=== PATIENT | male | born 1960 | race Hispanic/Latino ===

== ENCOUNTER 2020-07-28 17:00 | Emergency (ER) | payer MEDICARE, SELFPAY ==
[2020-07-28 17:09] VITALS: BP 168/80; PULSE 113; RESP 16; TEMP 38.7; O2SAT 99
--- NOTE | 2020-07-28 17:23 | ED.GENADULT ---
HPI - General Adult General Chief complaint: Ear Stated complaint: ear pain Time Seen by Provider: 07/28/20 17:23 Source: patient and RN notes reviewed Mode of arrival: ambulatory Limitations: no limitations History of Present Illness HPI narrative: 59-year-old male presents with complaints of bilateral otalgia for the past 4 days. Dwight says he was outside playing over the weekend and air went into his ears and pain has increased over the pass 24 hours. Naproxen at 11 am this morning with little to no relief. Denies any drainage. Denies trouble hearing. Denies URI symptoms, No high fevers or chills. Denies injury to the ear. Denies nausea, vomiting, tinnitus, and dizziness. No facial swelling. No neck swelling. The patient reports he have not been diagnosed with COVID-19. The patient reports he is not waiting for the results of a COVID-19 lab test. The patient reports he do not have weakness or fatigue. The patient reports he do not have a new or worsening cough or shortness of breath. Denies chest pain. The patient reports he do not have any rhinorrhea, congestion, loss of taste, sore throat, and diarrhea. Tolerating po intake well. Denies recent traveling. Denies concerns for COVID-19 or exposures been home with limited outdoor exposure except for essential household needs and return home. At this time, patient is not suspected of having COVID-19. Some parts of this dictation were generated by voice recognition software and may contain typographical and/or grammatical inaccuracies. Related Data Home Medications Medication Instructions Recorded Confirmed lisinopril 10 mg PO DAILY 07/28/20 07/28/20 metformin 500 mg PO BID 07/28/20 07/28/20 omeprazole 20 mg PO DAILY 07/28/20 07/28/20 pravastatin 20 mg PO DAILY 07/28/20 07/28/20 Allergies Allergy/AdvReac Type Severity Reaction Status Date / Time No Known Allergies Allergy Unknown Verified 07/28/20 17:18 Review of Systems Review of Systems: Narrative: CONSTITUTIONAL: Denies fever, chills, sweats. EYES: Denies visual changes, redness, discharge. ENT: Denies rhinorrhea, congestion, sore throat. Complains of bilateral otalgia. CARDIOVASCULAR: Denies chest pain, palpitations, edema. RESPIRATORY: Denies dyspnea, wheezing, cough. GASTROINTESTINAL: Denies abdominal pain, nausea, vomiting, diarrhea. SKIN: Denies rash or itching. MUSCULOSKELETAL: Denies acute back pain, joint pain, or myalgia. NEUROLOGIC: Denies numbness or focal weakness. PSYCHIATRIC: Denies anxiety or depression. All systems reviewed & are unremarkable except as noted in HPI and below. [facility] Past Medical History Medical History (Updated 07/29/20 @ 00:00 by Sydnee Dajessica) Diabetes High cholesterol Hypertension Surgical History Surgical History (Updated 07/28/20 @ 17:38 by ADAM Lazaro) History of cholecystectomy History of intestinal surgery Large intestinal Family History Family History (Updated 07/28/20 @ 17:39 by ADAM Lazaro) Father , Related to cardiovascular accident Cerebrovascular accident Mother Cancer Social History Social History (Updated 07/28/20 @ 17:40 by ADAM Lazaro) Smoking status: Never smoker Tobacco type: cigarettes Second hand tobacco smoke exposure: No Alcohol intake: never Substance use: never Living arrangements: with family Occupation/Education: other Additional occupation/education comments: Disable Gender identity (if verbalized by the patient): Male Sexual Orientation (if Verbalized by the Patient): Straight or Heterosexual Comments At time of signature, agree with nurse past medical, surgical, social, and family history. There is no relevant family history pertinent to the presenting complaint. Exam Narrative: Exam Narrative: GENERAL: This is a well-nourished, well-developed patient, in no apparent distress. Talks in full sentences ans ambulates
== END 2020-07-28 18:21 | disposition home or self-care (01) ==
PROVIDERS: Emergency Provider Nurse Practitioner Family
DX: K02.9 Dental caries, unspecified (principal); K04.7 Periapical abscess without sinus; E11.9 Type 2 diabetes mellitus without complications; E78.00 Pure hypercholesterolemia, unspecified; I10 Essential (primary) hypertension
CPT/HCPCS: 99213; G0463

== ENCOUNTER 2020-08-01 16:06 | Inpatient (IN) | payer MEDICARE, SELFPAY ==
--- NOTE | ~2020-08-01 | XR_ITS ---
EXAMINATION: XR chest 1V portable DATE: 08/05/2020 13:09 INDICATION: Pneumonia. Increasing oxygen requirements. TECHNIQUE: A single frontal view of the chest was obtained. COMPARISON: Chest 2 views 08/01/2020, CT abdomen and pelvis 01/20/17 FINDINGS: There are mild airspace opacities in right lower lung zone and left midlung zone No pleural effusion or pneumothorax. The heart size is normal. Surgical clips in the right upper quadrant are l ikely from cholecystectomy. IMPRESSION: 1. Mild airspace opacities in right lower lung zone and left midlung zone with improvement on the lef t, consistent with atelectasis versus pneumonia. Reviewed, dictated and finalized at location A. IMPRESSION: 1. Mild airspace opacities in right lower lung zone and left midlung zone with improvement on the left, consistent with atelectasis versus pneumonia.
--- NOTE | ~2020-08-01 | XR_ITS ---
EXAMINATION: XR chest 1V portable DATE: 08/08/2020 08:49 INDICATION: COVID-19 pneumonia. TECHNIQUE: A single frontal view of the chest was obtained. COMPARISON: Chest single view 08/05/2020 FINDINGS: There are patchy airspace opacities in all lung zones bilaterally with a peripheral predomi nance, left worse than right. No pleural effusion or pneumothorax. The heart size is normal. Surgical clips in the right upper quadrant are likely from cholecystectomy. IMPRESSION: 1. Worsened diffuse lung disease, consistent with pneumonia. Reviewed, dictated and finalized at location A.
--- NOTE | ~2020-08-01 | XR_ITS ---
EXAMINATION: XR chest 1V portable INDICATION: COVID pneumonia TECHNIQUE: Portable AP chest at 0626 hours COMPARISON: 08/08/2020 FINDINGS: Diffuse patchy airspace opacities persist without significant change. There is no pleural e ffusion or pneumothorax. The cardiomediastinal silhouette is normal. Surgical clips in the right uppe r quadrant are likely from prior cholecystectomy. IMPRESSION: 1. Diffuse lung disease, consistent with pneumonia and/or pulmonary edema and/or acute respiratory di stress syndrome (ARDS). Reviewed, dictated and finalized at location A. LE ENGINEER IMPRESSION: 1. Diffuse lung disease, consistent with pneumonia and/or pulmonary edema and/o r acute respiratory distress syndrome (ARDS).
--- NOTE | ~2020-08-01 | XR_ITS ---
EXAMINATION: XR chest 2V EXAM DATE: 08/01/2020 17:21 INDICATION: Fever, tooth infection. Shortness of breath. TECHNIQUE: Frontal and lateral projections of the chest obtained and reviewed. There is no prior elizabeth dy for comparison. FINDINGS: Some patchy left perihilar and right infrahilar airspace disease which could be atelectasi s, pneumonia, or possibly acute lung injury from SARS-CoV-2. The cardiomediastinal silhouette is prominent but magnified on this AP technique. There is no pneumot horax suspected. There are no pleural effusions. There are cholecystectomy clips. There are mild bony degenerative changes. IMPRESSION: 1. Patchy bilateral airspace disease could be atelectasis and/or infection. Reviewed, dictated and finalized at location A.
[2020-08-01 16:32] VITALS: BP 124/74; PULSE 129; RESP 30; TEMP 39.6; O2SAT 93
--- NOTE | 2020-08-01 16:51 | ED.FEVER ---
HPI - Fever General Chief Complaint: Fever Stated Complaint: FEVER ON ABX FOR TOOTH INFECTION Time Seen by Provider: 08/01/20 16:30 Source: patient Mode of arrival: ambulatory Limitations: no limitations History of Present Illness MD elicited complaint: fever and malaise Exacerbating factors: nothing Relieving factors: nothing Associated symptoms: cough and shortness of breath Related Data Home Medications Medication Instructions Recorded Confirmed lisinopril 10 mg PO DAILY 07/28/20 07/28/20 metformin 500 mg PO BID 07/28/20 07/28/20 omeprazole 20 mg PO DAILY 07/28/20 07/28/20 pravastatin 20 mg PO DAILY 07/28/20 07/28/20 Allergies Allergy/AdvReac Type Severity Reaction Status Date / Time No Known Allergies Allergy Unknown Verified 08/01/20 16:40 Review of Systems Review of Systems: All systems reviewed & are unremarkable except as noted in HPI and below Constitutional: Constitutional: Denies body ache(s), Denies excessive sweating, Denies fatigue, Denies headache(s), Denies lethargy, Denies malaise, Denies weakness and Denies weight loss Eyes: Eyes: Denies blurry vision, Denies change in vision and Denies loss of vision ENT: Denies dizziness, Denies ear discharge, Denies headache(s), Denies lip swelling, Denies epistaxis, Denies nasal congestion, Denies neck pain, Denies throat swelling and Denies tongue swelling Cardiovascular: Cardiovascular: Denies chest pain, Denies chest pain at rest, Denies chest pain with activity, Denies diaphoresis, Denies rapid heart rate, Denies edema, Denies irregular heart rhythm, Denies lightheadedness, Denies palpitations and Denies dyspnea on exertion Respiratory: Respiratory: Denies hemoptysis Gastrointestinal: Gastrointestinal: Denies abdominal pain, Denies melena, Denies hematochezia, Denies diarrhea, Denies nausea, Denies vomiting and Denies hematemesis Musculoskeletal: Musculoskeletal: Denies abnormal gait, Denies deformity, Denies joint swelling, Denies limited range of motion, Denies neck pain and Denies numbness Neurologic: Denies Abnormal speech present, Denies abnormal gait, Denies confusion, Denies dizziness, Denies headache(s), Denies focal weakness, Denies loss of vision, Denies numbness, Denies Other visual disturbances, Denies Sensory deficit (Neuro) and Denies weakness Psychiatric: Psychiatric: Denies confusion, Denies depression, Denies auditory hallucinations, Denies homicidal ideation and Denies suicidal ideation Endocrine: Endocrine: Denies cold intolerance, Denies excessive sweating, Denies fatigue, Denies heat intolerance and Denies palpitations Hematologic/Lymphatic: Hematologic/Lymphatic: Denies easy bleeding and Denies easy bruising Allergic/Immunologic: Allergic/Immunologic: Denies lip swelling, Denies throat swelling and Denies tongue swelling PMFSH Past Medical History Medical History (Updated 08/01/20 @ 18:01 by Tirso Cleaning MD) Diabetes High cholesterol Hypertension Surgical History Surgical History (Updated 07/28/20 @ 17:38 by ADAM Lazaro) History of cholecystectomy History of intestinal surgery Large intestinal Family History Family History (Updated 07/28/20 @ 17:39 by ADAM Lazaro) Father , Related to cardiovascular accident Cerebrovascular accident Mother Cancer Social History Social History (Updated 07/28/20 @ 17:40 by ADAM Lazaro) Smoking status: Never smoker Tobacco type: cigarettes Second hand tobacco smoke exposure: No Alcohol intake: never Substance use: never Additional occupation/education comments: Disable Gender identity (if verbalized by the patient): Male Exam Const: General: cooperative, healthy appearing, comfortable, no acute distress, well developed, alert and awake; No confusion Orientation/consciousness: oriented to person, oriented to place, oriented to time, patient oriented x3 and No confusion Limitations: no limitati
[2020-08-01 17:10] LABS: Basophils Percent Auto 0.1 % (0.2-1.2); Hematocrit 38.7 % (42.0-52.0); Hemoglobin 13.2 g/dL (14.0-18.0); Immature Granulocyte Absolute 0.04 K/mm3 (0.00-0.031); Immature Granulocyte Percent A 0.6 % (0-0.5); Lymphocytes Absolute Auto 0.67 K/mm3 (0.9-3.2); Lymphocytes Percent Auto 9.2 % (18.3-44.2); Mean Corpuscular HGB Conc 34.1 g/dl (32-36); Mean Corpuscular Hemoglobin 28.9 pg (26-34); Mean Corpuscular Volume 84.7 fl (80-100); Mean Platelet Volume 10.4 fl (7.4-10.4); Monocytes Absolute Auto 0.4 K/mm3 (0.1-0.6); Monocytes Percent Auto 5.1 % (2.6-8.5); Neutrophils Absolute Auto 6.2 K/mm3 (1.3-6.7); Platelet Count Result 275 k/mm3 (150-375); Red Blood Count 4.57 M/mm3 (4.6-6.20); Red Cell Distribution Width 12.9 % (11.5-14.5); White Blood Count 7.3 K/mm3 (4.5-10.0)
[2020-08-01 17:19] LABS: Prothrombin Time 12.9 Seconds (11.1-14.7)
[2020-08-01 17:20] LABS: Partial Thromboplastin Time 35.4 SECONDS (22.3-36.8)
[2020-08-01 17:22] LABS: Lactic Acid Reflex 2.6 mmol/L (0.7-2.1)
[2020-08-01 17:26] LABS: Alanine Aminotransferase 75 U/L (4-50); Albumin Level 3.6 g/dL (3.5-5.1); Alkaline Phosphatase 57 U/L (38-126); Anion Gap 12 mmol/L (8-16); Aspartate Amino Transferase 80 U/L (17-59); Bilirubin,Total 0.7 mg/dL (0.2-1.3); Blood Urea Nitrogen 10 mg/dL (9-20); Calcium 8.3 mg/dL (8.4-10.2); Carbon Dioxide 24 mmol/L (22-30); Chloride 94 mmol/L (98-107); Estimated CRCL calculation 88 ml/min; Estimated Glomerular Filt Rate > 60; Glucose 226 mg/dL (75-110); Potassium 4.1 mmol/L (3.4-5.0); Sodium 130 mmol/L (137-145)
[2020-08-01] MEDS: SODIUM CHLORIDE 0.9% IV 2,300 ML/1,000 ML BAG 999 ML IV CONT ×3 (17:30→22:37)
[2020-08-01 17:37] LABS: CRP 15.1 mg/dL (<1.0)
[2020-08-01 18:49] VITALS: PULSE 103; RESP 34; O2SAT 100
--- NOTE | 2020-08-01 19:09 | PC.NURSE ---
Called to give report on pt. Was told by Bettina that she doesnt know who is getting this pt and she will have someone call me back.
[2020-08-01 19:20] LABS: Add Urine Microscopic? YES; Appearance Urine Clear (Clear); Bacteria Urine Trace /hpf; Bilirubin Urine Negative (Negative); Blood Urine Negative (Negative); Color Urine Straw (Yellow); Glucose Urine UA 3+ mg/dL (Negative); Ketones Urine Negative (Negative); Leukocyte Esterase Ur Negative LEU/UL (Negative); Nitrate Urine Negative (Negative); Protein Urine Negative (Negative); RBC Urine 0-2 /hpf (0-2); Specific Grav Ur 1.005 (1.001-1.035); Urobilinogen Urine Negative mg/dL (<2.0); WBC Urine 0-3 /hpf
[2020-08-01 19:30] VITALS: BP 128/65; PULSE 101; RESP 18; TEMP 37.3; O2SAT 95
[2020-08-01 19:38] VITALS: PULSE 101; RESP 24; TEMP 36.9; O2SAT 96
[2020-08-01 19:39] VITALS: BP 148/91; PULSE 102; RESP 24; TEMP 36.9; O2SAT 95
[2020-08-01 20:08] LABS: Reflex Lactic Acid Yes or No Add Lactic
[2020-08-01 20:43] LABS: Lactic Acid 1.2 mmol/L (0.7-2.1)
--- NOTE | 2020-08-01 21:08 | PC.NURSE ---
This patient, Dwight Kincaid, was admitted to [facility] Surg Room 329-01. Patient/family oriented to hospital policies and general routines including ID bracelet, bed and alarms, visiting hours, pain management, procedures, bathroom and other care routines, personal items, smoking policy, room service/diet, and visiting hours. Information on how to activate the Rapid Response Team has been discussed. Patient/Family are encouraged to report perceived risks to care and to ask questions if they do not understand what they are told or what they should do.
[2020-08-01 22:53] VITALS: BMI 27.1
[2020-08-02] VITALS (13 sets, daily range): BP systolic 108–151; BP diastolic 65–85; PULSE 88–109; RESP 16–20; TEMP 36.3–38.8; O2SAT 91–95
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
[2020-08-02] MEDS: PANTOPRAZOLE 40 MG TABLET PO (08:00)
[2020-08-02] MEDS: DEXAMETHASONE SOD PHOS INJ 4 MG/ML VIAL 6 MG IV PUSH (08:00)
[2020-08-02] MEDS: lisinopriL 10 MG TABLET PO (08:00)
[2020-08-02] MEDS: ENOXAPARIN 40 MG/0.4 ML SYRINGE SUB-Q (08:00)
[2020-08-02 08:58] LABS: Basophils Percent Auto 0.2 % (0.2-1.2); Hematocrit 43.2 % (42.0-52.0); Hemoglobin 13.6 g/dL (14.0-18.0); Immature Granulocyte Absolute 0.06 K/mm3 (0.00-0.031); Immature Granulocyte Percent A 0.7 % (0-0.5); Lymphocytes Absolute Auto 1.73 K/mm3 (0.9-3.2); Lymphocytes Percent Auto 20.1 % (18.3-44.2); Mean Corpuscular HGB Conc 31.5 g/dl (32-36); Mean Corpuscular Hemoglobin 28.6 pg (26-34); Mean Corpuscular Volume 90.8 fl (80-100); Monocytes Absolute Auto 0.3 K/mm3 (0.1-0.6); Monocytes Percent Auto 3.9 % (2.6-8.5); Neutrophils Absolute Auto 6.5 K/mm3 (1.3-6.7); Neutrophils Percent Auto 75.1 % (45.5-73.1); Platelet Count Result 253 k/mm3 (150-375); Red Blood Count 4.76 M/mm3 (4.6-6.20); Red Cell Distribution Width 13.2 % (11.5-14.5); White Blood Count 8.6 K/mm3 (4.5-10.0)
[2020-08-02 09:11] LABS: Alanine Aminotransferase 71 U/L (4-50); Albumin Level 3.7 g/dL (3.5-5.1); Alkaline Phosphatase 57 U/L (38-126); Anion Gap 11 mmol/L (8-16); Aspartate Amino Transferase 65 U/L (17-59); Bilirubin,Total 0.8 mg/dL (0.2-1.3); Blood Urea Nitrogen 8 mg/dL (9-20); Calcium 8.2 mg/dL (8.4-10.2); Carbon Dioxide 22 mmol/L (22-30); Chloride 104 mmol/L (98-107); Estimated CRCL calculation 102 ml/min; Estimated Glomerular Filt Rate > 60; Glucose 142 mg/dL (75-110); Sodium 137 mmol/L (137-145)
[2020-08-02 09:13] LABS: Glucose Point of Care 133 (65-105)
[2020-08-02 09:31] LABS: Magnesium 2.2 mg/dL (1.6-2.3)
[2020-08-02 12:51] LABS: Glucose Point of Care 202 (65-105)
[2020-08-02] MEDS: INSULIN ASPART (*BKC) 100 UNITS/ML SUB-Q ×2 (12:55→18:00)
[2020-08-02 13:34] LABS: SARS-CoV-2 RNA PCR Positive
--- NOTE | 2020-08-02 13:57 | PM.IMPN ---
Progress Note: A&P Assessment and Plan (1) Pneumonia due to COVID-19 virus: Code(s): U07.1 - COVID-19; J12.89 - Other viral pneumonia Status: Acute Assessment and Plan: The patient presented to the emergency with fever for 5 days and was found to be hypoxic and requiring 2 liters per nasal cannula. CXR demonstrated patchy bilateral airspace disease. COVID-19 testing was performed and positive. Continue isolation precations. Continue IV dexamethasone (day 1 - initiated 08/02). Plan to begin remdesivir (day 1 - initiated 08/02). Continue supportive care with albuterol per MDI, incentive spirometer, guaifenesin, analgesics and antipyretics as needed. Continue supplemental oxygen as needed to achieve a pulse oxygen saturation of 90%. Wean as tolerated. Continue to trend acute phase reactants. (2) Hypertension: Code(s): I10 - Essential (primary) hypertension Status: Chronic Assessment and Plan: Blood pressures are reasonably controlled. He had a few isolated elevated readings. Most recent BP is 131/75. Continue lisinopril. Continue to monitor. (3) Diabetes: Code(s): E11.9 - Type 2 diabetes mellitus without complications Status: Chronic Assessment and Plan: Blood sugars are reasonably controlled. Most recent was 202, mildly above target. Check hemoglobin A1c. Continue ACHS glucose monitoring, sliding scale insulin, and hypoglycemia protocol. Continue to monitor. (4) Tooth abscess: Code(s): K04.7 - Periapical abscess without sinus Status: Acute Assessment and Plan: COVID-19 testing is positive so IV antibiotics that were initiated to treat suspected CAP will be discontinued. Plan to resume penicillin V. This was initiated 07/28. (5) Hyperlipidemia: Code(s): E78.5 - Hyperlipidemia, unspecified Status: Acute Assessment and Plan: LFTs are very mildly elevated, likely due to COVID-19. Will hold pravastatin for now given LFT elevation. Subjective Date/time seen: 08/02/20 13:57 Mr. Kincaid is a 59 y.o. male with PMH significant for hypertension T2DM, GERD, and HLD who is seen in follow-up for COVID-19 pneumonia. He reports he feels a little better today. He reports mild dyspnea. He notes infrequent cough productive of yellow sputum. He still has his sense of taste and smell. His appetite is decent. He reports chills/subjective fever overnight. He has had fever up to 101.6F today. He denies chest pain and pleuritic pain. He denies palpitations. He is not having any diarrhea or constipation. He denies headache, dizziness, and lightheadedness. Review of Systems Review of Systems: All systems reviewed & are unremarkable except as noted in HPI and below Exam Narrative: Exam Narrative: General: Very pleasant, well-developed and well-nourished 59 y.o. male sitting at the bedside eating lunch in no acute distress. Head: Normocephalic and atraumatic. Sclerae anicteric. EOMI. Oral mucosa moist. Neck: Supple. Cardiac: Regular rate and rhythm. S1 and S2 normal. Lungs: On 2 liters per nasal cannula with oxygen saturation of 91%. No increased work of breathing. He is speaking in full sentences without distress. Lungs with rales at the bases, worse on the right. Abdomen: Bowel sounds are normoactive. Abdomen is soft, non-distended, and non-tender. Extremities: No lower extremity edema or calf tenderness. DP and PT 2+. Neurological: Alert. No focal neurological deficits noted to casual conversation. Speech is clear. Skin:Warm and dry. Psychiatric: Judgment and insight intact. Pleasant mood and appropriate affect. Objective Data Vital Signs Vital Signs: Vital Signs - 24 hr 08/01/20 16:32 08/01/20 18:49 08/01/20 19:30 Temperature 103.2 F H 99.1 F Pulse Rate 129 H 103 H 101 H Respiratory Rate 30 H 34 H 18 Blood Pressure 124/74 128/65 Pulse Oximetry 93 100 95 08/01/20 19:38 08/01/20 19:39 08/02/20 00:00 Temperature 98.
[2020-08-02] MEDS: REMDESIVIR 200 MG/NS 250 ML 200 MG/250 ML BAG 250 MG IVPB (17:05)
[2020-08-02] MEDS: PENICILLIN V POTASSIUM 250 MG TABLET 500 MG PO ×2 (18:06→23:19)
--- NOTE | 2020-08-02 18:11 | PC.NURSE ---
Addendum entered by Ingrid Negrete RN 08/02/20 18:40: PT HAD CALLED AND SPOKE WITH FAMILY ABOUT HIM BEING + for covid Original Note: 1810 JOSHUA Singh SPOKE TO PT IN [place] AND TALKED ABOUT COVID RN ALSO ANEWERED QUESTION ABOUT COVID AND PT'S BLOOD SUGAR RAISING.
[2020-08-02 19:09] LABS: Glucose Point of Care 223 (65-105)
[2020-08-02] MEDS: ACETAMINOPHEN 325 MG TABLET 650 MG PO (20:52)
[2020-08-02] MEDS: guaiFENesin 12 HR 600 MG TABCR 1200 MG PO (21:00)
[2020-08-02 21:15] LABS: Glucose Point of Care 261 (65-105)
--- NOTE | 2020-08-02 22:59 | PC.NURSE ---
Nurse Priscila Booker assumed care of patient at 1900 on 08/02/2020. All charting from [id number] on 08/02/2020 was mistakenly charted under a different user, Ingrid Negrete. This charting was meant to be under user, Priscila Booker.
[2020-08-03] VITALS (10 sets, daily range): BP systolic 121–145; BP diastolic 67–89; PULSE 77–96; RESP 14–24; TEMP 36.6–36.9; O2SAT 83–96
[2020-08-03] MEDS: PENICILLIN V POTASSIUM 250 MG TABLET 500 MG PO ×4 (06:06→23:54)
[2020-08-03 06:23] LABS: Basophils Percent Auto 0.1 % (0.2-1.2); Hematocrit 36.2 % (42.0-52.0); Hemoglobin 12.1 g/dL (14.0-18.0); Immature Granulocyte Absolute 0.07 K/mm3 (0.00-0.031); Immature Granulocyte Percent A 0.8 % (0-0.5); Lymphocytes Absolute Auto 0.97 K/mm3 (0.9-3.2); Lymphocytes Percent Auto 11.4 % (18.3-44.2); Mean Corpuscular HGB Conc 33.4 g/dl (32-36); Mean Corpuscular Hemoglobin 28.7 pg (26-34); Mean Corpuscular Volume 85.8 fl (80-100); Mean Platelet Volume 9.9 fl (7.4-10.4); Monocytes Absolute Auto 0.4 K/mm3 (0.1-0.6); Monocytes Percent Auto 4.8 % (2.6-8.5); Neutrophils Absolute Auto 7.1 K/mm3 (1.3-6.7); Neutrophils Percent Auto 82.9 % (45.5-73.1); Platelet Count Result 295 k/mm3 (150-375); Red Blood Count 4.22 M/mm3 (4.6-6.20); Red Cell Distribution Width 13.2 % (11.5-14.5); White Blood Count 8.5 K/mm3 (4.5-10.0)
[2020-08-03 06:52] LABS: Hemoglobin A1C 6.9 % (<5.7)
[2020-08-03 07:14] LABS: Alanine Aminotransferase 58 U/L (4-50); Albumin Level 3.2 g/dL (3.5-5.1); Alkaline Phosphatase 49 U/L (38-126); Anion Gap 8 mmol/L (8-16); Aspartate Amino Transferase 53 U/L (17-59); Bilirubin,Total 0.6 mg/dL (0.2-1.3); Blood Urea Nitrogen 10 mg/dL (9-20); CRP 21.4 mg/dL (<1.0); Calcium 8.3 mg/dL (8.4-10.2); Carbon Dioxide 25 mmol/L (22-30); Chloride 102 mmol/L (98-107); Estimated CRCL calculation 88 ml/min; Estimated Glomerular Filt Rate > 60; Glucose 170 mg/dL (75-110); Lactate Dehydrogenase 1298 U/L (313-618); Magnesium 2.3 mg/dL (1.6-2.3); Potassium 3.8 mmol/L (3.4-5.0); Sodium 135 mmol/L (137-145)
[2020-08-03] MEDS: ENOXAPARIN 40 MG/0.4 ML SYRINGE SUB-Q ×2 (07:51→20:16)
[2020-08-03] MEDS: DEXAMETHASONE SOD PHOS INJ 4 MG/ML VIAL 6 MG IV PUSH (07:51)
[2020-08-03] MEDS: lisinopriL 10 MG TABLET PO (07:53)
[2020-08-03] MEDS: PANTOPRAZOLE 40 MG TABLET PO (07:53)
[2020-08-03] MEDS: guaiFENesin 12 HR 600 MG TABCR 1200 MG PO ×2 (07:55→20:16)
[2020-08-03] MEDS: INSULIN ASPART (*BKC) 100 UNITS/ML SUB-Q ×2 (12:42→17:25)
--- NOTE | 2020-08-03 14:05 | PM.IMPN ---
Progress Note: A&P Assessment and Plan (1) Pneumonia due to COVID-19 virus: Code(s): U07.1 - COVID-19; J12.89 - Other viral pneumonia Status: Acute Assessment and Plan: The patient presented to the emergency with fever for 5 days and was found to be hypoxic, requiring 2 liters per nasal cannula initially. CXR demonstrated patchy bilateral airspace disease. COVID-19 testing was performed and positive. Continue isolation precautions. Continue IV dexamethasone (day 2 - initiated 08/02). Continue remdesivir (day 2 - initiated 08/02). Continue supportive care with albuterol per MDI, incentive spirometer, guaifenesin, analgesics and antipyretics as needed. Continue supplemental oxygen as needed to achieve a pulse oxygen saturation of 90%. Wean as tolerated. Continue to trend acute phase reactants. Oxygen requirements have increased to 6 liters per nasal cannula. Plan to place on continuous pulse oximetry for closer monitoring. He is comfortable and in no acute respiratory distress. Acute phase reactants are elevated - CRP 21.4, LDH 1298, ferritin 417. Will continue to trend. (2) Acute respiratory failure with hypoxia: Code(s): J96.01 - Acute respiratory failure with hypoxia Status: Acute Assessment and Plan: Secondary to COVID-19 pneumonia. Plan above. Continue supplemental oxygen as needed to maintain SpO2 >90%. Wean as tolerated. (3) Hypertension: Code(s): I10 - Essential (primary) hypertension Status: Chronic Assessment and Plan: Blood pressures are reasonably controlled. Most recent BP is 121/67. Continue lisinopril. Continue to monitor. (4) Diabetes: Code(s): E11.9 - Type 2 diabetes mellitus without complications Status: Chronic Assessment and Plan: Blood sugars are above target, likely due to steroid use. Hemoglobin A1c was 6.9%. Add 10 units lantus qHS for better glycemic control. Continue ACHS glucose monitoring, sliding scale insulin, and hypoglycemia protocol. Continue to monitor. (5) Tooth abscess: Code(s): K04.7 - Periapical abscess without sinus Status: Acute Assessment and Plan: COVID-19 testing is positive so IV antibiotics that were initiated to treat suspected CAP will be discontinued. Plan to resume penicillin V. This was initiated 07/28. (6) Hyperlipidemia: Code(s): E78.5 - Hyperlipidemia, unspecified Status: Acute Assessment and Plan: LFTs have improved today and AST is only mildly elevated at 58. Resume pravastatin. Subjective Date/time seen: 08/03/20 14:05 Mr. Kincaid is a 59 y.o. male with PMH significant for hypertension T2DM, GERD, and HLD who is seen in follow-up for COVID-19 pneumonia. He reported that he noticed increasing shortness of breath and called the nurse. Oxygen saturation was 83% and oxygen was increased to 6 liters. He reports continued cough productive of yellow sputum. He is clearing more phlegm today. He is not having any chest pain. He had a regular bowel movement today. He is tolerating his diet without nausea or vomiting. He denies subjective fever and chills. He denies calf pain and leg swelling. He denies dizziness, lightheadedness, and headaches. Review of Systems Review of Systems: All systems reviewed & are unremarkable except as noted in HPI and below Exam Narrative: Exam Narrative: General: Pleasant, well-developed and well-nourished 59 y.o. male sitting at the side of the bed in preparation to eat lunch. He is seen with help from interpretation services on the iPad and his is on face time during the call. All questions are answered. Head: Normocephalic and atraumatic. Sclerae anicteric. EOMI. Oral mucosa moist. Neck: Supple. Cardiac: Regular rate and rhythm. S1 and S2 normal. Lungs: Tolerating 6 liters per nasal cannula with oxygen saturation of 97% and no increased work of breathing. He is speaking in full sentences without distress. [place]
[2020-08-03] MEDS: PRAVASTATIN SODIUM 20 MG TABLET PO (14:41)
[2020-08-03 14:47] LABS: Glucose Point of Care 284 (65-105)
[2020-08-03] MEDS: REMDESIVIR 100 MG/NS 250 ML 100 MG/250 ML BAG 250 MG IVPB (15:35)
[2020-08-03 17:36] LABS: Glucose Point of Care 264 (65-105)
[2020-08-03] MEDS: INSULIN GLARGINE (*BKC) 100 UNITS/ML 10 UNITS SUB-Q (20:15)
[2020-08-03 20:25] LABS: Glucose Point of Care 281 (65-105)
[2020-08-04] VITALS: BP 150/80; PULSE 82; RESP 20; TEMP 36.4; O2SAT 92
[2020-08-04 04:00] VITALS: BP 137/65; PULSE 69; RESP 20; TEMP 36.4; O2SAT 95
[2020-08-04] MEDS: PENICILLIN V POTASSIUM 250 MG TABLET 500 MG PO ×3 (05:54→17:42)
[2020-08-04 06:16] LABS: Basophils Percent Auto 0.1 % (0.2-1.2); Hematocrit 36.2 % (42.0-52.0); Hemoglobin 12.1 g/dL (14.0-18.0); Immature Granulocyte Absolute 0.09 K/mm3 (0.00-0.031); Immature Granulocyte Percent A 0.9 % (0-0.5); Lymphocytes Absolute Auto 1.26 K/mm3 (0.9-3.2); Lymphocytes Percent Auto 12.4 % (18.3-44.2); Mean Corpuscular HGB Conc 33.4 g/dl (32-36); Mean Corpuscular Hemoglobin 28.5 pg (26-34); Mean Corpuscular Volume 85.4 fl (80-100); Mean Platelet Volume 9.9 fl (7.4-10.4); Monocytes Absolute Auto 0.7 K/mm3 (0.1-0.6); Monocytes Percent Auto 6.9 % (2.6-8.5); Neutrophils Absolute Auto 8.1 K/mm3 (1.3-6.7); Neutrophils Percent Auto 79.7 % (45.5-73.1); Platelet Count Result 357 k/mm3 (150-375); Red Blood Count 4.24 M/mm3 (4.6-6.20); Red Cell Distribution Width 13.3 % (11.5-14.5); White Blood Count 10.2 K/mm3 (4.5-10.0)
[2020-08-04 06:34] LABS: Alanine Aminotransferase 50 U/L (4-50); Albumin Level 3.1 g/dL (3.5-5.1); Alkaline Phosphatase 47 U/L (38-126); Anion Gap 7 mmol/L (8-16); Aspartate Amino Transferase 41 U/L (17-59); Bilirubin,Total 0.5 mg/dL (0.2-1.3); Blood Urea Nitrogen 13 mg/dL (9-20); CRP 7.2 mg/dL (<1.0); Calcium 8.2 mg/dL (8.4-10.2); Carbon Dioxide 28 mmol/L (22-30); Chloride 101 mmol/L (98-107); Creatine Kinase 155 U/L (55-170); Estimated CRCL calculation 88 ml/min; Estimated Glomerular Filt Rate > 60; Glucose 186 mg/dL (75-110); Lactate Dehydrogenase 1284 U/L (313-618); Magnesium 2.3 mg/dL (1.6-2.3); Potassium 3.9 mmol/L (3.4-5.0); Sodium 136 mmol/L (137-145)
[2020-08-04] MEDS: DEXAMETHASONE SOD PHOS INJ 4 MG/ML VIAL 6 MG IV PUSH (07:49)
[2020-08-04] MEDS: ENOXAPARIN 40 MG/0.4 ML SYRINGE SUB-Q ×2 (07:50→20:04)
[2020-08-04] MEDS: guaiFENesin 12 HR 600 MG TABCR 1200 MG PO ×2 (07:50→20:05)
[2020-08-04] MEDS: PANTOPRAZOLE 40 MG TABLET PO (07:51)
[2020-08-04] MEDS: PRAVASTATIN SODIUM 20 MG TABLET PO (07:51)
[2020-08-04] MEDS: lisinopriL 10 MG TABLET PO (07:51)
[2020-08-04 08:00] VITALS: BP 142/88; PULSE 69; PULSE 81; RESP 20; TEMP 36.4; O2SAT 95
[2020-08-04 12:00] VITALS: BP 120/62; PULSE 77; RESP 22; TEMP 36.4; O2SAT 95; O2SAT 96
[2020-08-04] MEDS: INSULIN ASPART (*BKC) 100 UNITS/ML SUB-Q ×2 (12:25→17:41)
[2020-08-04 12:29] LABS: Glucose Point of Care 270 (65-105)
--- NOTE | 2020-08-04 15:57 | PM.IMPN ---
Progress Note: A&P Assessment and Plan (1) Pneumonia due to COVID-19 virus: Code(s): U07.1 - COVID-19; J12.89 - Other viral pneumonia Status: Acute Assessment and Plan: The patient presented to the emergency with fever for 5 days and was found to be hypoxic, requiring 2 liters per nasal cannula initially. CXR demonstrated patchy bilateral airspace disease. COVID-19 testing was performed and positive. Continue isolation precautions. Continue IV dexamethasone (day 3 - initiated 08/02). Continue remdesivir (day 3 - initiated 08/02). Continue supportive care with albuterol per MDI, incentive spirometer, guaifenesin, analgesics and antipyretics as needed. Continue supplemental oxygen as needed to achieve a pulse oxygen saturation of 90%. Wean as tolerated. Continue to trend acute phase reactants. Oxygen requirements have increased to 8 liters per nasal cannula. He is tolerating this with oxygen saturation in the low 90s. Continue continuous pulse oximetry for closer monitoring. CRP and LDH have improved. Ferritin is mildly elevated. Continue to trend. (2) Acute respiratory failure with hypoxia: Code(s): J96.01 - Acute respiratory failure with hypoxia Status: Acute Assessment and Plan: Secondary to COVID-19 pneumonia. Plan above. Continue supplemental oxygen as needed to maintain SpO2 >90%. Wean as tolerated. (3) Hypertension: Code(s): I10 - Essential (primary) hypertension Status: Chronic Assessment and Plan: Blood pressures are reasonably controlled. Most recent BP is 120/62. Continue lisinopril. Continue to monitor. (4) Diabetes: Code(s): E11.9 - Type 2 diabetes mellitus without complications Status: Chronic Assessment and Plan: Blood sugars are above target, likely due to steroid use. Hemoglobin A1c was 6.9%. 10 units of lantus qHS was added 08/03 for better glycemic control. Blood sugars are still elevated, will increase to 15 units. Continue ACHS glucose monitoring, sliding scale insulin, and hypoglycemia protocol. Continue to monitor. (5) Tooth abscess: Code(s): K04.7 - Periapical abscess without sinus Status: Acute Assessment and Plan: COVID-19 testing is positive so IV antibiotics that were initiated to treat suspected CAP were discontinued. Penicillin V was resumed. This was initiated 07/28. (6) Hyperlipidemia: Code(s): E78.5 - Hyperlipidemia, unspecified Status: Acute Assessment and Plan: LFTs have normalized. Continue pravastatin. Additional Plan Check orthostatic blood pressure due to weakness with standing. Monitor oxygen saturations closely with activity on continuous pulse ox monitoring to ensure he is not desaturating. Subjective Date/time seen: 08/04/20 15:57 Mr. Kincaid is a 59 y.o. male with PMH significant for hypertension T2DM, GERD, and HLD who is seen in follow-up for COVID-19 pneumonia. He is seen with park interpreter services on the iPad and he was also able to call his on speaker phone so that she could ask additional questions. He reports that he felt short of breath earlier today and has intermittent dyspnea with exertion. He is still coughing and cough is productive of thick yellow sputum. He denies chest pain and palpitations. His appetite is good and he is eating the majority of his meals without any nausea or vomiting. He had a regular bowel movement today and he notes that he is urinating without any issues. He slept fine overnight. He has no other complaints. His prompted the patient to ask about dizziness although when I speak with the patient, he describes what sounds more like generalized weakness as opposed to dizziness. He does not feel like the room is spinning or he is spinning. He reports symptoms with standing up but describes feeling generally weak. He denies associated hearing change, vision change, paresthesias, and headache. He denies any gait disturban
[2020-08-04 16:00] VITALS: BP 128/87; PULSE 75; PULSE 77; RESP 20; RESP 22; TEMP 36.6; O2SAT 94; O2SAT 96
[2020-08-04] MEDS: REMDESIVIR 100 MG/NS 250 ML 100 MG/250 ML BAG 250 MG IVPB (17:18)
[2020-08-04 18:06] LABS: Glucose Point of Care 229 (65-105)
--- NOTE | 2020-08-04 19:33 | PC.NURSE ---
[facility] PT FOR DIZZINESS. CHECKED PUPILS EQUAL AND REACIVE TO LIGHT. PT STATES THAT HE ISN'T DIZZINES THAT HE TOLD HIS HE WAS WEAK AND SHE CALLED FLASH AMEZQUITA AND STATED THAT HER WAS DIZZY. PT FOLLOWED FINER WITH EYES BOTH MOVED IN DIRECTION OF FINGER. PT IN NO APPARENT DISTRESS.
[2020-08-04 20:00] VITALS: BP 133/73; PULSE 74; RESP 22; TEMP 36.7; O2SAT 93
[2020-08-04] MEDS: INSULIN GLARGINE (*BKC) 100 UNITS/ML 15 UNITS SUB-Q (20:05)
[2020-08-04 21:32] LABS: Glucose Point of Care 250 (65-105)
[2020-08-05] VITALS (10 sets, daily range): BP systolic 115–139; BP diastolic 56–81; PULSE 64–89; RESP 16–22; TEMP 36.4–36.8; O2SAT 91–100
[2020-08-05] MEDS: PENICILLIN V POTASSIUM 250 MG TABLET 500 MG PO ×5 (00:06→23:16)
[2020-08-05 06:37] LABS: Basophils Absolute Auto 0.1 K/mm3 (0.0-0.1); Basophils Percent Auto 0.4 % (0.2-1.2); Eosinophils Percent Auto 0.1 % (0-4.4); Hematocrit 37.6 % (42.0-52.0); Hemoglobin 12.6 g/dL (14.0-18.0); Immature Granulocyte Absolute 0.27 K/mm3 (0.00-0.031); Immature Granulocyte Percent A 1.9 % (0-0.5); Lymphocytes Absolute Auto 2.02 K/mm3 (0.9-3.2); Lymphocytes Percent Auto 14.5 % (18.3-44.2); Mean Corpuscular HGB Conc 33.5 g/dl (32-36); Mean Corpuscular Hemoglobin 28.3 pg (26-34); Mean Corpuscular Volume 84.3 fl (80-100); Mean Platelet Volume 9.9 fl (7.4-10.4); Monocytes Absolute Auto 0.9 K/mm3 (0.1-0.6); Monocytes Percent Auto 6.7 % (2.6-8.5); Neutrophils Absolute Auto 10.6 K/mm3 (1.3-6.7); Neutrophils Percent Auto 76.4 % (45.5-73.1); Platelet Count Result 483 k/mm3 (150-375); Red Blood Count 4.46 M/mm3 (4.6-6.20); Red Cell Distribution Width 13.2 % (11.5-14.5); White Blood Count 13.9 K/mm3 (4.5-10.0)
[2020-08-05 06:58] LABS: Alanine Aminotransferase 73 U/L (4-50); Albumin Level 3.3 g/dL (3.5-5.1); Alkaline Phosphatase 53 U/L (38-126); Anion Gap 6 mmol/L (8-16); Aspartate Amino Transferase 75 U/L (17-59); Bilirubin,Total 0.6 mg/dL (0.2-1.3); Blood Urea Nitrogen 14 mg/dL (9-20); CRP 3.5 mg/dL (<1.0); Calcium 8.4 mg/dL (8.4-10.2); Carbon Dioxide 29 mmol/L (22-30); Chloride 101 mmol/L (98-107); Creatine Kinase 78 U/L (55-170); Estimated CRCL calculation 88 ml/min; Estimated Glomerular Filt Rate > 60; Glucose 161 mg/dL (75-110); Lactate Dehydrogenase 1332 U/L (313-618); Potassium 3.9 mmol/L (3.4-5.0); Sodium 136 mmol/L (137-145)
[2020-08-05] MEDS: DEXAMETHASONE SOD PHOS INJ 4 MG/ML VIAL 6 MG IV PUSH (08:23)
[2020-08-05] MEDS: PRAVASTATIN SODIUM 20 MG TABLET PO (08:23)
[2020-08-05] MEDS: PANTOPRAZOLE 40 MG TABLET PO (08:24)
[2020-08-05] MEDS: ENOXAPARIN 40 MG/0.4 ML SYRINGE SUB-Q ×2 (08:24→20:59)
[2020-08-05] MEDS: lisinopriL 10 MG TABLET PO (08:24)
[2020-08-05] MEDS: guaiFENesin 12 HR 600 MG TABCR 1200 MG PO ×2 (08:24→20:59)
[2020-08-05] MEDS: INSULIN ASPART (*BKC) 100 UNITS/ML SUB-Q ×2 (12:37→17:30)
--- NOTE | 2020-08-05 13:15 | PM.IMPN ---
Progress Note: A&P Assessment and Plan (1) Pneumonia due to COVID-19 virus: Code(s): U07.1 - COVID-19; J12.89 - Other viral pneumonia Status: Acute Assessment and Plan: patient presented to the emergency with fever for 5 days and was found to be hypoxic, requiring 2 liters per nasal cannula initially. CXR demonstrated patchy bilateral airspace disease. COVID-19 testing was performed and positive. Continue isolation precautions. Continue IV dexamethasone (day 4 - initiated 08/02). Continue remdesivir (day 4 - initiated 08/02). Continue supportive care with albuterol per MDI, incentive spirometer, guaifenesin, analgesics and antipyretics as needed. Continue supplemental oxygen as needed to achieve a pulse oxygen saturation of 90%. Wean O2 as tolerated. Ordered CXR for today. Continue continuous pulse oximetry for closer monitoring. CRP and LDH have improved. Ferritin is mildly elevated. Today's CXR showed: Mild airspace opacities in right lower lung zone and left midlung zone with improvement on the left, consistent with atelectasis versus pneumonia. Check orthostatic blood pressure , ordered PT/OT. Monitor oxygen saturations closely with activity on continuous pulse ox monitoring to ensure he is not desaturating. (2) Acute respiratory failure with hypoxia: Code(s): J96.01 - Acute respiratory failure with hypoxia Status: Acute Assessment and Plan: Secondary to COVID-19 pneumonia. Follow Plan above. Continue supplemental oxygen as needed to maintain SpO2 >90%. Wean as tolerated. (3) Hypertension: Code(s): I10 - Essential (primary) hypertension Status: Chronic Assessment and Plan: Blood pressures are reasonably controlled. Most recent BP is 139/80 Continue lisinopril. Continue to court recording monitor. (4) Diabetes: Code(s): E11.9 - Type 2 diabetes mellitus without complications Status: Chronic Assessment and Plan: Blood sugars are above target,due to steroid use. Hemoglobin A1c was 6.9%. 15 units of lantus qHS was added 08/04 for better glycemic control. Blood sugars have been 100-200 for the last 48 hours now. Continue ACHS glucose monitoring, sliding scale insulin, and hypoglycemia protocol. Continue to monitor. (5) Tooth abscess: Code(s): K04.7 - Periapical abscess without sinus Status: Acute Assessment and Plan: COVID-19 testing is positive so IV antibiotics that were initiated to treat suspected CAP were discontinued. Penicillin V was resumed. This was initiated 07/28. (6) Hyperlipidemia: Code(s): E78.5 - Hyperlipidemia, unspecified Status: Acute Assessment and Plan: LFTs have normalized. Continue pravastatin. Subjective Date/time seen: 08/05/20 13:15 Patient stated that he was feeling better today than yesterday. He stated that he had not been out of bed. I have placed orders and encouraged him to get out of bed for all meals. Discussed with nursing staff as well. Encouraged the patient to use his incentive spirometer often, hourly. He showed me that he had been getting 1 L volumes with his incentive spirometer. He denies any chest pain or chest pressure. Today's CXR showed improvement on the left side when compared to the x-ray done 4 days ago. BUT He remains on 6 L of oxygen at this time. He denies having to use oxygen at home prior to this admission. He does admit to a persistent productive cough today, although he did not cough during my exam or discussion with him. Review of Systems Review of Systems: All systems reviewed & are unremarkable except as noted in HPI and below Constitutional: Constitutional: Reports as per HPI and Reports no additional constitutional complaints Eyes: Eyes: Reports as per HPI and Reports no additional eye complaints ENT: Reports system reviewed and no additional complaints, except as documented and Reports Normal hearing present Cardiovascul
[2020-08-05] MEDS: REMDESIVIR 100 MG/NS 250 ML 100 MG/250 ML BAG IVPB (17:23)
[2020-08-05 17:31] LABS: Glucose Point of Care 255 (65-105)
[2020-08-05 17:31] LABS: Glucose Point of Care 151 (65-105)
[2020-08-05 18:44] LABS: Glucose Point of Care 283 (65-105)
[2020-08-05] MEDS: INSULIN GLARGINE (*BKC) 100 UNITS/ML 15 UNITS SUB-Q (21:00)
[2020-08-05 21:07] LABS: Glucose Point of Care 226 (65-105)
[2020-08-06] VITALS (9 sets, daily range): BP systolic 116–140; BP diastolic 58–84; PULSE 75–94; RESP 18–22; TEMP 36.5–37.1; O2SAT 90–100
[2020-08-06] MEDS: PENICILLIN V POTASSIUM 250 MG TABLET 500 MG PO ×4 (05:59→23:03)
[2020-08-06 06:37] LABS: Alanine Aminotransferase 106 U/L (4-50)
[2020-08-06] MEDS: ENOXAPARIN 40 MG/0.4 ML SYRINGE SUB-Q ×2 (08:25→20:27)
[2020-08-06] MEDS: DEXAMETHASONE SOD PHOS INJ 4 MG/ML VIAL 6 MG IV PUSH (08:25)
[2020-08-06] MEDS: PANTOPRAZOLE 40 MG TABLET PO (08:25)
[2020-08-06] MEDS: PRAVASTATIN SODIUM 20 MG TABLET PO (08:25)
[2020-08-06] MEDS: guaiFENesin 12 HR 600 MG TABCR 1200 MG PO ×2 (08:25→20:28)
[2020-08-06] MEDS: lisinopriL 10 MG TABLET PO (08:26)
[2020-08-06 09:02] LABS: Estimated CRCL calculation 88 ml/min; Estimated Glomerular Filt Rate > 60
--- NOTE | 2020-08-06 10:12 | WPDCDIQUERY2 ---
CDI Query Clarification Request Patient was admitted from the ED with a diagnosis of community acquired pneumonia and sepsis. Subsequently, viral pneumonia due to COVID was confirmed. No further mention of Sepsis outside the ED record. VS on admission 103.2 - 129 - 30 - 124/74 - 93% on 2L O2. WBC 7.3 Lactic Acid 2.6, repeat 1.2 Please clarify if patient had Sepsis on admission, or if sepsis has been ruled out if known. <Jo Ann Schwarz, CEMENT FINISHER HELPER - Last Filed: 08/06/20 10:19>
[2020-08-06 10:40] LABS: Hematocrit 37.5 % (42.0-52.0); Hemoglobin 12.4 g/dL (14.0-18.0); Mean Corpuscular HGB Conc 33.1 g/dl (32-36); Mean Corpuscular Hemoglobin 28.6 pg (26-34); Mean Corpuscular Volume 86.4 fl (80-100); Mean Platelet Volume 10.4 fl (7.4-10.4); Platelet Count Result 497 k/mm3 (150-375); Red Blood Count 4.34 M/mm3 (4.6-6.20); Red Cell Distribution Width 13.2 % (11.5-14.5); White Blood Count 12.1 K/mm3 (4.5-10.0)
[2020-08-06 10:48] LABS: Alanine Aminotransferase 112 U/L (4-50); Albumin Level 3.1 g/dL (3.5-5.1); Alkaline Phosphatase 51 U/L (38-126); Anion Gap 4 mmol/L (8-16); Aspartate Amino Transferase 70 U/L (17-59); Bilirubin,Total 0.6 mg/dL (0.2-1.3); Blood Urea Nitrogen 13 mg/dL (9-20); Calcium 8.2 mg/dL (8.4-10.2); Carbon Dioxide 30 mmol/L (22-30); Chloride 100 mmol/L (98-107); Estimated CRCL calculation 88 ml/min; Estimated Glomerular Filt Rate > 60; Glucose 155 mg/dL (75-110); Potassium 3.9 mmol/L (3.4-5.0); Sodium 134 mmol/L (137-145)
[2020-08-06 10:53] LABS: CRP 3.9 mg/dL (<1.0)
[2020-08-06 11:16] LABS: Glucose Point of Care 134 (65-105)
[2020-08-06 11:43] LABS: NT Pro B Type Natriuretic Pept 114 PG/ML (5-100)
--- NOTE | 2020-08-06 11:45 | PM.IMPN ---
Progress Note: A&P Assessment and Plan (1) Pneumonia due to COVID-19 virus: Code(s): U07.1 - COVID-19; J12.89 - Other viral pneumonia Status: Acute Assessment and Plan: COVID-19 testing was performed and positive. Continue isolation precautions. Continue IV dexamethasone (day 5 - initiated 08/02). Continue Remdesivir (day 5 - initiated 08/02). Continue supportive care with albuterol per MDI, incentive spirometer, guaifenesin, analgesics and antipyretics as needed. Continue supplemental oxygen as needed to achieve a pulse oxygen saturation of 90%. Wean O2 as tolerated. Continue continuous pulse oximetry for closer monitoring. CRP and LDH have improved. Ferritin is inconsistent (417, 510, 369) 08/05 CXR showed: Mild airspace opacities in right lower lung zone and left midlung zone with improvement on the left, consistent with atelectasis versus pneumonia. orthostatic blood pressures stable Monitor oxygen saturations closely with activity on continuous pulse ox monitoring to ensure he is not desaturating. (2) Acute respiratory failure with hypoxia: Code(s): J96.01 - Acute respiratory failure with hypoxia Status: Acute Assessment and Plan: Secondary to COVID-19 pneumonia. Follow Plan above. Continue supplemental oxygen as needed to maintain SpO2 >90%. Wean as tolerated. (3) Hypertension: Code(s): I10 - Essential (primary) hypertension Status: Chronic Assessment and Plan: Blood pressures are reasonably controlled. Most recent BP is 116/58 Continue lisinopril. Continue school lunch monitor. (4) Diabetes: Code(s): E11.9 - Type 2 diabetes mellitus without complications Status: Chronic Assessment and Plan: Blood sugars are above target, due to steroid use, but improving Hemoglobin A1c was 6.9%. 15 units of lantus qHS was added 08/04 for better glycemic control. Blood sugars have been 100-200 for the last 48 hours now. Continue ACHS glucose monitoring, sliding scale insulin, and hypoglycemia protocol. Continue to monitor. (5) Tooth abscess: Code(s): K04.7 - Periapical abscess without sinus Status: Acute Assessment and Plan: COVID-19 testing is positive so IV antibiotics that were initiated to treat suspected CAP were discontinued. Penicillin V was resumed. This was initiated 07/28. (6) Hyperlipidemia: Code(s): E78.5 - Hyperlipidemia, unspecified Status: Acute Assessment and Plan: LFTs have normalized. Continue pravastatin. Subjective Date/time seen: 08/06/20 11:45 Patient was admitted from the ED with a diagnosis of community acquired pneumonia and sepsis. COVID viral pneumonia was confirmed and his elevated lactic acid resolved. His sepsis appeared to resolve quickly with the ED interventions. For the last 2 days, no fever noted, BP stable, his heart rate has been regular with auscultation, rate of 60 to 80s, denies chest pain or pressure, does get SOB with activity especially prolonged activity. He reports feeling weak. Ordered PT/OT. Had patient return demonstrate to me how he uses his incentive spirometer, he achieved slightly greater than 1 L volume on his incentive spirometer today 4-5 x without dyspnea. His oxygen requirement wavers from 5 L High flow NC when sleeping up to 7 L with activity. His WBC is slowly rising, this may be steroid induced, 7.3 up to 13.9. CXR yesterday showed improvement. Continue the schedule Mucinex, changed the albuterol inhaler from p.r.n. to scheduled dosing. May need to increase albuterol dose tomorrow. Review of Systems Review of Systems: All systems reviewed & are unremarkable except as noted in HPI and below Constitutional: Constitutional: Reports as per HPI and Reports no additional constitutional complaints Eyes: Eyes: Reports as per HPI and Reports no additional eye complaints ENT: Reports system reviewed and no additional complaints, except as documen
[2020-08-06 12:48] LABS: Glucose Point of Care 253 (65-105)
[2020-08-06] MEDS: INSULIN ASPART (*BKC) 100 UNITS/ML SUB-Q ×2 (12:53→17:20)
[2020-08-06] MEDS: ALBUTEROL SULFATE (*SP) AEROSOL 1 PUFF 2 PUFF INHALATION (16:00)
[2020-08-06 17:18] LABS: Glucose Point of Care 231 (65-105)
[2020-08-06] MEDS: REMDESIVIR 100 MG/NS 250 ML 100 MG/250 ML BAG 250 MG IVPB (17:19)
[2020-08-06 17:25] LABS: Legionella pneumophila Ag Ur Not Detected (Not Detected)
[2020-08-06] MEDS: INSULIN GLARGINE (*BKC) 100 UNITS/ML 15 UNITS SUB-Q (20:27)
[2020-08-06 21:53] LABS: Pneumococcal Antigen Urine Not Detected (Not Detected)
[2020-08-07] VITALS (14 sets, daily range): BP systolic 108–123; BP diastolic 59–76; PULSE 80–96; RESP 18–24; TEMP 36.6–36.8; O2SAT 86–99
[2020-08-07 00:05] LABS: Glucose Point of Care 237 (65-105)
[2020-08-07] MEDS: PENICILLIN V POTASSIUM 250 MG TABLET 500 MG PO ×4 (06:03→23:59)
--- NOTE | 2020-08-07 06:28 | PCRCNOTE ---
Window of time for administration has passed. See next scheduled administration.
[2020-08-07 08:51] LABS: Glucose Point of Care 130 (65-105)
[2020-08-07] MEDS: ALBUTEROL SULFATE (*SP) AEROSOL 1 PUFF 2 PUFF INHALATION ×4 (08:51→20:28)
[2020-08-07] MEDS: guaiFENesin 12 HR 600 MG TABCR 1200 MG PO ×2 (09:45→20:40)
[2020-08-07] MEDS: lisinopriL 10 MG TABLET PO (09:46)
[2020-08-07] MEDS: PANTOPRAZOLE 40 MG TABLET PO (09:46)
[2020-08-07] MEDS: PRAVASTATIN SODIUM 20 MG TABLET PO (09:46)
[2020-08-07] MEDS: ENOXAPARIN 40 MG/0.4 ML SYRINGE SUB-Q ×2 (09:47→20:40)
[2020-08-07] MEDS: DEXAMETHASONE SOD PHOS INJ 4 MG/ML VIAL 6 MG IV PUSH (09:47)
[2020-08-07] MEDS: INSULIN ASPART (*BKC) 100 UNITS/ML SUB-Q ×2 (12:23→17:59)
--- NOTE | 2020-08-07 14:22 | PCNWS ---
Weekly nutritional screen. Patient is tolerating current diet with adequate intake. No weight loss reported. No nutritional needs at this time.
[2020-08-07 16:39] LABS: Glucose Point of Care 251 (65-105)
--- NOTE | 2020-08-07 18:41 | PM.IMPN ---
Progress Note: A&P Assessment and Plan (1) Pneumonia due to COVID-19 virus: Code(s): U07.1 - COVID-19; J12.89 - Other viral pneumonia Status: Acute Assessment and Plan: COVID-19 testing was performed and positive. Continue isolation precautions. Continue IV dexamethasone (day 6 - initiated 08/02). Continue Remdesivir (day 6 - initiated 08/02). Continue supportive care with albuterol per MDI, incentive spirometer, guaifenesin, analgesics and antipyretics as needed. Continue supplemental oxygen as needed to achieve a pulse oxygen saturation of 90%. Wean O2 as tolerated. Continue continuous pulse oximetry for closer monitoring. CRP and LDH have improved. Ferritin is inconsistent (417, 510, 369) 08/05 CXR showed: Mild airspace opacities in right lower lung zone and left midlung zone with improvement on the left, consistent with atelectasis versus pneumonia. orthostatic blood pressures stable Monitor oxygen saturations closely with activity on continuous pulse ox monitoring to ensure he is not desaturating. Considering a CT scan due to persistent high O2 requirements. Ordered ECHO. Continue the scheduled Albuterol that started yesterday, started Spiriva. Ordered ocean nasal spray due to NC and complaints of dried nose. Patient stating that he coughed up thick yellow sputum - ordered stat Sputurm Culuture to be collected. Continue his mucinex. Patient's PenVK completes tomorrow - he was taking that due to an infected and broken off tooth. (2) Acute respiratory failure with hypoxia: Code(s): J96.01 - Acute respiratory failure with hypoxia Status: Acute Assessment and Plan: Secondary to COVID-19 pneumonia. Follow Plan above. Continue supplemental oxygen as needed to maintain SpO2 >90%. Wean as tolerated. stable orthostatic BPs and HRs will need much PT/OT therapy. Ordered PT/OT. Considering pulmonary chest physiotherapy. Will check a D-dimer. (3) Hypertension: Code(s): I10 - Essential (primary) hypertension Status: Chronic Assessment and Plan: Blood pressures are reasonably controlled. Most recent BP is 116/58 Continue lisinopril. Continue property assessment monitor. (4) Diabetes: Code(s): E11.9 - Type 2 diabetes mellitus without complications Status: Chronic Assessment and Plan: Blood sugars are above target, due to steroid use, but improving Hemoglobin A1c was 6.9%. 15 units of lantus qHS was added 08/04 for better glycemic control. Blood sugars have been 100-200 for the last 48 hours now. Continue ACHS glucose monitoring, sliding scale insulin, and hypoglycemia protocol. Continue to monitor. (5) Tooth abscess: Code(s): K04.7 - Periapical abscess without sinus Status: Acute Assessment and Plan: COVID-19 testing is positive so IV antibiotics that were initiated to treat suspected CAP were discontinued. Penicillin V was resumed. This was initiated 07/28. (6) Hyperlipidemia: Code(s): E78.5 - Hyperlipidemia, unspecified Status: Acute Assessment and Plan: LFTs have normalized. Continue pravastatin. Subjective Date/time seen: 08/07/20 18:41 Dwight states that he is feeling better and better, despite the fact that he desats during any prolonged activity, such as wiping his butt with toileting, pushing a bowel movement out, or walking across his entire hospital room. He states that he was winded doing some of these activities prior to COVID. He will need much PT/OT therapy. Ordered PT/OT. Considering pulmonary chest physiotherapy. Will check a D-dimer. Considering a CT scan due to persistent high O2 requirements. Ordered ECHO. Continue the scheduled Albuterol that started yesterday, started Spiriva. Ordered ocean nasal spray due to NC and complaints of dried nose. Patient stating that he coughed up thick yellow sputum - ordered stat Sputurm Culuture to be collected. Continue his mucinex. Patient's PenVK complete
[2020-08-07 18:48] LABS: Glucose Point of Care 292 (65-105)
[2020-08-07] MEDS: SALINE 0.65% NAS SOLN 44 ML BTL 1 SPRAY NASAL (20:40)
[2020-08-07] MEDS: INSULIN GLARGINE (*BKC) 100 UNITS/ML 15 UNITS SUB-Q (20:46)
[2020-08-07 23:53] LABS: Glucose Point of Care 255 (65-105)
[2020-08-08] VITALS (11 sets, daily range): BP systolic 119–145; BP diastolic 61–84; PULSE 81–108; RESP 18–20; TEMP 36.5–36.8; O2SAT 91–100
--- NOTE | 2020-08-08 | ECHO_ITS ---
Patient Info Name: Dwight Kincaid Age: 59 years : 1960 Gender: Male Ht: 66 in Wt: 168 lbs BSA: 1.90 m2 HR: 90 bpm BP: 137 / 76 mmHg Heart Rhythm: Sinus Rhythm Technical Quality: Good Exam Date: 08/08/2020 11:19 AM Exam Location: [facility] Patient Status: Inpatient Admit Date: 08/01/2020 Staff Ordering Physician: Milka Nunez NP Stenotype Operator: Sunday Muñoz RDCS Attending Provider: Milka Nunez NP Referring Physician: Enrique CAGE; Exam Type: CA echo doppler color flow Study Info Indications J96.01 - Acute respiratory failure with hypoxia Complete two-dimensional, color flow and Doppler transthoracic echocardiogram is performed. Strain analysis performed. History/Risk Factors Covid+; ARF w/ hypoxia, DM, HTN. Summary 1. Complete two-dimensional, color flow and Doppler transthoracic echocardiogram is performed. 2. Left ventricular chamber dimension is normal. 3. Left ventricular systolic function is normal, estimated at 60-65%. 4. There is mildly increased left ventricular wall thickness. 5. The left ventricular diastolic function is grade I diastolic dysfunction. 6. E/e' 11 is mildly elevated. 7. Global longitudinal strain is slightly abnormal at -16.9%. 8. Right ventricular systolic function is mildly reduced based on TAPSE 1.6 cm. 9. Left atrial chamber dimension is mildly enlarged. 10. No pulmonary hypertension, estimated pulmonary arterial systolic pressure is 36 mmHg. Left Ventricle E/e' 11 is mildly elevated. Global longitudinal strain is slightly abnormal at -16.9%. Left ventricular chamber dimension is normal. Left ventricular systolic function is normal, estimated at 60-65%. There is mildly increased left ventricular wall thickness. The left ventricular diastolic function is grade I diastolic dysfunction. Right Ventricle Right ventricular systolic function is mildly reduced based on TAPSE 1.6 cm. Right ventricular chamber dimension is not well visualized. Left Atria Left atrial chamber dimension is mildly enlarged. Right Atria Right atrial chamber dimension is normal. Aortic Valve The aortic valve is trileaflet. There is no aortic valve stenosis. There is no aortic valve regurgitation. Pulmonic Valve There is no pulmonic regurgitation. Mitral Valve There is no mitral valve stenosis. There is no mitral valve regurgitation. Tricuspid Valve There is no tricuspid valve regurgitation. No pulmonary hypertension, estimated pulmonary arterial systolic pressure is 36 mmHg. Pericardium/Pleural There is no pericardial effusion. Inferior Vena Cava Normal inferior vena cava with >50% collapse upon inspiration consistent with normal right atrial pressure, 5 mmHg. Aorta The aortic root size at the sinus of Valsalva is normal. Left Ventricular Outflow Tract Name Value Normal LVOT 2D LVOT Diameter 2.2 cm LVOT Doppler LVOT Peak Gradient 3 mmHg LVOT Mean Gradient 2 mmHg LVOT VTI 15 cm LVOT VTI/AV VTI Ratio 0.7
[2020-08-08] MEDS: PENICILLIN V POTASSIUM 250 MG TABLET 500 MG PO ×3 (06:01→17:26)
[2020-08-08 06:02] LABS: Basophils Absolute Auto 0.1 K/mm3 (0.0-0.1); Basophils Percent Auto 0.6 % (0.2-1.2); Eosinophils Absolute Auto 0.1 K/mm3 (0-0.3); Eosinophils Percent Auto 1.3 % (0-4.4); Hematocrit 37.9 % (42.0-52.0); Hemoglobin 12.4 g/dL (14.0-18.0); Immature Granulocyte Percent A 9.7 % (0-0.5); Lymphocytes Absolute Auto 1.28 K/mm3 (0.9-3.2); Lymphocytes Percent Auto 13.8 % (18.3-44.2); Mean Corpuscular HGB Conc 32.7 g/dl (32-36); Mean Corpuscular Hemoglobin 28.1 pg (26-34); Mean Corpuscular Volume 85.9 fl (80-100); Mean Platelet Volume 9.8 fl (7.4-10.4); Monocytes Absolute Auto 0.6 K/mm3 (0.1-0.6); Monocytes Percent Auto 6.9 % (2.6-8.5); Neutrophils Absolute Auto 6.3 K/mm3 (1.3-6.7); Neutrophils Percent Auto 67.7 % (45.5-73.1); Platelet Count Result 443 k/mm3 (150-375); Red Blood Count 4.41 M/mm3 (4.6-6.20); Red Cell Distribution Width 13.2 % (11.5-14.5); White Blood Count 9.3 K/mm3 (4.5-10.0)
[2020-08-08 06:09] LABS: D Dimer 0.58 ug/mL (<0.48)
[2020-08-08 06:35] LABS: CRP 12.2 mg/dL (<1.0)
--- NOTE | 2020-08-08 07:52 | PM.IMPN ---
Progress Note: A&P Assessment and Plan (1) Pneumonia due to COVID-19 virus: Code(s): U07.1 - COVID-19; J12.89 - Other viral pneumonia Status: Acute Assessment and Plan: COVID-19 testing was performed and positive. Continue isolation precautions. Continue IV dexamethasone (day 7 - initiated 08/02). Remdesivir - Completed 5 days from August 02 to August 06 Continue supportive care with albuterol per MDI, incentive spirometer, guaifenesin, analgesics and antipyretics as needed. Continue supplemental oxygen as needed to achieve a pulse oxygen saturation of 89-90%. Wean O2 as tolerated. continuous pulse oximetry for closer monitoring. CRP and LDH have improved. Ferritin is inconsistent (417, 510, 369) ordered serial chest x-rays to be completed every 3 days for monitoring orthostatic blood pressures stable Monitor oxygen saturations closely with activity on continuous pulse ox monitoring to ensure he is not desaturating. Considering a CT scan due to persistent high O2 requirements. Ordered ECHO. Continue the scheduled Albuterol and Spiriva. Ordered ocean nasal spray due to NC and complaints of dried nose. urine and Sputurm Culuture pending (2) Acute respiratory failure with hypoxia: Code(s): J96.01 - Acute respiratory failure with hypoxia Status: Acute Assessment and Plan: Secondary to COVID-19 pneumonia. Follow Plan above. Continue supplemental oxygen as needed to maintain SpO2 >90%. Wean as tolerated. stable orthostatic BPs and HRs will need much PT/OT therapy. Ordered PT/OT. Considering pulmonary chest physiotherapy. Will check a D-dimer. (3) Hypertension: Code(s): I10 - Essential (primary) hypertension Status: Chronic Assessment and Plan: Blood pressures are reasonably controlled. Most recent BP is 116/58 Continue lisinopril. Continue reflow operator. (4) Diabetes: Code(s): E11.9 - Type 2 diabetes mellitus without complications Status: Chronic Assessment and Plan: Blood sugars are above target, due to steroid use, but improving Hemoglobin A1c was 6.9%. 15 units of lantus qHS was added 08/04 for better glycemic control. Blood sugars have been 100-200 for the last 48 hours now. Continue ACHS glucose monitoring, sliding scale insulin, and hypoglycemia protocol. Continue to monitor. (5) Tooth abscess: Code(s): K04.7 - Periapical abscess without sinus Status: Acute Assessment and Plan: COVID-19 testing is positive so IV antibiotics that were initiated to treat suspected CAP were discontinued. Penicillin V was resumed. This was initiated 07/28. Patient's ten-day course of PenVK completed now, he started this antibiotic outpatient after going to an urgent care facility for his toothache. he was taking that due to an infected and broken off tooth. (6) Hyperlipidemia: Code(s): E78.5 - Hyperlipidemia, unspecified Status: Acute Assessment and Plan: LFTs have normalized. Continue pravastatin. Subjective Date/time seen: 08/08/20 07:52 Patient is down to 6 L of oxygen at this time with SpO2 greater than 92%. He is not tachypneic. He was able to provide a sputum sample, so the sputum culture is pending. I have also ordered a urine culture. D-dimer was only mildly elevated at 0.58 with normal less than 0.48. Patient continues to deny any back pain or chest pain while at rest or with deep breathing. He has a low probability for PE and this time. He has been on Lovenox 40 b.i.d. as DVT prophylaxis and he has been ambulating around his room daily. Echo is pending. Considering a CTA if chest x-rays show concerns. I have ordered serial chest x-rays every 3 days for consistent monitoring. He has completed his IV Remdesvimir for 5 days from 08/02 to 08/06. His dexamethasone steroids will continue for a full 10 day course. Review of Systems Review of Systems: All systems reviewed
[2020-08-08] MEDS: ALBUTEROL SULFATE (*SP) AEROSOL 1 PUFF 2 PUFF INHALATION ×4 (08:17→20:40)
[2020-08-08] MEDS: ENOXAPARIN 40 MG/0.4 ML SYRINGE SUB-Q ×2 (09:47→21:57)
[2020-08-08] MEDS: DEXAMETHASONE SOD PHOS INJ 4 MG/ML VIAL 6 MG IV PUSH (09:48)
[2020-08-08] MEDS: guaiFENesin 12 HR 600 MG TABCR 1200 MG PO ×2 (09:48→21:57)
[2020-08-08] MEDS: PRAVASTATIN SODIUM 20 MG TABLET PO (09:48)
[2020-08-08] MEDS: PANTOPRAZOLE 40 MG TABLET PO (09:48)
[2020-08-08] MEDS: lisinopriL 10 MG TABLET PO (09:49)
--- NOTE | 2020-08-08 09:49 | PCPTNOTE ---
Attempted PT eval. Pt refused, states he's walking indep in room. Spoke w/ Tori Nunez MANAGER ASSEMBLY and she agreed w/ [facility] PT.
[2020-08-08] MEDS: INSULIN ASPART (*BKC) 100 UNITS/ML SUB-Q ×2 (13:13→17:32)
[2020-08-08 13:23] LABS: Glucose Point of Care 248 (65-105)
[2020-08-08 18:41] LABS: Glucose Point of Care 288 (65-105)
[2020-08-08] MEDS: INSULIN GLARGINE (*BKC) 100 UNITS/ML 15 UNITS SUB-Q (21:57)
[2020-08-08 22:20] LABS: Glucose Point of Care 266 (65-105)
[2020-08-09] VITALS (12 sets, daily range): BP systolic 107–122; BP diastolic 55–66; PULSE 75–83; RESP 14–18; TEMP 36.4–36.7; O2SAT 93–100
[2020-08-09 00:20] LABS: Glucose Point of Care 144 (65-105)
[2020-08-09] MEDS: ALBUTEROL SULFATE (*SP) AEROSOL 1 PUFF 2 PUFF INHALATION ×4 (08:48→20:19)
[2020-08-09] MEDS: PRAVASTATIN SODIUM 20 MG TABLET PO (09:16)
[2020-08-09] MEDS: PANTOPRAZOLE 40 MG TABLET PO (09:16)
[2020-08-09] MEDS: guaiFENesin 12 HR 600 MG TABCR 1200 MG PO ×2 (09:16→22:35)
[2020-08-09] MEDS: DEXAMETHASONE SOD PHOS INJ 4 MG/ML VIAL 6 MG IV PUSH (09:16)
[2020-08-09] MEDS: lisinopriL 10 MG TABLET PO (09:16)
[2020-08-09] MEDS: ENOXAPARIN 40 MG/0.4 ML SYRINGE SUB-Q ×2 (09:17→22:35)
[2020-08-09 09:48] LABS: Glucose Point of Care 146 (65-105)
--- NOTE | 2020-08-09 10:15 | PM.IMPN ---
Progress Note: A&P Assessment and Plan (1) Pneumonia due to COVID-19 virus: Code(s): U07.1 - COVID-19; J12.89 - Other viral pneumonia Status: Acute Assessment and Plan: Continue IV dexamethasone (day 8 - initiated 08/02). Remdesivir - Completed 5 days from August 02 to August 06 Wean O2 as tolerated (down from 6L 08/08 to 5L 08/09) F/u inflammatory markers (2) Acute respiratory failure with hypoxia: Code(s): J96.01 - Acute respiratory failure with hypoxia Status: Acute Assessment and Plan: Secondary to COVID-19 pneumonia Wean oxygen as tolerated (3) Hypertension: Qualifiers: Hypertension type: unspecified Qualified Code(s): I10 - Essential (primary) hypertension Code(s): I10 - Essential (primary) hypertension Status: Chronic Assessment and Plan: Continue lisinopril (4) Diabetes: Qualifiers: Diabetes mellitus type: type 2 Diabetes mellitus jail insulin 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 Blood sugar control adequate Continue ACHS glucose monitoring, sliding scale insulin, and hypoglycemia protocol. (5) Tooth abscess: Code(s): K04.7 - Periapical abscess without sinus Status: Acute Assessment and Plan: Penicillin V was resumed 07/28 and completed 10 day course Dental f/u as outpatient Subjective Date/time seen: 08/09/20 10:15 Interval history: 08/09: Cough still productive of small amounts of yellow sputum. No fever or chills. Tired. Good appetite. Taste and smell intact. No n/v, diarrhea. Denied pain. Review of Systems Review of Systems: All systems reviewed & are unremarkable except as noted in HPI and below Exam Narrative: Exam Narrative: HEENT: PERRL, sclerae nonicteric, pharyngeal mucosa pink and intact NECK: No JVD, adenopathy, or thyromegaly CHEST: Clear to auscultation. Normal effort. HEART: NL S1/S2, regular, no murmur ABDOMEN: BS+, soft, nontender, no mass, no bruits EXTREMITIES: No cyanosis, edema, or clubbing NEUROLOGIC: CN intact and symmetric to inspection. MUSCULOSKELETAL: Tone and strength symmetric. PSYCH: Alert. Oriented to person, place, and time. Objective Data Vital Signs Vital Signs: Vital Signs - 24 hr 08/08/20 13:00 08/08/20 17:00 08/08/20 20:00 Temperature 97.9 F 97.8 F 98.0 F Pulse Rate 108 H 96 81 Respiratory Rate 20 20 20 Blood Pressure 119/61 129/69 127/63 Pulse Oximetry 93 98 99 08/08/20 20:40 08/08/20 21:00 08/09/20 00:00 Temperature 97.7 F Pulse Rate 78 Respiratory Rate 18 Blood Pressure 122/57 L Pulse Oximetry 93 99 99 08/09/20 01:29 08/09/20 04:00 08/09/20 06:47 Temperature 97.7 F Pulse Rate 75 Respiratory Rate 18 Blood Pressure 112/56 L Pulse Oximetry 99 98 100 08/09/20 08:00 08/09/20 08:49 Temperature 97.7 F Pulse Rate 75 Respiratory Rate 14 Blood Pressure 111/59 L Pulse Oximetry 98 93 Intake/Output Intake/Output: Intake & Output 08/06/20 08/07/20 08/08/20 08/09/20 23:59 23:59 23:59 23:59 Intake Total 2900 2240 2340 550 Output Total 1725 540 685 0674 Balance 1175 1840 1440 -1500 Meds/Results Medications: Active Medications Generic Name Dose Route Start Last Admin Trade Name Freq PRN Reason Stop Dose Admin Acetaminophen 650 mg 08/02/20 14:22 08/02/20 20:52 Acetaminophen 325 Mg Tablet PO 650 mg Q4H PRN Administration Mild Pain (1-3) or Fever Albuterol 2 puff 08/06/20 16:00 08/09/20 08:48 Albuterol Sulfate (*Sp) Aerosol 1 Puff INHALATION 2 puff QIDRT MANNY Administration Dexamethasone Sodium Phosphate 6 mg
[2020-08-09] MEDS: INSULIN ASPART (*BKC) 100 UNITS/ML SUB-Q ×2 (12:13→17:36)
[2020-08-09 12:50] LABS: Glucose Point of Care 300 (65-105)
[2020-08-09 18:11] LABS: Glucose Point of Care 245 (65-105)
[2020-08-09] MEDS: INSULIN GLARGINE (*BKC) 100 UNITS/ML 15 UNITS SUB-Q (22:35)
[2020-08-09 22:44] LABS: Glucose Point of Care 217 (65-105)
[2020-08-10] VITALS (10 sets, daily range): BP systolic 110–140; BP diastolic 59–86; PULSE 71–85; RESP 16–18; TEMP 36.4–36.8; O2SAT 90–100
--- NOTE | 2020-08-10 01:49 | PC.NURSE ---
Daylight Savings Time For Daylight Savings Time Ending in the Fall - Clocks are moved back. For Daylight Savings Time Beginning in the Spring - Clocks are moved ahead. For [facility], the time of change occurs at 0200 hrs. Time is taken from the fountain server. This entry on the patient's chart recognizes the change in time reflected during documentation. Example: 2 entries for vital signs may be charted for 0200 hrs.
[2020-08-10 06:29] LABS: Hematocrit 39.1 % (42.0-52.0); Hemoglobin 12.7 g/dL (14.0-18.0); Mean Corpuscular HGB Conc 32.5 g/dl (32-36); Mean Corpuscular Volume 86.3 fl (80-100); Mean Platelet Volume 10.4 fl (7.4-10.4); Platelet Count Result 365 k/mm3 (150-375); Red Blood Count 4.53 M/mm3 (4.6-6.20); Red Cell Distribution Width 13.2 % (11.5-14.5)
[2020-08-10 06:40] LABS: D Dimer 0.63 ug/mL (<0.48)
[2020-08-10 06:45] LABS: Alanine Aminotransferase 62 U/L (4-50); Albumin Level 3.2 g/dL (3.5-5.1); Alkaline Phosphatase 47 U/L (38-126); Anion Gap 4 mmol/L (8-16); Aspartate Amino Transferase 33 U/L (17-59); Bilirubin,Total 0.5 mg/dL (0.2-1.3); Blood Urea Nitrogen 18 mg/dL (9-20); CRP 2.9 mg/dL (<1.0); Calcium 8.7 mg/dL (8.4-10.2); Carbon Dioxide 31 mmol/L (22-30); Chloride 101 mmol/L (98-107); Estimated CRCL calculation 102 ml/min; Estimated Glomerular Filt Rate > 60; Glucose 121 mg/dL (75-110); Lactate Dehydrogenase 843 U/L (313-618); Potassium 4.4 mmol/L (3.4-5.0); Sodium 136 mmol/L (137-145)
[2020-08-10 08:45] LABS: Glucose Point of Care 135 (65-105)
[2020-08-10] MEDS: ENOXAPARIN 40 MG/0.4 ML SYRINGE SUB-Q ×2 (08:57→21:47)
[2020-08-10] MEDS: DEXAMETHASONE SOD PHOS INJ 4 MG/ML VIAL 6 MG IV PUSH (08:57)
[2020-08-10] MEDS: guaiFENesin 12 HR 600 MG TABCR 1200 MG PO ×2 (08:57→21:47)
[2020-08-10] MEDS: PRAVASTATIN SODIUM 20 MG TABLET PO (08:57)
[2020-08-10] MEDS: PANTOPRAZOLE 40 MG TABLET PO (08:57)
[2020-08-10] MEDS: lisinopriL 10 MG TABLET PO (08:57)
[2020-08-10] MEDS: ALBUTEROL SULFATE (*SP) AEROSOL 1 PUFF 2 PUFF INHALATION ×3 (09:35→20:47)
--- NOTE | 2020-08-10 12:21 | P.PNIM_ITS ---
Progress Note: A&P Assessment and Plan (1) Pneumonia due to COVID-19 virus: Code(s): U07.1 - COVID-19; J12.89 - Other viral pneumonia Status: Acute Assessment and Plan: * Continue IV dexamethasone (day 8 - initiated 08/02). * Remdesivir - Completed 5 days from August 02 to August 06 * Wean O2 as tolerated (down to 2 L from 6L 08/08 to 5L 08/09) * F/u inflammatory markers - all improving. * echo without concern * Ordered home O2 study for tomorrow morning (2) Acute respiratory failure with hypoxia: Code(s): J96.01 - Acute respiratory failure with hypoxia Status: Acute Assessment and Plan: * Secondary to COVID-19 pneumonia * Wean oxygen as tolerated, now down to 2 L O2 * D-dimer elevated mildly but stable (no significant s/s of DVT) * on Lovenox SQ BID prophylactically * patient asymptomatic and only improving at this time. (3) Hypertension: Qualifiers: Hypertension type: unspecified Qualified Code(s): I10 - Essential (primary) hypertension Code(s): I10 - Essential (primary) hypertension Status: Chronic Assessment and Plan: * Continue lisinopril * BPs stable 113/59- 140/72 (4) Diabetes: Qualifiers: Diabetes mellitus complication status: without complication Diabetes mellitus longterm insulin use: unspecified longterm insulin use status Diabetes mellitus type: type 2 Qualified Code(s): E11.9 - Type 2 diabetes mellitus without complications Code(s): E11.9 - Type 2 diabetes mellitus without complications Status: Chronic Assessment and Plan: * 15 units of lantus qHS was added 08/04 for better glycemic control. * Blood sugar control adequate * Continue [facility] glucose monitoring, sliding scale insulin, and hypoglycemia protocol. * glucose levels typically <200 (last was 155, 121) * diabetic diet (5) Tooth abscess: Code(s): K04.7 - Periapical abscess without sinus Status: Acute Assessment and Plan: * Penicillin V was resumed 07/28 and completed 10 day course * Dental f/u as outpatient * pain to right sided tooth abscess has now resolved. * patient understands need for dental F/U after discharge * WBC normal and no fevers, no localized check/jaw swelling. * patient eating 100% meals without complaint Subjective Date/time seen: 08/10/20 12:21 Dwight seems to be doing better and better with his COVID + viral pneumonia recovery. He is ambulating more more without difficulty. He has been weaned from 8 L when I saw him on Tuesday down to 2 L today. He is able to complete ADLs (toilet and complete angela care) without desaturations. Ordered a home O2 study for tomorrow morning. PT and OT have already been ordered. His white count today is 9.0 his ferritin levels have improved /decreased from 417 down to 149; as his LDH levels have also from 1332 to 843. LFTs have recovered from receiving the antiviral med, continuing his inhalers. His D-dimer level is stable at 0.58 and 0.63. His echo did not show any right sided heart failure or any elevated pulmonary HTN. He denied chest pain or pressure or dyspnea on exam today. Review of Systems Review of Systems: All systems reviewed & are unremarkable except as noted in HPI and below Constitutional: Constitutional: Reports as per HPI, Reports no additional constitutional complaints, Denies body ache(s), Denies excessive sweating, Denies fatigue, Denies headache(s), Denies lethargy, Denies malaise, Denies weakness and Denies weight loss Eyes: Eyes: Reports as per HPI, Reports no a
--- NOTE | 2020-08-10 12:21 | PM.IMPN ---
Progress Note: A&P Assessment and Plan (1) Pneumonia due to COVID-19 virus: Code(s): U07.1 - COVID-19; J12.89 - Other viral pneumonia Status: Acute Assessment and Plan: Continue IV dexamethasone (day 8 - initiated 08/02). Remdesivir - Completed 5 days from August 02 to August 06 Wean O2 as tolerated (down to 2 L from 6L 08/08 to 5L 08/09) F/u inflammatory markers - all improving. echo without concern Ordered home O2 study for tomorrow morning (2) Acute respiratory failure with hypoxia: Code(s): J96.01 - Acute respiratory failure with hypoxia Status: Acute Assessment and Plan: Secondary to COVID-19 pneumonia Wean oxygen as tolerated, now down to 2 L O2 D-dimer elevated mildly but stable (no significant s/s of DVT) on Lovenox SQ BID prophylactically patient asymptomatic and only improving at this time. 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 Blood sugar control adequate Continue ACHS glucose monitoring, sliding scale insulin, and hypoglycemia protocol. glucose levels typically <200 (last was 155, 121) diabetic diet (5) Tooth abscess: Code(s): K04.7 - Periapical abscess without sinus Status: Acute Assessment and Plan: Penicillin V was resumed 07/28 and completed 10 day course Dental f/u as outpatient pain to right sided tooth abscess has now resolved. patient understands need for dental F/U after discharge WBC normal and no fevers, no localized check/jaw swelling. patient eating 100% meals without complaint Subjective Date/time seen: 08/10/20 12:21 Dwight seems to be doing better and better with his COVID + viral pneumonia recovery. He is ambulating more more without difficulty. He has been weaned from 8 L when I saw him on Tuesday down to 2 L today. He is able to complete ADLs (toilet and complete angela care) without desaturations. Ordered a home O2 study for tomorrow morning. PT and OT have already been ordered. His white count today is 9.0 his ferritin levels have improved /decreased from 417 down to 149; as his LDH levels have also from 1332 to 843. LFTs have recovered from receiving the antiviral med, continuing his inhalers. His D-dimer level is stable at 0.58 and 0.63. His echo did not show any right sided heart failure or any elevated pulmonary HTN. He denied chest pain or pressure or dyspnea on exam today. Review of Systems Review of Systems: All systems reviewed & are unremarkable except as noted in HPI and below Constitutional: Constitutional: Reports as per HPI, Reports no additional constitutional complaints, Denies body ache(s), Denies excessive sweating, Denies fatigue, Denies headache(s), Denies lethargy, Denies malaise, Denies weakness and Denies weight loss Eyes: Eyes: Reports as per HPI, Reports no additional eye complaints, Denies blurry vision, Denies change in vision and Denies loss of vision ENT: Reports system reviewed and no additional complaints, except as documented, Reports Normal hearing present, Denies dizziness, Denies ear discharge, Denies headache(s), Denies lip swelling, Denies epistaxis, Denies nasal congestion, Denies neck pain, Denies throat swelling and Denies tongue swell
[2020-08-10] MEDS: INSULIN ASPART (*BKC) 100 UNITS/ML SUB-Q ×2 (12:23→17:36)
[2020-08-10 15:03] LABS: Glucose Point of Care 235 (65-105)
[2020-08-10 17:43] LABS: Glucose Point of Care 220 (65-105)
[2020-08-10] MEDS: INSULIN GLARGINE (*BKC) 100 UNITS/ML 15 UNITS SUB-Q (21:48)
[2020-08-10 22:02] LABS: Glucose Point of Care 208 (65-105)
[2020-08-11] VITALS (11 sets, daily range): BP systolic 107–112; BP diastolic 59–70; PULSE 79–107; RESP 16–20; TEMP 36.4–36.8; O2SAT 86–95
[2020-08-11] MEDS: ALBUTEROL SULFATE (*SP) AEROSOL 1 PUFF 2 PUFF INHALATION ×4 (08:34→21:30)
[2020-08-11 09:05] LABS: Glucose Point of Care 117 (65-105)
[2020-08-11] MEDS: PANTOPRAZOLE 40 MG TABLET PO (09:21)
[2020-08-11] MEDS: PRAVASTATIN SODIUM 20 MG TABLET PO (09:21)
[2020-08-11] MEDS: guaiFENesin 12 HR 600 MG TABCR 1200 MG PO ×2 (09:21→22:01)
[2020-08-11] MEDS: ENOXAPARIN 40 MG/0.4 ML SYRINGE SUB-Q ×2 (09:21→22:01)
[2020-08-11] MEDS: DEXAMETHASONE SOD PHOS INJ 4 MG/ML VIAL 6 MG IV PUSH (09:21)
[2020-08-11] MEDS: lisinopriL 10 MG TABLET PO (09:21)
--- NOTE | 2020-08-11 11:52 | HOMEO2EVAL ---
Home Oxygen Evaluation RC: Home Oxygen (O2) Evaluation Start: 08/11/20 07:00 Freq: DAILY Status: Active Protocol: RPE Activity Type Activity Date Activity User E-Sign Co-Sign Detail Recorded Client Recorded Date Recorded By Document 08/11/20 11:20 [email or web address] [email or web address] 08/11/20 11:52 DJO Document 08/11/20 11:25 [email or web address] [email or web address] 08/11/20 11:52 DJO Document 08/11/20 11:30 [email or web address] [email or web address] 08/11/20 11:52 DJO Document 08/11/20 11:35 [email or web address] [email or web address] 08/11/20 11:52 DJO Document 08/11/20 11:50 [email or web address] [email or web address] 08/11/20 11:52 DJO 08/11/20 08/11/20 08/11/20 11:20 11:25 11:30 Home O2 Evaluation Test Phase Resting Exercise Exercise Oxygen Delivery Room Air Room Air Nasal Cannula Oxygen Flow Rate (L/min) 1 Pulse Oximetry (90-100 %) 91 86 L 87 L Pulse Rate (60-100 beats/min) 85 99 104 H Treatment Charges O2 Evaluation 08/11/20 08/11/20 11:35 11:50 Home O2 Evaluation Test Phase Exercise Resting Oxygen Delivery Nasal Cannula Room Air Oxygen Flow Rate (L/min) 2 Pulse Oximetry (90-100 %) 90 91 Pulse Rate (60-100 beats/min) 107 H 106 H Treatment Charges
[2020-08-11 12:50] LABS: Glucose Point of Care 240 (65-105)
[2020-08-11] MEDS: INSULIN ASPART (*BKC) 100 UNITS/ML SUB-Q (12:57)
--- NOTE | 2020-08-11 13:01 | PM.IMPN ---
Progress Note: A&P Assessment and Plan (1) Pneumonia due to COVID-19 virus: Code(s): U07.1 - COVID-19; J12.89 - Other viral pneumonia Status: Acute Assessment and Plan: Continue IV dexamethasone (day 9 - initiated 08/02). Remdesivir - Completed 5 days from August 02 to August 06 Wean O2 as tolerated (down to 0-2 L from 6L 08/08 to 5L 08/09) F/u inflammatory markers - all improving, some now WNL, further discussed above. Echo without concern no chest pain, no dypsnea, no SOB, no wheezing, no bronchospasms or coughing Ordered home O2 study eval and set up Ordered 2 view chest xray Consulted Manager Risk Management due to need for either Home PT/OT and/or Rehab at [facility]. (2) Acute respiratory failure with hypoxia: Code(s): J96.01 - Acute respiratory failure with hypoxia Status: Acute Assessment and Plan: Improved. Resolved at this time. Secondary to COVID-19 pneumonia Wean oxygen as tolerated, now down to 0-2 L O2 D-dimer elevated mildly but stable (no significant s/s of DVT) no strain shown on Echo, no pain or swelling or redness to any extremity on Lovenox SQ BID prophylactically patient asymptomatic and only improving at this time. (3) Hypertension: Qualifiers: Hypertension type: unspecified Qualified Code(s): I10 - Essential (primary) hypertension Code(s): I10 - Essential (primary) hypertension Status: Chronic Assessment and Plan: Chronic. Stable. Medically treated. 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 Medically treated. 15 units of lantus qHS was added 08/04 for better glycemic control due to Dexamethasone dosing Blood sugar control near adequate Continue ACHS glucose monitoring, sliding scale insulin, and hypoglycemia protocol. glucose levels typically <250 (last levels were 208, 117, 240) very dependent on diet and steroid dosing, otherwise controlled diabetic diet (5) Tooth abscess: Code(s): K04.7 - Periapical abscess without sinus Status: Resolved Assessment and Plan: Acutely resolved. Need Dental F/U care BEAN after discharge. Penicillin V was resumed 07/28 and completed 10 day course Dental f/u as outpatient pain to right sided tooth abscess has now resolved. patient understands need for dental F/U after discharge WBC normal and no fevers, no localized check/jaw swelling. patient eating 100% meals without complaint Subjective Date/time seen: 08/11/20 13:01 Dwight is in good spirits today. He is excited about the possiblity of going home today or tomorrow. He continues to improve with his COVID + viral pneumonia recovery. He is ambulating more often and on less supplemental O2. He is off oxygen while at rest. He is now completing ADLs (toilet and complete angela care) without desaturations. Will complete and order a home O2 evaluation study and set up today. PT and OT are in process. Checking labs every 48 hours. His white count was 9.0 and Plts 365 yesterday, his ferritin levels normalized yesterday at 149 on Aug.10. and LDH levels remain elevated but improved from 1332 to 843. LFTs have recovered from receiving antiviral med. Will continue his inhalers. His D-dimer level is stable at 0.58 and 0.63. His echo did not show any right sided heart failure or any elevated pulmonary HTN. He denied chest pain or pressure or dyspnea, nor any N/V/D on exam today. He informed me that his family members at home that have remained COVID negative. I informed Dwight that he could yet infect his family memebers at home and would need
--- NOTE | 2020-08-11 15:07 | PCRCNOTE ---
HOME O2 EVAL COMPLETE, PT REQUIRES 2 LITERS WITH ACTIVITY. SET UP O2 WITH [facility] MED[facility] PHONE NUMBER [phone]. TANK DELIVERED TO OUTSIDE OF PT'S ROOM. RN NOTIFIED.
[2020-08-11 17:55] LABS: Glucose Point of Care 194 (65-105)
[2020-08-11] MEDS: INSULIN GLARGINE (*BKC) 100 UNITS/ML 15 UNITS SUB-Q (22:01)
[2020-08-11 22:05] LABS: Glucose Point of Care 262 (65-105)
[2020-08-12] VITALS: BP 119/66; PULSE 81; RESP 20; TEMP 36.4; O2SAT 93
[2020-08-12 05:00] VITALS: BP 111/65; PULSE 80; RESP 20; TEMP 36.4; O2SAT 91
[2020-08-12 08:00] VITALS: BP 130/82; PULSE 98; RESP 18; TEMP 36.6; O2SAT 91
[2020-08-12 08:23] VITALS: O2SAT 90
[2020-08-12] MEDS: ALBUTEROL SULFATE (*SP) AEROSOL 1 PUFF 2 PUFF INHALATION ×3 (08:23→15:48)
[2020-08-12] MEDS: ENOXAPARIN 40 MG/0.4 ML SYRINGE SUB-Q (10:02)
[2020-08-12] MEDS: guaiFENesin 12 HR 600 MG TABCR 1200 MG PO (10:03)
[2020-08-12] MEDS: PANTOPRAZOLE 40 MG TABLET PO (10:03)
[2020-08-12] MEDS: PRAVASTATIN SODIUM 20 MG TABLET PO (10:03)
[2020-08-12] MEDS: lisinopriL 10 MG TABLET PO (10:03)
[2020-08-12 10:40] LABS: Glucose Point of Care 109 (65-105)
[2020-08-12 12:00] VITALS: BP 107/68; PULSE 94; RESP 18; TEMP 36.4; O2SAT 91
[2020-08-12 12:04] LABS: Glucose Point of Care 187 (65-105)
--- NOTE | 2020-08-12 13:20 | PM.DS ---
DS: Admitting Diagnosis Admitting Diagnosis Admitting Diagnosis: Pneumonia DS: Discharge Diagnosis Discharge Diagnosis (1) Pneumonia due to COVID-19 virus: Code(s): U07.1 - COVID-19; J12.89 - Other viral pneumonia Status: Acute Assessment and Plan: Discharge Summary (Date of service 08/12/20): Mr. Kincaid is a 59 y.o. male with PMH significant for diabetes, hyperlipidemia, and GERD who presented to the patient presented to the emergency with fever for 5 days and was found to be hypoxic, requiring 2 liters per nasal cannula initially. CXR demonstrated patchy bilateral airspace disease. He was treated with empiric IV antibiotics and dexamethasone initially and admitted under isolation and tested for COVID-19. COVID-19 testing was positive. Remdesivir initiated 08/02 and he received 5 days of therapy. He was also treated with 10 days of dexamethasone. Oxygen requirements increased to 9 liters per nasal cannula 08/07 and he was able to start weaning 08/08. Supportive care with albuterol per MDI, incentive spirometer, guaifenesin, analgesics and antipyretics were continued needed. He improved significantly and was eventually weaned to room air on 08/10/ Home oxygen evaluation was performed and he qualified for 1 liter with activity only. He felt much better. He had no difficulty breathing or chest pain. I discussed the importance of staying isolated for a total of 20 days since symptoms first started, fever free for 24 hours, and improvement in respiratory symptoms. He verbalized understanding. He was advised to follow-up with his dentist for his tooth abscess. He did complete 10 days of penicillin V. He requested to go home. He was discharged in hemodynamically stable condition on the afternoon of 08/12/20. (2) Sepsis: Qualifiers: Sepsis acute organ dysfunction status: without acute organ dysfunction Sepsis type: sepsis due to unspecified organism Qualified Code(s): A41.9 - Sepsis, unspecified organism Code(s): A41.9 - Sepsis, unspecified organism Status: Acute Assessment and Plan: SIRS criteria were met on admission with tachycardia, tachypnea, and fever. The suspected source of infection was COVID-19 pneumonia. Blood cultures were obtained and final cultures demonstrated no growth. Lactic acid was elevated initially at 2.6 and normalized to 1.2. He was treated for COVID as above and improved. He remained hemodynamically stable. (3) Acute respiratory failure with hypoxia: Code(s): J96.01 - Acute respiratory failure with hypoxia Status: Acute Assessment and Plan: Secondary to COVID-19 pneumonia. He required up to 9 liters per nasal cannula but was eventually weaned to room air at rest. He did qualify for 1 liter per nasal cannula with activity on home oxygen evaluation. His dyspnea improved significantly with treatment of COVID-19 pneumonia. (4) Hypertension: Qualifiers: Hypertension type: unspecified Qualified Code(s): I10 - Essential (primary) hypertension Code(s): I10 - Essential (primary) hypertension Status: Chronic Assessment and Plan: Blood pressures were reasonably controlled. Linsinopril was continued. (5) Diabetes: Qualifiers: Diabetes mellitus complication status: without complication Diabetes mellitus half-way insulin use: unspecified half-way insulin use status Diabetes mellitus type: type 2 Qualified Code(s): E11.9 - Type 2 diabetes mellitus without complications Code(s): E11.9 - Type 2 diabetes mellitus without complications Status: Chronic Assessment and Plan: Hemoglobin A1c was 6.9%. Blood sugars were elevated above target. This was likely secondary to dexamethasone. Lantus was added while inpatient for better glycemic control. Sliding scale insulin, hypoglycemia protocol, and [facility] glucose monitoring were continued. He was discharge on his prior to admission metformin and advised to
== END 2020-08-12 16:30 | disposition home or self-care (01) | DRG 871 ==
LOC: ANHED 18:07 → ANH3MEDSUR 08-02 01:30
PROVIDERS: Internal Medicine; Nurse Practitioner; Admitting Provider Family Medicine; Emergency Provider Emergency Medicine; PCP Family Medicine; Visit Provider Physician Assistant
DX: A41.89 Other specified sepsis (principal); U07.1 COVID-19; J12.89 Other viral pneumonia; J96.01 Acute respiratory failure with hypoxia; B37.89 Other sites of candidiasis; K04.7 Periapical abscess without sinus; I10 Essential (primary) hypertension; E11.9 Type 2 diabetes mellitus without complications; E78.5 Hyperlipidemia, unspecified; K21.9 Gastro-esophageal reflux disease without esophagitis; Z90.49 Acquired absence of other specified parts of digestive tract
CPT/HCPCS: 36415; 71045; 71046; 80053; 81001; 82550; 82565; 82728; 83036; 83605; 83615; 83735; 83880; 84460; 85025; 85027; 85380; 85610; 85730; 86140; 87040; 87070; 87086; 87088; 87205; 87449; 87635; 87899; 93306; 94618; 94640; 96365; 96367; 97165; 99285; A9270; C9803; J0131; J0456; J0696; J1100; J1650; J1815; J7030; U0003

== ENCOUNTER 2020-08-17 18:49 | Inpatient (IN) | payer MEDICARE, SELFPAY ==
[2020-08-17] VITALS (10 sets, daily range): BP systolic 104–132; BP diastolic 64–78; PULSE 104–128; RESP 18–38; TEMP 37.1; O2SAT 88–99
--- NOTE | ~2020-08-17 | XR_ITS ---
EXAMINATION: XR abdomen NG/feed tube insert DATE: 08/19/2020 10:26 INDICATION: Nasogastric tube placement. TECHNIQUE: A semiupright view of the abdomen was obtained. COMPARISON: CT abdomen and pelvis 01/20/17 FINDINGS: The lower abdomen is excluded. There are no dilated loops of bowel. The nasogastric tube ti p is in the stomach. Surgical clips in the right upper quadrant are likely from cholecystectomy. IMPRESSION: 1. Nasogastric tube tip in the stomach. Reviewed, dictated and finalized at location B. MERCHANT
--- NOTE | ~2020-08-17 | XR_ITS ---
EXAMINATION: XR chest 1V portable EXAM DATE: 08/31/2020 06:27 INDICATION: Acute respiratory failure, COVID-19 pneumonia. TECHNIQUE: Portable AP frontal chest x-ray was obtained. Comparison is made to prior examination from 08/30, 08/29/2020. FINDINGS: Endotracheal tube tip is 2.5 centimeters above the sudhakar (ideal range is between 2 to 5 cm ). There is a left-sided PICC line with tip projecting over the cavoatrial junction. Feeding tube in position. There is moderate to severe amount of acute ill-defined airspace disease, infection and/or edema. Th ere are no sizable pleural effusions. There is no pneumothorax suspected. Cardiomediastinal silho uette is normal. The bones and soft tissues are unremarkable. There is no significant interval change compared to prior exam. IMPRESSION: 1. Line(s) and tube(s) in position. 2. Stable airspace disease and other findings as above. Reviewed, dictated and finalized at location A. H TRAIN INSPECTOR
--- NOTE | ~2020-08-17 | XR_ITS ---
EXAMINATION: XR chest 1V portable EXAM DATE: 08/21/2020 06:05 INDICATION: Respiratory failure. COVID Pneumonia. TECHNIQUE: Portable AP frontal chest x-ray was obtained. Comparison is made to prior examination from 08/20, 08/19. FINDINGS: Endotracheal tube tip is 2 centimeters above the sudhakar (ideal range is between 2 to 5 cm). Feeding tube is in position. Diffuse extensive bilateral acute airspace disease consistent with acute infectious process. There is no pneumothorax suspected. There are no pleural effusions. Cardiomediastinal silhouette is normal. T here are cholecystectomy clips. There are mild bony degenerative changes. There is no significant interval change. IMPRESSION: 1. Tubes in position. 2. Persistent extensive bilateral acute airspace disease. Clinical correlation. RONMENTAL MAINTENANCE WORKER Reviewed, dictated and finalized at location A.
--- NOTE | ~2020-08-17 | XR_ITS ---
EXAMINATION: XR chest 1V portable INDICATION: Respiratory failure TECHNIQUE: Portable AP chest at 0730 hours COMPARISON: 08/22/2020 FINDINGS: The endotracheal tube ends 2.2 cm above the sudhakar. A nasogastric tube is in the stomach. T he lung volumes are low. Diffuse bilateral interstitial and airspace opacities persist with slight wo rsening in the lung bases. There is no pleural effusion or pneumothorax. The cardiomediastinal silhou ette is stable. IMPRESSION: 1. Diffuse lung disease with slight interval worsening, consistent with pneumonia and/or pulmonary ed myah and/or acute respiratory distress syndrome (ARDS). Reviewed, dictated and finalized at location A. CREAM VAN VENDOR IMPRESSION: 1. Diffuse lung disease with slight interval worsening, consistent with pneumon ia and/or pulmonary edema and/or acute respiratory distress syndrome (ARDS).
--- NOTE | ~2020-08-17 | XR_ITS ---
EXAMINATION: XR chest 1V portable EXAM DATE: 08/20/2020 06:24 INDICATION: intubation . Respiratory failure. COVID Pneumonia. TECHNIQUE: Portable AP frontal chest x-ray was obtained. Comparison is made to prior examination from 08/19/2020. FINDINGS: Endotracheal tube tip is 2 centimeters above the sudhakar (ideal range is between 2 to 5 cm). Feeding tube is in position. Diffuse extensive bilateral acute airspace disease consistent with ARDS, COVID-19. There is no pneumo thorax suspected. There are no pleural effusions. Cardiomediastinal silhouette is normal. There are c holecystectomy clips. There are mild bony degenerative changes. There is no significant interval change. IMPRESSION: 1. Tubes in position. 2. Persistent extensive bilateral acute airspace disease. Clinical correlation. Reviewed, dictated and finalized at location A. L SERVICE SUPERVISOR
--- NOTE | ~2020-08-17 | XR_ITS ---
XR chest 1V portable DATE: 09/06/2020 06:20 INDICATION: Respiratory distress. Intubation. TECHNIQUE: Portable AP chest on 08/29/2020 at 0548 hours COMPARISON: Portable AP chest on 09/05/2020 at 1629 hours FINDINGS: ET tube tip 3 cm above sudhakar. NG tube in body of stomach. Left upper stomach the catheter tip overlies right atrium. There are severe patchy consolidating infiltrates throughout both lungs, increased in severity since 09/05/2020. No pleural effusion or pneumothorax is evident. Status post cholecystectomy IMPRESSION: Severe patchy consolidating infiltrates throughout both lungs, increased since 09/05/2020 Reviewed, dictated and finalized at location A. DRIVER IMPRESSION: Severe patchy consolidating infiltrates throughout both lungs, incr eased since 09/05/2020
--- NOTE | ~2020-08-17 | XR_ITS ---
EXAMINATION: XR chest 1V portable DATE: 09/05/2020 16:31 INDICATION: Pneumothorax. TECHNIQUE: A single frontal view of the chest was obtained. COMPARISON: Chest single view at 5:16 AM FINDINGS: The lung volumes are small. There are airspace and interstitial opacities throughout the brandee ngs bilaterally. No pleural effusion or pneumothorax. The heart size is normal. The nasogastric tube tip is in the stomach. The endotracheal tube tip is 1.9 cm above the sudhakar. A left upper extremity p eripherally inserted central venous catheter (PICC) is seen with tip at the superior cavoatrial junct ion. Surgical clips in the right upper quadrant are likely from cholecystectomy. IMPRESSION: 1. No pneumothorax. 2. Stable diffuse lung disease, consistent with pneumonia versus acute respiratory distress syndrome (ARDS). Reviewed, dictated and finalized at location A. CIATE CURATOR IMPRESSION: 1. No pneumothorax. 2. Stable diffuse lung disease, consistent with pneumonia versus acute respirat ory distress syndrome (ARDS).
--- NOTE | ~2020-08-17 | XR_ITS ---
XR chest 1V portable 09/01/2020 06:14 Indication: Acute respiratory failure. Covid Pneumonia. Procedure: AP portable chest Comparison: Comparison to multiple prior studies sequentially, with oldest reviewed study dated 08/10. Findings: Endotracheal tube tip 2.2 cm above the sudhakar. Diffuse bilateral airspace disease unchanged . No significant pleural effusion. No pneumothorax. NG tube in the stomach. There are cholecystectomy clips. Impression: 1: Stable diffuse bilateral airspace disease, consistent with pneumonia. Edema less favored. Reviewed, dictated and finalized at location A. SE PANCAKE ROLLER Impression: 1: Stable diffuse bilateral airspace disease, consistent with pneumonia. Edema less favored.
--- NOTE | ~2020-08-17 | XR_ITS ---
EXAMINATION: XR chest 1V portable EXAM DATE: 08/19/2020 06:13 INDICATION: CHF. Pneumonia. TECHNIQUE: Portable AP frontal chest x-ray was obtained. Comparison is made to prior examination from 08/11/2020. FINDINGS: Diffuse extensive bilateral acute airspace disease consistent with ARDS, COVID-19. Difficul t to appreciate any significant interval change. There is no pneumothorax suspected. There are no ple ural effusions. Cardiomediastinal silhouette is normal. There are cholecystectomy clips. There are mi ld bony degenerative changes. IMPRESSION: Persistent extensive bilateral acute airspace disease. Clinical correlation. Reviewed, dictated and finalized at location A. DRIVER IMPRESSION: Persistent extensive bilateral acute airspace disease. Clinical co rrelation.
--- NOTE | ~2020-08-17 | XR_ITS ---
EXAMINATION: XR chest 1V portable DATE: 08/26/2020 05:36 INDICATION: COVID-19 pneumonia. Respiratory failure. TECHNIQUE: A single frontal view of the chest was obtained. COMPARISON: Chest single view 08/25/2020 FINDINGS: There are airspace opacities involving all lung zones bilaterally. No pleural effusion or p neumothorax. The heart size is normal. The endotracheal tube tip is 2.9 cm above the sudhakar. The naso gastric tube tip is in the stomach. A left upper extremity peripherally inserted central venous hunter ter (PICC) is seen with tip in the right atrium. Surgical clips in the right upper quadrant are likel y from cholecystectomy. IMPRESSION: 1. Stable diffuse lung disease, consistent with pneumonia versus acute respiratory distress syndrome (ARDS). Reviewed, dictated and finalized at location A. TY CORONER IMPRESSION: 1. Stable diffuse lung disease, consistent with pneumonia versus acute respirat ory distress syndrome (ARDS).
--- NOTE | ~2020-08-17 | XR_ITS ---
EXAMINATION: XR chest ET placement EXAM DATE: 08/22/2020 00:37 INDICATION: intubation Respiratory failure. COVID Pneumonia. TECHNIQUE: Portable AP frontal chest x-ray was obtained. Comparison is made to prior examination from yesterday. FINDINGS: Endotracheal tube tip is 2 centimeters above the sudhakar (ideal range is between 2 to 5 cm). Feeding tube is in position. Diffuse extensive bilateral acute airspace disease consistent with acute infectious process. There is no pneumothorax suspected. There are no pleural effusions. Cardiomediastinal silhouette is normal. T here are cholecystectomy clips. There are mild bony degenerative changes. There is no significant interval change. IMPRESSION: 1. Tubes in position. 2. Persistent extensive bilateral acute airspace disease. Clinical correlation. Reviewed, dictated and finalized at location A. TRONIC WARFARE OFFICER
--- NOTE | ~2020-08-17 | XR_ITS ---
EXAMINATION: XR chest 1V portable DATE: 08/25/2020 21:40 INDICATION: Decreased right breath sounds. TECHNIQUE: Portable AP view of the chest was obtained. COMPARISON: Chest radiograph dated 08/25/2020 FINDINGS: Endotracheal tube tip 2.7 cm above the sudhakar. Nasogastric tube tip in proximal side port in the body of the stomach. Left upper extremity peripherally inserted central venous catheter (PICC) tip at th e superior cavoatrial junction. Previously decreased lung volumes have increased now near normal. There is improved aeration at the l eft lung base. Persistent bilateral patchy airspace opacities throughout both lungs consistent with p neumonia. The cardiomediastinal silhouette is normal. Cholecystectomy clips in the right upper quadra nt. IMPRESSION: 1. Persistent diffuse bilateral lung disease consistent with pneumonia. 2. Increased lung volume with improved aeration at the left lung base. Reviewed, dictated and finalized at [facility]. BODY ESTIMATOR
--- NOTE | ~2020-08-17 | XR_ITS ---
EXAMINATION: XR abdomen NG/feed tube insert DATE: 08/25/2020 12:11 INDICATION: Orogastric tube placement. TECHNIQUE: A semiupright view of the abdomen was obtained. COMPARISON: Abdomen single view 08/19/2020 FINDINGS: The lower abdomen is excluded. There are no dilated loops of bowel. The nasogastric tube ti p is in the stomach. The nasogastric tube tip is beyond the inferior margin of the radiograph, but at least to the stomach. IMPRESSION: 1. Nasogastric tube tip in the stomach. Reviewed, dictated and finalized at location A. WAREHOUSE DEVELOPER
--- NOTE | ~2020-08-17 | XR_ITS ---
EXAMINATION: XR chest ET placement EXAM DATE: 08/30/2020 00:43 INDICATION: ETT replaced-covid. Respiratory failure TECHNIQUE: Portable AP frontal chest x-ray was obtained. Comparison is made to prior examination from 08/29/2020. FINDINGS: Endotracheal tube tip is 2.5 centimeters above the sudhakar (ideal range is between 2 to 5 cm ). There is a left-sided PICC line with tip projecting over the cavoatrial junction. Feeding tube in position. There is moderate to severe amount of acute ill-defined airspace disease, infection and/or edema. Th ere are no sizable pleural effusions. There is no pneumothorax suspected. Cardiomediastinal silho uette is normal. The bones and soft tissues are unremarkable. There is no significant interval change compared to prior exam. IMPRESSION: 1. Line(s) and tube(s) in position. 2. Stable airspace disease and other findings as above. Reviewed, dictated and finalized at location A. ER OPERATOR
--- NOTE | ~2020-08-17 | XR_ITS ---
EXAMINATION: XR chest 1V portable DATE: 08/29/2020 06:13 INDICATION: COVID-19 pneumonia. Respiratory failure. TECHNIQUE: A single frontal view of the chest was obtained. COMPARISON: Chest single view 08/28/2020 FINDINGS: There are airspace opacities in all lung zones bilaterally with sparing of the lung apices. No pleural effusion or pneumothorax. The heart size is normal. The endotracheal tube tip is 2.2 cm a girma the sudhakar. The nasogastric tube tip is in the stomach. A left upper extremity peripherally inse rted central venous catheter (PICC) is seen with tip at superior cavoatrial junction. Surgical clips in the right upper quadrant are likely from cholecystectomy. IMPRESSION: 1. Stable diffuse lung disease, consistent with pneumonia versus acute respiratory distress syndrome (ARDS). Reviewed, dictated and finalized at location A. OTELEGRAPHIST IMPRESSION: 1. Stable diffuse lung disease, consistent with pneumonia versus acute respirat ory distress syndrome (ARDS).
--- NOTE | ~2020-08-17 | XR_ITS ---
EXAMINATION: XR chest 1V portable DATE: 08/25/2020 05:38 INDICATION: Respiratory failure. COVID-19 pneumonia. TECHNIQUE: A single frontal view of the chest was obtained. COMPARISON: Chest single view 08/24/2020, chest CT 08/17/2020 FINDINGS: The lung volumes are small. There are patchy airspace and interstitial opacities involving all lung zones bilaterally. No pleural effusion or pneumothorax. The heart size is normal. The endotr acheal tube tip is 1.8 cm above the sudhakar. The nasogastric tube tip is in the stomach. Surgical clip s in the right upper quadrant are likely from cholecystectomy. IMPRESSION: 1. Diffuse lung disease with slight improvement on the left, consistent with pneumonia versus acute r espiratory distress syndrome (ARDS). Reviewed, dictated and finalized at location A. ORGAN MECHANIC APPRENTICE IMPRESSION: 1. Diffuse lung disease with slight improvement on the left, consistent with pn eumonia versus acute respiratory distress syndrome (ARDS).
--- NOTE | ~2020-08-17 | XR_ITS ---
EXAMINATION: XR chest ET placement DATE: 08/19/2020 10:26 INDICATION: Endotracheal tube placement TECHNIQUE: frontal view of the chest was obtained. COMPARISON: Chest radiograph dated 08/19/2020 FINDINGS: Endotracheal tube tip 1.9 cm above the sudhakar. Is a gastric tube with tip in proximal side port in th e body of the stomach. No significant interval change in bilateral patchy airspace opacities. No pleural effusion or pneumot horax. The cardiomediastinal silhouette is normal. Cholecystectomy clips in the right upper quadrant. IMPRESSION: 1. Endotracheal and nasogastric tubes in expected position. 2. Persistent bilateral lung disease consistent with multifocal pneumonia and/or ARDS. Reviewed, dictated and finalized at location A. PRINT CUTTER IMPRESSION: 1. Endotracheal and nasogastric tubes in expected position. 2. Persistent bilateral lung disease consistent with multifocal pneumonia and/o r ARDS.
--- NOTE | ~2020-08-17 | XR_ITS ---
EXAMINATION: XR chest 1V portable INDICATION: Respiratory failure TECHNIQUE: Portable AP chest at 0515 hours COMPARISON: 08/23/2020 FINDINGS: The endotracheal tube ends 2.1 cm above the sudhakar. The nasogastric tube is in the stomach. There are diffuse opacities throughout all lung zones without significant change. No pleural effusio n or pneumothorax is identified. The cardiomediastinal silhouette is stable. Surgical clips in the ri t upper quadrant are likely from prior cholecystectomy. IMPRESSION: 1. Stable diffuse lung disease, consistent with pneumonia and/or pulmonary edema and/or acute respira tory distress syndrome (ARDS). Reviewed, dictated and finalized at location A. FRAMING MANAGER IMPRESSION: 1. Stable diffuse lung disease, consistent with pneumonia and/or pulmonary thiago a and/or acute respiratory distress syndrome (ARDS).
--- NOTE | ~2020-08-17 | XR_ITS ---
EXAMINATION: XR chest 1V portable DATE: 08/28/2020 06:07 INDICATION: Respiratory failure. COVID-19 pneumonia. TECHNIQUE: A single frontal view of the chest was obtained. COMPARISON: Chest single view 08/27/2020 FINDINGS: There are patchy airspace opacities involving all lung zones with relative sparing of the l gloria apices. No pleural effusion or pneumothorax. The heart size is normal. The endotracheal tube tip is 2.0 cm above the sudhakar. The nasogastric tube tip is in the stomach. A left upper extremity periph erally inserted central venous catheter (PICC) is seen with tip at the superior cavoatrial junction. Surgical clips in the right upper quadrant are likely from cholecystectomy. IMPRESSION: 1. Diffuse lung disease, likely stable given the differences in technique, consistent with pneumonia versus acute respiratory distress syndrome (ARDS). Reviewed, dictated and finalized at location A. BER IMPRESSION: 1. Diffuse lung disease, likely stable given the differences in technique, cons istent with pneumonia versus acute respiratory distress syndrome (ARDS).
--- NOTE | ~2020-08-17 | XR_ITS ---
EXAMINATION: XR chest 1V portable DATE: 08/27/2020 06:09 INDICATION: Respiratory failure. COVID-19 pneumonia. TECHNIQUE: A single frontal view of the chest was obtained. COMPARISON: Chest single view 08/26/2020 FINDINGS: There are airspace opacities involving all lung zones bilaterally with sparing of the lung apices. No pleural effusion or pneumothorax. The heart size is normal. The endotracheal tube tip is 1 .8 cm above the sudhakar. The nasogastric tube tip is in the stomach. A left upper extremity peripheral ly inserted central venous catheter (PICC) is seen with tip at the superior cavoatrial junction. IMPRESSION: 1. Stable diffuse lung disease, consistent with pneumonia versus acute respiratory distress syndrome (ARDS). Reviewed, dictated and finalized at location A. E PRESS OPERATOR IMPRESSION: 1. Stable diffuse lung disease, consistent with pneumonia versus acute respirat ory distress syndrome (ARDS).
--- NOTE | ~2020-08-17 | XR_ITS ---
XR chest 1V portable 09/02/2020 06:03 Indication: Covid19 pneumonia Procedure: AP portable chest Comparison: Comparison to multiple prior studies sequentially, with oldest reviewed study dated 08/11. Findings: Endotracheal tube tip 2 cm above the sudhakar. NG tube in the stomach. Persistent diffuse princess ateral airspace disease without significant change allowing for technique. No significant pleural eff usion or pneumothorax. PICC line tip in the SVC. Impression: 1: Stable diffuse bilateral airspace disease, consistent with pneumonia. Reviewed, dictated and finalized at location A. WRAPPER OPERATOR Impression: 1: Stable diffuse bilateral airspace disease, consistent with pneumonia.
--- NOTE | ~2020-08-17 | CT_ITS ---
EXAMINATION: CTA chest PE protocol DATE: 08/17/2020 20:24 INDICATION: COVID 19, worsening respiratory status TECHNIQUE: Computed tomography angiography (CTA) of the chest was performed with 100 mL Omnipaque-350 intravenous contrast timed to evaluate the pulmonary arteries. Coronal maximum intensity projection 3D-reconstructions were created by the technologist. The dose-length product (DLP) was 537.29 mGy-cm. Automated exposure control and iterative reconstruction technique were employed. COMPARISON: None. FINDINGS: The pulmonary arteries are well-opacified. No pulmonary embolism is identified. Evaluation of pulmonary arteries in the lower lobe is limited by respiratory motion. There are diffuse groundgla ss and airspace opacities with a mid and lower lung zone predominance. No pleural effusion or pneumot horax is identified. There is mediastinal and bilateral hilar lymphadenopathy. The heart size is norm al. There is mild thoracic spondylosis. The gallbladder is surgically absent. IMPRESSION: 1. Diffuse groundglass and airspace opacities with a mid and lower lung zone predominance, consistent with COVID 19 pneumonia. 2. No pulmonary embolism identified, sensitivity limited by respiratory motion artifact. Reviewed, dictated and finalized at location A. REGROOVING MACHINE OPERATOR IMPRESSION: 1. Diffuse groundglass and airspace opacities with a mid and lower lung zone pr edominance, consistent with COVID 19 pneumonia. 2. No pulmonary embolism identified, sensitivity limited by respiratory motion artifact.
--- NOTE | ~2020-08-17 | XR_ITS ---
EXAMINATION: XR chest ET placement EXAM DATE: 08/25/2020 12:11 INDICATION: After intubation to confirm ET placement. TECHNIQUE: Portable AP frontal chest x-ray was obtained. Comparison is made to prior examination from earlier same date. FINDINGS: Endotracheal tube tip is 2 centimeters above the sudhakar (ideal range is between 2 to 5 cm). Feeding tube is in position. There is extensive bilateral acute airspace disease unchanged. No pneumothorax. There are no sizable pleural effusions. Cardiomediastinal silhouette is normal. There are mild bony degenerative rfost es. There are cholecystectomy clips. There is no significant interval change compared to prior exam. IMPRESSION: 1. Line(s) and tube(s) in position. 2. Stable diffuse acute airspace disease. Reviewed, dictated and finalized at location A. RVISOR SEWING DEPARTMENT
--- NOTE | ~2020-08-17 | XR_ITS ---
XR chest 1V portable DATE: 09/04/2020 06:49 INDICATION: Acute respiratory failure. Covid 19 pneumonia. TECHNIQUE: Portable AP chest on 09/04/2020 at 0557 hours COMPARISON: 09/03/2020 portable AP chest at 0527 hours FINDINGS: ET tube 2.0 cm above sudhakar. NG tube in gastric fundus. Left upper extremity PIC catheter tip overlying superior vena cava. No evidence of pneumothorax. There are increased severe bilateral pulmonary infiltrates, particularly prominent central and basila r consolidation in both lungs. Surgical clips, right upper quadrant, consistent with cholecystectomy. IMPRESSION: Severe bilateral consolidating infiltrates, increased in severity since 09/03/2020 Reviewed, dictated and finalized at location A. CLEANER PRESSER IMPRESSION: Severe bilateral consolidating infiltrates, increased in severity s jaswinder 09/03/2020
--- NOTE | ~2020-08-17 | XR_ITS ---
XR chest 1V portable 09/03/2020 06:05 Indication: Acute respiratory failure. Covid Pneumonia. Procedure: AP portable chest Comparison: Comparison to multiple prior studies sequentially, with oldest reviewed study dated 08/11. Findings: Endotracheal tube tip 2.4 cm above the sudhakar. NG tube in the stomach. Stents of bilateral airspace consolidation, consistent with pneumonia. PICC line tip near the cavoatrial junction. No pne umothorax. Impression: 1: Stable diffuse bilateral airspace consolidation, consistent with pneumonia. Reviewed, dictated and finalized at location A. L ANIMAL CARETAKER Impression: 1: Stable diffuse bilateral airspace consolidation, consistent with pneumonia.
--- NOTE | ~2020-08-17 | XR_ITS ---
XR chest 1V portable DATE: 09/05/2020 05:48 INDICATION: Respiratory failure TECHNIQUE: Portable AP chest on 09/05/2020 at 0518 hours COMPARISON: 09/04/2020 portable AP chest at 0557 hours FINDINGS: ET tube tip 2.7 cm above sudhakar in satisfactory position. NG tube in gastric fundus. Left upper extremity PIC catheter tip overlies the caudal aspect of the superior vena cava near the s uperior cavoatrial junction. There are severe bilateral patchy infiltrates throughout both lung santiago. These are mildly improved on the right since 09/04/2020. IMPRESSION: Extensive diffuse bilateral pulmonary infiltrates, mildly improved on the right since Reviewed, dictated and finalized at location A. DENT HANDLER IMPRESSION: Extensive diffuse bilateral pulmonary infiltrates, mildly improved on the right since 09/04/2020
--- NOTE | 2020-08-17 18:59 | ECG_ITS ---
Measurements Intervals [place] Rate: 116 P: 5 ND: 126 QRS: 76 QRSD: 90 T: -8 QT: 315 QTc: 439 Interpretive Statements SINUS TACHYCARDIA BORDERLINE R WAVE PROGRESSION, ANTERIOR LEADS BORDERLINE ST-T WAVE ABNORMALITY- INFERIOR LEADS BORDERLINE ECG Electronically Signed On 08-18-2020 8:40:18 CARE SUPPORT REPRESENTATIVE by Marcellus Brandt D.O.
--- NOTE | 2020-08-17 19:02 | ED.SOB ---
HPI - SOB/Dyspnea General Chief Complaint: Shortness of Breath/Dyspnea Stated Complaint: sob Time Seen by Provider: 08/17/20 19:02 Source: patient and family Mode of arrival: ambulatory Limitations: no limitations History of Present Illness HPI Narrative: Patient is a 59 y.o. male with PMH significant for diabetes, hyperlipidemia, and GERD, recent Covid diagnosis 15 days ago, discharged from this facility on August 12, who presents for worsening fever, shortness of breath. Patient states over the past 48 hours, he has had increasing dry cough and shortness of breath. He has noticed that he is breathing quite fast. He is denying any chest pain. He reports that he has had intermittent fevers, he did take Tylenol this evening. Patient denies any chest pain, nausea, vomiting. No rash or leg swelling. Patient had been discharged home on 1 L nasal cannula to use with activity, had increased this to 3 L nasal cannula, but when his shortness of breath did not improve his prompted him to come to the ER. Related Data Home Medications Medication Instructions Recorded Confirmed lisinopril 10 mg PO DAILY 07/28/20 08/01/20 metformin 500 mg PO BID 07/28/20 08/01/20 omeprazole 20 mg PO DAILY 07/28/20 08/01/20 pravastatin 20 mg PO DAILY 07/28/20 08/01/20 Allergies Allergy/AdvReac Type Severity Reaction Status Date / Time No Known Allergies Allergy Unknown Verified 08/17/20 19:21 Review of Systems Review of Systems: Narrative: CONSTITUTIONAL: Reports fever and chills EYES: Denies visual changes, redness, or discharge. ENT: Denies rhinorrhea, congestion, sore throat, or otalgia. CARDIOVASCULAR: Denies chest pain, palpitations, or edema. RESPIRATORY: Reports dry cough and shortness of breath GASTROINTESTINAL: Denies abdominal pain, nausea, vomiting, or diarrhea. GENITOURINARY: Denies dysuria or hematuria. SKIN: Denies rash or itching. MUSCULOSKELETAL: Denies back pain, reports mild arthralgias and joint pain NEUROLOGIC: Denies headache, numbness, or weakness. 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 He is no longer works. He is and tells me that he has had 7 children. He is on disability. He denies any marijuana or illicit drugs. He denies any alcohol. His is a durable power regulatory attorney for healthcare. The patient is a full code. Smoking status: Never smoker Tobacco type: cigarettes Second hand tobacco smoke exposure: No Alcohol intake: never Substance use: never Additional occupation/education comments: Disable Gender identity (if verbalized by the patient): Male Spiritual care concerns: No Exam Narrative: Exam Narrative: GENERAL: Awake, alert HEAD: Normocephalic, atraumatic. EYES: PERRLA and EOMI. ENT: Nares clear, no rhinorrhea or epistaxis. Mucous membranes moist. NECK: Supple. CHEST: Patient has respiratory distress, increased work of breathing, at times respiratory rate is in the 40s, hypoxia on 4 L nasal cannula, use of abdominal accessory muscles to breathe, no wheezing HEART: Tachycardic rate, sinus rhythm ABDOMEN:Non distended, non tender EXTREMITIES: Normal range
[2020-08-17 19:23] LABS: Alveolar/Arterial O2 Gradient 187.1 mmHg; Base Excess ABG -2.8 mEq/l (+/-2.0); Carboxyhemoglobin 1.5 % THb (0-2.0); Fractional Inspired Oxygen 40 %; HCO3 ABG 19.4 mEq/l (22.0-26.0); Methemoglobin ABG 0.3 %THb (0-1.5); Oxygen Content ABG 17.8 %vol (16.0-22.0); Oxygen Saturation ABG 94.6 % (95.0-100.0); Oxyhemoglobin 91.9 % THb (90.0-100.0); PCO2 ABG 27.4 mmHg (35.0-45.0); PO2 ABG 66.6 mmHg (80.0-100.0); PO2 FiO2 Ratio Arterial Blood 1.66 %; Reduced Hemoglobin 6.3 %THb (0-5.0); Total Hemoglobin 13.8 g/dL (12.0-18.0); pH ABG 7.468 (7.350-7.450)
[2020-08-17 19:24] LABS: Device NASAL CANNULA; Modified Allen's Test Pass; Site Drawn LEFT RADIAL
[2020-08-17 19:43] LABS: Basophils Absolute Auto 0.1 K/mm3 (0.0-0.1); Basophils Percent Auto 0.3 % (0.2-1.2); Eosinophils Absolute Auto 0.1 K/mm3 (0-0.3); Eosinophils Percent Auto 0.4 % (0-4.4); Hematocrit 39.4 % (42.0-52.0); Hemoglobin 13.2 g/dL (14.0-18.0); Immature Granulocyte Absolute 0.29 K/mm3 (0.00-0.031); Immature Granulocyte Percent A 1.4 % (0-0.5); Lymphocytes Absolute Auto 2.34 K/mm3 (0.9-3.2); Lymphocytes Percent Auto 11.5 % (18.3-44.2); Mean Corpuscular HGB Conc 33.5 g/dl (32-36); Mean Corpuscular Hemoglobin 28.8 pg (26-34); Mean Corpuscular Volume 85.8 fl (80-100); Mean Platelet Volume 10.4 fl (7.4-10.4); Monocytes Percent Auto 9.7 % (2.6-8.5); Neutrophils Absolute Auto 15.6 K/mm3 (1.3-6.7); Neutrophils Percent Auto 76.7 % (45.5-73.1); Platelet Count Result 415 k/mm3 (150-375); Red Blood Count 4.59 M/mm3 (4.6-6.20); Red Cell Distribution Width 13.6 % (11.5-14.5); White Blood Count 20.3 K/mm3 (4.5-10.0)
[2020-08-17 19:53] LABS: Anion Gap 11 mmol/L (8-16); Blood Urea Nitrogen 14 mg/dL (9-20); Calcium 8.3 mg/dL (8.4-10.2); Carbon Dioxide 22 mmol/L (22-30); Chloride 96 mmol/L (98-107); Estimated CRCL calculation 70 ml/min; Estimated Glomerular Filt Rate > 60; Glucose 164 mg/dL (75-110); Potassium 4.3 mmol/L (3.4-5.0); Sodium 129 mmol/L (137-145)
[2020-08-17 19:54] LABS: Lactic Acid Reflex 1.7 mmol/L (0.7-2.1)
[2020-08-17 19:55] LABS: Lactate Dehydrogenase 1142 U/L (313-618)
[2020-08-17 20:02] LABS: NT Pro B Type Natriuretic Pept 178 PG/ML (5-100)
[2020-08-17 20:08] LABS: Troponin I < 0.012 ng/mL (0.000-0.034)
[2020-08-17] MEDS: SODIUM CHLORIDE 0.9% IV 500 ML 999 ML IV CONT ×2 (20:13→22:18)
[2020-08-17 20:28] LABS: Partial Thromboplastin Time 40.2 SECONDS (22.3-36.8)
[2020-08-17 20:30] LABS: D Dimer 2.35 ug/mL (<0.48)
[2020-08-17 20:46] LABS: INR 1.1; Prothrombin Time 14.6 Seconds (11.1-14.7)
--- NOTE | 2020-08-17 21:11 | PM.IMHP ---
H&P: HPI History of Present Illness Date/Time: 08/17/20 21:11 Chief complaint: Acute hypoxic respiratory failure, Covid 19 Narrative: This is a pleasant 59-year-old diabetic male with known past medical history of hyperlipidemia, GERD, and COVID 19 diagnosed approximately 18 days ago and just discharged from our hospitalist service on August 12 after he was treated with empiric IV antibiotics, dexamethasone, and Remdesivir for biggs virus. the patient at 1 point during his last hospitalization was up to 9 L of oxygen via nasal cannula but eventually was weaned down to room air. Tonight he returned to the hospital with complaint of worsening shortness of breath over the past 2 days. He describes having significant exertional shortness of breath, ongoing dry hacking cough, and increased generalized weakness. Associated symptoms include intermittent fevers and body aches. the patient had been discharged home on 1 L of oxygen via nasal cannula and today he had to increase his oxygen to 3 L due to increased shortness of breath. His urged him to come to the hospital tonight. Tonight in the emergency room the patient was found to be hypoxic and requiring 6 L of high-flow oxygen therapy to maintain his oxygen saturations. In the emergency room tonight the patient has been treated with IV antibiotics, dexamethasone and bronchodilators. he denies any chest pain, wheezing, abdominal pain, nausea, vomiting, diarrhea, rectal bleeding, or lower extremity swelling. CTA Chest was obtained in the ER and was negative for acute pulmonary embolism. He tells me that he is feeling much better now on the supplemental oxygen. 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 He is no longer works. He is and tells me that he has had 7 children. He is on disability. He denies any marijuana or illicit drugs. He denies any alcohol. His is a durable power insurance attorney for healthcare. The patient is a full code. Smoking status: Never smoker Tobacco type: cigarettes Second hand tobacco smoke exposure: No Alcohol intake: never Substance use: never Additional occupation/education comments: Disable Gender identity (if verbalized by the patient): Male Spiritual care concerns: No Meds Home Medications and Allergies Home Medications Medication Instructions Recorded Confirmed Type lisinopril 10 mg PO DAILY 07/28/20 08/17/20 History metformin 500 mg PO BID 07/28/20 08/17/20 History omeprazole 20 mg PO DAILY 07/28/20 08/17/20 History pravastatin 20 mg PO DAILY 07/28/20 08/17/20 History albuterol sulfate [Proventil HFA] 2 puff INHALATION Q4-6H PRN 14 08/12/20 08/17/20 Rx Days #6.7 g guaifenesin [Mucus Relief ER] 600 mg PO Q12HR PRN 7 Days #14 08/12/20 08/17/20 Rx tablet Allergies Allergy/AdvReac Type Severity Reaction Status Date / Time No Known Allergies Allergy Unknown Verified 08/17/20 19:21 Vital Signs Vital Signs - 24 hr 08/17/20 18:51 08/17/20 18:59 08/17/20 19:20 T
--- NOTE | 2020-08-17 23:23 | PC.NURSE ---
This patient, Dwight Kincaid, was admitted to IMU Room 209-01. Patient/family oriented to hospital policies and general routines including ID bracelet, bed and alarms, visiting hours, pain management, procedures, bathroom and other care routines, personal items, smoking policy, room service/diet, and visiting hours. Information on how to activate the Rapid Response Team has been discussed. Patient/Family are encouraged to report perceived risks to care and to ask questions if they do not understand what they are told or what they should do.
[2020-08-18] VITALS (20 sets, daily range): BP systolic 110–141; BP diastolic 75–92; PULSE 71–120; RESP 16–26; TEMP 35.8–37.3; O2SAT 86–97
--- NOTE | 2020-08-18 05:26 | PCRCNOTE ---
Window of time for administration has passed. See next scheduled administration.
[2020-08-18 05:58] LABS: Basophils Percent Auto 0.1 % (0.2-1.2); Hematocrit 38.4 % (42.0-52.0); Hemoglobin 12.7 g/dL (14.0-18.0); Immature Granulocyte Absolute 0.14 K/mm3 (0.00-0.031); Lymphocytes Absolute Auto 0.84 K/mm3 (0.9-3.2); Mean Corpuscular HGB Conc 33.1 g/dl (32-36); Mean Corpuscular Hemoglobin 27.7 pg (26-34); Mean Corpuscular Volume 83.8 fl (80-100); Mean Platelet Volume 10.4 fl (7.4-10.4); Monocytes Absolute Auto 0.8 K/mm3 (0.1-0.6); Monocytes Percent Auto 5.5 % (2.6-8.5); Neutrophils Absolute Auto 12.3 K/mm3 (1.3-6.7); Neutrophils Percent Auto 87.4 % (45.5-73.1); Platelet Count Result 362 k/mm3 (150-375); Red Blood Count 4.58 M/mm3 (4.6-6.20); Red Cell Distribution Width 13.5 % (11.5-14.5); White Blood Count 14.1 K/mm3 (4.5-10.0)
[2020-08-18 06:57] LABS: Anion Gap 6 mmol/L (8-16); Blood Urea Nitrogen 10 mg/dL (9-20); Calcium 8.6 mg/dL (8.4-10.2); Carbon Dioxide 26 mmol/L (22-30); Chloride 102 mmol/L (98-107); Estimated CRCL calculation 88 ml/min; Estimated Glomerular Filt Rate > 60; Glucose 214 mg/dL (75-110); Magnesium 2.1 mg/dL (1.6-2.3); Potassium 4.4 mmol/L (3.4-5.0); Sodium 134 mmol/L (137-145)
[2020-08-18] MEDS: LEVALBUTEROL HFA (*SP) 15 GM INHALER 2 PUFF INHALATION ×3 (09:00→20:12)
[2020-08-18 10:01] LABS: Glucose Point of Care 168 (65-105)
--- NOTE | 2020-08-18 10:19 | PM.IMPN ---
Progress Note: A&P Assessment and Plan (1) Acute respiratory failure with hypoxia: Code(s): J96.01 - Acute respiratory failure with hypoxia Status: Acute Assessment and Plan: Continue supplemental oxygen. Continuous pulse oximetry. Continue treatment for COVID pneumonia. He had a recent echo that showed normal EF and no major valvulopathies, grade 1 diastolic dysfunction for intasnce heart failure seems less likely as a cause of his respiratory failure. (2) Pneumonia due to COVID-19 virus: Code(s): U07.1 - COVID-19; J12.89 - Other viral pneumonia Status: Acute Assessment and Plan: Discharged on 08/12 after completing treatment with remdesivir, dexamethasone, he was on room air at the time of discharge. Continue droplet isolation. Continue IV antibiotics, dexamethasone, and bronchodilators. Oxygen supplementation. Check sputum cultures. We will have ID to see him to assess if there is really need for additional antibiotics. There is no good evidence in favor of use of convalescent plasma but we will see what ID advises. (3) Sepsis: Code(s): A41.9 - Sepsis, unspecified organism Status: Acute Assessment and Plan: w/ tachycardia, tachypnea, and leukocytosis. Continue IV antibiotics. Source of sepsis is clearly pulmonary. Blood and sputum cultures. Bp is stable now, no shock. (4) Diabetes: Qualifiers: Diabetes mellitus type: type 2 Diabetes mellitus halfway insulin use: unspecified rn long term care insulin 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 (5) Hypertension: Qualifiers: Hypertension type: unspecified Qualified Code(s): I10 - Essential (primary) hypertension Code(s): I10 - Essential (primary) hypertension Status: Chronic Assessment and Plan: Hold lisinopril for now since the Bp is borderline low.. (6) Hyperlipidemia: Qualifiers: Hyperlipidemia type: unspecified Qualified Code(s): E78.5 - Hyperlipidemia, unspecified Code(s): E78.5 - Hyperlipidemia, unspecified Status: Chronic Assessment and Plan: Continue pravastatin. (7) GERD (gastroesophageal reflux disease): Code(s): K21.9 - Gastro-esophageal reflux disease without esophagitis Status: Chronic Assessment and Plan: Continue PPI therapy. Additional Plan Given the high d dimer above 2 and COVID infection we will start him on high intensity DVT ppx, 40 mg BID. Subjective Date/time seen: He feels more comfortable, now on 10 L of oxygen not in respiratory distress. He states he has been coughing up phlegm without blood. 08/18/20 10:19 Review of Systems Review of Systems: All systems reviewed & are unremarkable except as noted in HPI and below Exam Const: General: cooperative, alert, awake and ill appearing acutely Nutritional Appearance: well nourished Orientation/consciousness: patient oriented x3 HENMT: Head: normal to inspection Eyes: Pupils: Equal, round and reactive pupils present Neck: Neck: supple and no JVD Resp: Effort & Inspection: normal respiratory effort Auscultation: rales bilateral and diminished lung sounds Cardio: Rate: regular rate Rhythm: regular rhythm Heart sounds: no murmurs GI: Inspection: normal to inspection Auscultation: normal bowel sounds Skin: General skin exam: normal color and no rashes or lesions noted Neuro: General: patient oriented x3 Speech: normal speech Motor exam (neuro): 5/5 motor strength present throughout Sensory Exam: normal sensation Extrem: General: normal to inspection and no edema Psych: Mental Status: mental status grossly normal Affec
[2020-08-18] MEDS: DEXAMETHASONE SOD PHOS INJ 4 MG/ML VIAL 6 MG IV PUSH (10:42)
[2020-08-18] MEDS: ENOXAPARIN 40 MG/0.4 ML SYRINGE SUB-Q ×2 (12:27→20:16)
[2020-08-18] MEDS: INSULIN ASPART (*BKC) 100 UNITS/ML SUB-Q ×2 (12:27→17:32)
[2020-08-18 12:44] LABS: Glucose Point of Care 307 (65-105)
--- NOTE | 2020-08-18 13:25 | WPDINFPN2 ---
Progress Note: A&P Assessment and Plan (1) Pneumonia due to COVID-19 virus: Code(s): U07.1 - COVID-19; J12.89 - Other viral pneumonia Status: Acute Assessment and Plan: CoVid 19 viral pneumonia. REC I discussed with patient that there are no clinical trials showing benefit to another course of steroids, but he may improve nonetheless. 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 No plasma. No antibacterials. Call if further Qs Subjective Date/time seen: 08/18/20 13:25 Objective Data Vital Signs Vital Signs: Vital Signs - 24 hr 08/17/20 18:51 08/17/20 18:59 08/17/20 19:20 Temperature 37.1 C Pulse Rate 128 H 128 H 123 H Respiratory Rate 22 H Blood Pressure 121/72 Pulse Oximetry 88 L 92 08/17/20 19:47 08/17/20 20:45 08/17/20 20:50 Temperature Pulse Rate 117 H 112 H 112 H Respiratory Rate 30 H 38 H 29 H Blood Pressure 132/78 121/65 108/64 Pulse Oximetry 94 99 98 08/17/20 21:29 08/17/20 21:51 08/17/20 22:31 Temperature Pulse Rate 122 H 110 H 104 H Respiratory Rate 32 H 18 29 H Blood Pressure 104/65 120/73 118/75 Pulse Oximetry 97 98 98 08/17/20 23:34 08/18/20 00:00 08/18/20 02:00 Temperature Pulse Rate 100 99 Respiratory Rate 24 H Blood Pressure 110/75 Pulse Oximetry 90 97 08/18/20 03:50 08/18/20 03:56 08/18/20 04:00 Temperature 36.9 C Pulse Rate 110 H 115 H Respiratory Rate 24 H Blood Pressure 137/75 Pulse Oximetry 89 L 94 86 L 08/18/20 06:00 08/18/20 08:00 08/18/20 08:59 Temperature 35.8 C L Pulse Rate 117 H 113 H 71 Respiratory Rate 16 Blood Pressure 132/87 Pulse Oximetry 93 95 08/18/20 09:16 08/18/20 10:00 08/18/20 12:00 Temperature 36.2 C L Pulse Rate 114 H 106 H Respiratory Rate 16 Blood Pressure 141/88 H Pulse Oximetry 91 93 Intake/Output Intake/Output: Intake & Output 08/15/20 08/16/20 08/17/20 08/18/20 23:59 23:59 23:59 23:59 Intake Total 1550 1490 Output Total 850 Balance 1550 640 Meds/Results Medications: Active Medications Generic Name Dose Route Start Last Admin Trade Name Freq PRN Reason Stop Dose Admin Acetaminophen 650 mg 08/17/20 21:32 Acetaminophen 325 Mg Tablet PO Q4H PRN Mild Pain (1-3) or Fever Dexamethasone Sodium Phosphate 6 mg 08/18/20 09:00 08/18/20 10:42 Dexamethasone Sod Phos Inj 4 Mg/Ml Vial IV PUSH 08/27/20 09:01 6 mg DAILY MANNY Administration Dextrose 12.5 gm 08/17/20 21:32 Dextrose 50% 25 Gm/50 Ml Syringe IV PUSH PRN PRN Hypoglycemia Protocol Enoxaparin Sodium 40 mg 08/18/20 11:00 08/18/20 12:27 Enoxaparin 40 Mg/0.4 Ml Syringe SUB-Q 40 mg Q12HR MANNY Administration Glucagon 1 mg 08/17/20 21:32 Glucagon For Inj 1 Mg Vial IM PRN PRN Hypoglycemia Protocol Glucose 15 gm 08/17/20 21:32 Glucose Oral Gel 15 Gm Of Glucse In 37.5 Gm Tube PO PRN PRN Hypoglycemia Protocol Guaifenesin 600 mg 08/18/20 10:02 Guaifenesin 12 Hr 600 Mg Tabcr PO Q12HR PRN congestion Guaifenesin/Dextromethorphan 10 ml 08/17/20 21:32 Guaifenesin/Dextromethorphan 10 Ml Udc PO Q4H PRN Cough Dextrose 1,000 mls @ 100 mls/hr 08/17/20 21:32 Dextrose 5% 1,000 Ml IVPB PRN PRN Hypoglycemia Protocol Azithromycin 500 mg in 250 mls @ 250 mls/hr 08/18/20 22:00 Zithromax IVPB Q24H MANNY Ceftriaxone Sodium/Dextrose 1 gm in 50 mls @ 100 mls/hr 08/18/20 21:00 Rocephin 1 Gm/D5w 50 Ml IVPB Q24H MANNY Vancomycin HCl 1,250 mg in 250 mls @ 200 mls/hr 08/18/20 10:00 08/18/20 12:27 Vancomycin 1,250 Mg/D5w 250 Ml IVPB Infused Q12H MANNY Infusion Insulin Aspart 3 - 6 units 08/18/20 08:00 08/18/20 12:27 Insulin Aspart (*Bkc) 100 Units/Ml SUB-Q 5 units TIDWM MANNY Administration Protocol Levalbuterol HCl 2 puff 08/18/20 02:00 08/18/20 09:00 Levalbuterol Hfa (*Sp) 15 Gm Inhaler INHALATION
--- NOTE | 2020-08-18 13:37 | P.CDI_ITS ---
CDI Query Clarification Request -Pt had a Covid 19 positive swab on 08/01. -Pt was discharged on 08/12 after completing dexamethasone and Remdesivir has been documented. Please clarify for coding purposes if the current Covid 19 Pneumonia is: * An acute manifestation/ current active infection * Or a sequelae or residual effect from prior Covid infection * Unable to determine <Cheryl Steele RN - Last Filed: 08/18/20 13:42> Provider Comments Possible active infection. <Khanh Soares MD - Last Filed: 08/18/20 14:23>
[2020-08-18 18:24] LABS: Glucose Point of Care 245 (65-105)
[2020-08-18] MEDS: ACETAMINOPHEN 325 MG TABLET 650 MG PO (20:15)
[2020-08-18 20:39] LABS: SARS-CoV-2 RNA PCR Positive
[2020-08-19] VITALS (30 sets, daily range): BP systolic 84–167; BP diastolic 65–116; PULSE 83–169; RESP 20–57; TEMP 36.2–37.2; O2SAT 91–100; BMI 25.0
[2020-08-19] MEDS: LEVALBUTEROL HFA (*SP) 15 GM INHALER 2 PUFF INHALATION ×3 (01:57→08:25)
[2020-08-19 05:11] LABS: Basophils Percent Auto 0.1 % (0.2-1.2); Eosinophils Percent Auto 0.1 % (0-4.4); Hematocrit 35.2 % (42.0-52.0); Hemoglobin 11.7 g/dL (14.0-18.0); Immature Granulocyte Percent A 1.6 % (0-0.5); Lymphocytes Percent Auto 9.9 % (18.3-44.2); Mean Corpuscular HGB Conc 33.2 g/dl (32-36); Mean Corpuscular Hemoglobin 28.4 pg (26-34); Mean Corpuscular Volume 85.4 fl (80-100); Mean Platelet Volume 10.2 fl (7.4-10.4); Monocytes Absolute Auto 1.4 K/mm3 (0.1-0.6); Monocytes Percent Auto 7.5 % (2.6-8.5); Neutrophils Absolute Auto 15.5 K/mm3 (1.3-6.7); Neutrophils Percent Auto 80.8 % (45.5-73.1); Platelet Count Result 347 k/mm3 (150-375); Red Blood Count 4.12 M/mm3 (4.6-6.20); Red Cell Distribution Width 13.7 % (11.5-14.5); White Blood Count 19.2 K/mm3 (4.5-10.0)
[2020-08-19 05:34] LABS: Alanine Aminotransferase 92 U/L (4-50); Albumin Level 3.2 g/dL (3.5-5.1); Alkaline Phosphatase 114 U/L (38-126); Anion Gap 5 mmol/L (8-16); Aspartate Amino Transferase 51 U/L (17-59); Bilirubin,Total 0.7 mg/dL (0.2-1.3); Blood Urea Nitrogen 13 mg/dL (9-20); Calcium 8.6 mg/dL (8.4-10.2); Carbon Dioxide 30 mmol/L (22-30); Chloride 99 mmol/L (98-107); Estimated CRCL calculation 78 ml/min; Estimated Glomerular Filt Rate > 60; Glucose 170 mg/dL (75-110); Potassium 4.3 mmol/L (3.4-5.0); Sodium 134 mmol/L (137-145)
--- NOTE | 2020-08-19 06:14 | CONS_ITS ---
DATE OF CONSULTATION: 08/18/2020 REASON FOR CONSULTATION: Coronavirus virus pneumonia. HISTORY OF PRESENT ILLNESS: A 59-year-old male, who was admitted on July 28 with dyspnea. Several days after admission, he had a nasal swab on August 01, which was positive for PCR. He was given 5 days of remdesivir and 10 days of dexamethasone improved to the point of needing 1 L of oxygen p.r.n. He was discharged 5 days before the present admission. At home, he had dyspnea with exertion and he applied 1 L of oxygen at that time, but largely did not need it. However, on the day of readmission, he had increasing shortness of breath despite use of oxygen present to the hospital and was admitted. He has been given dexamethasone, vancomycin, azithromycin, and ceftriaxone. He does not work outside the home. He has had no fever or rigors. He has had sweats at times, but has never had documented fever. His sweats appear to be temporarily associated with his dyspnea. No chest pain, nausea, vomiting, diarrhea, or skin rash. He has been fatigued. No myalgias. He has not required any operative intervention. He is on no antibacterials at the time of discharge, but did receive amoxicillin while here due to his suspected dental abscess. ALLERGIES: NONE KNOWN. HABITS: No tobacco or alcohol, illicit drug. PRESENT MEDICATIONS: As above. No other immunosuppressants. PAST MEDICAL HISTORY: A workplace head injury and disabled. Previous cholecystectomy, hypertension, hyperlipidemia, diabetes. FAMILY HISTORY: Stroke, cancer. SOCIAL HISTORY: He is . No one at bedside currently. Seven children. Lives locally. REVIEW OF SYSTEMS: 14-point review otherwise negative. PHYSICAL EXAMINATION: GENERAL: This is a middle-aged male, who appears actual age. No acute distress. VITAL SIGNS: Afebrile consistently, 141/88, 106, 16, 93% on 10 L. SKIN: No rashes, warm and dry. NODES: No cervical adenopathy. EENT: Pupils equal, round, and reactive to light. Conjunctivae are normal. No icterus. Oropharynx, oral mucosa normal. Teeth in good repair. NECK: No masses, thyromegaly, stridor. LUNGS: Clear to auscultation and percussion. Good air entry. CARDIAC: Tachycardic regular. Normal S1, S2. No murmur, or gallop. Pulses 2+. ABDOMEN: Nontender, soft. No organomegaly. No masses. Normal bowel sounds. EXTREMITIES: No clubbing, cyanosis, or edema. No venous varicosities. NEUROLOGIC: Awake, alert, oriented, and appropriate. LABORATORY DATA: Repeat coronavirus assay is pending from August 02. Legionella and pneumococcal urine antigens both nonreactive, it has also been repeated. White blood cell count 20.3 on readmission, 14.1 today, was 9.1 two days before the prior discharge. Hemoglobin stable 12.7, platelets 362, minimal abnormalities in his differential. Prothrombin time normal. Blood gas 7.47, 27, 67. AA gradient of 187 and saturation 95% that is on 5 L. He has mild hyponatremia, which is recovering. Accu-Cheks variable 109 up to 307. LDH 1142, ferritin 170. RADIOLOGY: I personally reviewed his chest x-ray from 08/11, showed diffuse ground-glass opacities more marked lower to mid lung field. I also reviewed the radiologist's reading. I also reviewed his CT of the chest. ASSESSMENT: 1. Worsening hypoxemia due to coronavirus viral pneumonia. Bacterial superinfection is unlikely. Pulmonary embolism not demonstrated by his CT nor is it suspected clinically. I think his sweats are due to sympathetic stimulation from his hypoxemia, and not due to fever. Exam and radiographic investigation does not suggest consolidation, pleural effusions or mediastinal disease. 2. Prior head injury with disability. 3. Diabetes mellitus under questionable control.
[2020-08-19] MEDS: LORazepam INJ (*CRX) 2 MG/ML VIAL (06:22)
--- NOTE | 2020-08-19 06:34 | ECG_ITS ---
Measurements Intervals [place] Rate: 124 P: 7 ID: [id number] QRS: -30 QRSD: 93 T: -14 QT: 304 QTc: 438 Interpretive Statements SINUS TACHYCARDIA RSR' IN V1 OR V2, CONSIDER RIGHT VENTRICULAR HYPERTROPHY OR RIGHT VCD POOR R WAVE PROGRESSION, ANTERIOR LEADS BORDERLINE ST-T WAVE ABNORMALITY- INFERIOR LEADS BASELINE ARTIFACT- I, II, AVR, AVF, V1, V4 ABNORMAL ECG Electronically Signed On 08-19-2020 12:22:54 SHEET CATCHER by Marcellus Brandt D.O.
--- NOTE | 2020-08-19 07:23 | PM.IMPN ---
Subjective Date/time seen: 08/19/20 07:23 Objective Data Vital Signs Vital Signs: Vital Signs - 24 hr 08/18/20 08:00 08/18/20 08:59 08/18/20 09:16 Temperature 35.8 C L Pulse Rate 113 H 71 Respiratory Rate 16 Blood Pressure 132/87 Pulse Oximetry 93 95 91 08/18/20 10:00 08/18/20 12:00 08/18/20 14:00 Temperature 36.2 C L Pulse Rate 114 H 106 H 114 H Respiratory Rate 16 Blood Pressure 141/88 H Pulse Oximetry 93 08/18/20 15:08 08/18/20 15:15 08/18/20 16:00 Temperature 36.3 C L Pulse Rate 114 H Respiratory Rate 16 Blood Pressure 139/92 H Pulse Oximetry 97 94 93 08/18/20 18:00 08/18/20 20:00 08/18/20 20:12 Temperature 37.3 C Pulse Rate 115 H 114 H 120 H Respiratory Rate 26 H Blood Pressure 134/78 Pulse Oximetry 89 L 92 08/18/20 20:15 08/18/20 22:00 08/19/20 00:00 Temperature 37.3 C 36.8 C Pulse Rate 79 102 H Respiratory Rate 22 H Blood Pressure 133/81 Pulse Oximetry 94 08/19/20 02:00 08/19/20 02:03 08/19/20 04:00 Temperature 37.2 C Pulse Rate 94 104 H 100 Respiratory Rate 20 22 H Blood Pressure 126/82 Pulse Oximetry 93 08/19/20 05:50 08/19/20 06:05 08/19/20 06:21 Temperature Pulse Rate 128 H 135 H 128 H Respiratory Rate 47 H Blood Pressure Pulse Oximetry 92 92 Intake/Output Intake/Output: Intake & Output 08/16/20 08/17/20 08/18/20 08/19/20 23:59 23:59 23:59 23:59 Intake Total 1550 2990 200 Output Total 1850 800 Balance 1550 1140 -600 Meds/Results Medications: Active Medications Generic Name Dose Route Start Last Admin Trade Name Freq PRN Reason Stop Dose Admin Acetaminophen 650 mg 08/17/20 21:32 08/18/20 20:15 Acetaminophen 325 Mg Tablet PO 650 mg Q4H PRN Administration Mild Pain (1-3) or Fever Dexamethasone Sodium Phosphate 6 mg 08/18/20 09:00 08/18/20 10:42 Dexamethasone Sod Phos Inj 4 Mg/Ml Vial IV PUSH 08/27/20 09:01 6 mg DAILY MANNY Administration Dextrose 12.5 gm 08/17/20 21:32 Dextrose 50% 25 Gm/50 Ml Syringe IV PUSH PRN PRN Hypoglycemia Protocol Enoxaparin Sodium 40 mg 08/18/20 11:00 08/18/20 20:16 Enoxaparin 40 Mg/0.4 Ml Syringe SUB-Q 40 mg Q12HR MANNY Administration Glucagon 1 mg 08/17/20 21:32 Glucagon For Inj 1 Mg Vial IM PRN PRN Hypoglycemia Protocol Glucose 15 gm 08/17/20 21:32 Glucose Oral Gel 15 Gm Of Glucse In 37.5 Gm Tube PO PRN PRN Hypoglycemia Protocol Guaifenesin 600 mg 08/18/20 10:02 Guaifenesin 12 Hr 600 Mg Tabcr PO Q12HR PRN congestion Guaifenesin/Dextromethorphan 10 ml 08/17/20 21:32 Guaifenesin/Dextromethorphan 10 Ml Udc PO Q4H PRN Cough Dextrose 1,000 mls @ 100 mls/hr 08/17/20 21:32 Dextrose 5% 1,000 Ml IVPB PRN PRN Hypoglycemia Protocol Insulin Aspart 3 - 6 units 08/18/20 08:00 08/18/20 17:32 Insulin Aspart (*Bkc) 100 Units/Ml SUB-Q 3 units TIDWM MANNY Administration Protocol Levalbuterol HCl 2 puff 08/18/20 02:00 08/19/20 01:57 Levalbuterol Hfa (*Sp) 15 Gm Inhaler INHALATION 2 puff Q6HRT MANNY Administration Levalbuterol HCl 2 puff 08/17/20 21:31 08/19/20 05:50 Levalbuterol Hfa (*Sp) 15 Gm Inhaler INHALATION 2 puff Q4H PRN Administration Shortness Of Breath Pantoprazole Sodium 40 mg 08/19/20 09:00 Pantoprazole 40 Mg Tablet PO QAM MANNY Pravastatin Sodium 20 mg 08/19/20 09:00 Pravastatin Sodium 20 Mg Tablet PO DAILY [facility] Radiology Results: ITS Impressions Chest CTA 08/17/20 20:27 IMPRESSION: 1. Diffuse groundglass and airspace opacities with a mid and lower lung zone predominance, consistent with COVID 19 pneumonia. 2. No pulmonary embolism identified, sensitivity limited by respiratory motion artifact. Chest X-Ray 08/19/20 06:49 IMPRESSION: Persistent extensive bilateral acute airspace disease. Clinical correlation. Labs Labs: L
--- NOTE | 2020-08-19 08:08 | PC.NURSE ---
Pt son's Israel updated on change in condition and patient being moved to ICU 3
--- NOTE | 2020-08-19 08:20 | PC.NURSE ---
This patient, Dwight Kincaid, was transferred to [ ICU-3] on 08/19/20 at 0839. Personal belongings sent with patient. Report given to [ YENNI Tim]. Appropriate documentation sent with patient.
--- NOTE | 2020-08-19 08:52 | PC.NURSE ---
0820 Transferred to ICU 3.
[2020-08-19] MEDS: ENOXAPARIN 40 MG/0.4 ML SYRINGE SUB-Q (10:08)
[2020-08-19] MEDS: DEXAMETHASONE SOD PHOS INJ 4 MG/ML VIAL 6 MG IV PUSH (10:08)
[2020-08-19 10:34] LABS: Glucose Point of Care 173 (65-105)
[2020-08-19] MEDS: FENTANYL 2,500MCG/NS250ML(*CRX 2,500 MCG/250 ML BAG IV CONT (11:02)
[2020-08-19 11:26] LABS: Alveolar/Arterial O2 Gradient 608.9 mmHg; Fractional Inspired Oxygen 100 %; HCO3 ABG 23.3 mEq/l (22.0-26.0); Methemoglobin ABG 0.6 %THb (0-1.5); Oxygen Content ABG 18.1 %vol (16.0-22.0); Oxygen Saturation ABG 95.1 % (95.0-100.0); Oxyhemoglobin 93.1 % THb (90.0-100.0); PCO2 ABG 33.7 mmHg (35.0-45.0); PO2 ABG 70.4 mmHg (80.0-100.0); Reduced Hemoglobin 6.3 %THb (0-5.0); Total Hemoglobin 13.8 g/dL (12.0-18.0); pH ABG 7.457 (7.350-7.450)
[2020-08-19 11:27] LABS: Device VENTILATOR; Modified Allen's Test Pass; Site Drawn LEFT RADIAL
[2020-08-19 11:28] LABS: Arterial Blood Gas PEEP 5 cmH2O; Arterial Blood Gas Vent Mode PRESSURE CONTROL; Arterial Blood Gas Ventilator rate 26 /MIN; Peak Inspiratory Pressure 40 cmH2O
--- NOTE | 2020-08-19 12:04 | WPDCNINT ---
Assessment and Plan Assessment and plan (1) Acute respiratory failure with hypoxia: Code(s): J96.01 - Acute respiratory failure with hypoxia Status: Acute Assessment and Plan: patient with acute hypoxic respiratory failure likely related to COVID-19 pneumonia - chest x-ray shows Persistent bilateral lung disease consistent with multifocal pneumonia and/or ARDS. ETT and OG tube in expected position - patient was admitted to the hospital from 08/01/2020 to 08/12/2020 for COVID-19 pneumonia, patient was on the medical floor and was discharged home on 1 L nasal cannula at rest and 3 L nasal cannula with activity. Patient had completed a course of Remdesivir, dexamethasone. - ID following the patient - restarted on dexamethasone for 10 days - no studies have shown any benefit repeating Remdesivir or convalescent plasma - no antibiotics at this time - continue airborne, droplet, contact isolation precaution - will monitor inflammatory markers (2) Pneumonia due to COVID-19 virus: Code(s): U07.1 - COVID-19; J12.89 - Other viral pneumonia Status: Acute Assessment and Plan: as above (3) Sepsis: Qualifiers: Sepsis acute organ dysfunction status: without acute organ dysfunction Sepsis type: sepsis due to unspecified organism Qualified Code(s): A41.9 - Sepsis, unspecified organism Code(s): A41.9 - Sepsis, unspecified organism Status: Acute Assessment and Plan: patient with tachypnea, fevers, tachycardia, likely related to respiratory distress and COVID-19 pneumonia - continue to monitor - hemoglobin A1c was 6.9 on 08/03/2020 (4) Diabetes: Qualifiers: Diabetes mellitus type: type 2 Diabetes mellitus [facility] insulin use: unspecified 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 helper insulin 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 Diabetes mellitus complication status: without complication Qualified Code(s): E11.9 - Type 2 diabetes mellitus without complications Code(s): E11.9 - Type 2 diabetes mellitus without complications Status: Chronic Assessment and Plan: continue sliding scale insulin and Accu-Cheks (5) Hypertension: Qualifiers: Hypertension type: unspecified Qualified Code(s): I10 - Essential (primary) hypertension Code(s): I10 - Essential (primary) hypertension Status: Chronic Assessment and Plan: will hold all antihypertensives S patient intubated, sedated with adequate blood pressure (6) DVT prophylaxis: Code(s): Z29.9 - Encounter for prophylactic measures, unspecified Status: Acute Assessment and Plan: stress ulcer prophylaxis: Lovenox 40 mg subcu q.12 hours stress ulcer prophylaxis: Protonix 40 mg IV q.day Additional Plan discussed with Georgette and son Israel, made them with patient's condition and plan of care, they did consent to intubation. I answered all questions. They requested he be a full code code status: Full code critical care time spent: 53 minutes Due to a high probability of clinically significant, life threatening deterioration, the patient required my highest level of preparedness to intervene emergently and I personally spent this critical care time directly and personally managing the patient. This critical care time included obtaining a history; examining the patient; pulse oximetry; ordering and review of studies; arranging urgent treatment with development of a management plan; evaluation of patient's response to treatment; frequent reassessment; and discussions with other providers. It was exclusive of separately billable procedures and treating other patients and teaching time. Please see Assessment and Plan section and the rest of the note for further information on patient assessment and treatment Waist Cutter Consult Note Consult date: 08/19/20 Time Seen: 08:11 Reason for consult: acute hypoxic respiratory failure, COVID-19 pneumonia HPI: Dwight Kincaid is a 59 year old male with past medical hist
[2020-08-19] MEDS: PRAVASTATIN SODIUM 20 MG TABLET PO (12:19)
[2020-08-19] MEDS: CISATRACURIUM BESYLATE 20 MG/10 ML VIAL 10.6 MG IV PUSH (12:19)
[2020-08-19] MEDS: PANTOPRAZOLE SODIUM IV 40 MG VIAL IV PUSH (12:19)
--- NOTE | 2020-08-19 13:48 | WPDPROCEDUR ---
Procedures Intubation Intubation Date: 08/19/20 A pre-procedural Time-Out was completed immediately before starting the procedure and confirmed: Patient Identification, Site, Procedure, Patient Position and the Availability of Requisite Equipment: Yes Sedative: etomidate Paralytic: rocuronium Laryngoscope: fiber optic video scope Assist device used: fiber optic device ET tube size: 8 Tube secured depth (cm): 24 Tube placement confirmation: visualized tube passing through cords, equal breath sounds bilaterally, no breath sounds over epigastrium and confirmation by capnometry Patient tolerated procedure: well Intubation complications: none Additional comments: After obtaining consent from the and son and explaining the rationale for intubation. it was decided to go ahead and intubate the patient. The patient was lying in the supine position. Preoxygenation via BVM was provided for a minimum of 3 minutes. The patient had continuous cardiac as well as pulse oximetry monitoring during the procedure. Rapid sequence induction was provided by administration of Etomidate and rocuronium. A Glidescope blade 4 was used to directly visualize the vocal cords. A 8 mm endotracheal tube was visualized advancing between the cords to a level of 24 cm at the lip. The stylette was then removed. Tube placement was also noted by fogging in the tube, equal and bilateral breath sounds, no sounds over the epigastrium, and end-tidal colorimetric monitoring. The cuff was then inflated with 10 ml of air and the tube secured using a commercially available device. A good pulse oximetry wave form was seen on the monitor throughout the procedure. The patient was then connected to the ventilator on PCV mode ; rate of 26; FiO2 of 100%; and PEEP of 5. A portable chest x-ray has been ordered for placement. Continued sedation will be provided by Fentanyl and Versed continuous infusion titrated to a RASS of -2. The patient tolerated the procedure well.
--- NOTE | 2020-08-19 14:49 | PCDIET ---
ICU Rounding Note: Pt current nutrition is diabetic Nutrition recommendation: Due to mechanical ventilation, recommend NPO with addition of enteral nutrition Additional Notes: Recommend initiation of enteral nutrition of Vital 1.2 with a goal of 60ml/hr to provide 1584 kcals, 99g protein and 1103ml of free water. Recommend starting at 10ml/hr, advancing 10ml q 4 hrs to goal as tolerated. Following daily in ICU rounds. Assessing/reassessing q T/F
[2020-08-19] MEDS: INSULIN ASPART (*BKC) 100 UNITS/ML SUB-Q ×2 (16:18→18:52)
[2020-08-19 17:10] LABS: Glucose Point of Care 298 (65-105)
[2020-08-19 19:08] LABS: Glucose Point of Care 268 (65-105)
[2020-08-20] VITALS (54 sets, daily range): BP systolic 84–124; BP diastolic 56–80; PULSE 65–140; RESP 22–274; TEMP 35.4–36.9; O2SAT 96–100
[2020-08-20] MEDS: LEVALBUTEROL HFA (*SP) 15 GM INHALER 2 PUFF INHALATION ×4 (00:54→03:00)
[2020-08-20] MEDS: ENOXAPARIN 40 MG/0.4 ML SYRINGE SUB-Q ×3 (01:01→20:53)
[2020-08-20] MEDS: FENTANYL 2,500MCG/NS250ML(*CRX 2,500 MCG/250 ML BAG 15 MCG IV CONT (02:50)
[2020-08-20 04:32] LABS: Basophils Percent Auto 0.1 % (0.2-1.2); Eosinophils Absolute Auto 0.1 K/mm3 (0-0.3); Eosinophils Percent Auto 0.5 % (0-4.4); Hematocrit 29.2 % (42.0-52.0); Hemoglobin 9.6 g/dL (14.0-18.0); Immature Granulocyte Absolute 0.22 K/mm3 (0.00-0.031); Immature Granulocyte Percent A 1.5 % (0-0.5); Lymphocytes Absolute Auto 1.44 K/mm3 (0.9-3.2); Lymphocytes Percent Auto 10.1 % (18.3-44.2); Mean Corpuscular HGB Conc 32.9 g/dl (32-36); Mean Corpuscular Hemoglobin 28.4 pg (26-34); Mean Corpuscular Volume 86.4 fl (80-100); Mean Platelet Volume 10.4 fl (7.4-10.4); Monocytes Absolute Auto 1.1 K/mm3 (0.1-0.6); Monocytes Percent Auto 7.8 % (2.6-8.5); Neutrophils Absolute Auto 11.4 K/mm3 (1.3-6.7); Platelet Count Result 259 k/mm3 (150-375); Red Blood Count 3.38 M/mm3 (4.6-6.20); White Blood Count 14.3 K/mm3 (4.5-10.0)
[2020-08-20 04:46] LABS: D Dimer 1.99 ug/mL (<0.48); Potassium 3.9 mmol/L (3.4-5.0)
[2020-08-20 05:15] LABS: Alanine Aminotransferase 151 U/L (4-50); Albumin Level 2.7 g/dL (3.5-5.1); Alkaline Phosphatase 129 U/L (38-126); Anion Gap 7 mmol/L (8-16); Aspartate Amino Transferase 51 U/L (17-59); Bilirubin,Total 0.8 mg/dL (0.2-1.3); Blood Urea Nitrogen 15 mg/dL (9-20); Calcium 7.7 mg/dL (8.4-10.2); Carbon Dioxide 26 mmol/L (22-30); Chloride 86 mmol/L (98-107); Estimated CRCL calculation 102 ml/min; Estimated Glomerular Filt Rate > 60; Glucose 557 mg/dL (75-110); Phosphorus 3.5 mg/dL (2.5-4.5); Sodium 119 mmol/L (137-145)
[2020-08-20 05:46] LABS: Alveolar/Arterial O2 Gradient 466.8 mmHg; Base Excess ABG 2.1 mEq/l (+/-2.0); Carboxyhemoglobin 0.2 % THb (0-2.0); Fractional Inspired Oxygen 90 %; HCO3 ABG 24.8 mEq/l (22.0-26.0); Methemoglobin ABG 0.3 %THb (0-1.5); Oxygen Content ABG 16.4 %vol (16.0-22.0); Oxyhemoglobin 97.8 % THb (90.0-100.0); PCO2 ABG 32.4 mmHg (35.0-45.0); PO2 ABG 141.7 mmHg (80.0-100.0); PO2 FiO2 Ratio Arterial Blood 1.57 %; Reduced Hemoglobin 1.7 %THb (0-5.0); Total Hemoglobin 11.7 g/dL (12.0-18.0); pH ABG 7.502 (7.350-7.450)
[2020-08-20 05:47] LABS: Arterial Blood Gas PEEP 5 cmH2O; Arterial Blood Gas Vent Mode PRESSURE CONTROL; Arterial Blood Gas Ventilator rate 26 /MIN; Device VENTILATOR; Modified Allen's Test Pass; Peak Inspiratory Pressure 40 cmH2O; Site Drawn RIGHT RADIAL
[2020-08-20 07:45] LABS: Pneumococcal Antigen Urine Not Detected (Not Detected)
[2020-08-20] MEDS: PANTOPRAZOLE SODIUM IV 40 MG VIAL IV PUSH (08:19)
[2020-08-20] MEDS: PRAVASTATIN SODIUM 20 MG TABLET PO (08:20)
[2020-08-20] MEDS: DEXAMETHASONE SOD PHOS INJ 4 MG/ML VIAL 6 MG IV PUSH (08:20)
[2020-08-20 08:33] LABS: Alanine Aminotransferase 146 U/L (4-50); Albumin Level 2.8 g/dL (3.5-5.1); Alkaline Phosphatase 129 U/L (38-126); Anion Gap 6 mmol/L (8-16); Aspartate Amino Transferase 46 U/L (17-59); Bilirubin,Total 0.8 mg/dL (0.2-1.3); Blood Urea Nitrogen 16 mg/dL (9-20); Calcium 8.3 mg/dL (8.4-10.2); Carbon Dioxide 30 mmol/L (22-30); Chloride 93 mmol/L (98-107); Estimated CRCL calculation 78 ml/min; Estimated Glomerular Filt Rate > 60; Glucose 302 mg/dL (75-110); Sodium 129 mmol/L (137-145)
[2020-08-20 08:58] LABS: Glucose Point of Care 198 (65-105)
[2020-08-20] MEDS: INSULIN ASPART (*BKC) 100 UNITS/ML SUB-Q ×3 (11:20→23:28)
--- NOTE | 2020-08-20 11:24 | PCFNICU ---
ICU Rounding Note: Pt current nutrition is NPO. Nutrition recommendation: Tube feedings of Vital AF 1.2 Last recorded weight is 70.4kg. Bowel Motility:No BM reported at this time. Labs Reviewed: Glu 302,Na 129,Hct 29.2 ,Hgb 9.6 Meds Noted: Fentanyl, Versed. Additional Notes: Patient current with mechanical ventilator. Recommend initiation of enteral nutrition of Vital 1.2 with a goal of 60ml/hr to provide 1584 kcals, 99g protein and 1103ml of free water. Recommend starting at 10ml/hr, advancing 10ml q 4 hrs to goal as tolerated. Following daily in ICU rounds. Assessing/reassessing every Tuesday and Tuesday.
[2020-08-20 11:37] LABS: Glucose Point of Care 223 (65-105)
--- NOTE | 2020-08-20 11:38 | PM.IMPN ---
Progress Note: A&P Assessment and Plan (1) Acute respiratory failure with hypoxia: Code(s): J96.01 - Acute respiratory failure with hypoxia Status: Acute Assessment and Plan: - admitted to ICU, intubated pressure support, peep 5, FiO2 90%, sedated fentanyl and versed, paralyzed nimbex weaning - restarted dexamethasone 08/18 for 10 day course - s/p remdesivir - trending inflammatory markers - Following payroll professional management (2) Pneumonia due to COVID-19 virus: Code(s): U07.1 - COVID-19; J12.89 - Other viral pneumonia Status: Acute Assessment and Plan: see above (3) Sepsis: Code(s): A41.9 - Sepsis, unspecified organism Status: Acute Assessment and Plan: likely secondary to COVID-19 (4) Diabetes: Qualifiers: Diabetes mellitus type: type 2 Diabetes mellitus 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 Hgb A1c 6.9 (5) Hypertension: Qualifiers: Hypertension type: unspecified Qualified Code(s): I10 - Essential (primary) hypertension Code(s): I10 - Essential (primary) hypertension Status: Chronic Assessment and Plan: Monitor blood pressure. (6) Hyperlipidemia: Qualifiers: Hyperlipidemia type: unspecified Qualified Code(s): E78.5 - Hyperlipidemia, unspecified Code(s): E78.5 - Hyperlipidemia, unspecified Status: Chronic Assessment and Plan: held (7) GERD (gastroesophageal reflux disease): Code(s): K21.9 - Gastro-esophageal reflux disease without esophagitis Status: Chronic Assessment and Plan: IV ppi for stress prophylaxis Subjective Date/time seen: 08/20/20 11:38 Patient examined. Following payroll professional management. COVID-19 status post dexamethasone Remdesivir. Intubated 08/19-, sedated fentanyl and versed, paralyzed with Nimbex plan to be weaned today. Patient had completed remdesivir and restarted dexamethasone 08/18-. Review of Systems Review of Systems: ROS unobtainable: Yes unobtainable due to endotracheal tube Exam Narrative: Exam Narrative: - GENERAL: ill appearing male intubated and sedated - HENT: ETT in place - LUNGS: diminished lung sounds - CARDIOVASCULAR: Regular rate and rhythm. No murmur. No JVD. - ABDOMEN: Soft, non-tender and non-distended. No palpable masses. - EXTREMITIES: No edema. Peripheral pulses 2+. Non-tender. - NEUROLOGIC: unable to obtain intubated sedated paralyzed - PSYCHIATRIC: unable to obtain intubated sedated paralyzed Objective Data Vital Signs Vital Signs: Vital Signs - 24 hr 08/19/20 12:00 08/19/20 12:27 08/19/20 14:00 Temperature Pulse Rate 128 H 122 H 114 H Respiratory Rate 35 H 39 H 26 H Blood Pressure 107/84 95/74 L 92/73 L Pulse Oximetry 95 99 08/19/20 14:58 08/19/20 16:00 08/19/20 17:05 Temperature Pulse Rate 110 H 106 H 107 H Respiratory Rate 26 H Blood Pressure 97/67 L Pulse Oximetry 100 99 99 08/19/20 20:00 08/19/20 20:04 08/19/20 22:00 Temperature 36.4 C Pulse Rate 92 92 83 Respiratory Rate 26 H 26 H 26 H Blood Pressure 95/65 L 84/68 L Pulse Oximetry 100 98 08/19/20 23:45 08/20/20 00:00 08/20/20 00:57 Temperature Pulse Rate 98 76 81 Respiratory Rate 26 H 24 H Blood Pressure 90/68 L Pulse Oximetry 98 98 08/20/20 01:09 08/20/20 02:00 08/20/20 02:27 Temperature Pulse Rate 79 98 75 Respiratory Rate 26 H 26 H Blood Pressure 84/66 L 91/64 L Pulse Oximetry 98 97 08/20/20 02:50 08/20/20 03:04 08/20/20 04:00 Temperature 36.2 C L Pulse Rate 74 73 65 Respiratory Rate 26 H 26 H 26 H Blood Pressure 87/66 L 87/68 L Pulse O
--- NOTE | 2020-08-20 12:46 | WPDINTPN ---
Progress Note: A&P Assessment and Plan (1) Acute respiratory failure with hypoxia: Code(s): J96.01 - Acute respiratory failure with hypoxia Status: Acute Assessment and Plan: patient with acute hypoxic respiratory failure likely related to COVID-19 pneumonia - chest x-ray shows Persistent bilateral lung disease consistent with multifocal pneumonia and/or ARDS. ETT and OG tube in expected position - patient was admitted to the hospital from 08/01/2020 to 08/12/2020 for COVID-19 pneumonia, patient was on the medical floor and was discharged home on 1 L nasal cannula at rest and 3 L nasal cannula with activity. Patient had completed a course of Remdesivir, dexamethasone. - ID following the patient - restarted on dexamethasone for 10 days ( initiated on 08/18/2020) - no studies have shown any benefit repeating Remdesivir or convalescent plasma - no antibiotics at this time - continue airborne, droplet, contact isolation precaution - will monitor inflammatory markers - patient was intubated on 08/19/2020 for impending respiratory failure secondary tachypnea and hypoxia - on fentanyl, Versed for sedation RASS of 0 to -2, daily sedation vacation. - Patient on Nimbex, will start weaning today (2) Pneumonia due to COVID-19 virus: Code(s): U07.1 - COVID-19; J12.89 - Other viral pneumonia Status: Acute Assessment and Plan: as above (3) Sepsis: Qualifiers: Sepsis acute organ dysfunction status: without acute organ dysfunction Sepsis type: sepsis due to unspecified organism Qualified Code(s): A41.9 - Sepsis, unspecified organism Code(s): A41.9 - Sepsis, unspecified organism Status: Acute Assessment and Plan: patient with tachypnea, fevers, tachycardia, likely related to respiratory distress and COVID-19 pneumonia - tachycardia has resolved - blood cultures negative x2 from 08/17/2020 (4) Diabetes: Qualifiers: Diabetes mellitus type: type 2 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 nursing home insulin use status Diabetes mellitus complication status: without complication Qualified Code(s): E11.9 - Type 2 diabetes mellitus without complications Code(s): E11.9 - Type 2 diabetes mellitus without complications Status: Chronic Assessment and Plan: continue sliding scale insulin and Accu-Cheks - - hemoglobin A1c was 6.9 on 08/03/2020 (5) Hypertension: Qualifiers: Hypertension type: unspecified Qualified Code(s): I10 - Essential (primary) hypertension Code(s): I10 - Essential (primary) hypertension Status: Chronic Assessment and Plan: will hold all antihypertensives S patient intubated, sedated with adequate blood pressure (6) DVT prophylaxis: Code(s): Z29.9 - Encounter for prophylactic measures, unspecified Status: Acute Assessment and Plan: stress ulcer prophylaxis: Lovenox 40 mg subcu q.12 hours stress ulcer prophylaxis: Protonix 40 mg IV q.day Additional Plan discussed with Georgette and son Israel, made them with patient's condition and plan of care, they did consent to intubation. I answered all questions. They requested he be a full code code status: Full code critical care time spent: 33 minutes Due to a high probability of clinically significant, life threatening deterioration, the patient required my highest level of preparedness to intervene emergently and I personally spent this critical care time directly and personally managing the patient. This critical care time included obtaining a history; examining the patient; pulse oximetry; ordering and review of studies; arranging urgent treatment with development of a management plan; evaluation of patient's response to treatment; frequent reassessment; and discussions with other providers. It was exclusive of separately billable procedures and treating other patients and teaching time. Please see Assessment a
[2020-08-20] MEDS: FENTANYL 2,500MCG/NS250ML(*CRX 2,500 MCG/250 ML BAG 17.5 MCG IV CONT (15:04)
[2020-08-20 15:33] LABS: Legionella pneumophila Ag Ur Not Detected (Not Detected)
[2020-08-20 17:13] LABS: Glucose Point of Care 298 (65-105)
[2020-08-20 23:27] LABS: Glucose Point of Care 242 (65-105)
[2020-08-21] VITALS (49 sets, daily range): BP systolic 96–126; BP diastolic 63–82; PULSE 76–105; RESP 24–25; TEMP 36.5–37.2; O2SAT 93–99
[2020-08-21 04:49] LABS: Alveolar/Arterial O2 Gradient 309.1 mmHg; Base Excess ABG 1.8 mEq/l (+/-2.0); Carboxyhemoglobin 0.3 % THb (0-2.0); Fractional Inspired Oxygen 70 %; HCO3 ABG 26.9 mEq/l (22.0-26.0); Methemoglobin ABG 0.3 %THb (0-1.5); Oxygen Content ABG 15.6 %vol (16.0-22.0); Oxygen Saturation ABG 98.8 % (95.0-100.0); Oxyhemoglobin 97.5 % THb (90.0-100.0); PCO2 ABG 44.7 mmHg (35.0-45.0); PO2 FiO2 Ratio Arterial Blood 2.03 %; Reduced Hemoglobin 1.9 %THb (0-5.0); Total Hemoglobin 11.2 g/dL (12.0-18.0); pH ABG 7.398 (7.350-7.450)
[2020-08-21 04:50] LABS: Device VENTILATOR; Modified Allen's Test Pass; Site Drawn RIGHT RADIAL
[2020-08-21 04:51] LABS: Arterial Blood Gas Vent Mode PRESSURE CONTROL; Arterial Blood Gas Ventilator rate 24 /MIN; Peak Inspiratory Pressure 35 cmH2O
[2020-08-21 04:52] LABS: Arterial Blood Gas PEEP 5 cmH2O
[2020-08-21] MEDS: FENTANYL 2,500MCG/NS250ML(*CRX 2,500 MCG/250 ML BAG 17.5 MCG IV CONT ×2 (05:30→20:13)
[2020-08-21 05:54] LABS: Basophils Percent Auto 0.3 % (0.2-1.2); Eosinophils Absolute Auto 0.1 K/mm3 (0-0.3); Eosinophils Percent Auto 0.8 % (0-4.4); Hematocrit 29.3 % (42.0-52.0); Hemoglobin 9.3 g/dL (14.0-18.0); Immature Granulocyte Absolute 0.18 K/mm3 (0.00-0.031); Immature Granulocyte Percent A 1.6 % (0-0.5); Lymphocytes Absolute Auto 1.24 K/mm3 (0.9-3.2); Mean Corpuscular HGB Conc 31.7 g/dl (32-36); Mean Corpuscular Hemoglobin 28.7 pg (26-34); Mean Corpuscular Volume 90.4 fl (80-100); Mean Platelet Volume 10.7 fl (7.4-10.4); Monocytes Absolute Auto 0.8 K/mm3 (0.1-0.6); Monocytes Percent Auto 7.4 % (2.6-8.5); Neutrophils Absolute Auto 8.9 K/mm3 (1.3-6.7); Neutrophils Percent Auto 78.9 % (45.5-73.1); Platelet Count Result 217 k/mm3 (150-375); Red Blood Count 3.24 M/mm3 (4.6-6.20); Red Cell Distribution Width 13.9 % (11.5-14.5); White Blood Count 11.3 K/mm3 (4.5-10.0)
[2020-08-21 06:03] LABS: Alanine Aminotransferase 117 U/L (4-50); Albumin Level 2.4 g/dL (3.5-5.1); Alkaline Phosphatase 109 U/L (38-126); Anion Gap 3 mmol/L (8-16); Aspartate Amino Transferase 41 U/L (17-59); Bilirubin,Total 0.4 mg/dL (0.2-1.3); Blood Urea Nitrogen 13 mg/dL (9-20); Calcium 7.5 mg/dL (8.4-10.2); Carbon Dioxide 30 mmol/L (22-30); Chloride 87 mmol/L (98-107); Estimated CRCL calculation 102 ml/min; Estimated Glomerular Filt Rate > 60; Glucose 545 mg/dL (75-110); Phosphorus 3.6 mg/dL (2.5-4.5); Potassium 3.7 mmol/L (3.4-5.0); Sodium 120 mmol/L (137-145)
[2020-08-21] MEDS: INSULIN ASPART (*BKC) 100 UNITS/ML SUB-Q (06:44)
[2020-08-21] MEDS: ENOXAPARIN 40 MG/0.4 ML SYRINGE SUB-Q ×2 (08:18→20:15)
[2020-08-21] MEDS: PANTOPRAZOLE SODIUM IV 40 MG VIAL IV PUSH (08:19)
[2020-08-21] MEDS: LEVALBUTEROL HFA (*SP) 15 GM INHALER 2 PUFF INHALATION (08:19)
[2020-08-21] MEDS: DEXAMETHASONE SOD PHOS INJ 4 MG/ML VIAL 6 MG IV PUSH (08:19)
[2020-08-21] MEDS: PRAVASTATIN SODIUM 20 MG TABLET PO (08:19)
[2020-08-21] MEDS: INSULIN DETEMIR 100 UNITS/ML 8 UNITS SUB-Q ×2 (08:34→20:15)
[2020-08-21 09:55] LABS: Add Urine Microscopic? YES; Appearance Urine Clear (Clear); Bilirubin Urine Negative (Negative); Blood Urine Negative (Negative); Color Urine Yellow (Yellow); Glucose Urine UA Negative (Negative); Ketones Urine Negative (Negative); Leukocyte Esterase Ur Negative LEU/UL (Negative); Mucus Urine Rare /lpf; Nitrate Urine Negative (Negative); Protein Urine Negative (Negative); RBC Urine 0-2 /hpf (0-2); Specific Grav Ur 1.011 (1.001-1.035); WBC Urine 0-3 /hpf
--- NOTE | 2020-08-21 11:30 | PCDIET ---
ICU Rounding Note: Pt current nutrition is Vital 1.2 at 10ml/hr Nutrition recommendation: Increase to goal today of 40m/hr, 10ml increase q 4hrs Last recorded weight is 70.9kg, steady Bowel Motility: Reglan starting today as no BM reported Labs Reviewed:PO4 and Potassium normal today. Glucose to 545, Insulin added, CReactive 27, Na 120, Albumin 2.4 Meds Noted:Decadron, Levemir, Nimbex, Reglan, Fentanyl, Versed, Protonix, Novolog Additional Notes: O2 levels better per MD. Still hypothermic on bear hugger. No BM noted but reglan added. Had 80ml residual on 10ml/hr. Goal to decrease nimbex and increase nutrition today. Following daily in ICU rounds. Assessing/reassessing q t/f.
[2020-08-21] MEDS: METOCLOPRAMIDE HCL INJ 10 MG/2 ML VIAL 5 MG IV PUSH ×3 (12:08→23:46)
[2020-08-21 12:23] LABS: Glucose Point of Care 175 (65-105)
--- NOTE | 2020-08-21 12:26 | WPDINTPN ---
Progress Note: A&P Assessment and Plan (1) Acute respiratory failure with hypoxia: Code(s): J96.01 - Acute respiratory failure with hypoxia Status: Acute Assessment and Plan: patient with acute hypoxic respiratory failure likely related to COVID-19 pneumonia - chest x-ray shows Persistent bilateral lung disease consistent with multifocal pneumonia and/or ARDS. ETT and OG tube in expected position - patient was admitted to the hospital from 08/01/2020 to 08/12/2020 for COVID-19 pneumonia, patient was on the medical floor and was discharged home on 1 L nasal cannula at rest and 3 L nasal cannula with activity. Patient had completed a course of Remdesivir, dexamethasone. - ID following the patient - restarted on dexamethasone for 10 days ( initiated on 08/18/2020) - no studies have shown any benefit repeating Remdesivir or convalescent plasma - no antibiotics at this time - continue airborne, droplet, contact isolation precaution - will monitor inflammatory markers - patient was intubated on 08/19/2020 for impending respiratory failure secondary tachypnea and hypoxia - OFF Nimbex this morning 08/21/2020 (2) Pneumonia due to COVID-19 virus: Code(s): U07.1 - COVID-19; J12.89 - Other viral pneumonia Status: Acute Assessment and Plan: as above (3) Sepsis: Qualifiers: Sepsis acute organ dysfunction status: without acute organ dysfunction Sepsis type: sepsis due to unspecified organism Qualified Code(s): A41.9 - Sepsis, unspecified organism Code(s): A41.9 - Sepsis, unspecified organism Status: Acute Assessment and Plan: patient with tachypnea, fevers, tachycardia, likely related to respiratory distress and COVID-19 pneumonia - tachycardia has resolved - blood cultures negative x2 from 08/17/2020 - patient hypothermic, will obtain blood cultures, urine cultures and sputum culture - hold of antibiotics since white count has been trending down well (4) Diabetes: Qualifiers: Diabetes mellitus type: type 2 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 Will add Levemir for better sugar control (5) Hypertension: Qualifiers: Hypertension type: unspecified Qualified Code(s): I10 - Essential (primary) hypertension Code(s): I10 - Essential (primary) hypertension Status: Chronic Assessment and Plan: will hold all antihypertensives S patient intubated, sedated with adequate blood pressure (6) DVT prophylaxis: Code(s): Z29.9 - Encounter for prophylactic measures, unspecified Status: Acute Assessment and Plan: stress ulcer prophylaxis: Lovenox 40 mg subcu q.12 hours stress ulcer prophylaxis: Protonix 40 mg IV q.day Additional Plan discussed with Georgette and son Israel, made them with patient's condition and plan of care. I answered all questions. code status: Full code critical care time spent: 33 minutes Due to a high probability of clinically significant, life threatening deterioration, the patient required my highest level of preparedness to intervene emergently and I personally spent this critical care time directly and personally managing the patient. This critical care time included obtaining a history; examining the patient; pulse oximetry; ordering and review of studies; arranging urgent treatment with development of a management plan; evaluation of patient's response to treatment; frequent reassessment; and discussions with other providers. It was exclusive of separately
[2020-08-21 12:34] LABS: Glucose Point of Care 205 (65-105)
--- NOTE | 2020-08-21 15:35 | PM.IMPN ---
Progress Note: A&P Assessment and Plan (1) Acute respiratory failure with hypoxia: Code(s): J96.01 - Acute respiratory failure with hypoxia Status: Acute Assessment and Plan: - admitted to ICU, intubated pressure support, peep 5, FiO2 90%, sedated fentanyl and versed, paralyzed nimbex weaning - restarted dexamethasone 08/18 for 10 day course - s/p remdesivir - trending inflammatory markers - Following inspector fuel hose management (2) Pneumonia due to COVID-19 virus: Code(s): U07.1 - COVID-19; J12.89 - Other viral pneumonia Status: Acute Assessment and Plan: see above (3) Sepsis: Qualifiers: Acute respiratory failure type: with hypoxia Sepsis acute organ dysfunction status: with acute organ dysfunction Sepsis type: sepsis due to unspecified organism Severe sepsis acute organ dysfunction type: acute respiratory failure Severe sepsis shock status: without septic shock Qualified Code(s): A41.9 - Sepsis, unspecified organism; R65.20 - Severe sepsis without septic shock; J96.01 - Acute respiratory failure with hypoxia Code(s): A41.9 - Sepsis, unspecified organism Status: Acute Assessment and Plan: likely secondary to COVID-19 (4) Diabetes: Qualifiers: Diabetes mellitus complication status: without complication 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 Hgb A1c 6.9 (5) Hypertension: Qualifiers: Hypertension type: unspecified Qualified Code(s): I10 - Essential (primary) hypertension Code(s): I10 - Essential (primary) hypertension Status: Chronic Assessment and Plan: Monitor blood pressure. (6) Hyperlipidemia: Qualifiers: Hyperlipidemia type: unspecified Qualified Code(s): E78.5 - Hyperlipidemia, unspecified Code(s): E78.5 - Hyperlipidemia, unspecified Status: Chronic Assessment and Plan: held (7) GERD (gastroesophageal reflux disease): Qualifiers: Esophagitis presence: without esophagitis Qualified Code(s): K21.9 - Gastro-esophageal reflux disease without esophagitis Code(s): K21.9 - Gastro-esophageal reflux disease without esophagitis Status: Chronic Assessment and Plan: IV ppi for stress prophylaxis Additional Plan # COVID-19 pneumonia - diagnosed 08/01 covid 19 (treated 08/01-08/12) status post remdesivir and dexamethasone - dexamethasone restarted 08/18 for 10 day course - MDI: levalbuterol q6hr alex and q4hr prn - Lovenox 40 mg b.i.d. COVID-19 - Tylenol for fever - intubated 08/19- for respiratory failure, pressure support inspiratory pressure 35, rate 26, FiO2 70%, peep 5 - sedated: Fentanyl and versed - weaned off nimbex on 08/21 - checking inflammatory markers q48hr - Reglan started 5 mg q.6 # sepsis, hypothermia - may be secondary to COVID-19, however we are getting pancultures: urine culture, sputum culture, blood culture - have not started antibiotics - temp 36.6C with jose imaner, Tlow was 35.4C # type 2 diabetes - held home metformin - A1c 6.9 - elevated blood sugars from steroids - sliding scale novolog, levemir 8 units added #hyponatremia with hyperglycemia -Na corrected for glucose is 127 # other chronic condition - hyperlipidemia: Home pravastatin - GERD: Home Prilosec, giving Protonix - hypertension: Held lisinopril Diet: Tube feeds started DVT prophylaxis: Lovenox 40 b.i.d. GI prophylaxis: protonix IV Code status: Full code Disposition: ICU Subjective Date/time seen: 08/21/20 15:35 Patient examined. intubated, sedated with Jose Hugger for hypothermia temp was 35.4C, unable to wean off nimbex drip. di
[2020-08-21 17:25] LABS: Glucose Point of Care 196 (65-105)
[2020-08-21 20:34] LABS: Glucose Point of Care 219 (65-105)
[2020-08-21] MEDS: LORazepam INJ (*CRX) 2 MG/ML VIAL IV PUSH (23:46)
[2020-08-22] VITALS (27 sets, daily range): BP systolic 97–144; BP diastolic 66–84; PULSE 68–121; RESP 18–30; TEMP 36.4–37.2; O2SAT 90–100
[2020-08-22 00:53] LABS: Glucose Point of Care 180 (65-105)
[2020-08-22 03:35] LABS: Alveolar/Arterial O2 Gradient 232.8 mmHg; Base Excess ABG 5.2 mEq/l (+/-2.0); Carboxyhemoglobin 0.3 % THb (0-2.0); Fractional Inspired Oxygen 50 %; HCO3 ABG 29.9 mEq/l (22.0-26.0); Methemoglobin ABG 0.2 %THb (0-1.5); Oxygen Content ABG 14.8 %vol (16.0-22.0); Oxygen Saturation ABG 95.2 % (95.0-100.0); Oxyhemoglobin 93.6 % THb (90.0-100.0); PCO2 ABG 44.9 mmHg (35.0-45.0); PO2 ABG 73.2 mmHg (80.0-100.0); PO2 FiO2 Ratio Arterial Blood 1.46 %; Reduced Hemoglobin 5.9 %THb (0-5.0); Total Hemoglobin 11.2 g/dL (12.0-18.0); pH ABG 7.442 (7.350-7.450)
[2020-08-22 03:36] LABS: Arterial Blood Gas PEEP 8 cmH2O; Arterial Blood Gas Vent Mode PRESSURE CONTROL; Arterial Blood Gas Ventilator rate 24 /MIN; Device VENTILATOR; Modified Allen's Test Unable to perform; Peak Inspiratory Pressure 35 cmH2O; Site Drawn LEFT RADIAL
[2020-08-22] MEDS: METOCLOPRAMIDE HCL INJ 10 MG/2 ML VIAL 5 MG IV PUSH ×3 (06:10→20:26)
[2020-08-22 06:29] LABS: Glucose Point of Care 145 (65-105)
[2020-08-22 06:38] LABS: Basophils Percent Auto 0.2 % (0.2-1.2); Eosinophils Absolute Auto 0.1 K/mm3 (0-0.3); Eosinophils Percent Auto 1.2 % (0-4.4); Hematocrit 31.9 % (42.0-52.0); Hemoglobin 10.3 g/dL (14.0-18.0); Immature Granulocyte Absolute 0.22 K/mm3 (0.00-0.031); Lymphocytes Absolute Auto 1.74 K/mm3 (0.9-3.2); Lymphocytes Percent Auto 15.7 % (18.3-44.2); Mean Corpuscular HGB Conc 32.3 g/dl (32-36); Mean Corpuscular Hemoglobin 28.8 pg (26-34); Mean Corpuscular Volume 89.1 fl (80-100); Mean Platelet Volume 10.7 fl (7.4-10.4); Monocytes Absolute Auto 0.7 K/mm3 (0.1-0.6); Monocytes Percent Auto 6.6 % (2.6-8.5); Neutrophils Absolute Auto 8.2 K/mm3 (1.3-6.7); Neutrophils Percent Auto 74.3 % (45.5-73.1); Platelet Count Result 243 k/mm3 (150-375); Red Blood Count 3.58 M/mm3 (4.6-6.20); Red Cell Distribution Width 13.9 % (11.5-14.5); White Blood Count 11.1 K/mm3 (4.5-10.0)
[2020-08-22 06:43] LABS: D Dimer 2.05 ug/mL (<0.48)
[2020-08-22 07:05] LABS: Alanine Aminotransferase 148 U/L (4-50); Albumin Level 2.7 g/dL (3.5-5.1); Alkaline Phosphatase 118 U/L (38-126); Anion Gap 3 mmol/L (8-16); Aspartate Amino Transferase 61 U/L (17-59); Bilirubin,Total 0.4 mg/dL (0.2-1.3); Blood Urea Nitrogen 20 mg/dL (9-20); CRP 8.4 mg/dL (<1.0); Calcium 8.1 mg/dL (8.4-10.2); Carbon Dioxide 34 mmol/L (22-30); Chloride 98 mmol/L (98-107); Estimated CRCL calculation 88 ml/min; Estimated Glomerular Filt Rate > 60; Glucose 153 mg/dL (75-110); Lactate Dehydrogenase 704 U/L (313-618); Magnesium 2.1 mg/dL (1.6-2.3); Phosphorus 3.5 mg/dL (2.5-4.5); Potassium 4.3 mmol/L (3.4-5.0); Sodium 135 mmol/L (137-145)
[2020-08-22] MEDS: DEXAMETHASONE SOD PHOS INJ 4 MG/ML VIAL 6 MG IV PUSH (08:43)
[2020-08-22] MEDS: ENOXAPARIN 40 MG/0.4 ML SYRINGE SUB-Q ×2 (08:43→20:26)
[2020-08-22] MEDS: PANTOPRAZOLE SODIUM IV 40 MG VIAL IV PUSH (08:44)
[2020-08-22] MEDS: PRAVASTATIN SODIUM 20 MG TABLET PO (08:44)
[2020-08-22] MEDS: FENTANYL 2,500MCG/NS250ML(*CRX 2,500 MCG/250 ML BAG 20 MCG IV CONT ×2 (09:01→20:47)
[2020-08-22] MEDS: INSULIN DETEMIR 100 UNITS/ML 8 UNITS SUB-Q ×2 (09:07→20:48)
--- NOTE | 2020-08-22 11:31 | PCDIET ---
Nutrition Follow-Up Complete: Inadequate oral intake related to inability to consume foods orally at this time as evidence by need for enteral nutrition Total intake will meet estimated nutrition needs Goal: Progressing towards goal. Continue goal. Pt current nutrition is Vital 1.2 at 40ml/hr Nutrition recommendation: Increase to goal today of 60m/hr, 10ml increase q 4hrs Last recorded weight is , 69.2kg down slightly from yesterday at 70.9kg Bowel Motility: No BM, but abdomen soft Labs Reviewed:Hgb 10.3, Hct 31.9, Albumin 2.7, protein 6.0, Na 135, C Reactive Protein 8.4, Glucose 153, AST/ALT 61, 148 Meds Noted:Decadron, Levemir, Reglan, Fentanyl, Versed, Protonix, Levemir, Pravastatin Additional Notes: Pt has been tolerating Vital 1.2 at 40ml/hr with 5 ml residual. Plans to advance to goal of Vital 1.2 at 60ml/hr over 22hrs today to provide 1584 kcals, 99g protein, and 1103 ml of free water. Water flush currently appropriate at 30ml q 4 hrs due to other fluids. No BM, reglan on board and abdomen soft. Phosphorus and potassium normal today, no risk for refeeding noted. Nimbex now off. Following daily in ICU rounds. Assessing/reassessing q t/f.
--- NOTE | 2020-08-22 11:51 | WPDINTPN ---
Progress Note: A&P Assessment and Plan (1) Acute respiratory failure with hypoxia: Code(s): J96.01 - Acute respiratory failure with hypoxia Status: Acute Assessment and Plan: patient with acute hypoxic respiratory failure likely related to COVID-19 pneumonia - chest x-ray shows Persistent bilateral lung disease consistent with multifocal pneumonia and/or ARDS. ETT and OG tube in expected position - patient was admitted to the hospital from 08/01/2020 to 08/12/2020 for COVID-19 pneumonia, patient was on the medical floor and was discharged home on 1 L nasal cannula at rest and 3 L nasal cannula with activity. Patient had completed a course of Remdesivir, dexamethasone. - ID following the patient - restarted on dexamethasone for 10 days ( initiated on 08/18/2020) - no studies have shown any benefit repeating Remdesivir or convalescent plasma - no antibiotics at this time - continue airborne, droplet, contact isolation precaution - will monitor inflammatory markers - patient was intubated on 08/19/2020 for impending respiratory failure secondary tachypnea and hypoxia - OFF Nimbex since 08/21/2020 - x-ray and ABGs reviewed, will wean FiO2 and PEEP as tolerated (2) Pneumonia due to COVID-19 virus: Code(s): U07.1 - COVID-19; J12.89 - Other viral pneumonia Status: Acute Assessment and Plan: as above (3) Sepsis: Qualifiers: Sepsis acute organ dysfunction status: without acute organ dysfunction Sepsis type: sepsis due to unspecified organism Qualified Code(s): A41.9 - Sepsis, unspecified organism Code(s): A41.9 - Sepsis, unspecified organism Status: Acute Assessment and Plan: patient with tachypnea, fevers, tachycardia, likely related to respiratory distress and COVID-19 pneumonia - tachycardia has resolved - blood cultures negative x2 from 08/17/2020 - patient was hypothermic, 08/21 blood cultures negative x2, 08/22 sputum cultures pending - hold of antibiotics for now (4) Diabetes: Qualifiers: Diabetes mellitus type: type 2 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 - continue Levemirl (5) Hypertension: Qualifiers: Hypertension type: unspecified Qualified Code(s): I10 - Essential (primary) hypertension Code(s): I10 - Essential (primary) hypertension Status: Chronic Assessment and Plan: will hold all antihypertensives S patient intubated, sedated with adequate blood pressure (6) DVT prophylaxis: Code(s): Z29.9 - Encounter for prophylactic measures, unspecified Status: Acute Assessment and Plan: stress ulcer prophylaxis: Lovenox 40 mg subcu q.12 hours stress ulcer prophylaxis: Protonix 40 mg IV q.day Additional Plan discussed with Georgette and son Israel, made them with patient's condition and plan of care. I answered all questions. code status: Full code critical care time spent: 34 minutes Due to a high probability of clinically significant, life threatening deterioration, the patient required my highest level of preparedness to intervene emergently and I personally spent this critical care time directly and personally managing the patient. This critical care time included obtaining a history; examining the patient; pulse oximetry; ordering and review of studies; arranging urgent treatment with development of a management plan; evaluation of patient's response to treatment; frequent reassessment; and discussions with other providers. It was exclusive of
[2020-08-22 12:17] LABS: Glucose Point of Care 216 (65-105)
[2020-08-22] MEDS: INSULIN ASPART (*BKC) 100 UNITS/ML SUB-Q ×2 (12:26→18:15)
[2020-08-22 17:04] LABS: Alveolar/Arterial O2 Gradient 106.1 mmHg; Base Excess ABG 3.7 mEq/l (+/-2.0); Carboxyhemoglobin 0.3 % THb (0-2.0); Fractional Inspired Oxygen 36 %; HCO3 ABG 28.2 mEq/l (22.0-26.0); Methemoglobin ABG 0.2 %THb (0-1.5); Modified Allen's Test Pass; Oxygen Content ABG 16.3 %vol (16.0-22.0); Oxygen Saturation ABG 97.8 % (95.0-100.0); Oxyhemoglobin 96.6 % THb (90.0-100.0); PCO2 ABG 42.4 mmHg (35.0-45.0); PO2 ABG 101.4 mmHg (80.0-100.0); PO2 FiO2 Ratio Arterial Blood 2.82 %; Reduced Hemoglobin 2.9 %THb (0-5.0); Site Drawn LEFT RADIAL; Total Hemoglobin 11.9 g/dL (12.0-18.0); pH ABG 7.441 (7.350-7.450)
[2020-08-22 17:05] LABS: Arterial Blood Gas Ventilator rate 24 /MIN; Device VENTILATOR
[2020-08-22 17:06] LABS: Arterial Blood Gas PEEP 8 cmH2O; Arterial Blood Gas Vent Mode PRESSURE CONTROL; Peak Inspiratory Pressure 35 cmH2O
[2020-08-22 18:11] LABS: Glucose Point of Care 222 (65-105)
--- NOTE | 2020-08-22 18:11 | PM.IMPN ---
Progress Note: A&P Assessment and Plan (1) Acute respiratory failure with hypoxia: Code(s): J96.01 - Acute respiratory failure with hypoxia Status: Acute Assessment and Plan: - admitted to ICU, intubated pressure support, peep 5, FiO2 90%, sedated fentanyl and versed, paralyzed nimbex weaning - restarted dexamethasone 08/18 for 10 day course - s/p remdesivir - trending inflammatory markers - Following inspector of dredging management (2) Pneumonia due to COVID-19 virus: Code(s): U07.1 - COVID-19; J12.89 - Other viral pneumonia Status: Acute Assessment and Plan: see above (3) Sepsis: Qualifiers: Sepsis type: sepsis due to unspecified organism Sepsis acute organ dysfunction status: with acute organ dysfunction Severe sepsis acute organ dysfunction type: acute respiratory failure Acute respiratory failure type: with hypoxia Severe sepsis shock status: without septic shock Qualified Code(s): A41.9 - Sepsis, unspecified organism; R65.20 - Severe sepsis without septic shock; J96.01 - Acute respiratory failure with hypoxia Code(s): A41.9 - Sepsis, unspecified organism Status: Acute Assessment and Plan: likely secondary to COVID-19 (4) Diabetes: Qualifiers: Diabetes mellitus type: type 2 Diabetes mellitus fdc insulin use: unspecified fdc insulin 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 Hgb A1c 6.9 (5) Hypertension: Qualifiers: Hypertension type: unspecified Qualified Code(s): I10 - Essential (primary) hypertension Code(s): I10 - Essential (primary) hypertension Status: Chronic Assessment and Plan: Monitor blood pressure. (6) Hyperlipidemia: Qualifiers: Hyperlipidemia type: unspecified Qualified Code(s): E78.5 - Hyperlipidemia, unspecified Code(s): E78.5 - Hyperlipidemia, unspecified Status: Chronic Assessment and Plan: held (7) GERD (gastroesophageal reflux disease): Qualifiers: Esophagitis presence: without esophagitis Qualified Code(s): K21.9 - Gastro-esophageal reflux disease without esophagitis Code(s): K21.9 - Gastro-esophageal reflux disease without esophagitis Status: Chronic Assessment and Plan: IV ppi for stress prophylaxis Additional Plan # COVID-19 pneumonia - diagnosed 08/01 covid 19 (treated 08/01-08/12) status post remdesivir and dexamethasone - dexamethasone restarted 08/18 for 10 day course - MDI: levalbuterol q6hr alex and q4hr prn - Lovenox 40 mg b.i.d. COVID-19 - Tylenol for fever - intubated 08/19- for respiratory failure, pressure support inspiratory pressure 35, rate 26, FiO2 50%, peep 5 - sedated: Fentanyl and versed - weaned off nimbex on 08/21 - checking inflammatory markers q48hr - Reglan started 5 mg q.6 # sepsis, hypothermia - may be secondary to COVID-19, however we are getting pancultures: urine culture, sputum culture, blood culture, all negative so far - have not started antibiotics - Off Su Fabioer has temperature has normalized # type 2 diabetes - held home metformin - A1c 6.9 - elevated blood sugars from steroids - sliding scale novolog, levemir 8u BID #hyponatremia with hyperglycemia - resolving # other chronic condition - hyperlipidemia: Home pravastatin - GERD: Home Prilosec, giving Protonix - hypertension: Held lisinopril Diet: Tube feeds DVT prophylaxis: Lovenox 40 b.i.d. GI prophylaxis: protonix IV Code status: Full code Disposition: ICU Subjective Date/time seen: 08/22/20 18:11 patient examined bedside. He has been weaned off the Nimbex drip. Berry cultures are all negative. His body temperature is improved
[2020-08-22 20:41] LABS: Glucose Point of Care 209 (65-105)
[2020-08-22] MEDS: PROPOFOL IV EMULSION 100 ML 2.08 MG IV CONT (21:45)
[2020-08-23] VITALS (38 sets, daily range): BP systolic 87–153; BP diastolic 69–83; PULSE 68–125; RESP 24–32; TEMP 36.4–37.1; O2SAT 91–99
[2020-08-23] MEDS: INSULIN ASPART (*BKC) 100 UNITS/ML SUB-Q ×2 (00:27→17:56)
[2020-08-23] MEDS: METOCLOPRAMIDE HCL INJ 10 MG/2 ML VIAL 5 MG IV PUSH ×4 (00:35→17:57)
[2020-08-23 00:48] LABS: Glucose Point of Care 216 (65-105)
[2020-08-23 06:36] LABS: Hematocrit 32.9 % (42.0-52.0); Hemoglobin 10.7 g/dL (14.0-18.0); Mean Corpuscular HGB Conc 32.5 g/dl (32-36); Mean Corpuscular Hemoglobin 28.3 pg (26-34); Mean Platelet Volume 10.5 fl (7.4-10.4); Platelet Count Result 292 k/mm3 (150-375); Red Blood Count 3.78 M/mm3 (4.6-6.20); Red Cell Distribution Width 13.8 % (11.5-14.5); White Blood Count 10.3 K/mm3 (4.5-10.0)
[2020-08-23 06:50] LABS: Magnesium 2.2 mg/dL (1.6-2.3); Phosphorus 3.3 mg/dL (2.5-4.5)
[2020-08-23 07:03] LABS: Alveolar/Arterial O2 Gradient 163.5 mmHg; Base Excess ABG 4.9 mEq/l (+/-2.0); Carboxyhemoglobin 0.3 % THb (0-2.0); Fractional Inspired Oxygen 45 %; HCO3 ABG 29.7 mEq/l (22.0-26.0); Methemoglobin ABG 0.2 %THb (0-1.5); Oxygen Content ABG 16.5 %vol (16.0-22.0); Oxyhemoglobin 96.8 % THb (90.0-100.0); PCO2 ABG 44.5 mmHg (35.0-45.0); PO2 ABG 106.7 mmHg (80.0-100.0); PO2 FiO2 Ratio Arterial Blood 2.37 %; Reduced Hemoglobin 2.7 %THb (0-5.0); pH ABG 7.442 (7.350-7.450)
[2020-08-23 07:05] LABS: Device VENTILATOR; Modified Allen's Test Pass; Site Drawn LEFT RADIAL
[2020-08-23 07:06] LABS: Arterial Blood Gas PEEP 8 cmH2O; Arterial Blood Gas Vent Mode PRESSURE CONTROL; Arterial Blood Gas Ventilator rate 24 /MIN
[2020-08-23 07:08] LABS: Peak Inspiratory Pressure 35 cmH2O
[2020-08-23 07:57] LABS: Glucose Point of Care 163 (65-105)
[2020-08-23 08:19] LABS: Anion Gap 4 mmol/L (8-16); Blood Urea Nitrogen 20 mg/dL (9-20); Calcium 8.1 mg/dL (8.4-10.2); Carbon Dioxide 30 mmol/L (22-30); Chloride 98 mmol/L (98-107); Estimated CRCL calculation 120 ml/min; Estimated Glomerular Filt Rate > 60; Glucose 162 mg/dL (75-110); Potassium 3.9 mmol/L (3.4-5.0); Sodium 132 mmol/L (137-145)
[2020-08-23] MEDS: INSULIN DETEMIR 100 UNITS/ML 8 UNITS SUB-Q ×2 (08:44→22:00)
[2020-08-23] MEDS: ENOXAPARIN 40 MG/0.4 ML SYRINGE SUB-Q ×2 (08:46→20:22)
[2020-08-23] MEDS: PANTOPRAZOLE SODIUM IV 40 MG VIAL IV PUSH (08:46)
[2020-08-23] MEDS: DEXAMETHASONE SOD PHOS INJ 4 MG/ML VIAL 6 MG IV PUSH (08:46)
[2020-08-23] MEDS: PRAVASTATIN SODIUM 20 MG TABLET PO (08:46)
[2020-08-23] MEDS: FENTANYL 2,500MCG/NS250ML(*CRX 2,500 MCG/250 ML BAG 20 MCG IV CONT ×2 (09:10→22:05)
--- NOTE | 2020-08-23 11:21 | WPDINTPN ---
Progress Note: A&P Assessment and Plan (1) Acute respiratory failure with hypoxia: Code(s): J96.01 - Acute respiratory failure with hypoxia Status: Acute Assessment and Plan: patient with acute hypoxic respiratory failure likely related to COVID-19 pneumonia - chest x-ray shows Persistent bilateral lung disease consistent with multifocal pneumonia and/or ARDS. ETT and OG tube in expected position. Today x-ray showed some worsening of the bilateral airspace disease. - patient was admitted to the hospital from 08/01/2020 to 08/12/2020 for COVID-19 pneumonia, patient was on the medical floor and was discharged home on 1 L nasal cannula at rest and 3 L nasal cannula with activity. Patient had completed a course of Remdesivir and dexamethasone. - ID following the patient - restarted on dexamethasone for 10 days ( initiated on 08/18/2020) - no studies have shown any benefit repeating Remdesivir or convalescent plasma - His blood pressure is borderline low. He is having secretions from ET tube. Chest x-ray with worsening of the bilateral airspace disease. I will start empiric antibiotics to cover for secondary bacterial infection. Will check procalcitonin level. Send sputum and blood culture. Follow cultures. Deescalate antibiotics if workup does not show any evidence of bacterial infection. - continue airborne, droplet, contact isolation precaution - will monitor inflammatory markers - patient was intubated on 08/19/2020 for impending respiratory failure secondary tachypnea and hypoxia - OFF Nimbex since 08/21/2020 - x-ray and ABGs reviewed, will wean FiO2 and PEEP as tolerated CT of the chest on was negative for PE. It did show bilateral airspace disease. (2) Pneumonia due to COVID-19 virus: Code(s): U07.1 - COVID-19; J12.89 - Other viral pneumonia Status: Acute Assessment and Plan: as above (3) Sepsis: Qualifiers: Sepsis acute organ dysfunction status: without acute organ dysfunction Sepsis type: sepsis due to unspecified organism Qualified Code(s): A41.9 - Sepsis, unspecified organism Code(s): A41.9 - Sepsis, unspecified organism Status: Acute Assessment and Plan: patient with tachypnea, fevers, tachycardia, likely related to respiratory distress and COVID-19 pneumonia - tachycardia has resolved - blood cultures negative x2 from 08/17/2020 - patient was hypothermic, 08/21 blood cultures negative x2, 08/22 sputum cultures pending - Will start antibiotics with cefepime and vancomycin empirically for probable bacterial secondary infection. Check procalcitonin level. send and follow sputum and blood culture. 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 - continue Levemir (5) Hypertension: Qualifiers: Hypertension type: unspecified Qualified Code(s): I10 - Essential (primary) hypertension Code(s): I10 - Essential (primary) hypertension Status: Chronic Assessment and Plan: will hold his lisinopril while patient is intubated and sedated with adequate blood pressure (6) DVT prophylaxis: Code(s): Z29.9 - Encounter for prophylactic measures, unspecified Status: Acute Assessment and Plan: Stress ulcer prophylaxis: Lovenox 40 mg subcu q.12 hours Stress ulcer prophylaxis: Protonix 40 mg IV q.day Additional Plan DVT prophylaxis subcu Lovenox GI prophylaxis with IV pantoprazole code status: F
[2020-08-23 11:56] LABS: Glucose Point of Care 196 (65-105)
--- NOTE | 2020-08-23 15:05 | PM.IMPN ---
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 (2) Pneumonia due to COVID-19 virus: Code(s): U07.1 - COVID-19; J12.89 - Other viral pneumonia Status: Acute Assessment and Plan: see above (3) Sepsis: Qualifiers: Acute respiratory failure type: with hypoxia Sepsis acute organ dysfunction status: with acute organ dysfunction Sepsis type: sepsis due to unspecified organism Severe sepsis acute organ dysfunction type: acute respiratory failure Severe sepsis shock status: without septic shock Qualified Code(s): A41.9 - Sepsis, unspecified organism; R65.20 - Severe sepsis without septic shock; J96.01 - Acute respiratory failure with hypoxia Code(s): A41.9 - Sepsis, unspecified organism Status: Acute Assessment and Plan: likely secondary to COVID-19 (4) Diabetes: Qualifiers: Diabetes mellitus complication status: without complication 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 Hgb A1c 6.9 (5) Hypertension: Qualifiers: Hypertension type: unspecified Qualified Code(s): I10 - Essential (primary) hypertension Code(s): I10 - Essential (primary) hypertension Status: Chronic Assessment and Plan: Monitor blood pressure. (6) Hyperlipidemia: Qualifiers: Hyperlipidemia type: unspecified Qualified Code(s): E78.5 - Hyperlipidemia, unspecified Code(s): E78.5 - Hyperlipidemia, unspecified Status: Chronic Assessment and Plan: held (7) GERD (gastroesophageal reflux disease): Qualifiers: Esophagitis presence: without esophagitis Qualified Code(s): K21.9 - Gastro-esophageal reflux disease without esophagitis Code(s): K21.9 - Gastro-esophageal reflux disease without esophagitis Status: Chronic Assessment and Plan: IV ppi for stress prophylaxis Additional Plan # COVID-19 pneumonia - diagnosed 08/01 covid 19 (treated 08/01-08/12) status post remdesivir and dexamethasone - dexamethasone restarted 08/18 for 10 day course - MDI: levalbuterol q6hr alex and q4hr prn - Lovenox 40 mg b.i.d. COVID-19 - Tylenol for fever - intubated 08/19- for respiratory failure, pressure support inspiratory pressure 35, rate 26, FiO2 45%, peep 8 - sedated: Fentanyl and versed - weaned off nimbex on 08/21 - checking inflammatory markers q48hr - Reglan started 5 mg q.6 # sepsis, hypothermia - may be secondary to COVID-19, however we are getting pancultures: urine culture, sputum culture, blood culture, all negative so far - Patient started on vanc, cefepime - repeat blood cultures 08/23/2020 # type 2 diabetes - held home metformin - A1c 6.9 - elevated blood sugars from steroids - sliding scale novolog, levemir 8u BID #hyponatremia with hyperglycemia - resolving # other chronic condition - hyperlipidemia: Home pravastatin - GERD: Home Prilosec, giving Protonix - hypertension: Held lisinopril Diet: Tube feeds DVT prophylaxis: Lovenox 40 b.i.d. GI prophylaxis: protonix IV Code status: Full code Disposition: ICU Subjective Date/time seen: 08/23/20 15:05 Patient examined. Patient is stable on the vent. Temperature stable. Patient started on Vancomycin and cefepime 2 g Q 8 and repeat blood c
[2020-08-23] MEDS: PROPOFOL IV EMULSION 100 ML 2.08 MG IV CONT (16:14)
[2020-08-23 17:45] LABS: Glucose Point of Care 265 (65-105)
--- NOTE | 2020-08-23 18:12 | PC.NURSE ---
Attempted to return call to [phone]. Went straight to voicemail. No voicemail left d/t generic message of please leave message for [phone].
[2020-08-23 20:37] LABS: Glucose Point of Care 222 (65-105)
[2020-08-24] VITALS (53 sets, daily range): BP systolic 92–145; BP diastolic 66–82; PULSE 70–135; RESP 24–50; TEMP 36.6–37.2; O2SAT 85–100
[2020-08-24] MEDS: METOCLOPRAMIDE HCL INJ 10 MG/2 ML VIAL 5 MG IV PUSH ×5 (01:11→23:51)
[2020-08-24 01:33] LABS: Glucose Point of Care 178 (65-105)
[2020-08-24] MEDS: PROPOFOL IV EMULSION 100 ML 10.38 MG IV CONT (03:18)
[2020-08-24 05:10] LABS: Base Excess ABG 3.7 mEq/l (+/-2.0); Carboxyhemoglobin 0.3 % THb (0-2.0); Fractional Inspired Oxygen 40 %; HCO3 ABG 28.7 mEq/l (22.0-26.0); Methemoglobin ABG 0.2 %THb (0-1.5); Oxygen Content ABG 15.7 %vol (16.0-22.0); Oxygen Saturation ABG 96.7 % (95.0-100.0); Oxyhemoglobin 95.6 % THb (90.0-100.0); PCO2 ABG 45.3 mmHg (35.0-45.0); PO2 ABG 87.1 mmHg (80.0-100.0); PO2 FiO2 Ratio Arterial Blood 2.18 %; Reduced Hemoglobin 3.9 %THb (0-5.0); Total Hemoglobin 11.6 g/dL (12.0-18.0)
[2020-08-24 05:11] LABS: Arterial Blood Gas Vent Mode PRESSURE CONTROL; Arterial Blood Gas Ventilator rate 24 /MIN; Device VENTILATOR; Modified Allen's Test Pass; Peak Inspiratory Pressure 35 cmH2O; Site Drawn RIGHT RADIAL
[2020-08-24 05:12] LABS: Arterial Blood Gas PEEP 8 cmH2O
[2020-08-24] MEDS: INSULIN ASPART (*BKC) 100 UNITS/ML SUB-Q ×3 (06:10→17:49)
[2020-08-24 06:21] LABS: Glucose Point of Care 203 (65-105)
[2020-08-24 06:48] LABS: Hematocrit 32.5 % (42.0-52.0); Hemoglobin 10.3 g/dL (14.0-18.0); Mean Corpuscular HGB Conc 31.7 g/dl (32-36); Mean Corpuscular Hemoglobin 28.4 pg (26-34); Mean Corpuscular Volume 89.5 fl (80-100); Mean Platelet Volume 10.4 fl (7.4-10.4); Platelet Count Result 248 k/mm3 (150-375); Red Blood Count 3.63 M/mm3 (4.6-6.20); Red Cell Distribution Width 13.7 % (11.5-14.5); White Blood Count 10.3 K/mm3 (4.5-10.0)
[2020-08-24 07:00] LABS: D Dimer 1.76 ug/mL (<0.48)
[2020-08-24 07:03] LABS: Anion Gap 2 mmol/L (8-16); Blood Urea Nitrogen 15 mg/dL (9-20); CRP 6.3 mg/dL (<1.0); Calcium 7.6 mg/dL (8.4-10.2); Carbon Dioxide 33 mmol/L (22-30); Chloride 97 mmol/L (98-107); Estimated CRCL calculation 102 ml/min; Estimated Glomerular Filt Rate > 60; Glucose 207 mg/dL (75-110); Lactate Dehydrogenase 711 U/L (313-618); Phosphorus 2.6 mg/dL (2.5-4.5); Potassium 3.7 mmol/L (3.4-5.0); Sodium 132 mmol/L (137-145)
[2020-08-24] MEDS: INSULIN DETEMIR 100 UNITS/ML 8 UNITS SUB-Q ×2 (09:21→19:48)
[2020-08-24] MEDS: DEXAMETHASONE SOD PHOS INJ 4 MG/ML VIAL 6 MG IV PUSH (09:22)
[2020-08-24] MEDS: ENOXAPARIN 40 MG/0.4 ML SYRINGE SUB-Q ×2 (09:22→19:48)
[2020-08-24] MEDS: PRAVASTATIN SODIUM 20 MG TABLET PO (09:23)
[2020-08-24] MEDS: PANTOPRAZOLE SODIUM IV 40 MG VIAL IV PUSH (09:23)
[2020-08-24] MEDS: FENTANYL 2,500MCG/NS250ML(*CRX 2,500 MCG/250 ML BAG 20 MCG IV CONT ×2 (10:40→22:28)
[2020-08-24] MEDS: PROPOFOL IV EMULSION 100 ML 8.3 MG IV CONT (10:45)
--- NOTE | 2020-08-24 11:41 | P.PNINT_ITS ---
Progress Note: A&P Assessment and Plan (1) Acute respiratory failure with hypoxia: Code(s): J96.01 - Acute respiratory failure with hypoxia Status: Acute Assessment and Plan: * tested positive 08/01 * admitted to ICU, intubated on 08/19/2020 fio2 40 peep 8 sedated fentanyl, propofol and versed, paralyzed nimbe discontinued 08/21/2020 * restarted dexamethasone 08/18 for 10 day course * s/p remdesivir * cxr today Stable diffuse lung disease, consistent with pneumonia and/or pulmonary edema and/or acute respiratory distress syndrome (ARDS). * trending inflammatory markers (2) Pneumonia due to COVID-19 virus: Code(s): U07.1 - COVID-19; J12.89 - Other viral pneumonia Status: Acute Assessment and Plan: see above (3) Sepsis: Qualifiers: Sepsis type: sepsis due to unspecified organism Sepsis acute organ dysfunction status: with acute organ dysfunction Severe sepsis acute organ dysfunction type: acute respiratory failure Acute respiratory failure type: with hypoxia Severe sepsis shock status: without septic shock Qualified Code(s): A41.9 - Sepsis, unspecified organism; R65.20 - Severe sepsis without septic shock; J96.01 - Acute respiratory failure with hypoxia Code(s): A41.9 - Sepsis, unspecified organism Status: Acute Assessment and Plan: * as evidence by tachyypnea, febrile and tachycardia secondary to COVID-19, patient remains tachypnea and tachycardia * BC for 08/17 no growth, repeat BC pending from 08/23/2020 * Sputum with a growth of yeast 08/22/2020 * cont vanco d2, cefeprime d2, (4) Diabetes: Qualifiers: Diabetes mellitus type: type 2 Diabetes mellitus fci insulin use: unspecified 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 * Patients bs today 178 and 203, contniue detemir 8 unit Q12 hr and moderate sliding scale. will possible have to change sliding scale to high. (5) Hypertension: Qualifiers: Hypertension type: unspecified Qualified Code(s): I10 - Essential (primary) hypertension Code(s): I10 - Essential (primary) hypertension Status: Chronic Assessment and Plan: * Monitor blood pressure 113/67 * continue to hold lisinopril (6) Hyperlipidemia: Qualifiers: Hyperlipidemia type: unspecified Qualified Code(s): E78.5 - Hyperlipidemia, unspecified Code(s): E78.5 - Hyperlipidemia, unspecified Status: Chronic Assessment and Plan: * held (7) GERD (gastroesophageal reflux disease): Qualifiers: Esophagitis presence: without esophagitis Qualified Code(s): K21.9 - Gastro-esophageal reflux disease without esophagitis Code(s): K21.9 - Gastro-esophageal reflux disease without esophagitis Status: Chronic Assessment and Plan: * IV ppi for stress prophylaxis Additional Plan Diet: Tube feeds DVT prophylaxis: Lovenox 40 b.i.d. GI prophylaxis: protonix IV Code status: Full code Disposition: ICU Subjective Date/time seen: 08/24/20 11:41 Patient intubated and sedated thus unable to provide history. Remains on Fentanyl decreased to 200 mcg Versed 12 , Propofol at 20 mcg. Tolerating TF. +BM Interval history: A 59-year-old m
--- NOTE | 2020-08-24 11:41 | WPDINTPN ---
Progress Note: A&P Assessment and Plan (1) Acute respiratory failure with hypoxia: Code(s): J96.01 - Acute respiratory failure with hypoxia Status: Acute Assessment and Plan: tested positive 08/01 admitted to ICU, intubated on 08/19/2020 fio2 40 peep 8 sedated fentanyl, propofol and versed, paralyzed nimbe discontinued 08/21/2020 restarted dexamethasone 08/18 for 10 day course s/p remdesivir cxr today Stable diffuse lung disease, consistent with pneumonia and/or pulmonary edema and/or acute respiratory distress syndrome (ARDS). trending inflammatory markers (2) Pneumonia due to COVID-19 virus: Code(s): U07.1 - COVID-19; J12.89 - Other viral pneumonia Status: Acute Assessment and Plan: see above (3) Sepsis: Qualifiers: Sepsis type: sepsis due to unspecified organism Sepsis acute organ dysfunction status: with acute organ dysfunction Severe sepsis acute organ dysfunction type: acute respiratory failure Acute respiratory failure type: with hypoxia Severe sepsis shock status: without septic shock Qualified Code(s): A41.9 - Sepsis, unspecified organism; R65.20 - Severe sepsis without septic shock; J96.01 - Acute respiratory failure with hypoxia Code(s): A41.9 - Sepsis, unspecified organism Status: Acute Assessment and Plan: as evidence by tachyypnea, febrile and tachycardia secondary to COVID-19, patient remains tachypnea and tachycardia BC for 08/17 no growth, repeat BC pending from 08/23/2020 Sputum with a growth of yeast 08/22/2020 cont vanco d2, cefeprime d2, (4) Diabetes: Qualifiers: Diabetes mellitus type: type 2 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 Patients bs today 178 and 203, contniue detemir 8 unit Q12 hr and moderate sliding scale. will possible have to change sliding scale to high. (5) Hypertension: Qualifiers: Hypertension type: unspecified Qualified Code(s): I10 - Essential (primary) hypertension Code(s): I10 - Essential (primary) hypertension Status: Chronic Assessment and Plan: Monitor blood pressure 113/67 continue to hold lisinopril (6) Hyperlipidemia: Qualifiers: Hyperlipidemia type: unspecified Qualified Code(s): E78.5 - Hyperlipidemia, unspecified Code(s): E78.5 - Hyperlipidemia, unspecified Status: Chronic Assessment and Plan: held (7) GERD (gastroesophageal reflux disease): Qualifiers: Esophagitis presence: without esophagitis Qualified Code(s): K21.9 - Gastro-esophageal reflux disease without esophagitis Code(s): K21.9 - Gastro-esophageal reflux disease without esophagitis Status: Chronic Assessment and Plan: IV ppi for stress prophylaxis Additional Plan Diet: Tube feeds DVT prophylaxis: Lovenox 40 b.i.d. GI prophylaxis: protonix IV Code status: Full code Disposition: ICU Subjective Date/time seen: 08/24/20 11:41 Patient intubated and sedated thus unable to provide history. Remains on Fentanyl decreased to 200 mcg Versed 12 , Propofol at 20 mcg. Tolerating TF. +BM Interval history: A 59-year-old male with past medical history of diabetes mellitus, hypertension and hyperlipidemia who was admitted with acute hypoxic respiratory failure, COVID-19 pneumonia - intubated on 08/19/2020 Review of Systems Review of Systems: All systems reviewed & are unremarkable except as noted in HPI and below ROS unobtainable: Yes unobtainable due to endotracheal tube Exam Narrative: Exam Narrative: - GENERA
[2020-08-24 12:08] LABS: Glucose Point of Care 245 (65-105)
--- NOTE | 2020-08-24 12:30 | PC.NURSE ---
pt fighting and over breathing ventilator. New order to increase Propofol to max dose fo 50mcg/hr, until patient has become sedated, then start to wean off
--- NOTE | 2020-08-24 14:02 | PM.IMPN ---
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 (2) Pneumonia due to COVID-19 virus: Code(s): U07.1 - COVID-19; J12.89 - Other viral pneumonia Status: Acute Assessment and Plan: see above (3) Sepsis: Qualifiers: Sepsis type: sepsis due to unspecified organism Sepsis acute organ dysfunction status: with acute organ dysfunction Severe sepsis acute organ dysfunction type: acute respiratory failure Acute respiratory failure type: with hypoxia Severe sepsis shock status: without septic shock Qualified Code(s): A41.9 - Sepsis, unspecified organism; R65.20 - Severe sepsis without septic shock; J96.01 - Acute respiratory failure with hypoxia Code(s): A41.9 - Sepsis, unspecified organism Status: Acute Assessment and Plan: likely secondary to COVID-19 (4) Diabetes: Qualifiers: Diabetes mellitus type: type 2 Diabetes mellitus [facility] insulin use: unspecified 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 insulin 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 Hgb A1c 6.9 (5) Hypertension: Qualifiers: Hypertension type: unspecified Qualified Code(s): I10 - Essential (primary) hypertension Code(s): I10 - Essential (primary) hypertension Status: Chronic Assessment and Plan: Monitor blood pressure. (6) Hyperlipidemia: Qualifiers: Hyperlipidemia type: unspecified Qualified Code(s): E78.5 - Hyperlipidemia, unspecified Code(s): E78.5 - Hyperlipidemia, unspecified Status: Chronic Assessment and Plan: held (7) GERD (gastroesophageal reflux disease): Qualifiers: Esophagitis presence: without esophagitis Qualified Code(s): K21.9 - Gastro-esophageal reflux disease without esophagitis Code(s): K21.9 - Gastro-esophageal reflux disease without esophagitis Status: Chronic Assessment and Plan: IV ppi for stress prophylaxis Additional Plan # COVID-19 pneumonia - diagnosed 08/01 covid 19 (treated 08/01-08/12) status post remdesivir and dexamethasone - dexamethasone restarted 08/18 for 10 day course - started Xopenex nebs - Lovenox 40 mg b.i.d. COVID-19 - Tylenol for fever - intubated 08/19- for respiratory failure, pressure support inspiratory pressure 35, rate 26, FiO2 45%, peep 8 - sedated: Fentanyl, versed, and propofol - weaned off nimbex on 08/21 - checking inflammatory markers q48hr - Reglan started 5 mg q.6 # sepsis, hypothermia - may be secondary to COVID-19, however we are getting pancultures: urine culture, sputum culture, blood culture, all negative so far - Patient started on vanc, cefepime 08/23- - repeat blood cultures 08/23/2020 # type 2 diabetes - held home metformin - A1c 6.9 - elevated blood sugars from steroids - sliding scale novolog, levemir 8u BID #hyponatremia with hyperglycemia - resolving # other chronic condition - hyperlipidemia: Home pravastatin - GERD: Home Prilosec, giving Protonix - hypertension: Held lisinopril Diet: Tube feeds DVT prophylaxis: Lovenox 40 b.i.d. GI prophylaxis: protonix IV Code status: Full code Disposition: ICU Subjective Date/time seen: 08/24/20 14:02 Patient examined. He is tolerating his tube feeds, last night had episode of increased residuals and was temporarily stopped. Day 2 of vanc and c
[2020-08-24] MEDS: LEVALBUTEROL NEB 1.25 MG/3 ML 0.63 MG INHALATION ×2 (14:21→21:05)
[2020-08-24] MEDS: PROPOFOL IV EMULSION 100 ML 12.46 MG IV CONT (16:39)
[2020-08-24 19:21] LABS: Glucose Point of Care 258 (65-105)
[2020-08-24] MEDS: PROPOFOL IV EMULSION 100 ML 14.53 MG IV CONT (23:59)
[2020-08-25] VITALS (59 sets, daily range): BP systolic 104–156; BP diastolic 61–87; PULSE 78–120; RESP 24–45; TEMP 35.9–37.5; O2SAT 91–99
[2020-08-25 00:50] LABS: Glucose Point of Care 151 (65-105)
[2020-08-25 00:59] LABS: Vancomycin Trough 5.4 ug/mL (10.0-20.0)
[2020-08-25] MEDS: ACETAMINOPHEN ELIXIR 325 MG/10.15 ML UDC 650 MG PO (02:03)
[2020-08-25] MEDS: LEVALBUTEROL NEB 1.25 MG/3 ML 0.63 MG INHALATION ×3 (02:44→14:20)
[2020-08-25 04:00] LABS: Hematocrit 34.9 % (42.0-52.0); Hemoglobin 10.8 g/dL (14.0-18.0); Mean Corpuscular HGB Conc 30.9 g/dl (32-36); Mean Corpuscular Hemoglobin 28.4 pg (26-34); Mean Corpuscular Volume 91.8 fl (80-100); Mean Platelet Volume 10.4 fl (7.4-10.4); Platelet Count Result 277 k/mm3 (150-375); Red Cell Distribution Width 13.9 % (11.5-14.5); White Blood Count 13.6 K/mm3 (4.5-10.0)
[2020-08-25 04:15] LABS: Magnesium 2.1 mg/dL (1.6-2.3); Phosphorus 3.4 mg/dL (2.5-4.5)
[2020-08-25 04:41] LABS: Anion Gap 0 mmol/L (8-16); Blood Urea Nitrogen 17 mg/dL (9-20); Calcium 7.7 mg/dL (8.4-10.2); Carbon Dioxide 39 mmol/L (22-30); Chloride 95 mmol/L (98-107); Estimated CRCL calculation 102 ml/min; Estimated Glomerular Filt Rate > 60; Glucose 195 mg/dL (75-110); Potassium 4.4 mmol/L (3.4-5.0); Sodium 134 mmol/L (137-145)
[2020-08-25] MEDS: PROPOFOL IV EMULSION 100 ML 20.76 MG IV CONT ×5 (05:13→21:47)
[2020-08-25 06:11] LABS: Alveolar/Arterial O2 Gradient 183.2 mmHg; Base Excess ABG 3.5 mEq/l (+/-2.0); Carboxyhemoglobin 0.2 % THb (0-2.0); Fractional Inspired Oxygen 45 %; HCO3 ABG 31.8 mEq/l (22.0-26.0); Methemoglobin ABG 0.4 %THb (0-1.5); Oxygen Content ABG 15.9 %vol (16.0-22.0); Oxygen Saturation ABG 88.4 % (95.0-100.0); Oxyhemoglobin 88.4 % THb (90.0-100.0); PO2 ABG 61.8 mmHg (80.0-100.0); PO2 FiO2 Ratio Arterial Blood 1.37 %; Total Hemoglobin 12.8 g/dL (12.0-18.0); pH ABG 7.296 (7.350-7.450)
[2020-08-25 06:13] LABS: Arterial Blood Gas Ventilator rate 24 /MIN; Device VENTILATOR; Modified Allen's Test Pass; PCO2 ABG 66.7 mmHg (35.0-45.0); Site Drawn RIGHT RADIAL
[2020-08-25 06:14] LABS: Arterial Blood Gas PEEP 8 cmH2O; Arterial Blood Gas Vent Mode PRESSURE CONTROL; Peak Inspiratory Pressure 35 cmH2O
[2020-08-25] MEDS: METOCLOPRAMIDE HCL INJ 10 MG/2 ML VIAL 5 MG IV PUSH ×4 (07:12→23:15)
[2020-08-25] MEDS: INSULIN DETEMIR 100 UNITS/ML 8 UNITS SUB-Q ×2 (08:48→20:36)
[2020-08-25] MEDS: DEXAMETHASONE SOD PHOS INJ 4 MG/ML VIAL 6 MG IV PUSH (08:49)
[2020-08-25] MEDS: ENOXAPARIN 40 MG/0.4 ML SYRINGE SUB-Q ×2 (08:49→20:35)
[2020-08-25] MEDS: PANTOPRAZOLE SODIUM IV 40 MG VIAL IV PUSH (08:49)
[2020-08-25] MEDS: PRAVASTATIN SODIUM 20 MG TABLET PO (08:49)
[2020-08-25] MEDS: FENTANYL 2,500MCG/NS250ML(*CRX 2,500 MCG/250 ML BAG 20 MCG IV CONT ×2 (10:32→23:03)
[2020-08-25] MEDS: INSULIN ASPART (*BKC) 100 UNITS/ML SUB-Q ×3 (12:59→23:16)
--- NOTE | 2020-08-25 13:46 | PCDIET ---
ICU Rounding Note: Tube feedings held overnight for increased residuals. RN restarted tube feedings this morning with decreased residual volumes since. Current rate of Vital 1.2 is 60mL/hr. MD starting Reglan. Last recorded weight is 73.6kg which is increased from last review. Bowel Motility: No documented BM - discussed with MD during rounds. Labs Reviewed: Hgb (10.8), Hct (34.9), Glu (195), Cr (0.6), Na (134) Meds Noted: Xopenex, Reglan, Versed, Cefepime, Decadron, Fentanyl, Novolog, Levemir, Protonix, Vancomycin, Propofol (rate of 20.76mL/hr provides 548kcal per day) Additional Notes: Heels reddened with no open areas documented. No new recommendations at this time. Following daily in ICU rounds. Assessing/reassessing every Tuesday/Tuesday.
--- NOTE | 2020-08-25 13:59 | WPDINTPN ---
Progress Note: A&P Assessment and Plan (1) Acute respiratory failure with hypoxia: Code(s): J96.01 - Acute respiratory failure with hypoxia Status: Acute Assessment and Plan: patient with acute hypoxic respiratory failure likely related to COVID-19 pneumonia - patient was admitted to the hospital from 08/01/2020 to 08/12/2020 for COVID-19 pneumonia, patient was on the medical floor and was discharged home on 1 L nasal cannula at rest and 3 L nasal cannula with activity. Patient had completed a course of Remdesivir and dexamethasone. - ID following the patient - restarted on dexamethasone for 10 days ( initiated on 08/18/2020) - no studies have shown any benefit repeating Remdesivir or convalescent plasma - patient with sepsis, hypotensive with increasing bilateral airspace disease, increasing secretions from ET tube. patient started on vancomycin and cefepime for possible secondary bacterial infection. sputum and blood cultures have been obtained. Will deescalate antibiotics if cultures negative - continue airborne, droplet, contact isolation precaution - will monitor inflammatory markers - patient was intubated on 08/19/2020 for impending respiratory failure secondary tachypnea and hypoxia - 08/25/2020: Patient was dyssynchronous with the ventilator despite being on fentanyl, Versed and propofol infusion, he was breathing 40-50 times a minute. ABG showed respiratory acidosis, have started patient on neuromuscular blockade with Nimbex infusion - continues to be on 45% FiO2 and peep of 8 CT of the chest on was negative for PE. It did show bilateral airspace disease. (2) Pneumonia due to COVID-19 virus: Code(s): U07.1 - COVID-19; J12.89 - Other viral pneumonia Status: Acute Assessment and Plan: as above (3) Sepsis: Qualifiers: Sepsis acute organ dysfunction status: without acute organ dysfunction Sepsis type: sepsis due to unspecified organism Qualified Code(s): A41.9 - Sepsis, unspecified organism Code(s): A41.9 - Sepsis, unspecified organism Status: Acute Assessment and Plan: patient with tachypnea, fevers, tachycardia, likely related to respiratory distress and COVID-19 pneumonia - tachycardia has resolved - blood cultures negative x2 from 08/17/2020 - patient was hypothermic, 08/21 blood cultures negative x2, 08/22 sputum cultures pending - started on cefepime and vancomycin for possible secondary bacterial infection as above. 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 - continue Levemir (5) Hypertension: Qualifiers: Hypertension type: unspecified Qualified Code(s): I10 - Essential (primary) hypertension Code(s): I10 - Essential (primary) hypertension Status: Chronic Assessment and Plan: hold all antihypertensives (6) DVT prophylaxis: Code(s): Z29.9 - Encounter for prophylactic measures, unspecified Status: Acute Assessment and Plan: Stress ulcer prophylaxis: Lovenox 40 mg subcu q.12 hours Stress ulcer prophylaxis: Protonix 40 mg IV q.day (7) Dietary counseling and surveillance: Code(s): Z71.3 - Dietary counseling and surveillance Status: Acute Assessment and Plan: tube feeds were held due to high residuals. Patient already on Reglan, - no bowel movements, will add MiraLax - will restart tube feeds gradually Additional Pl
[2020-08-25] MEDS: LIDOCAINE HCL 1% PF INJ 5 ML VIAL INFILTRATE (14:55)
[2020-08-25] MEDS: polyethylene glycoL 3350 17 GM POWD.PACK PO (15:34)
[2020-08-25 18:21] LABS: Glucose Point of Care 306 (65-105)
[2020-08-25 18:21] LABS: Glucose Point of Care 275 (65-105)
[2020-08-25] MEDS: CENTRAL LINE FLUSH 10 ML IV PUSH (21:48)
[2020-08-25 23:15] LABS: Glucose Point of Care 269 (65-105)
[2020-08-26] VITALS (65 sets, daily range): BP systolic 124–181; BP diastolic 63–82; PULSE 78–115; RESP 24–40; TEMP 35.8–37.2; O2SAT 94–98
[2020-08-26] MEDS: LEVALBUTEROL NEB 1.25 MG/3 ML 0.63 MG INHALATION ×4 (02:21→20:28)
[2020-08-26] MEDS: PROPOFOL IV EMULSION 100 ML 16.61 MG IV CONT ×3 (02:54→13:54)
[2020-08-26 06:10] LABS: Base Excess ABG 9.4 mEq/l (+/-2.0); Fractional Inspired Oxygen 45 %; HCO3 ABG 36.4 mEq/l (22.0-26.0); Oxygen Content ABG 14.6 %vol (16.0-22.0); Oxygen Saturation ABG 96.6 % (95.0-100.0); Oxyhemoglobin 96.5 % THb (90.0-100.0); PO2 ABG 91.6 mmHg (80.0-100.0); PO2 FiO2 Ratio Arterial Blood 2.04 %; Reduced Hemoglobin 3.5 %THb (0-5.0); Total Hemoglobin 10.7 g/dL (12.0-18.0); pH ABG 7.376 (7.350-7.450)
[2020-08-26 06:14] LABS: Device VENTILATOR; Modified Allen's Test Pass; PCO2 ABG 63.5 mmHg (35.0-45.0); Site Drawn RIGHT RADIAL
[2020-08-26 06:15] LABS: Arterial Blood Gas PEEP 8 cmH2O; Arterial Blood Gas Vent Mode CMV; Arterial Blood Gas Ventilator rate 24 /MIN
[2020-08-26 06:16] LABS: Arterial Blood Gas Tidal Volume 450 ml
[2020-08-26 06:24] LABS: Glucose Point of Care 110 (65-105)
[2020-08-26] MEDS: METOCLOPRAMIDE HCL INJ 10 MG/2 ML VIAL 5 MG IV PUSH ×3 (06:50→17:26)
[2020-08-26 07:03] LABS: Hematocrit 29.7 % (42.0-52.0); Hemoglobin 9.3 g/dL (14.0-18.0); Mean Corpuscular HGB Conc 31.3 g/dl (32-36); Mean Corpuscular Hemoglobin 28.4 pg (26-34); Mean Corpuscular Volume 90.8 fl (80-100); Mean Platelet Volume 10.6 fl (7.4-10.4); Platelet Count Result 263 k/mm3 (150-375); Red Blood Count 3.27 M/mm3 (4.6-6.20); Red Cell Distribution Width 13.9 % (11.5-14.5); White Blood Count 9.9 K/mm3 (4.5-10.0)
[2020-08-26] MEDS: CENTRAL LINE FLUSH 10 ML IV PUSH ×3 (07:06→22:52)
[2020-08-26 07:24] LABS: Anion Gap -1.00001 mmol/L (8-16); Blood Urea Nitrogen 11 mg/dL (9-20); Calcium 7.4 mg/dL (8.4-10.2); Carbon Dioxide > 40 mmol/L (22-30); Chloride 91 mmol/L (98-107); Estimated CRCL calculation 120 ml/min; Estimated Glomerular Filt Rate > 60; Glucose 160 mg/dL (75-110); Lactate Dehydrogenase 869 U/L (313-618); Phosphorus 2.7 mg/dL (2.5-4.5); Potassium 3.8 mmol/L (3.4-5.0); Sodium 130 mmol/L (137-145)
[2020-08-26 07:45] LABS: CRP 25.8 mg/dL (<1.0)
[2020-08-26] MEDS: ENOXAPARIN 40 MG/0.4 ML SYRINGE SUB-Q ×2 (08:15→20:50)
[2020-08-26] MEDS: PANTOPRAZOLE SODIUM IV 40 MG VIAL IV PUSH (08:15)
[2020-08-26] MEDS: INSULIN DETEMIR 100 UNITS/ML 8 UNITS SUB-Q ×2 (08:15→20:51)
[2020-08-26] MEDS: PRAVASTATIN SODIUM 20 MG TABLET PO (08:15)
[2020-08-26] MEDS: DEXAMETHASONE SOD PHOS INJ 4 MG/ML VIAL 6 MG IV PUSH (08:15)
[2020-08-26] MEDS: polyethylene glycoL 3350 17 GM POWD.PACK PO (08:16)
--- NOTE | 2020-08-26 11:41 | PCDIET ---
Nutrition Follow-Up Complete: Nutrition Diagnosis: Inadequate oral intake related to inability to consume foods orally at this time as evidence by need for enteral nutrition Nutrition Goal: Total intake will meet estimated nutrition needs Goal in progress. Tube feedings held overnight for 220mL residual. RN restarted Vital 1.2 at 10mL/hr via NG this morning with plan to advance toward goal of 60mL/hr. Discussed during rounds. Will recommend consideration of prokinetic agent if residuals are consistently 250mL or greater. Last recorded weight is 73.9 kg which is stable with last review. Bowel Motility: No documented BM. Miralax started 08/25/20. MD aware. Labs Reviewed: Hgb (9.4), Hct (29.7), Glu (160), Cr (0.5), Na (130), Perla Ca (8.44) Meds Noted: Xopenex, Versed, Protonix, Cefepime, Nimbex, Decadron, Fentanyl, Novolog (not given), Levemir, Vancomycin, Miralax, Pravastatin, Propofol (rate of 16.61mL/hr provides 438kcal over 24 hour period) Additional Notes: No documented skin breakdown. Will continue to monitor with same goal. If Propofol continues at current dose, may need to re-evaluate goal rate over next 24-48 hours. Nutrition Monitoring and Evaluation: Follow up every Tuesday/Tuesday. Follow daily in ICU rounds.
--- NOTE | 2020-08-26 11:55 | WPDINTPN ---
Progress Note: A&P Assessment and Plan (1) Acute respiratory failure with hypoxia: Code(s): J96.01 - Acute respiratory failure with hypoxia Status: Acute Assessment and Plan: patient with acute hypoxic respiratory failure likely related to COVID-19 pneumonia - patient was admitted to the hospital from 08/01/2020 to 08/12/2020 for COVID-19 pneumonia, patient was on the medical floor and was discharged home on 1 L nasal cannula at rest and 3 L nasal cannula with activity. Patient had completed a course of Remdesivir and dexamethasone. - ID following the patient - restarted on dexamethasone for 10 days ( initiated on 08/18/2020) - no studies have shown any benefit repeating Remdesivir or convalescent plasma - patient with sepsis, hypotensive with increasing bilateral airspace disease, increasing secretions from ET tube. patient started on vancomycin and cefepime for possible secondary bacterial infection. sputum and blood cultures have been obtained. Will deescalate antibiotics if cultures negative - continue airborne, droplet, contact isolation precaution - will monitor inflammatory markers - patient was intubated on 08/19/2020 for impending respiratory failure secondary tachypnea and hypoxia - 08/25/2020: Patient was dyssynchronous with the ventilator despite being on fentanyl, Versed and propofol infusion, he was breathing 40-50 times a minute. ABG showed respiratory acidosis, have started patient on neuromuscular blockade with Nimbex infusion . Will have RN slowly wean Nimbex to off - continues to be on 45% FiO2 and peep of 8, will decrease PEEP to 6. CT of the chest on was negative for PE. It did show bilateral airspace disease. (2) Pneumonia due to COVID-19 virus: Code(s): U07.1 - COVID-19; J12.89 - Other viral pneumonia Status: Acute Assessment and Plan: as above (3) Sepsis: Qualifiers: Sepsis acute organ dysfunction status: without acute organ dysfunction Sepsis type: sepsis due to unspecified organism Qualified Code(s): A41.9 - Sepsis, unspecified organism Code(s): A41.9 - Sepsis, unspecified organism Status: Acute Assessment and Plan: patient with tachypnea, fevers, tachycardia, likely related to respiratory distress and COVID-19 pneumonia - tachycardia has resolved - blood cultures negative x2 from 08/17/2020 - patient was hypothermic, 08/21 blood cultures negative x2, 08/22 sputum cultures pending - started on cefepime and vancomycin ( initiated on 08/23) for possible secondary bacterial infection as above. 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 - continue Levemir (5) Hypertension: Qualifiers: Hypertension type: unspecified Qualified Code(s): I10 - Essential (primary) hypertension Code(s): I10 - Essential (primary) hypertension Status: Chronic Assessment and Plan: hold all antihypertensives (6) DVT prophylaxis: Code(s): Z29.9 - Encounter for prophylactic measures, unspecified Status: Acute Assessment and Plan: Stress ulcer prophylaxis: Lovenox 40 mg subcu q.12 hours Stress ulcer prophylaxis: Protonix 40 mg IV q.day (7) Dietary counseling and surveillance: Code(s): Z71.3 - Dietary counseling and surveillance Status: Acute Assessment and Plan: - no bowel movements, continue MiraLax - patient patria
[2020-08-26] MEDS: FENTANYL 2,500MCG/NS250ML(*CRX 2,500 MCG/250 ML BAG 20 MCG IV CONT (12:07)
[2020-08-26] MEDS: INSULIN ASPART (*BKC) 100 UNITS/ML SUB-Q (12:11)
[2020-08-26 13:35] LABS: Glucose Point of Care 210 (65-105)
--- NOTE | 2020-08-26 17:13 | PM.IMPN ---
Progress Note: A&P Assessment and Plan (1) Sepsis: Qualifiers: Sepsis acute organ dysfunction status: without acute organ dysfunction Sepsis type: sepsis due to unspecified organism Qualified Code(s): A41.9 - Sepsis, unspecified organism Code(s): A41.9 - Sepsis, unspecified organism Status: Acute Assessment and Plan: Likely secondary to Covid and superimposed bacterial infection a possibility. Continue broad spectrum antibiotics Daily labs Strict I/O's Daily ABG (2) Pneumonia due to COVID-19 virus: Code(s): U07.1 - COVID-19; J12.89 - Other viral pneumonia Status: Acute Assessment and Plan: Completed course of Remdesivir Continue Dexamethasone. (3) Acute respiratory failure with hypoxia: Code(s): J96.01 - Acute respiratory failure with hypoxia Status: Acute Assessment and Plan: On ventilator support Appreciate int/cc note Vent settings noted (4) Hypertension: Qualifiers: Hypertension type: unspecified Qualified Code(s): I10 - Essential (primary) hypertension Code(s): I10 - Essential (primary) hypertension Status: Chronic Assessment and Plan: Continue to monitor Supportive care On paralytics Subjective Date/time seen: 08/26/20 17:13 Patient on ventilator support. Review of Systems Review of Systems: Narrative: Unable to obtain as patient is on ventilator. Exam Narrative: Exam Narrative: Patient on ventilator support. Const: General: other (Sedated on vent support.) Nutritional Appearance: average body habitus HENMT: Head: normal to inspection and normocephalic Teeth and gingiva: other (ETT in place.) Eyes: Pupils: Equal, round and reactive pupils present Other: Patient under sedation, both eyes are closed. Neck: Neck: no lymphadenopathy and no JVD Resp: Auscultation: diminished lung sounds Cardio: Jugular venous distension: no JVD Rate: tachycardic Peripheral pulses: Peripheral pulses 2+ throughout GI: Inspection: normal to inspection GI Palp: Yes Soft to palpation and Yes No hepatosplenomegaly present Auscultation: normal bowel sounds Skin: General skin exam: normal color Lesions: no lesions Rashes: no rashes Wounds: no wounds Neuro: General: other (Under sedation.) Extrem: General: no pedal edema Objective Data Vital Signs Vital Signs: Vital Signs - 24 hr 08/25/20 17:20 08/25/20 17:34 08/25/20 17:35 Temperature Pulse Rate 82 82 82 Respiratory Rate 24 H 24 H 24 H Blood Pressure 128/78 128/78 Pulse Oximetry 08/25/20 17:36 08/25/20 17:39 08/25/20 17:43 Temperature Pulse Rate 82 82 82 Respiratory Rate 24 H 24 H 24 H Blood Pressure 133/77 Pulse Oximetry 08/25/20 17:44 08/25/20 17:56 08/25/20 18:00 Temperature 96.9 F L Pulse Rate 82 84 84 Respiratory Rate 24 H 24 H 24 H Blood Pressure 142/73 H 124/79 Pulse Oximetry 97 08/25/20 18:19 08/25/20 18:38 08/25/20 18:39 Temperature Pulse Rate 84 81 82 Respiratory Rate 24 H 24 H 24 H Blood Pressure 124/79 134/78 Pulse Oximetry 08/25/20 20:00 08/25/20 21:00 08/25/20 21:13 Temperature 96.6 F L Pulse Rate 79 80 80 Respiratory Rate 24 H 24 H Blood Pressure 122/76 124/76 Pulse Oximetry 99 98 08/25/20 21:17 08/25/20 21:47 08/25/20 22:00 Temperature 96.6 F L Pulse Rate 79 79 78 Respiratory Rate 24 H 24 H 24 H Blood Pressure 130/76 Pulse Oximetry 98 08/25/20 22:06 08/25/20 22:59 08/25/20 23:00 Temperature Pulse Rate 81 84 85 Respiratory Rate 24 H 24 H 24 H Blood Pressure 127/63 Pulse Oximetry 08/25/20 23:03 08/26/20 00:00 08/26/20 01:00 Temperature 97.6 F Pulse Rate 84 86 89 Respiratory Rate 24 H 24 H 24 H Blood Pressure 130/63 128/64 Pulse Oximetry 97 08/26/20 01:40 08/26/20 02:00 08/26/20 02:22 Temperature 98.5 F Pulse Rate 89 89 87 Respiratory Rate 24 H 24 H 24 H Blood Pressure 128/65 126/63 Pulse Oximetry 97 98 08/26/20
[2020-08-26] MEDS: LORazepam INJ (*CRX) 2 MG/ML VIAL IV PUSH (17:25)
[2020-08-26] MEDS: PROPOFOL IV EMULSION 100 ML 20.76 MG IV CONT ×2 (18:21→22:57)
[2020-08-26 18:52] LABS: Glucose Point of Care 181 (65-105)
[2020-08-26 19:15] LABS: Vancomycin Trough 8.4 ug/mL (10.0-20.0)
[2020-08-26 20:35] LABS: Glucose Point of Care 166 (65-105)
[2020-08-27] VITALS (60 sets, daily range): BP systolic 84–120; BP diastolic 63–85; PULSE 7–121; RESP 24–30; TEMP 36.4–38.3; O2SAT 93–99
[2020-08-27 00:16] LABS: Glucose Point of Care 248 (65-105)
[2020-08-27] MEDS: METOCLOPRAMIDE HCL INJ 10 MG/2 ML VIAL 5 MG IV PUSH ×4 (00:17→17:30)
[2020-08-27] MEDS: INSULIN ASPART (*BKC) 100 UNITS/ML SUB-Q ×4 (00:17→17:35)
[2020-08-27] MEDS: FENTANYL 2,500MCG/NS250ML(*CRX 2,500 MCG/250 ML BAG 20 MCG IV CONT ×2 (00:34→13:02)
[2020-08-27 01:35] LABS: Alveolar/Arterial O2 Gradient 102.7 mmHg; Base Excess ABG 9.2 mEq/l (+/-2.0); Carboxyhemoglobin 0.3 % THb (0-2.0); Fractional Inspired Oxygen 45 %; HCO3 ABG 39.8 mEq/l (22.0-26.0); Methemoglobin ABG 0.5 %THb (0-1.5); Oxygen Content ABG 15.3 %vol (16.0-22.0); Oxygen Saturation ABG 96.6 % (95.0-100.0); PO2 ABG 107.2 mmHg (80.0-100.0); PO2 FiO2 Ratio Arterial Blood 2.38 %; Reduced Hemoglobin 3.2 %THb (0-5.0); Total Hemoglobin 11.2 g/dL (12.0-18.0)
[2020-08-27 01:43] LABS: PCO2 ABG 97.5 mmHg (35.0-45.0); pH ABG 7.229 (7.350-7.450)
[2020-08-27 01:44] LABS: Modified Allen's Test Unable to perform; Site Drawn RIGHT RADIAL
[2020-08-27 01:45] LABS: Device VENTILATOR
[2020-08-27 01:46] LABS: Arterial Blood Gas PEEP 6 cmH2O; Arterial Blood Gas Vent Mode PRESSURE CONTROL; Arterial Blood Gas Ventilator rate 24 /MIN; Peak Inspiratory Pressure 40 cmH2O
[2020-08-27] MEDS: LEVALBUTEROL NEB 1.25 MG/3 ML 0.63 MG INHALATION ×4 (02:17→20:40)
[2020-08-27 03:37] LABS: Alveolar/Arterial O2 Gradient 111.2 mmHg; Base Excess ABG 0.7 mEq/l (+/-2.0); Carboxyhemoglobin 0.3 % THb (0-2.0); Fractional Inspired Oxygen 45 %; HCO3 ABG 31.8 mEq/l (22.0-26.0); Methemoglobin ABG 0.5 %THb (0-1.5); Oxygen Saturation ABG 95.6 % (95.0-100.0); Oxyhemoglobin 95.8 % THb (90.0-100.0); PO2 ABG 103.4 mmHg (80.0-100.0); Reduced Hemoglobin 3.4 %THb (0-5.0); Total Hemoglobin 11.8 g/dL (12.0-18.0)
[2020-08-27 03:40] LABS: Device VENTILATOR; Modified Allen's Test Unable to perform; PCO2 ABG 93.4 mmHg (35.0-45.0); Site Drawn RIGHT RADIAL
[2020-08-27 03:41] LABS: Arterial Blood Gas PEEP 5 cmH2O; Arterial Blood Gas Tidal Volume 300 ml; Arterial Blood Gas Vent Mode CMV; Arterial Blood Gas Ventilator rate 30 /MIN
[2020-08-27] MEDS: PROPOFOL IV EMULSION 100 ML 20.76 MG IV CONT ×5 (03:53→20:51)
--- NOTE | 2020-08-27 04:07 | P.PNCROSS_ITS ---
Event Note Event Note Event Note: The patient had been on a trial of pressure support ventilation but then requir ed paralytic with Nimbex. Respiratory therapy tried to switch the patient to on the surgical vent. With tidal volumes of 450 read of 25 and PEEP of 6 the patient was speaking high pressures in the mid 50s. Subsequently respiratory therapy had placed the patient back on pressure support ventilation. Repeat ABG has that time demonstrated worsening pH (7.37 down to 7.2) and pCO2 (63.5 up to 97.5). At the time I change the patient's ventilator settings to tidal volume of 300 with a rate of 30 in CMV. The patient was alarming high pressures with a tidal volume higher than 300 on the surgical vent. The repeat ABG demonstrated worsening pH down to 7.15 with pCO2 that was marginally better at 93.4. At that time I decided to change the patient's ventilator to our ICU ventilator as wanted become available. With the new ventilator the patient was tolerating tidal volumes of 400 with a rate of 30 with peak pressures around 35. (The patient's pressures were climbing into the mid 40s with a tidal volume 450 even with a lower respiratory rate.) Patient's heart rate improved from the mid 110's down to 88 with these ventilator changes. A repeat ABG has been ordered for around 5:00 a.m.. The repeat ABG just returned and now the patient is alkalotic. The patient's PO2 is also dropped to the 50s. With the ventilator changes the patient's blood pressure has also dropped but he is maintaining maps 70 or greater. I have a given orders to decrease the patient's ventilator rate to 24 and increase the patient's FiO2 to 60%. 45 minutes was spent in critical care activities. This case had a high probability of a clinically significant, sudden, or life threatening deterioration of this patient's condition which required my full and direct attention, intervention and personal management.
[2020-08-27 04:22] LABS: Hematocrit 33.8 % (42.0-52.0); Hemoglobin 10.3 g/dL (14.0-18.0); Mean Corpuscular HGB Conc 30.5 g/dl (32-36); Mean Corpuscular Hemoglobin 28.9 pg (26-34); Mean Corpuscular Volume 94.9 fl (80-100); Mean Platelet Volume 10.3 fl (7.4-10.4); Platelet Count Result 392 k/mm3 (150-375); Red Blood Count 3.56 M/mm3 (4.6-6.20); Red Cell Distribution Width 13.6 % (11.5-14.5); White Blood Count 15.3 K/mm3 (4.5-10.0)
[2020-08-27 04:48] LABS: Anion Gap 2.99999 mmol/L (8-16); Blood Urea Nitrogen 14 mg/dL (9-20); Calcium 7.9 mg/dL (8.4-10.2); Carbon Dioxide > 40 mmol/L (22-30); Chloride 88 mmol/L (98-107); Estimated CRCL calculation 102 ml/min; Estimated Glomerular Filt Rate > 60; Glucose 203 mg/dL (75-110); Magnesium 2.3 mg/dL (1.6-2.3); Potassium 4.9 mmol/L (3.4-5.0); Sodium 131 mmol/L (137-145)
[2020-08-27 04:50] LABS: Base Excess ABG 6.6 mEq/l (+/-2.0); Carboxyhemoglobin 0.5 % THb (0-2.0); Fractional Inspired Oxygen 45 %; Methemoglobin ABG 0.1 %THb (0-1.5); Oxygen Content ABG 13.3 %vol (16.0-22.0); Oxygen Saturation ABG 90.8 % (95.0-100.0); Oxyhemoglobin 92.7 % THb (90.0-100.0); PCO2 ABG 38.1 mmHg (35.0-45.0); PO2 ABG 53.5 mmHg (80.0-100.0); PO2 FiO2 Ratio Arterial Blood 1.19 %; Reduced Hemoglobin 6.7 %THb (0-5.0); Total Hemoglobin 10.2 g/dL (12.0-18.0)
[2020-08-27 04:52] LABS: Device VENTILATOR; Site Drawn RIGHT BRACHIAL; pH ABG 7.514 (7.350-7.450)
[2020-08-27 04:53] LABS: Arterial Blood Gas PEEP 5 cmH2O; Arterial Blood Gas Tidal Volume 400 ml; Arterial Blood Gas Vent Mode CMV; Arterial Blood Gas Ventilator rate 30 /MIN
[2020-08-27] MEDS: CENTRAL LINE FLUSH 10 ML IV PUSH ×3 (05:12→22:44)
[2020-08-27] MEDS: INSULIN DETEMIR 100 UNITS/ML 8 UNITS SUB-Q (08:48)
[2020-08-27] MEDS: polyethylene glycoL 3350 17 GM POWD.PACK PO (08:49)
[2020-08-27] MEDS: PRAVASTATIN SODIUM 20 MG TABLET PO (08:49)
[2020-08-27] MEDS: ENOXAPARIN 40 MG/0.4 ML SYRINGE SUB-Q ×2 (08:49→20:53)
[2020-08-27] MEDS: PANTOPRAZOLE SODIUM IV 40 MG VIAL IV PUSH (08:49)
[2020-08-27] MEDS: DEXAMETHASONE SOD PHOS INJ 4 MG/ML VIAL 6 MG IV PUSH (08:49)
[2020-08-27 11:28] LABS: Triglycerides 164 mg/dL (<150)
--- NOTE | 2020-08-27 11:51 | PM.IMPN ---
Progress Note: A&P Assessment and Plan (1) Pneumonia due to COVID-19 virus: Code(s): U07.1 - COVID-19; J12.89 - Other viral pneumonia Status: Acute Assessment and Plan: On Vanc and Cefepime (2) Acute respiratory failure with hypoxia: Code(s): J96.01 - Acute respiratory failure with hypoxia Status: Acute Assessment and Plan: On vent management as per int/cc (3) Sepsis: Qualifiers: Sepsis type: sepsis due to unspecified organism Sepsis acute organ dysfunction status: with acute organ dysfunction Severe sepsis acute organ dysfunction type: acute respiratory failure Acute respiratory failure type: with hypoxia Severe sepsis shock status: without septic shock Qualified Code(s): A41.9 - Sepsis, unspecified organism; R65.20 - Severe sepsis without septic shock; J96.01 - Acute respiratory failure with hypoxia Code(s): A41.9 - Sepsis, unspecified organism Status: Acute Assessment and Plan: Awaiting cx On broad spectrum antibiotics. Subjective Date/time seen: 08/27/20 11:51 On life support. Review of Systems Review of Systems: Narrative: Unable to obtain as patient is on life support. Exam Narrative: Exam Narrative: On vent. Const: General: comfortable and other (Sedated.) Nutritional Appearance: average body habitus HENMT: Head: normocephalic Eyes: General: appearance normal, both eyes and all related structures Pupils: Equal, round and reactive pupils present EOM: EOMs intact bilaterally Neck: Neck: no lymphadenopathy Resp: Auscultation: diminished lung sounds Cardio: Rate: regular rate Rhythm: regular rhythm GI: GI Palp: Yes Soft to palpation and Yes No hepatosplenomegaly present Skin: General skin exam: pallor Lesions: no lesions Rashes: no rashes Neuro: General: other (Under sedation.) Extrem: General: no pedal edema Objective Data Vital Signs Vital Signs: Vital Signs - 24 hr 08/26/20 12:00 08/26/20 12:05 08/26/20 12:07 Temperature 97.9 F Pulse Rate 79 87 87 Respiratory Rate 24 H 24 H 24 H Blood Pressure 153/75 H Pulse Oximetry 96 08/26/20 12:08 08/26/20 12:09 08/26/20 13:15 Temperature Pulse Rate 87 87 94 Respiratory Rate 24 H 24 H 24 H Blood Pressure 153/75 H 147/71 H Pulse Oximetry 08/26/20 13:54 08/26/20 13:55 08/26/20 13:56 Temperature Pulse Rate 93 93 93 Respiratory Rate 24 H 24 H 24 H Blood Pressure 150/74 H Pulse Oximetry 08/26/20 14:00 08/26/20 14:10 08/26/20 14:20 Temperature 98.0 F Pulse Rate 80 83 93 Respiratory Rate 24 H 24 H 24 H Blood Pressure 147/71 H Pulse Oximetry 95 08/26/20 15:40 08/26/20 15:48 08/26/20 16:00 Temperature 98.8 F Pulse Rate 94 93 94 Respiratory Rate 24 H 24 H 24 H Blood Pressure 152/71 H Pulse Oximetry 97 08/26/20 16:52 08/26/20 16:53 08/26/20 17:00 Temperature Pulse Rate 96 96 96 Respiratory Rate 24 H 24 H 24 H Blood Pressure Pulse Oximetry 08/26/20 17:28 08/26/20 17:45 08/26/20 18:21 Temperature Pulse Rate 95 96 97 Respiratory Rate 40 H 40 H Blood Pressure 135/70 Pulse Oximetry 95 08/26/20 18:22 08/26/20 18:23 08/26/20 18:24 Temperature Pulse Rate 97 97 97 Respiratory Rate 40 H 40 H 40 H Blood Pressure 149/78 H Pulse Oximetry 08/26/20 18:27 08/26/20 18:56 08/26/20 20:00 Temperature 99.0 F 97.4 F L Pulse Rate 96 101 H 114 H Respiratory Rate 40 H 40 H 24 H Blood Pressure 149/78 H 147/80 H 181/72 H Pulse Oximetry 97 97 08/26/20 20:15 08/26/20 20:28 08/26/20 20:30 Temperature Pulse Rate 115 H 104 H Respiratory Rate 24 H 24 H Blood Pressure 169/73 H 169/73 H Pulse Oximetry 94 08/26/20 20:39 08/26/20 21:35 08/26/20 22:00 Temperature 96.4 F L Pulse Rate 105 H 109 H 109 H Respiratory Rate 24 H 24 H 24 H Blood Pressure 167/78 H 165/70 H Pulse Oximetry 95 08/26/20 22:57 08/26/20 22:59 08/26/20 23:00 Temperature 97.4 F L Pulse Rate 1
[2020-08-27 13:26] LABS: Procalcitonin 0.13 ng/mL (<0.10)
--- NOTE | 2020-08-27 14:15 | PCDIET ---
ICU Rounding Note: Patient tolerating Vital 1.2 at 10mL/hr. MD ordered increased rate to 20mL/hr with addition of Dulcolax. Last recorded weight is 75.4kg which is increased from last review. +I/O. Bowel Motility: Bowel sounds hypoactive. No documented BM. Reglan and Miralax continued; Dulcolax being added. Labs Reviewed: Hgb (10.3), Hct (33.8), Glu (203), Cr (0.6), Na (131) Meds Noted: Propofol (rate of 20.76mL/hr provides 548kcal per day), Cefepime, Nimbex, Fentanyl, Novolog, Levemir, Xopenex, Reglan, Versed, Protonix, Miralax, Vancomycin Additional Notes: No documented skin breakdown. Following daily in ICU rounds. Assessing/reassessing every Tuesday/Tuesday
--- NOTE | 2020-08-27 14:15 | WPDINTPN ---
Progress Note: A&P Assessment and Plan (1) Acute respiratory failure with hypoxia: Code(s): J96.01 - Acute respiratory failure with hypoxia Status: Acute Assessment and Plan: patient with acute hypoxic respiratory failure likely related to COVID-19 pneumonia - patient was admitted to the hospital from 08/01/2020 to 08/12/2020 for COVID-19 pneumonia, patient was on the medical floor and was discharged home on 1 L nasal cannula at rest and 3 L nasal cannula with activity. Patient had completed a course of Remdesivir and dexamethasone. - ID following the patient - restarted on dexamethasone for 10 days ( initiated on 08/18/2020) - patient was intubated on 08/19/2020 for impending respiratory failure secondary tachypnea and hypoxia - 08/25/2020: Patient was dyssynchronous with the ventilator despite being on fentanyl, Versed and propofol infusion, he was breathing 40-50 times a minute. ABG showed respiratory acidosis, have started patient on neuromuscular blockade with Nimbex infusion . - ABG much improved this morning. respiratory rate decreased to 24. tidal volume is 400. peep 5 CT of the chest on was negative for PE. It did show bilateral airspace disease. - patient with sepsis, hypotensive with increasing bilateral airspace disease, increasing secretions from ET tube. patient started on vancomycin and cefepime for possible secondary bacterial infection. sputum and blood cultures have been obtained. Will discontinue vancomycin as all cultures have been negative. continue cefepime - sputum culture is growing yeast which is likely a colonizer - continue airborne, droplet, contact isolation precaution - will monitor inflammatory markers (2) Pneumonia due to COVID-19 virus: Code(s): U07.1 - COVID-19; J12.89 - Other viral pneumonia Status: Acute Assessment and Plan: as above (3) Sepsis: Qualifiers: Sepsis acute organ dysfunction status: without acute organ dysfunction Sepsis type: sepsis due to unspecified organism Qualified Code(s): A41.9 - Sepsis, unspecified organism Code(s): A41.9 - Sepsis, unspecified organism Status: Acute Assessment and Plan: - blood cultures negative x2 from 08/17/2020 - patient was hypothermic, 08/21 blood cultures negative x2, 08/22 sputum cultures pending patient with sepsis, hypotensive with increasing bilateral airspace disease, increasing secretions from ET tube. patient started on vancomycin and cefepime for possible secondary bacterial infection. sputum and blood cultures have been obtained. Will discontinue vancomycin as all cultures have been negative. 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 - continue Levemir but with increased dose (5) Hypertension: Qualifiers: Hypertension type: unspecified Qualified Code(s): I10 - Essential (primary) hypertension Code(s): I10 - Essential (primary) hypertension Status: Chronic Assessment and Plan: hold all antihypertensives (6) DVT prophylaxis: Code(s): Z29.9 - Encounter for prophylactic measures, unspecified Status: Acute Assessment and Plan: Stress ulcer prophylaxis: Lovenox 40 mg subcu q.12 hours Stress ulcer prophylaxis: Protonix 40 mg IV q.day (7) Dietary counseling and surveillance: Code(s): Z71.3 - Dietary counseling
[2020-08-27 16:19] LABS: Glucose Point of Care 296 (65-105)
[2020-08-27 17:47] LABS: Glucose Point of Care 301 (65-105)
[2020-08-27] MEDS: INSULIN DETEMIR 100 UNITS/ML 12 UNITS SUB-Q (20:53)
[2020-08-28] VITALS (34 sets, daily range): BP systolic 81–111; BP diastolic 56–68; PULSE 59–99; RESP 20–26; TEMP 36.2–38.1; O2SAT 90–96
[2020-08-28 00:25] LABS: Glucose Point of Care 241 (65-105)
[2020-08-28] MEDS: INSULIN ASPART (*BKC) 100 UNITS/ML SUB-Q (00:30)
[2020-08-28] MEDS: METOCLOPRAMIDE HCL INJ 10 MG/2 ML VIAL 5 MG IV PUSH ×3 (00:33→11:59)
[2020-08-28] MEDS: PROPOFOL IV EMULSION 100 ML 20.76 MG IV CONT ×4 (01:25→21:39)
[2020-08-28] MEDS: FENTANYL 2,500MCG/NS250ML(*CRX 2,500 MCG/250 ML BAG 20 MCG IV CONT ×2 (01:41→15:16)
[2020-08-28 01:46] LABS: Glucose Point of Care 230 (65-105)
[2020-08-28] MEDS: LEVALBUTEROL NEB 1.25 MG/3 ML 0.63 MG INHALATION ×5 (01:54→20:24)
[2020-08-28 05:09] LABS: Hematocrit 28.9 % (42.0-52.0); Hemoglobin 9.3 g/dL (14.0-18.0); Mean Corpuscular HGB Conc 32.2 g/dl (32-36); Mean Corpuscular Hemoglobin 28.6 pg (26-34); Mean Corpuscular Volume 88.9 fl (80-100); Mean Platelet Volume 10.1 fl (7.4-10.4); Platelet Count Result 355 k/mm3 (150-375); Red Blood Count 3.25 M/mm3 (4.6-6.20); Red Cell Distribution Width 13.8 % (11.5-14.5); White Blood Count 11.8 K/mm3 (4.5-10.0)
[2020-08-28 05:26] LABS: D Dimer 1.18 ug/mL (<0.48)
[2020-08-28 05:30] LABS: Anion Gap 2 mmol/L (8-16); Blood Urea Nitrogen 14 mg/dL (9-20); CRP 8.3 mg/dL (<1.0); Calcium 7.9 mg/dL (8.4-10.2); Carbon Dioxide 38 mmol/L (22-30); Chloride 96 mmol/L (98-107); Estimated CRCL calculation 102 ml/min; Estimated Glomerular Filt Rate > 60; Glucose 192 mg/dL (75-110); Lactate Dehydrogenase 828 U/L (313-618); Magnesium 2.2 mg/dL (1.6-2.3); Phosphorus 2.1 mg/dL (2.5-4.5); Potassium 3.1 mmol/L (3.4-5.0); Sodium 136 mmol/L (137-145)
[2020-08-28] MEDS: CENTRAL LINE FLUSH 10 ML IV PUSH ×3 (05:44→21:08)
[2020-08-28] MEDS: BISACODYL 10 MG SUPPOSITORY RECTAL (05:45)
[2020-08-28 06:01] LABS: Alveolar/Arterial O2 Gradient 247.1 mmHg; Base Excess ABG 8.8 mEq/l (+/-2.0); Carboxyhemoglobin 0.3 % THb (0-2.0); Fractional Inspired Oxygen 50 %; Oxygen Content ABG 14.3 %vol (16.0-22.0); Oxygen Saturation ABG 95.1 % (95.0-100.0); Oxyhemoglobin 93.6 % THb (90.0-100.0); PCO2 ABG 38.5 mmHg (35.0-45.0); PO2 ABG 66.1 mmHg (80.0-100.0); PO2 FiO2 Ratio Arterial Blood 1.32 %; Reduced Hemoglobin 6.1 %THb (0-5.0); Total Hemoglobin 10.8 g/dL (12.0-18.0)
[2020-08-28 06:03] LABS: Device VENTILATOR; Modified Allen's Test Pass; Site Drawn RIGHT RADIAL; pH ABG 7.537 (7.350-7.450)
[2020-08-28 06:04] LABS: Arterial Blood Gas PEEP 5 cmH2O; Arterial Blood Gas Tidal Volume 400 ml; Arterial Blood Gas Vent Mode CMV; Arterial Blood Gas Ventilator rate 24 /MIN
[2020-08-28] MEDS: POTASSIUM CHLORIDE 20 MEQ PACKET (FOR LIQUID) 40 MEQ FEED TUBE (08:08)
[2020-08-28] MEDS: ENOXAPARIN 40 MG/0.4 ML SYRINGE SUB-Q ×2 (08:08→20:50)
[2020-08-28] MEDS: polyethylene glycoL 3350 17 GM POWD.PACK PO (08:10)
[2020-08-28] MEDS: INSULIN DETEMIR 100 UNITS/ML 12 UNITS SUB-Q ×2 (08:10→20:49)
[2020-08-28] MEDS: PANTOPRAZOLE SODIUM IV 40 MG VIAL IV PUSH (08:11)
[2020-08-28] MEDS: PRAVASTATIN SODIUM 20 MG TABLET PO (08:11)
--- NOTE | 2020-08-28 08:30 | WPDINTPN ---
Progress Note: A&P Assessment and Plan (1) Acute respiratory failure with hypoxia: Code(s): J96.01 - Acute respiratory failure with hypoxia Status: Acute Assessment and Plan: Patient with acute hypoxic respiratory failure due to COVID-19 pneumonia. Patient was admitted to the medical floor 08/01/2020 through 08/12/2020 for COVID-19 pneumonia at which time he was discharged on 1 L nasal cannula at rest and 3 L with activity. He completed a course of Remdesivir in dexamethasone prior to discharge. The patient was readmitted to the hospital 08/17/2020 and placed on airborne, droplet and contact precautions and was intubated on 08/19/2020 due to impending respiratory failure with tachypnea and hypoxia. Patient is being followed by ID. He had a repeat course of dexamethasone for 10 days with today (08/28/2020) being his last dose. 08/25/2020 patient was dysynchronous with ventilator despite being on fentanyl Versed and propofol and was breathing 40-50 times a minute. He had respiratory acidosis with hypercapnia and was placed on Nimbex. On 08/26/2020 patient's ABG had improved significantly was actually demonstrating respiratory alkalosis and is ventilator rate was decreased to 24 today is respiratory alkalosis continues and is ventilator rate has been decreased to 20. His tidal volume remains at 400 and peep of 5. The patient had been started on cefepime and van 08/23/2020 due to increased secretions from his ET tube, hypotension and sepsis. His vancomycin was discontinued when his cultures returned as negative. He has been continued on cefepime. (2) Pneumonia due to COVID-19 virus: Code(s): U07.1 - COVID-19; J12.89 - Other viral pneumonia Status: Acute Assessment and Plan: Patient with acute hypoxic respiratory failure likely related to COVID-19 pneumonia - patient was admitted to the hospital from 08/01/2020 to 08/12/2020 for COVID-19 pneumonia, patient was on the medical floor and was discharged home on 1 L nasal cannula at rest and 3 L nasal cannula with activity. Patient had completed a course of Remdesivir and dexamethasone. - ID following the patient - restarted on dexamethasone for 10 days ( initiated on 08/18/2020) with today being last dose. (3) Hypotension arterial: Qualifiers: Hypotension type: unspecified hypotension type Qualified Code(s): I95.9 - Hypotension, unspecified Code(s): I95.9 - Hypotension, unspecified Status: Acute Assessment and Plan: The patient's blood pressures remain well but for the most part is mean arterial pressures have remained 65 or greater. 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 His Levemir has been increased from 8 units q.12 hours up to 12 units q.12 hours will continue moderate sliding scale insulin with Accu-Cheks q.6 hours and moderate dose sliding scale insulin Patient remains on tube feeds. (5) Hypokalemia: Code(s): E87.6 - Hypokalemia Status: Acute Assessment and Plan: Potassium was 3.1 today. Patient received 40 mEq per G-tube. Daily electrolyte panel. Additional Plan This case had a high probability of a clinically significant, sudden, or life threatening deterioration of this patient's condition which required my full and direct attention, intervention and personal management. Time Spent With Patient Time with patient: 25 - 35 minutes Subjective Date/time seen: 08/28/20 08:30 Patient had an uneventful evening. Patient's fluid bal
[2020-08-28] MEDS: POTASSIUM PHOS,M-BASIC-D-BASIC 20 MMOL in SODIUM CHLORIDE 0.9% IV 250 ML 62.5 MMOL IVPB (08:57)
[2020-08-28 11:47] LABS: Glucose Point of Care 140 (65-105)
--- NOTE | 2020-08-28 11:59 | PCDIET ---
ICU Rounding Note: Patient tolerating Vital 1.2 at 20mL/hr. MD ordered increase to 30mL/hr and change to Glucerna 1.2 for high blood sugars. Last recorded weight is 74.8kg which is slightly decreased from last review. Bowel Motility: No documented BM. Discussed during rounds. Patient on Miralax and Dulcolax. Labs Reviewed: Hgb (9.3), Hct (28.9), Glu (192), Cr (0.6), Na (136), Ca (7.9), PO4 (2.1), TG (164) Meds Noted: Dulcolax, Cefepime, Nimbex, Fentanyl, Protonix, K-Phos, Levemir, Xopenex, Reglan, Versed, Miralax, KCl, Propofol (20.76mL/hr provides 548kcal per 24 hour period) Additional Notes: No documented skin breakdown. Following daily in ICU rounds. Assessing/reassessing every Tuesday/Tuesday.
--- NOTE | 2020-08-28 14:20 | PM.IMPN ---
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 Currenlty on Cefepime Subjective Date/time seen: 08/28/20 14:20 Patient is on ventilator support. Review of Systems Review of Systems: Narrative: Unable to obatin as patient is on ventilator support. Exam Narrative: Exam Narrative: Patient not examined seen thru glass door. Const: General: other (On ventilator support.) Objective Data Vital Signs Vital Signs: Vital Signs - 24 hr 08/27/20 14:42 08/27/20 15:22 08/27/20 15:45 Temperature Pulse Rate 70 70 71 Respiratory Rate 24 H 24 H 24 H Blood Pressure 107/70 Pulse Oximetry 08/27/20 16:00 08/27/20 16:18 08/27/20 16:48 Temperature 98.1 F Pulse Rate 71 71 72 Respiratory Rate 24 H 24 H 24 H Blood Pressure 101/69 101/69 Pulse Oximetry 97 08/27/20 16:52 08/27/20 17:32 08/27/20 17:33 Temperature Pulse Rate 76 73 73 Respiratory Rate 24 H 24 H Blood Pressure 100/67 Pulse Oximetry 93 08/27/20 17:34 08/27/20 17:35 08/27/20 17:50 Temperature Pulse Rate 73 72 74 Respiratory Rate 24 H 24 H 24 H Blood Pressure 100/67 Pulse Oximetry 08/27/20 18:00 08/27/20 20:00 08/27/20 20:20 Temperature 98.5 F 97.6 F Pulse Rate 75 65 68 Respiratory Rate 24 H 24 H 24 H Blood Pressure 94/65 L 103/65 Pulse Oximetry 96 97 08/27/20 20:24 08/27/20 20:40 08/27/20 20:51 Temperature Pulse Rate 68 71 67 Respiratory Rate 24 H 24 H Blood Pressure Pulse Oximetry 93 08/27/20 20:55 08/27/20 22:00 08/27/20 22:48 Temperature 97.5 F L Pulse Rate 66 65 64 Respiratory Rate 24 H 24 H 24 H Blood Pressure 97/63 L 110/67 110/67 Pulse Oximetry 97 08/27/20 23:40 08/28/20 00:00 08/28/20 00:33 Temperature 97.2 F L Pulse Rate 63 63 63 Respiratory Rate 24 H 24 H Blood Pressure 103/65 94/62 L Pulse Oximetry 94 94 08/28/20 01:25 08/28/20 01:37 08/28/20 01:41 Temperature Pulse Rate 62 61 61 Respiratory Rate 24 H 24 H 24 H Blood Pressure Pulse Oximetry 08/28/20 01:54 08/28/20 02:00 08/28/20 04:00 Temperature 97.1 F L Pulse Rate 60 59 L 62 Respiratory Rate 24 H 24 H Blood Pressure 111/68 102/67 Pulse Oximetry 96 96 95 08/28/20 05:29 08/28/20 06:00 08/28/20 08:00 Temperature 97.5 F L Pulse Rate 60 63 66 Respiratory Rate 24 H 24 H Blood Pressure 92/62 L 85/56 L Pulse Oximetry 92 94 94 08/28/20 08:20 08/28/20 08:30 08/28/20 10:00 Temperature Pulse Rate 72 72 78 Respiratory Rate 20 20 20 Blood Pressure 92/63 L Pulse Oximetry 96 94 08/28/20 12:00 08/28/20 14:00 Temperature 98.6 F Pulse Rate 68 82 Respiratory Rate 20 20 Blood Pressure 85/59 L 94/64 L Pulse Oximetry 95 91 Intake/Output Intake/Output: Intake & Output 08/25/20 1
[2020-08-28 18:19] LABS: Glucose Point of Care 144 (65-105)
[2020-08-28] MEDS: ACETAMINOPHEN ELIXIR 325 MG/10.15 ML UDC 650 MG PO (21:38)
[2020-08-28 21:54] LABS: Glucose Point of Care 150 (65-105)
[2020-08-29] VITALS (45 sets, daily range): BP systolic 78–156; BP diastolic 56–84; PULSE 73–115; RESP 20–37; TEMP 37.4–38.7; O2SAT 85–99
[2020-08-29] MEDS: METOCLOPRAMIDE HCL INJ 10 MG/2 ML VIAL 5 MG IV PUSH ×4 (00:04→18:22)
[2020-08-29 00:45] LABS: Glucose Point of Care 138 (65-105)
[2020-08-29] MEDS: NOREPINEPHRINE 8 MG/D5W 250 ML 8 MG/250 ML BAG 7.5 MG IV CONT (01:05)
[2020-08-29] MEDS: PROPOFOL IV EMULSION 100 ML 20.76 MG IV CONT ×5 (01:30→20:19)
[2020-08-29] MEDS: LEVALBUTEROL NEB 1.25 MG/3 ML 0.63 MG INHALATION ×4 (02:00→19:45)
[2020-08-29 05:05] LABS: Base Excess ABG 4.5 mEq/l (+/-2.0); HCO3 ABG 28.5 mEq/l (22.0-26.0); Oxygen Saturation ABG 94.8 % (95.0-100.0); PCO2 ABG 40.1 mmHg (35.0-45.0); PO2 ABG 68.8 mmHg (80.0-100.0); Total Hemoglobin 11.1 g/dL (12.0-18.0); pH ABG 7.469 (7.350-7.450)
[2020-08-29 05:06] LABS: Alveolar/Arterial O2 Gradient 242.6 mmHg; Carboxyhemoglobin 0.3 % THb (0-2.0); Device VENTILATOR; Fractional Inspired Oxygen 50 %; Methemoglobin ABG 0.1 %THb (0-1.5); Modified Allen's Test Unable to perform; Oxygen Content ABG 14.5 %vol (16.0-22.0); Oxyhemoglobin 92.7 % THb (90.0-100.0); PO2 FiO2 Ratio Arterial Blood 1.38 %; Reduced Hemoglobin 6.9 %THb (0-5.0); Site Drawn LEFT RADIAL
[2020-08-29 05:07] LABS: Arterial Blood Gas Ventilator rate 20 /MIN
[2020-08-29 05:08] LABS: Arterial Blood Gas PEEP 5 cmH2O; Arterial Blood Gas Tidal Volume 400 ml; Arterial Blood Gas Vent Mode CMV
[2020-08-29 06:11] LABS: Hematocrit 30.8 % (42.0-52.0); Hemoglobin 9.9 g/dL (14.0-18.0); Mean Corpuscular HGB Conc 32.1 g/dl (32-36); Mean Corpuscular Hemoglobin 28.4 pg (26-34); Mean Corpuscular Volume 88.3 fl (80-100); Mean Platelet Volume 10.1 fl (7.4-10.4); Platelet Count Result 438 k/mm3 (150-375); Red Blood Count 3.49 M/mm3 (4.6-6.20); Red Cell Distribution Width 14.6 % (11.5-14.5); White Blood Count 15.1 K/mm3 (4.5-10.0)
[2020-08-29 06:18] LABS: Magnesium 1.9 mg/dL (1.6-2.3); Phosphorus 4.2 mg/dL (2.5-4.5)
[2020-08-29] MEDS: CENTRAL LINE FLUSH 10 ML IV PUSH ×3 (06:25→21:51)
[2020-08-29] MEDS: FENTANYL 2,500MCG/NS250ML(*CRX 2,500 MCG/250 ML BAG 20 MCG IV CONT ×2 (06:35→18:21)
[2020-08-29 06:39] LABS: Anion Gap 2 mmol/L (8-16); Blood Urea Nitrogen 15 mg/dL (9-20); Calcium 7.8 mg/dL (8.4-10.2); Carbon Dioxide 35 mmol/L (22-30); Chloride 99 mmol/L (98-107); Estimated CRCL calculation 102 ml/min; Estimated Glomerular Filt Rate > 60; Glucose 119 mg/dL (75-110); Potassium 3.6 mmol/L (3.4-5.0); Sodium 136 mmol/L (137-145)
[2020-08-29] MEDS: FUROSEMIDE INJ 40 MG/4 ML VIAL IV PUSH (09:27)
[2020-08-29] MEDS: INSULIN DETEMIR 100 UNITS/ML 12 UNITS SUB-Q ×2 (09:28→21:50)
[2020-08-29] MEDS: PRAVASTATIN SODIUM 20 MG TABLET PO (09:28)
[2020-08-29] MEDS: ENOXAPARIN 40 MG/0.4 ML SYRINGE SUB-Q ×2 (09:28→20:35)
[2020-08-29] MEDS: polyethylene glycoL 3350 17 GM POWD.PACK PO (09:28)
[2020-08-29] MEDS: ACETAMINOPHEN ELIXIR 325 MG/10.15 ML UDC 650 MG PO ×2 (10:08→20:43)
--- NOTE | 2020-08-29 11:15 | WPDINTPN ---
Progress Note: A&P Assessment and Plan (1) Acute respiratory failure with hypoxia: Code(s): J96.01 - Acute respiratory failure with hypoxia Status: Acute Assessment and Plan: Patient with acute hypoxic respiratory failure due to COVID-19 pneumonia. Patient was admitted to the medical floor 08/01/2020 through 08/12/2020 for COVID-19 pneumonia at which time he was discharged on 1 L nasal cannula at rest and 3 L with activity. He completed a course of Remdesivir in dexamethasone prior to discharge. The patient was readmitted to the hospital 08/17/2020 and placed on airborne, droplet and contact precautions and was intubated on 08/19/2020 due to impending respiratory failure with tachypnea and hypoxia. Patient is being followed by ID. He had a repeat course of dexamethasone for 10 days with (08/28/2020) being his last dose. 08/25/2020 patient was dysynchronous with ventilator despite being on fentanyl Versed and propofol and was breathing 40-50 times a minute. He had respiratory acidosis with hypercapnia and was placed on Nimbex. Nimbex was discontinued on 08/27/2020. Patient's ABG remained stable on his current ventilator settings tidal volume 400 respiratory rate 20 peep of 5 The patient had been started on cefepime and van 08/23/2020 due to increased secretions from his ET tube, hypotension and sepsis. His vancomycin was discontinued when his cultures returned as negative. He has been continued on cefepime. He continues to have low-grade fevers. (2) Pneumonia due to COVID-19 virus: Code(s): U07.1 - COVID-19; J12.89 - Other viral pneumonia Status: Acute Assessment and Plan: Patient with acute hypoxic respiratory failure likely related to COVID-19 pneumonia - patient was admitted to the hospital from 08/01/2020 to 08/12/2020 for COVID-19 pneumonia, patient was on the medical floor and was discharged home on 1 L nasal cannula at rest and 3 L nasal cannula with activity. Patient had completed a course of Remdesivir and dexamethasone. - ID following the patient - restarted on dexamethasone for 10 days with final dose given 08/28/2020. (3) Hypotension arterial: Qualifiers: Hypotension type: unspecified hypotension type Qualified Code(s): I95.9 - Hypotension, unspecified Code(s): I95.9 - Hypotension, unspecified Status: Acute Assessment and Plan: Due to sepsis. Patient was started on Levophed on the morning of 08/29/2020 due to persistent hypotension. He did not receive any additional IV fluid resuscitation as he is 10 L positive since admission. Status he will receive Lasix 40 mg IV x1 and reassess stress with response. The patient did receive Lasix on 08/26/2020 as well. 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 His Levemir has been increased from 8 units q.12 hours up to 12 units q.12 hours will continue moderate sliding scale insulin with Accu-Cheks q.6 hours and moderate dose sliding scale insulin Patient remains on tube feeds. (5) Hypokalemia: Code(s): E87.6 - Hypokalemia Status: Acute Assessment and Plan: Potassium improved from 3.1 up to 3.6. The patient is receiving Lasix and subsequently potassium supplement has been added. Daily electrolyte panel. Additional Plan This case had a high probability of a clinically significant, sudden, or life threatening deterioration of this patient's condition which required my full and direct attention, intervention and personal management. Time
[2020-08-29 11:18] LABS: Glucose Point of Care 140 (65-105)
--- NOTE | 2020-08-29 13:30 | PCDIET ---
Nutrition Follow-Up Complete: Nutrition Diagnosis: Inadequate oral intake related to inability to consume foods orally at this time as evidenced by need for enteral nutrition Nutrition Goal: Total intake will meet estimated nutrition needs Goal in progress. Patient tolerating Glucerna 1.2 at 30mL/hr goal rate which provides 1340kcal and 40g protein over 22 hours/day. Recommend increasing rate to 45mL/hr to closer meet estimated needs. Propofol providing significant amount of calories at this time. Last recorded weight is 77.4 kg which is increased from last review. Bowel Motility: RN reports small BM overnight. Labs Reviewed: Hgb (9.9), Hct (30.8), Glu (119), Na (136), Ca (7.8) Meds Noted: Dulcolax, Novolog, Cefepime, Levemir, Fentanyl, Versed, Reglan, Xopenex, Levophed, Protonix, Miralax, KCl, Propofol (rate of 20.76mL/hr provides 548kcal per day) Additional Notes: No documented skin breakdown. Will continue to monitor with same goal. Nutrition Monitoring and Evaluation: Follow up every Tuesday/Tuesday.
[2020-08-29] MEDS: PANTOPRAZOLE SODIUM IV 40 MG VIAL IV PUSH (13:55)
[2020-08-29 17:37] LABS: Glucose Point of Care 159 (65-105)
[2020-08-29 20:48] LABS: Glucose Point of Care 183 (65-105)
[2020-08-30] VITALS (60 sets, daily range): BP systolic 78–187; BP diastolic 65–99; PULSE 75–135; RESP 20–44; TEMP 34.4–38.6; O2SAT 84–99
[2020-08-30] MEDS: PROPOFOL IV EMULSION 100 ML 20.76 MG IV CONT ×3 (00:36→09:53)
--- NOTE | 2020-08-30 00:43 | WPDPROCEDUR ---
Procedures Intubation Intubation Date: 08/30/20 Intubation Time: 00:15 A pre-procedural Time-Out was completed immediately before starting the procedure and confirmed: Patient Identification, Site, Procedure, Patient Position and the Availability of Requisite Equipment: Yes Sedative: none Paralytic: rocuronium Mg given: 40 Laryngoscope: fiber optic video scope Assist device used: Bougie ET tube size: 8 Tube secured depth (cm): 25 Tube secured location: lips Tube placement confirmation: visualized tube passing through cords, no breath sounds over epigastrium and confirmation by capnometry Patient tolerated procedure: well and no complications Intubation complications: none Additional comments: DAte of service of procedure was 08/30/2020 at 00:15 hrs.
[2020-08-30] MEDS: METOCLOPRAMIDE HCL INJ 10 MG/2 ML VIAL 5 MG IV PUSH ×2 (01:10→06:31)
--- NOTE | 2020-08-30 01:26 | PC.NURSE ---
Pt in prone position for approximately 12 hours. Turned pt back to supine position. Sats in the 70s-80s on the ventilator. Peak pressures in the 60s. Large cuff leak noted to ETT. Staff bagged pt in attempt to improve O2 sats. Diminished breath sounds on the left. Dr. Cardona called to pt's bedside to due an ETT exchange. Large amount of tube feeding present in pt's original ETT. Chest xray suspect for left sided pneumothorax. Dr. Cardona called radiologist to discuss, while staff continued to bag pt with minimal improvement with oxygenation. Per Dr. Cardona, the radiologist does not believe that pt has a pneumothorax. Vent settings changed. Nimbex ordered.
[2020-08-30 02:39] LABS: Glucose Point of Care 152 (65-105)
[2020-08-30] MEDS: ACETAMINOPHEN ELIXIR 325 MG/10.15 ML UDC 650 MG PO (02:41)
[2020-08-30 03:46] LABS: Alveolar/Arterial O2 Gradient 503.9 mmHg; Base Excess ABG 2.8 mEq/l (+/-2.0); Carboxyhemoglobin 0.3 % THb (0-2.0); Fractional Inspired Oxygen 100 %; HCO3 ABG 36.7 mEq/l (22.0-26.0); Methemoglobin ABG 0.5 %THb (0-1.5); Oxygen Content ABG 15.5 %vol (16.0-22.0); Oxyhemoglobin 87.7 % THb (90.0-100.0); PO2 ABG 78.4 mmHg (80.0-100.0); PO2 FiO2 Ratio Arterial Blood 0.78 %; Reduced Hemoglobin 11.5 %THb (0-5.0); Total Hemoglobin 12.5 g/dL (12.0-18.0)
[2020-08-30 03:50] LABS: Device VENTILATOR; Modified Allen's Test Pass; PCO2 ABG 130.7 mmHg (35.0-45.0); Site Drawn RIGHT RADIAL; pH ABG 7.066 (7.350-7.450)
[2020-08-30] MEDS: LEVALBUTEROL NEB 1.25 MG/3 ML 0.63 MG INHALATION (03:51)
[2020-08-30] MEDS: ALBUTEROL SULFATE NEB 2.5 MG/0.5 ML INH 15 MG (04:55)
[2020-08-30 05:36] LABS: Hematocrit 36.7 % (42.0-52.0); Hemoglobin 11.6 g/dL (14.0-18.0); Mean Corpuscular HGB Conc 31.6 g/dl (32-36); Mean Corpuscular Hemoglobin 28.5 pg (26-34); Mean Corpuscular Volume 90.2 fl (80-100); Platelet Count Result 584 k/mm3 (150-375); Red Blood Count 4.07 M/mm3 (4.6-6.20); Red Cell Distribution Width 14.5 % (11.5-14.5); White Blood Count 42.8 K/mm3 (4.5-10.0)
[2020-08-30 06:06] LABS: D Dimer 4.63 ug/mL (<0.48)
[2020-08-30 06:24] LABS: Magnesium 1.9 mg/dL (1.6-2.3); Phosphorus 6.3 mg/dL (2.5-4.5)
[2020-08-30] MEDS: INSULIN ASPART (*BKC) 100 UNITS/ML SUB-Q ×3 (06:26→17:44)
[2020-08-30] MEDS: CENTRAL LINE FLUSH 10 ML IV PUSH ×3 (06:30→22:26)
[2020-08-30 06:36] LABS: Lactate Dehydrogenase 2279 U/L (313-618)
[2020-08-30] MEDS: FENTANYL 2,500MCG/NS250ML(*CRX 2,500 MCG/250 ML BAG 20 MCG IV CONT ×2 (08:27→21:00)
[2020-08-30 08:47] LABS: Hematocrit 35.7 % (42.0-52.0); Hemoglobin 11.1 g/dL (14.0-18.0); Mean Corpuscular HGB Conc 31.1 g/dl (32-36); Mean Corpuscular Hemoglobin 28.3 pg (26-34); Mean Corpuscular Volume 91.1 fl (80-100); Mean Platelet Volume 9.9 fl (7.4-10.4); Platelet Count Result 472 k/mm3 (150-375); Red Blood Count 3.92 M/mm3 (4.6-6.20); Red Cell Distribution Width 14.2 % (11.5-14.5); White Blood Count 43.1 K/mm3 (4.5-10.0)
[2020-08-30 09:16] LABS: Band Neutrophils Percent 10 % (0-6); Lymphocytes Absolute Manual 0.43 K/mm3 (1.1-4.5); Metamyelocytes Percent 4 %; Monocytes Absolute Manual 0.43 K/mm3 (0.1-0.90); Monocytes Percent Manual 1 % (3-9); Myelocytes Percent 1 %; Neutrophils Absolute Manual 40.08 K/mm3 (1.3-6.7); Neutrophils Percent Manual 83 % (46-73); Total Cells Counted 100
[2020-08-30 09:17] LABS: Platelet Estimate Increased (Adequate)
[2020-08-30 09:37] LABS: Glucose Point of Care 275 (65-105)
[2020-08-30] MEDS: EPOPROSTENOL SODIUM 0.5 MG VIAL 1 MG INHALATION ×3 (09:37→21:09)
[2020-08-30] MEDS: ENOXAPARIN 40 MG/0.4 ML SYRINGE SUB-Q ×2 (09:54→20:26)
[2020-08-30] MEDS: PANTOPRAZOLE SODIUM IV 40 MG VIAL IV PUSH (09:54)
[2020-08-30] MEDS: acetaZOLAMIDE TAB 250 MG TABLET PO ×2 (09:54→20:26)
[2020-08-30] MEDS: PRAVASTATIN SODIUM 20 MG TABLET PO (09:55)
[2020-08-30 10:46] LABS: Alveolar/Arterial O2 Gradient 559.3 mmHg; Base Excess ABG -0.1 mEq/l (+/-2.0); Fractional Inspired Oxygen 100 %; HCO3 ABG 27.7 mEq/l (22.0-26.0); Oxygen Content ABG 16.7 %vol (16.0-22.0); Oxygen Saturation ABG 96.1 % (95.0-100.0); Oxyhemoglobin 94.9 % THb (90.0-100.0); PO2 ABG 93.7 mmHg (80.0-100.0); PO2 FiO2 Ratio Arterial Blood 0.94 %; Total Hemoglobin 12.4 g/dL (12.0-18.0); pH ABG 7.282 (7.350-7.450)
[2020-08-30 10:47] LABS: Device VENTILATOR; Modified Allen's Test Pass; Site Drawn RIGHT RADIAL
[2020-08-30 10:48] LABS: Arterial Blood Gas PEEP 5 cmH2O; Arterial Blood Gas Tidal Volume 380 ml; Arterial Blood Gas Vent Mode CMV; Arterial Blood Gas Ventilator rate 32 /MIN
[2020-08-30] MEDS: NOREPINEPHRINE 8 MG/D5W 250 ML 8 MG/250 ML BAG 9.38 MG IV CONT (11:09)
[2020-08-30 12:24] LABS: Glucose Point of Care 314 (65-105)
--- NOTE | 2020-08-30 13:01 | WPDINTPN ---
Progress Note: A&P Assessment and Plan (1) Acute respiratory failure with hypoxia: Code(s): J96.01 - Acute respiratory failure with hypoxia Status: Acute Assessment and Plan: patient with acute hypoxic respiratory failure likely related to COVID-19 pneumonia - patient was admitted to the hospital from 08/01/2020 to 08/12/2020 for COVID-19 pneumonia, patient was on the medical floor and was discharged home on 1 L nasal cannula at rest and 3 L nasal cannula with activity. - patient was intubated on 08/19/2020 for impending respiratory failure secondary tachypnea and hypoxia -patient has been having elevated peak pressures, ABGs showed severe respiratory acidosis. Patient was switched from pressure control ventilation to CMV mode of ventilation, decrease his PEEP, increased respiratory rate, decreased his I to E ratio. Patient was initially only getting 200-220 mL tidal volumes, after making the above changes patient was receiving 320-350 mL tidal volumes and therefore did ventilation was much improved reflected by his repeat ABGs -will prone patient today -STARTED ON FLOLAN with improvement of his O2 sats as well as PO2 on the ABGs. Patient currently on peep of 5 CT of the chest on was negative for PE. It did show bilateral airspace disease. (2) Pneumonia due to COVID-19 virus: Code(s): U07.1 - COVID-19; J12.89 - Other viral pneumonia Status: Acute Assessment and Plan: SARS-CoV-2 PCR positive - continue airborne, droplet, contact isolation precaution - monitor inflammatory markers intermittently - Patient had completed a course of Remdesivir and dexamethasone. - restarted on dexamethasone for 10 days ( initiated on 08/18/2020) - no studies have shown any benefit repeating Remdesivir or convalescent plasma (3) Septic shock: Code(s): A41.9 - Sepsis, unspecified organism; R65.21 - Severe sepsis with septic shock Status: Acute Assessment and Plan: Patient hypothermic, hypotensive, requiring Levophed to maintain mean arterial pressures greater than 65 mmHg -WBC count bumped to 43,000, chest x-ray continues to show bilateral airspace disease. -given the above patient could be developing ventilator associated pneumonia, patient already on cefepime will start vancomycin -patient does not have any loose stools, -await infectious disease evaluation and recommendations -will obtain blood and sputum culture (4) Diabetes: Qualifiers: Diabetes mellitus type: type 2 Diabetes mellitus chcf insulin use: unspecified chcf insulin use status Diabetes mellitus complication status: without complication Qualified Code(s): E11.9 - Type 2 diabetes mellitus without complications Code(s): E11.9 - Type 2 diabetes mellitus without complications Status: Chronic Assessment and Plan: continue sliding scale insulin and Accu-Cheks - hemoglobin A1c was 6.9 on 08/03/2020 - hyperglycemia likely related to steroids. - continue Levemir (5) Hypertension: Qualifiers: Hypertension type: unspecified Qualified Code(s): I10 - Essential (primary) hypertension Code(s): I10 - Essential (primary) hypertension Status: Chronic Assessment and Plan: hold all antihypertensives currently on Levophed (6) DVT prophylaxis: Code(s): Z29.9 - Encounter for prophylactic measures, unspecified Status: Acute Assessment and Plan: DVT prophylaxis: Lovenox 40 mg subcu q.12 hours Stress ulcer prophylaxis: Protonix 40 mg IV q.day (7) Dietary counseling and surveillance: Code(s): Z71.3 - Dietary counseling and surveillance Status: Acute Assessment and Plan: - no bowel movements, continue MiraLax - patient currently tolerating tube feeds, currently on hold Additional Plan will discuss with family code status: Full code critical care time spent: 34 minutes Due to a high probability of clinica
--- NOTE | 2020-08-30 16:36 | PM.IMPN ---
Progress Note: A&P Assessment and Plan (1) Pneumonia due to COVID-19 virus: Code(s): U07.1 - COVID-19; J12.89 - Other viral pneumonia Status: Acute Assessment and Plan: Patient completed course of Remdesivir and Dexamethasone Re started seconda course of Dexamethasone. (2) Acute respiratory failure with hypoxia: Code(s): J96.01 - Acute respiratory failure with hypoxia Status: Acute Assessment and Plan: On life support Management as per int/cc Appreciate int/cc note. (3) Leukocytosis: Code(s): D72.829 - Elevated white blood cell count, unspecified Status: Acute Assessment and Plan: On Cefepime added Vanc Multifactorial (4) Ground glass opacity present on imaging of lung: Code(s): R91.8 - Other nonspecific abnormal finding of lung field Status: Acute Assessment and Plan: On Vanc and Cefepime. Subjective Date/time seen: 08/30/20 16:36 Patient is sedated on vent support. Review of Systems Review of Systems: Narrative: Unable to obtain as patient is on vent support. Exam Narrative: Exam Narrative: Patient not examinated. Seen thru glass door. Objective Data Vital Signs Vital Signs: Vital Signs - 24 hr 08/29/20 18:00 08/29/20 18:21 08/29/20 19:46 Temperature Pulse Rate 93 93 97 Respiratory Rate 30 H 32 H Blood Pressure 114/79 Pulse Oximetry 94 95 08/29/20 19:49 08/29/20 19:58 08/29/20 20:00 Temperature Pulse Rate 98 113 H 96 Respiratory Rate 33 H 37 H Blood Pressure Pulse Oximetry 08/29/20 20:18 08/29/20 20:19 08/29/20 20:21 Temperature 101 F H Pulse Rate 115 H 113 H 113 H Respiratory Rate 37 H 37 H 37 H Blood Pressure 134/84 Pulse Oximetry 85 L 08/29/20 20:43 08/29/20 21:43 08/29/20 21:52 Temperature 101.1 F H 101.4 F H Pulse Rate 101 H Respiratory Rate 34 H Blood Pressure Pulse Oximetry 08/29/20 21:53 08/29/20 22:00 08/29/20 23:27 Temperature 101.4 F H Pulse Rate 101 H 101 H 97 Respiratory Rate 34 H Blood Pressure 111/73 Pulse Oximetry 93 95 08/30/20 00:00 08/30/20 00:36 08/30/20 01:04 Temperature 99.9 F H Pulse Rate 98 121 H 98 Respiratory Rate 30 H Blood Pressure 120/74 Pulse Oximetry 86 L 08/30/20 01:23 08/30/20 01:50 08/30/20 02:00 Temperature 101.4 F H Pulse Rate 105 H 109 H 123 H Respiratory Rate 43 H 39 H Blood Pressure 120/74 187/99 H Pulse Oximetry 85 L 92 08/30/20 02:28 08/30/20 02:31 08/30/20 02:41 Temperature 101.4 F H Pulse Rate 124 H 128 H Respiratory Rate 37 H 36 H Blood Pressure 187/99 H Pulse Oximetry 08/30/20 03:05 08/30/20 03:32 08/30/20 03:38 Temperature 99.6 F Pulse Rate 129 H 135 H 133 H Respiratory Rate 43 H 44 H 27 H Blood Pressure 163/88 H 155/80 H 155/80 H Pulse Oximetry 84 L 08/30/20 03:41 08/30/20 03:51 08/30/20 03:54 Temperature 99.6 F 99.6 F Pulse Rate 98 135 H Respiratory Rate 33 H 20 Blood Pressure 155/80 H Pulse Oximetry 85 L 08/30/20 04:00 08/30/20 05:00 08/30/20 05:26 Temperature Pulse Rate 133 H 111 H 107 H Respiratory Rate 20 Blood Pressure Pulse Oximetry 90 08/30/20 06:00 08/30/20 06:36 08/30/20 06:37 Temperature Pulse Rate 104 H 104 H 107 H Respiratory Rate 20 20 20 Blood Pressure 119/88 Pulse Oximetry 91 08/30/20 06:38 08/30/20 07:53 08/30/20 08:00 Temperature 93.9 F L Pulse Rate 107 H 97 96 Respiratory Rate 20 20 Blood Pressure 119/88 98/78 L Pulse Oximetry 94 95 08/30/20 08:27 08/30/20 08:29 08/30/20 08:51 Temperature Pulse Rate 93 94 87 Respiratory Rate 20 20 32 H Blood Pressure 98/78 L Pulse Oximetry 08/30/20 09:00 08/30/20 09:30 08/30/20 09:37 Temperature 93.9 F L Pulse Rate 96 88 Respiratory Rate 32 H Blood Pressure 78/65 L Pulse Oximetry 91 08/30/20 09:39 08/30/20 10:00 08/30/20 10:38 Temperature 94.3 F L Pulse Rate 87 84 84 Respiratory Rate 32 H Blo
[2020-08-30 17:58] LABS: Glucose Point of Care 263 (65-105)
[2020-08-30 20:33] LABS: Base Excess ABG 1.8 mEq/l (+/-2.0); Carboxyhemoglobin 0.4 % THb (0-2.0); Device VENTILATOR; Fractional Inspired Oxygen 90 %; HCO3 ABG 28.6 mEq/l (22.0-26.0); Methemoglobin ABG 0.2 %THb (0-1.5); Modified Allen's Test Pass; Oxygen Content ABG 15.6 %vol (16.0-22.0); Oxygen Saturation ABG 98.3 % (95.0-100.0); Oxyhemoglobin 97.4 % THb (90.0-100.0); PCO2 ABG 55.6 mmHg (35.0-45.0); PO2 ABG 128.7 mmHg (80.0-100.0); PO2 FiO2 Ratio Arterial Blood 1.43 %; Site Drawn RIGHT RADIAL; Total Hemoglobin 11.2 g/dL (12.0-18.0); pH ABG 7.329 (7.350-7.450)
[2020-08-30 20:34] LABS: Arterial Blood Gas Ventilator rate 32 /MIN
[2020-08-30 20:35] LABS: Arterial Blood Gas PEEP 5 cmH2O; Arterial Blood Gas Tidal Volume 380 ml; Arterial Blood Gas Vent Mode CMV
[2020-08-31] VITALS (45 sets, daily range): BP systolic 94–169; BP diastolic 65–85; PULSE 77–112; RESP 30–37; TEMP 35.3–36.8; O2SAT 90–99
[2020-08-31] MEDS: INSULIN ASPART (*BKC) 100 UNITS/ML SUB-Q ×4 (01:22→23:16)
[2020-08-31 01:42] LABS: Glucose Point of Care 203 (65-105)
[2020-08-31 02:23] LABS: Alveolar/Arterial O2 Gradient 435.1 mmHg; Base Excess ABG 2.5 mEq/l (+/-2.0); Carboxyhemoglobin 0.5 % THb (0-2.0); Fractional Inspired Oxygen 90 %; HCO3 ABG 29.4 mEq/l (22.0-26.0); Methemoglobin ABG 0.1 %THb (0-1.5); Oxygen Content ABG 14.3 %vol (16.0-22.0); Oxygen Saturation ABG 98.7 % (95.0-100.0); Oxyhemoglobin 97.6 % THb (90.0-100.0); PCO2 ABG 58.2 mmHg (35.0-45.0); PO2 FiO2 Ratio Arterial Blood 1.63 %; Reduced Hemoglobin 1.8 %THb (0-5.0); Total Hemoglobin 10.2 g/dL (12.0-18.0); pH ABG 7.322 (7.350-7.450)
[2020-08-31 02:24] LABS: Arterial Blood Gas PEEP 5 cmH2O; Arterial Blood Gas Vent Mode CMV; Arterial Blood Gas Ventilator rate 32 /MIN; Device VENTILATOR; Modified Allen's Test Unable to perform; Site Drawn RIGHT RADIAL
[2020-08-31 02:25] LABS: Arterial Blood Gas Tidal Volume 380 ml
[2020-08-31] MEDS: EPOPROSTENOL SODIUM 0.5 MG VIAL 1 MG INHALATION ×2 (03:15→09:28)
[2020-08-31] MEDS: CENTRAL LINE FLUSH 10 ML IV PUSH ×3 (05:15→21:08)
[2020-08-31 05:51] LABS: Hematocrit 29.6 % (42.0-52.0); Hemoglobin 9.4 g/dL (14.0-18.0); Mean Corpuscular HGB Conc 31.8 g/dl (32-36); Mean Corpuscular Hemoglobin 27.8 pg (26-34); Mean Corpuscular Volume 87.6 fl (80-100); Mean Platelet Volume 9.8 fl (7.4-10.4); Platelet Count Result 318 k/mm3 (150-375); Red Blood Count 3.38 M/mm3 (4.6-6.20); Red Cell Distribution Width 13.9 % (11.5-14.5); White Blood Count 21.5 K/mm3 (4.5-10.0)
[2020-08-31 06:10] LABS: Alanine Aminotransferase 54 U/L (4-50); Albumin Level 2.7 g/dL (3.5-5.1); Alkaline Phosphatase 167 U/L (38-126); Anion Gap 3 mmol/L (8-16); Aspartate Amino Transferase 35 U/L (17-59); Bilirubin,Total 0.4 mg/dL (0.2-1.3); Blood Urea Nitrogen 11 mg/dL (9-20); Calcium 7.9 mg/dL (8.4-10.2); Carbon Dioxide 32 mmol/L (22-30); Chloride 89 mmol/L (98-107); Estimated CRCL calculation 120 ml/min; Estimated Glomerular Filt Rate > 60; Glucose 197 mg/dL (75-110); Magnesium 1.7 mg/dL (1.6-2.3); Phosphorus 2.5 mg/dL (2.5-4.5); Potassium 4.3 mmol/L (3.4-5.0); Sodium 124 mmol/L (137-145)
[2020-08-31] MEDS: FUROSEMIDE INJ 40 MG/4 ML VIAL IV PUSH (08:43)
[2020-08-31] MEDS: ENOXAPARIN 40 MG/0.4 ML SYRINGE SUB-Q ×2 (08:43→20:20)
[2020-08-31 08:44] LABS: Alveolar/Arterial O2 Gradient 446.5 mmHg; Carboxyhemoglobin 0.1 % THb (0-2.0); Fractional Inspired Oxygen 90 %; HCO3 ABG 29.5 mEq/l (22.0-26.0); Methemoglobin ABG 0.2 %THb (0-1.5); Oxygen Content ABG 14.2 %vol (16.0-22.0); Oxygen Saturation ABG 98.8 % (95.0-100.0); Oxyhemoglobin 98.1 % THb (90.0-100.0); PCO2 ABG 48.9 mmHg (35.0-45.0); PO2 ABG 145.1 mmHg (80.0-100.0); PO2 FiO2 Ratio Arterial Blood 1.61 %; Reduced Hemoglobin 1.6 %THb (0-5.0); Total Hemoglobin 10.1 g/dL (12.0-18.0); pH ABG 7.398 (7.350-7.450)
[2020-08-31] MEDS: PANTOPRAZOLE SODIUM IV 40 MG VIAL IV PUSH (08:44)
[2020-08-31 08:45] LABS: Arterial Blood Gas Vent Mode CMV; Arterial Blood Gas Ventilator rate 32 /MIN; Device VENTILATOR; Modified Allen's Test Pass; Site Drawn RIGHT BRACHIAL
[2020-08-31 08:46] LABS: Arterial Blood Gas PEEP 5 cmH2O; Arterial Blood Gas Tidal Volume 380 ml
--- NOTE | 2020-08-31 09:44 | WPDINFPN2 ---
Progress Note: A&P Assessment and Plan (1) Pneumonia due to COVID-19 virus: Code(s): U07.1 - COVID-19; J12.89 - Other viral pneumonia Status: Acute Assessment and Plan: 1. CoVid 19 viral pneumonia. 2. Worsening lung infiltrates/hypothermia/hypoxemia, suspect bacterial superinfection. Prior sputum with yeast, not a pathogen here. REC Cefepime and Vanc #9, continue. New sputum in process. PCT level, to guide length of therapy (though unfortunately very long turnaround at this hospital). Discussed. I personally reviewed his CXR: worsening infiltrates bilaterally Subjective Date/time seen: 08/31/20 09:44 Interval history: paralyzed and sedated Exam Narrative: Exam Narrative: t max 38.6 early yesterday, also hypothermic Const: General: no acute distress Eyes: Sclera: scleral abnormality Resp: Other: bronchial breath sounds, more marked on left. Bilateral rales Cardio: Rate: regular rate Rhythm: regular rhythm Heart sounds: no murmurs GI: Other: no mass no organomegaly Urinary Catheter: Urinary Catheter: patent and draining Objective Data Vital Signs Vital Signs: Vital Signs - 24 hr 08/30/20 10:00 08/30/20 10:38 08/30/20 11:09 Temperature 34.6 C L 34.6 C L Pulse Rate 84 84 Respiratory Rate 32 H Blood Pressure 93/74 L Pulse Oximetry 94 95 08/30/20 11:19 08/30/20 12:00 08/30/20 13:41 Temperature 34.9 C L 35.4 C L Pulse Rate 86 87 Respiratory Rate 32 H Blood Pressure 124/83 Pulse Oximetry 96 95 08/30/20 14:00 08/30/20 15:00 08/30/20 15:12 Temperature 35.6 C L 36.0 C L Pulse Rate 85 84 Respiratory Rate 32 H 32 H Blood Pressure 108/78 Pulse Oximetry 95 93 08/30/20 16:00 08/30/20 16:25 08/30/20 18:00 Temperature 36.0 C L Pulse Rate 85 85 83 Respiratory Rate 32 H 32 H Blood Pressure 115/75 117/77 Pulse Oximetry 97 97 97 08/30/20 20:00 08/30/20 20:01 08/30/20 20:06 Temperature 36.2 C L Pulse Rate 80 79 77 Respiratory Rate 32 H 32 H Blood Pressure 121/82 Pulse Oximetry 99 98 98 08/30/20 20:15 08/30/20 20:17 08/30/20 20:23 Temperature Pulse Rate 83 83 80 Respiratory Rate 32 H 32 H 32 H Blood Pressure 107/80 Pulse Oximetry 08/30/20 20:24 08/30/20 20:57 08/30/20 21:00 Temperature Pulse Rate 79 78 78 Respiratory Rate 32 H 32 H Blood Pressure 107/80 Pulse Oximetry 08/30/20 21:01 08/30/20 21:09 08/30/20 21:39 Temperature Pulse Rate 78 84 75 Respiratory Rate 32 H Blood Pressure 131/78 Pulse Oximetry 99 98 08/30/20 22:00 08/30/20 22:03 08/30/20 22:04 Temperature 36.2 C L Pulse Rate 80 77 75 Respiratory Rate 32 H 32 H 32 H Blood Pressure 123/75 123/75 Pulse Oximetry 98 08/30/20 22:27 08/30/20 22:53 08/31/20 00:00 Temperature 36.0 C L Pulse Rate 79 84 79 Respiratory Rate 32 H 32 H Blood Pressure 123/75 130/70 108/72 Pulse Oximetry 97 08/31/20 00:13 08/31/20 01:11 08/31/20 01:12 Temperature Pulse Rate 80 77 77 Respiratory Rate 32 H 32 H 32 H Blood Pressure 108/72 Pulse Oximetry 96 08/31/20 01:14 08/31/20 02:00 08/31/20 02:09 Temperature 36.2 C L Pulse Rate 77 81 82 Respiratory Rate 32 H 32 H Blood Pressure 108/72 97/65 L Pulse Oximetry 99 98 08/31/20 02:18 08/31/20 02:19 08/31/20 03:17 Temperature Pulse Rate 77 82 83 Respiratory Rate 32 H 32 H 32 H Blood Pressure 97/65 L Pulse Oximetry 98 08/31/20 04:00 08/31/20 04:45 08/31/20 05:09 Temperature 36.4 C L Pulse Rate 82 103 H 91 Respiratory Rate 32 H 32 H Blood Pressure 94/66 L Pulse Oximetry 97 97 08/31/20 05:10 08/31/20 05:11 08/31/20 05:13 Temperature Pulse Rate 83 83 80 Respiratory Rate 32 H 32 H Blood Pressure 110/70 110/70 Pulse Oximetry 08/31/20 06:00 08/31/20 06:02 08/31/20 06:06 Temperature 36.3 C L Pulse Rate 83 100 100 Respiratory Rate 32 H 32 H Blood Pressure 108/68 Pulse Oximetry 95 95 95 08/31/20 06:37 08/31/20 08:00 08/31/20
[2020-08-31] MEDS: FENTANYL 2,500MCG/NS250ML(*CRX 2,500 MCG/250 ML BAG 20 MCG IV CONT ×2 (09:49→21:07)
[2020-08-31] MEDS: PROPOFOL IV EMULSION 100 ML 11.96 MG IV CONT ×2 (11:04→17:37)
--- NOTE | 2020-08-31 12:48 | WPDINTPN ---
Progress Note: A&P Assessment and Plan (1) Acute respiratory failure with hypoxia: Code(s): J96.01 - Acute respiratory failure with hypoxia Status: Acute Assessment and Plan: patient with acute hypoxic respiratory failure likely related to COVID-19 pneumonia - patient was admitted to the hospital from 08/01/2020 to 08/12/2020 for COVID-19 pneumonia, patient was on the medical floor and was discharged home on 1 L nasal cannula at rest and 3 L nasal cannula with activity. - patient was intubated on 08/19/2020 for impending respiratory failure secondary tachypnea and hypoxia -patient was in prone position for approximately 12 hours yesterday with significant improvement in PO2 on the ABGs -switched patient to pressure control ventilation with improvement in peak pressures -patient will be proned again today -will wean FiO2 to 70% and currently patient on peep of 5 -remains on Flolan, will start weaning Flolan to off CT of the chest on was negative for PE. It did show bilateral airspace disease. (2) Pneumonia due to COVID-19 virus: Code(s): U07.1 - COVID-19; J12.89 - Other viral pneumonia Status: Acute Assessment and Plan: SARS-CoV-2 PCR positive - continue airborne, droplet, contact isolation precaution - monitor inflammatory markers intermittently - Patient had completed a course of Remdesivir and dexamethasone. - restarted on dexamethasone for 10 days ( initiated on 08/18/2020) - no studies have shown any benefit repeating Remdesivir or convalescent plasma (3) Septic shock: Code(s): A41.9 - Sepsis, unspecified organism; R65.21 - Severe sepsis with septic shock Status: Acute Assessment and Plan: Patient hypothermic, hypotensive, requiring Levophed to maintain mean arterial pressures greater than 65 mmHg -WBC count bumped to 43,000 on 08/30/2020, chest x-ray continues to show bilateral airspace disease. 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 - continue Levemir (5) Hypertension: Qualifiers: Hypertension type: unspecified Qualified Code(s): I10 - Essential (primary) hypertension Code(s): I10 - Essential (primary) hypertension Status: Chronic Assessment and Plan: hold all antihypertensives currently on Levophed (6) DVT prophylaxis: Code(s): Z29.9 - Encounter for prophylactic measures, unspecified Status: Acute Assessment and Plan: DVT prophylaxis: Lovenox 40 mg subcu q.12 hours Stress ulcer prophylaxis: Protonix 40 mg IV q.day (7) Dietary counseling and surveillance: Code(s): Z71.3 - Dietary counseling and surveillance Status: Acute Assessment and Plan: - no bowel movements, continue MiraLax - patient currently tolerating tube feeds, currently on hold Additional Plan Discussed with family updated them with patient's condition plan of care. I did discuss with them regarding decreasing oxygen requirements and ventilatory support. I answered all questions code status: Full code critical care time spent: 35 minutes Due to a high probability of clinically significant, life threat
[2020-08-31 13:14] LABS: Glucose Point of Care 305 (65-105)
[2020-08-31] MEDS: EPOPROSTENOL SODIUM 0.5 MG VIAL INHALATION ×2 (15:26→21:44)
--- NOTE | 2020-08-31 15:29 | PM.IMPN ---
Progress Note: A&P Assessment and Plan (1) Leukocytosis: Code(s): D72.829 - Elevated white blood cell count, unspecified Status: Acute Assessment and Plan: On Cefepime and vanc Chest xr with worsening infiltrates Appreciate ID note. (2) Ground glass opacity present on imaging of lung: Code(s): R91.8 - Other nonspecific abnormal finding of lung field Status: Acute Assessment and Plan: On Cefepime + Vanc Continue to monitor. (3) Pneumonia due to COVID-19 virus: Code(s): U07.1 - COVID-19; J12.89 - Other viral pneumonia Status: Acute Assessment and Plan: Completed course of Remdesivir Currently on Cefepime and Vanc (4) Acute respiratory failure with hypoxia: Code(s): J96.01 - Acute respiratory failure with hypoxia Status: Acute Assessment and Plan: Pronated today Improved oxygenation On vent support Flolan therapy Appreciate cc/int note Subjective Date/time seen: 08/31/20 15:29 Unable to obtain as patient is on ventilator support. Review of Systems Review of Systems: Narrative: Unable to obtain as patient is on vent support. Exam Narrative: Exam Narrative: On prone position, on ventilator.Patient seen thru glass door. Objective Data Vital Signs Vital Signs: Vital Signs - 24 hr 08/30/20 16:00 08/30/20 16:25 08/30/20 18:00 Temperature 96.8 F L Pulse Rate 85 85 83 Respiratory Rate 32 H 32 H Blood Pressure 115/75 117/77 Pulse Oximetry 97 97 97 08/30/20 20:00 08/30/20 20:01 08/30/20 20:06 Temperature 97.2 F L Pulse Rate 80 79 77 Respiratory Rate 32 H 32 H Blood Pressure 121/82 Pulse Oximetry 99 98 98 08/30/20 20:15 08/30/20 20:17 08/30/20 20:23 Temperature Pulse Rate 83 83 80 Respiratory Rate 32 H 32 H 32 H Blood Pressure 107/80 Pulse Oximetry 08/30/20 20:24 08/30/20 20:57 08/30/20 21:00 Temperature Pulse Rate 79 78 78 Respiratory Rate 32 H 32 H Blood Pressure 107/80 Pulse Oximetry 08/30/20 21:01 08/30/20 21:09 08/30/20 21:39 Temperature Pulse Rate 78 84 75 Respiratory Rate 32 H Blood Pressure 131/78 Pulse Oximetry 99 98 08/30/20 22:00 08/30/20 22:03 08/30/20 22:04 Temperature 97.2 F L Pulse Rate 80 77 75 Respiratory Rate 32 H 32 H 32 H Blood Pressure 123/75 123/75 Pulse Oximetry 98 08/30/20 22:27 08/30/20 22:53 08/31/20 00:00 Temperature 96.8 F L Pulse Rate 79 84 79 Respiratory Rate 32 H 32 H Blood Pressure 123/75 130/70 108/72 Pulse Oximetry 97 08/31/20 00:13 08/31/20 01:11 08/31/20 01:12 Temperature Pulse Rate 80 77 77 Respiratory Rate 32 H 32 H 32 H Blood Pressure 108/72 Pulse Oximetry 96 08/31/20 01:14 08/31/20 02:00 08/31/20 02:09 Temperature 97.2 F L Pulse Rate 77 81 82 Respiratory Rate 32 H 32 H Blood Pressure 108/72 97/65 L Pulse Oximetry 99 98 08/31/20 02:18 08/31/20 02:19 08/31/20 03:17 Temperature Pulse Rate 77 82 83 Respiratory Rate 32 H 32 H 32 H Blood Pressure 97/65 L Pulse Oximetry 98 08/31/20 04:00 08/31/20 04:45 08/31/20 05:09 Temperature 97.5 F L Pulse Rate 82 103 H 91 Respiratory Rate 32 H 32 H Blood Pressure 94/66 L Pulse Oximetry 97 97 08/31/20 05:10 08/31/20 05:11 08/31/20 05:13 Temperature Pulse Rate 83 83 80 Respiratory Rate 32 H 32 H Blood Pressure 110/70 110/70 Pulse Oximetry 08/31/20 06:00 08/31/20 06:02 08/31/20 06:06 Temperature 97.4 F L Pulse Rate 83 100 100 Respiratory Rate 32 H 32 H Blood Pressure 108/68 Pulse Oximetry 95 95 95 08/31/20 06:37 08/31/20 08:00 08/31/20 09:31 Temperature 98.3 F Pulse Rate 81 86 106 H Respiratory Rate 32 H 30 H 32 H Blood Pressure 108/68 117/72 Pulse Oximetry 93 90 08/31/20 09:32 08/31/20 09:49 08/31/20 10:00 Temperature Pulse Rate 103 H 103 H 112 H Respiratory Rate 30 H 30 H 30 H Blood Pressure 169/85 H Pulse Oximetry 93 08/31/20 11:18 08/31/20 11:55 08/31/20 1
[2020-08-31 16:45] LABS: Alveolar/Arterial O2 Gradient 415.8 mmHg; Base Excess ABG 2.2 mEq/l (+/-2.0); Carboxyhemoglobin 0.3 % THb (0-2.0); Fractional Inspired Oxygen 80 %; HCO3 ABG 30.2 mEq/l (22.0-26.0); Methemoglobin ABG 0.1 %THb (0-1.5); Oxygen Saturation ABG 94.9 % (95.0-100.0); Oxyhemoglobin 95.2 % THb (90.0-100.0); PO2 ABG 85.3 mmHg (80.0-100.0); PO2 FiO2 Ratio Arterial Blood 1.07 %; Reduced Hemoglobin 4.4 %THb (0-5.0); Total Hemoglobin 10.4 g/dL (12.0-18.0)
[2020-08-31 16:46] LABS: Arterial Blood Gas Ventilator rate 30 /MIN; Device VENTILATOR; Modified Allen's Test Pass; Site Drawn RIGHT RADIAL; pH ABG 7.278 (7.350-7.450)
[2020-08-31 16:47] LABS: Arterial Blood Gas PEEP 5 cmH2O; Arterial Blood Gas Vent Mode PRESSURE CONTROL; Peak Inspiratory Pressure 49 cmH2O
[2020-08-31 17:43] LABS: Glucose Point of Care 328 (65-105)
[2020-08-31 20:43] LABS: Alveolar/Arterial O2 Gradient 423.4 mmHg; Base Excess ABG 2.9 mEq/l (+/-2.0); Carboxyhemoglobin 0.1 % THb (0-2.0); Fractional Inspired Oxygen 80 %; HCO3 ABG 30.8 mEq/l (22.0-26.0); Methemoglobin ABG 0.1 %THb (0-1.5); Oxygen Content ABG 13.4 %vol (16.0-22.0); Oxygen Saturation ABG 93.1 % (95.0-100.0); Oxyhemoglobin 93.6 % THb (90.0-100.0); PO2 ABG 76.3 mmHg (80.0-100.0); PO2 FiO2 Ratio Arterial Blood 0.95 %; Reduced Hemoglobin 6.2 %THb (0-5.0); Total Hemoglobin 10.1 g/dL (12.0-18.0)
[2020-08-31 20:44] LABS: Modified Allen's Test Pass; PCO2 ABG 67.3 mmHg (35.0-45.0); Site Drawn RIGHT RADIAL; pH ABG 7.279 (7.350-7.450)
[2020-08-31 20:45] LABS: Arterial Blood Gas PEEP 5 cmH2O; Arterial Blood Gas Vent Mode PRESSURE CONTROL; Arterial Blood Gas Ventilator rate 30 /MIN; Device VENTILATOR; Peak Inspiratory Pressure 49 cmH2O
[2020-08-31 23:23] LABS: Glucose Point of Care 265 (65-105)
[2020-09-01] VITALS (49 sets, daily range): BP systolic 90–165; BP diastolic 62–80; PULSE 71–99; RESP 31–34; TEMP 36.1–37.2; O2SAT 90–96
[2020-09-01 00:20] LABS: Vancomycin Trough 7.6 ug/mL (10.0-20.0)
[2020-09-01] MEDS: PROPOFOL IV EMULSION 100 ML 11.96 MG IV CONT ×2 (01:33→08:16)
[2020-09-01 02:08] LABS: Alveolar/Arterial O2 Gradient 440.5 mmHg; Carboxyhemoglobin 0.5 % THb (0-2.0); Device VENTILATOR; Fractional Inspired Oxygen 80 %; HCO3 ABG 29.8 mEq/l (22.0-26.0); Modified Allen's Test Pass; Oxygen Content ABG 12.8 %vol (16.0-22.0); Oxygen Saturation ABG 92.3 % (95.0-100.0); Oxyhemoglobin 92.3 % THb (90.0-100.0); PCO2 ABG 57.8 mmHg (35.0-45.0); PO2 ABG 69.2 mmHg (80.0-100.0); PO2 FiO2 Ratio Arterial Blood 0.86 %; Reduced Hemoglobin 7.2 %THb (0-5.0); Site Drawn RIGHT RADIAL; Total Hemoglobin 9.8 g/dL (12.0-18.0)
[2020-09-01 02:09] LABS: Arterial Blood Gas Ventilator rate 30 /MIN
[2020-09-01 02:10] LABS: Arterial Blood Gas PEEP 5 cmH2O; Arterial Blood Gas Vent Mode PRESSURE CONTROL; Peak Inspiratory Pressure 49 cmH2O
[2020-09-01] MEDS: EPOPROSTENOL SODIUM 0.5 MG VIAL INHALATION (03:17)
[2020-09-01 04:22] LABS: Hematocrit 26.6 % (42.0-52.0); Hemoglobin 8.5 g/dL (14.0-18.0); Mean Corpuscular Hemoglobin 27.8 pg (26-34); Mean Corpuscular Volume 86.9 fl (80-100); Platelet Count Result 291 k/mm3 (150-375); Red Blood Count 3.06 M/mm3 (4.6-6.20); Red Cell Distribution Width 13.7 % (11.5-14.5); White Blood Count 14.1 K/mm3 (4.5-10.0)
[2020-09-01 04:36] LABS: D Dimer 2.71 ug/mL (<0.48)
[2020-09-01 04:42] LABS: Alanine Aminotransferase 42 U/L (4-50); Albumin Level 2.5 g/dL (3.5-5.1); Alkaline Phosphatase 139 U/L (38-126); Anion Gap 2 mmol/L (8-16); Aspartate Amino Transferase 29 U/L (17-59); Bilirubin,Total 0.4 mg/dL (0.2-1.3); Blood Urea Nitrogen 10 mg/dL (9-20); Calcium 7.9 mg/dL (8.4-10.2); Carbon Dioxide 36 mmol/L (22-30); Chloride 88 mmol/L (98-107); Estimated CRCL calculation 102 ml/min; Estimated Glomerular Filt Rate > 60; Glucose 235 mg/dL (75-110); Lactate Dehydrogenase 845 U/L (313-618); Magnesium 1.9 mg/dL (1.6-2.3); Phosphorus 1.7 mg/dL (2.5-4.5); Potassium 3.6 mmol/L (3.4-5.0); Sodium 126 mmol/L (137-145)
[2020-09-01] MEDS: INSULIN ASPART (*BKC) 100 UNITS/ML SUB-Q ×3 (04:52→23:08)
[2020-09-01] MEDS: CENTRAL LINE FLUSH 10 ML IV PUSH ×3 (04:54→21:00)
[2020-09-01 04:56] LABS: Glucose Point of Care 250 (65-105)
[2020-09-01 05:08] LABS: CRP 23.3 mg/dL (<1.0)
[2020-09-01] MEDS: POTASSIUM PHOS,M-BASIC-D-BASIC 20 MMOL in SODIUM CHLORIDE 0.9% IV 250 ML 62.5 MMOL IVPB (08:13)
[2020-09-01 08:52] LABS: Alveolar/Arterial O2 Gradient 398.5 mmHg; Base Excess ABG 6.8 mEq/l (+/-2.0); Carboxyhemoglobin 0.3 % THb (0-2.0); Fractional Inspired Oxygen 80 %; HCO3 ABG 32.5 mEq/l (22.0-26.0); Oxygen Content ABG 14.1 %vol (16.0-22.0); Oxygen Saturation ABG 98.2 % (95.0-100.0); Oxyhemoglobin 97.5 % THb (90.0-100.0); PCO2 ABG 52.3 mmHg (35.0-45.0); PO2 FiO2 Ratio Arterial Blood 1.46 %; Reduced Hemoglobin 2.2 %THb (0-5.0); Total Hemoglobin 10.1 g/dL (12.0-18.0); pH ABG 7.411 (7.350-7.450)
[2020-09-01 08:53] LABS: Arterial Blood Gas Vent Mode SPONTANEOUS; Arterial Blood Gas Ventilator rate 32 /MIN; Device VENTILATOR; Modified Allen's Test Pass; Site Drawn LEFT RADIAL
[2020-09-01 08:54] LABS: Arterial Blood Gas PEEP 5 cmH2O; Peak Inspiratory Pressure 49 cmH2O
[2020-09-01] MEDS: ENOXAPARIN 40 MG/0.4 ML SYRINGE SUB-Q ×2 (09:02→20:07)
[2020-09-01] MEDS: PRAVASTATIN SODIUM 20 MG TABLET PO (09:03)
[2020-09-01] MEDS: PANTOPRAZOLE SODIUM IV 40 MG VIAL IV PUSH (09:03)
[2020-09-01] MEDS: FENTANYL 2,500MCG/NS250ML(*CRX 2,500 MCG/250 ML BAG 20 MCG IV CONT ×2 (09:39→20:05)
[2020-09-01 09:51] LABS: Arterial Blood Gas PEEP 10 cmH2O; Arterial Blood Gas Vent Mode PRESSURE CONTROL; Arterial Blood Gas Ventilator rate 20 /MIN; Peak Inspiratory Pressure 34 cmH2O
[2020-09-01] MEDS: EPOPROSTENOL SODIUM 0.5 MG VIAL 0.25 MG INHALATION (10:34)
--- NOTE | 2020-09-01 11:54 | PCDIET ---
ICU Rounding Note: Patient required Su Hugger over weekend and tube feedings held. MD ordered to restart tube feedings (Glucerna 1.2) and advance toward recommended 45mL/hr goal rate. Last recorded weight is 74.8kg which is down from last review, despite +I/O. Bowel Motility: BM x 2 on 08/31/20. Labs Reviewed: Hgb (8.5), Hct (26.6), Glu (235), Cr (0.6), Alb (2.5), PO4 (1.7), Perla Ca (9.1) Meds Noted: Cefepime, Novolog, Miralax, Nimbex, Levemir, K-Phos, Fentanyl, Zopenex, Protonix, Vancomycin, Reglan, Versed, Levophed, Pravastatin Additional Notes: Left nose abrasion. No other skin issues documented. Following daily in ICU rounds. Assessing/reassessing every Tuesday/Tuesday.
[2020-09-01 12:14] LABS: Glucose Point of Care 201 (65-105)
--- NOTE | 2020-09-01 12:18 | WPDINTPN ---
Progress Note: A&P Assessment and Plan (1) Acute respiratory failure with hypoxia: Code(s): J96.01 - Acute respiratory failure with hypoxia Status: Acute Assessment and Plan: patient with acute hypoxic respiratory failure likely related to COVID-19 pneumonia - patient was admitted to the hospital from 08/01/2020 to 08/12/2020 for COVID-19 pneumonia, patient was on the medical floor and was discharged home on 1 L nasal cannula at rest and 3 L nasal cannula with activity. - patient was intubated on 08/19/2020 for impending respiratory failure secondary tachypnea and hypoxia -patient was in prone position for approximately 13 hours yesterday with significant improvement in PO2 on the ABGs -switched patient to pressure control ventilation with improvement in peak pressures -will wean FiO2, currently patient on peep of 5 -weaning Flolan, will turn it of later today -on fentanyl, Versed and propofol infusion for sedation. NIMBEX has been turned off morning CT of the chest on was negative for PE. It did show bilateral airspace disease. (2) Pneumonia due to COVID-19 virus: Code(s): U07.1 - COVID-19; J12.89 - Other viral pneumonia Status: Acute Assessment and Plan: SARS-CoV-2 PCR positive - continue airborne, droplet, contact isolation precaution - monitor inflammatory markers intermittently - Patient had completed a course of Remdesivir and dexamethasone. -completed a 2nd course of dexamethasone which was initiated on 08/18/2020) - no studies have shown any benefit repeating Remdesivir or convalescent plasma (3) Septic shock: Code(s): A41.9 - Sepsis, unspecified organism; R65.21 - Severe sepsis with septic shock Status: Acute Assessment and Plan: Patient hypothermic, hypotensive, patient was on Levophed which is currently off since 08/31 -WBC count bumped to 43,000 on 08/30/2020, chest x-ray continues to show bilateral airspace disease. Ago cytosis improving, down to 14.1 today -patient does not have any loose stools, -appreciate infectious disease evaluation and recommendation, agreed with cefepime and vancomycin for possible ventilator associated pneumonia -from 08/31 are pending -from 08/30 negative x2 (4) Diabetes: Qualifiers: Diabetes mellitus type: type 2 Diabetes mellitus mcc insulin use: unspecified roasterman insulin use status Diabetes mellitus complication status: without complication Qualified Code(s): E11.9 - Type 2 diabetes mellitus without complications Code(s): E11.9 - Type 2 diabetes mellitus without complications Status: Chronic Assessment and Plan: continue sliding scale insulin and Accu-Cheks - hemoglobin A1c was 6.9 on 08/03/2020 - hyperglycemia likely related to steroids. - continue Levemir (5) Hypertension: Qualifiers: Hypertension type: unspecified Qualified Code(s): I10 - Essential (primary) hypertension Code(s): I10 - Essential (primary) hypertension Status: Chronic Assessment and Plan: hold all antihypertensives currently as patient was on Levophed. -continue monitor blood pressures closely (6) DVT prophylaxis: Code(s): Z29.9 - Encounter for prophylactic measures, unspecified Status: Acute Assessment and Plan: DVT prophylaxis: Lovenox 40 mg subcu q.12 hours Stress ulcer prophylaxis: Protonix 40 mg IV q.day (7) Dietary counseling and surveillance: Code(s): Z71.3 - Dietary counseling and surveillance Status: Acute Assessment and Plan: - no bowel movements, continue MiraLax -will restart tube feeds Additional Plan Will call family and discuss with them regarding tracheostomy and PEG tube placement code status: Full code critical care time spent: 33 minutes Due to a high probability of clinically significant, life threatening deterioration, the patient required my highest level of preparedness to intervene pardeep
[2020-09-01] MEDS: PROPOFOL IV EMULSION 100 ML 19.13 MG IV CONT ×2 (16:01→20:04)
--- NOTE | 2020-09-01 16:09 | PM.IMPN ---
Progress Note: A&P Assessment and Plan (1) Leukocytosis: Code(s): D72.829 - Elevated white blood cell count, unspecified Status: Acute Assessment and Plan: Trending down Continue to monitor (2) Pneumonia due to COVID-19 virus: Code(s): U07.1 - COVID-19; J12.89 - Other viral pneumonia Status: Acute Assessment and Plan: Completed Remdesivir (3) Acute respiratory failure with hypoxia: Code(s): J96.01 - Acute respiratory failure with hypoxia Status: Acute Assessment and Plan: On ventilator support Management as per Int/Cc Improved parameters noted Appreciate Int/Cc note. Subjective Date/time seen: 09/01/20 16:09 On vent Review of Systems Review of Systems: Narrative: On vent, unable to obtain. Exam Narrative: Exam Narrative: Patient not examined, seen thru glass door. Objective Data Vital Signs Vital Signs: Vital Signs - 24 hr 08/31/20 18:00 08/31/20 18:04 08/31/20 20:00 Temperature 97.5 F L Pulse Rate 98 99 100 Respiratory Rate 30 H 30 H 30 H Blood Pressure 101/67 104/67 Pulse Oximetry 92 92 93 08/31/20 21:00 08/31/20 21:07 08/31/20 21:44 Temperature Pulse Rate 98 97 97 Respiratory Rate 37 H 36 H 32 H Blood Pressure 105/69 Pulse Oximetry 97 08/31/20 21:47 08/31/20 22:00 08/31/20 22:39 Temperature 98.1 F Pulse Rate 94 92 91 Respiratory Rate 32 H Blood Pressure 95/70 L Pulse Oximetry 94 94 08/31/20 23:00 08/31/20 23:27 08/31/20 23:52 Temperature Pulse Rate 91 91 91 Respiratory Rate 33 H 33 H 32 H Blood Pressure 98/71 L 97/69 L Pulse Oximetry 94 08/31/20 23:53 09/01/20 00:00 09/01/20 00:37 Temperature 98.7 F Pulse Rate 92 95 92 Respiratory Rate 32 H 33 H 32 H Blood Pressure 97/69 L 94/68 L Pulse Oximetry 95 95 09/01/20 01:00 09/01/20 01:32 09/01/20 01:33 Temperature Pulse Rate 91 91 Respiratory Rate 31 H 32 H 32 H Blood Pressure 94/68 L Pulse Oximetry 09/01/20 01:56 09/01/20 02:00 09/01/20 02:37 Temperature 98.7 F Pulse Rate 94 98 99 Respiratory Rate 32 H Blood Pressure 105/62 Pulse Oximetry 90 91 09/01/20 03:00 09/01/20 03:13 09/01/20 03:17 Temperature Pulse Rate 96 96 96 Respiratory Rate 32 H 32 H 32 H Blood Pressure 99/64 L Pulse Oximetry 95 94 09/01/20 04:00 09/01/20 04:03 09/01/20 04:04 Temperature 98.7 F Pulse Rate 92 97 96 Respiratory Rate 32 H 32 H 32 H Blood Pressure 96/66 L 96/66 L 96/66 L Pulse Oximetry 94 09/01/20 04:05 09/01/20 05:00 09/01/20 05:35 Temperature Pulse Rate 95 93 98 Respiratory Rate 32 H 32 H Blood Pressure 91/63 L Pulse Oximetry 93 09/01/20 05:53 09/01/20 06:00 09/01/20 06:05 Temperature 99 F Pulse Rate 94 94 94 Respiratory Rate 32 H 32 H Blood Pressure 90/65 L Pulse Oximetry 96 09/01/20 06:06 09/01/20 06:07 09/01/20 08:00 Temperature 98.9 F Pulse Rate 95 94 92 Respiratory Rate 32 H 32 H 32 H Blood Pressure 90/65 L 92/66 L Pulse Oximetry 95 09/01/20 08:16 09/01/20 08:42 09/01/20 09:37 Temperature Pulse Rate 91 90 88 Respiratory Rate 32 H 32 H 32 H Blood Pressure Pulse Oximetry 93 09/01/20 09:39 09/01/20 10:00 09/01/20 10:15 Temperature 97.8 F Pulse Rate 88 80 79 Respiratory Rate 32 H 32 H 32 H Blood Pressure 122/80 Pulse Oximetry 95 95 09/01/20 10:30 09/01/20 12:00 09/01/20 12:11 Temperature 97.9 F Pulse Rate 80 80 79 Respiratory Rate 32 H 32 H Blood Pressure 95/71 L Pulse Oximetry 95 95 95 09/01/20 12:26 09/01/20 14:00 09/01/20 14:07 Temperature 97.5 F L Pulse Rate 80 80 80 Respiratory Rate 32 H 32 H 32 H Blood Pressure 102/71 Pulse Oximetry 96 09/01/20 14:46 Temperature Pulse Rate 81 Respiratory Rate 32 H Blood Pressure Pulse Oximetry 94 Intake/Output Intake/Output: Intake & Output 08/29/20 08/30/20 08/31/20 09/01/20 23:59 23:59 23:59 23:59 Intake Total 2402 3490 4141 1735 Output Total
[2020-09-01 18:23] LABS: Glucose Point of Care 196 (65-105)
[2020-09-02] VITALS (60 sets, daily range): BP systolic 90–142; BP diastolic 61–85; PULSE 56–149; RESP 30–363; TEMP 35–37.3; O2SAT 85–100
[2020-09-02 00:12] LABS: Glucose Point of Care 204 (65-105)
[2020-09-02] MEDS: PROPOFOL IV EMULSION 100 ML 19.13 MG IV CONT (00:44)
[2020-09-02 04:38] LABS: Hemoglobin 8.8 g/dL (14.0-18.0); Mean Corpuscular HGB Conc 32.6 g/dl (32-36); Mean Corpuscular Hemoglobin 27.6 pg (26-34); Mean Corpuscular Volume 84.6 fl (80-100); Mean Platelet Volume 10.3 fl (7.4-10.4); Platelet Count Result 364 k/mm3 (150-375); Red Blood Count 3.19 M/mm3 (4.6-6.20); Red Cell Distribution Width 13.8 % (11.5-14.5); White Blood Count 14.3 K/mm3 (4.5-10.0)
[2020-09-02 04:55] LABS: Alanine Aminotransferase 56 U/L (4-50); Albumin Level 2.6 g/dL (3.5-5.1); Alkaline Phosphatase 153 U/L (38-126); Anion Gap 4 mmol/L (8-16); Aspartate Amino Transferase 53 U/L (17-59); Bilirubin,Total 0.6 mg/dL (0.2-1.3); Blood Urea Nitrogen 10 mg/dL (9-20); Calcium 7.9 mg/dL (8.4-10.2); Carbon Dioxide 35 mmol/L (22-30); Chloride 94 mmol/L (98-107); Estimated CRCL calculation 102 ml/min; Estimated Glomerular Filt Rate > 60; Glucose 204 mg/dL (75-110); Magnesium 1.8 mg/dL (1.6-2.3); Phosphorus 1.2 mg/dL (2.5-4.5); Potassium 3.4 mmol/L (3.4-5.0); Sodium 133 mmol/L (137-145)
[2020-09-02 05:01] LABS: Alveolar/Arterial O2 Gradient 553.1 mmHg; Base Excess ABG 4.9 mEq/l (+/-2.0); Carboxyhemoglobin 0.7 % THb (0-2.0); Fractional Inspired Oxygen 90 %; HCO3 ABG 28.3 mEq/l (22.0-26.0); Methemoglobin ABG 0.1 %THb (0-1.5); Oxygen Content ABG 15.8 %vol (16.0-22.0); Oxygen Saturation ABG 88.7 % (95.0-100.0); Oxyhemoglobin 88.5 % THb (90.0-100.0); PCO2 ABG 37.5 mmHg (35.0-45.0); PO2 ABG 50.2 mmHg (80.0-100.0); PO2 FiO2 Ratio Arterial Blood 0.56 %; Reduced Hemoglobin 10.7 %THb (0-5.0); Total Hemoglobin 12.7 g/dL (12.0-18.0); pH ABG 7.496 (7.350-7.450)
[2020-09-02 05:02] LABS: Device VENTILATOR; Modified Allen's Test Unable to perform; Site Drawn RIGHT RADIAL
[2020-09-02 05:03] LABS: Arterial Blood Gas PEEP 5 cmH2O; Arterial Blood Gas Vent Mode PRESSURE CONTROL; Arterial Blood Gas Ventilator rate 32 /MIN; Peak Inspiratory Pressure 49 cmH2O
[2020-09-02] MEDS: PROPOFOL IV EMULSION 100 ML 21.52 MG IV CONT (05:04)
[2020-09-02] MEDS: INSULIN ASPART (*BKC) 100 UNITS/ML SUB-Q ×3 (05:04→17:50)
[2020-09-02] MEDS: CENTRAL LINE FLUSH 10 ML IV PUSH ×3 (05:05→20:57)
[2020-09-02 05:08] LABS: Glucose Point of Care 224 (65-105)
[2020-09-02] MEDS: ROCURONIUM BROMIDE 50 MG/5 ML VIAL IV PUSH ×2 (07:30→08:03)
[2020-09-02] MEDS: METOPROLOL TARTRATE INJ 5 MG/5 ML VIAL IV PUSH (08:12)
[2020-09-02] MEDS: ENOXAPARIN 40 MG/0.4 ML SYRINGE SUB-Q ×2 (08:36→20:58)
[2020-09-02] MEDS: PANTOPRAZOLE SODIUM IV 40 MG VIAL IV PUSH (08:39)
[2020-09-02] MEDS: PRAVASTATIN SODIUM 20 MG TABLET PO (08:40)
[2020-09-02] MEDS: EPOPROSTENOL SODIUM 0.5 MG VIAL 1 MG INHALATION ×3 (09:29→21:44)
[2020-09-02] MEDS: FENTANYL 2,500MCG/NS250ML(*CRX 2,500 MCG/250 ML BAG 20 MCG IV CONT ×2 (09:49→22:46)
[2020-09-02] MEDS: PROPOFOL IV EMULSION 100 ML 23.91 MG IV CONT ×4 (09:50→20:58)
[2020-09-02] MEDS: FUROSEMIDE INJ 40 MG/4 ML VIAL IV PUSH ×2 (11:28→20:57)
[2020-09-02] MEDS: POTASSIUM PHOS,M-BASIC-D-BASIC 20 MMOL in SODIUM CHLORIDE 0.9% IV 250 ML 62.5 MMOL IVPB (11:28)
[2020-09-02 11:33] LABS: Base Excess ABG 3.1 mEq/l (+/-2.0); Carboxyhemoglobin 0.3 % THb (0-2.0); Fractional Inspired Oxygen 100 %; HCO3 ABG 30.6 mEq/l (22.0-26.0); Methemoglobin ABG 0.2 %THb (0-1.5); Oxygen Content ABG 13.5 %vol (16.0-22.0); Oxygen Saturation ABG 91.5 % (95.0-100.0); Oxyhemoglobin 90.9 % THb (90.0-100.0); PO2 ABG 68.5 mmHg (80.0-100.0); PO2 FiO2 Ratio Arterial Blood 0.69 %; Reduced Hemoglobin 8.6 %THb (0-5.0); Total Hemoglobin 10.5 g/dL (12.0-18.0); pH ABG 7.307 (7.350-7.450)
[2020-09-02 11:34] LABS: Arterial Blood Gas Vent Mode PRESSURE CONTROL; Arterial Blood Gas Ventilator rate 36 /MIN; Device VENTILATOR; Modified Allen's Test Pass; PCO2 ABG 62.5 mmHg (35.0-45.0); Peak Inspiratory Pressure 55 cmH2O; Site Drawn RIGHT RADIAL
[2020-09-02 11:35] LABS: Arterial Blood Gas PEEP 5 cmH2O
[2020-09-02] MEDS: MIDAZOLAM HCL (*CRX) 2 MG/2 ML VIAL 6 MG (11:35)
[2020-09-02 11:40] LABS: Glucose Point of Care 305 (65-105)
--- NOTE | 2020-09-02 13:05 | PCDIET ---
Nutrition Follow-Up Complete: Nutrition Diagnosis: Inadequate oral intake related to inability to consume foods orally at this time as evidenced by need for enteral nutrition Nutrition Goal: Total intake will meet estimated nutrition needs Goal in progress. Tube feedings held for prone positioning. Patient now on 100% FiO2. Recommend resuming tube feedings when medically appropriate. Patient had been tolerating Glucerna 1.2 at 45mL/hr previously. Last recorded weight is 72.4 kg which is decreased from last review, still up from admission. Bowel Motility: Last documented BM on 08/31/20 x 2. Labs Reviewed: Hgb (8.8), Hct (27.0), Glu (204), Cr (0.6), Na (133), Alb (2.6), Perla Ca (9.02), PO4 (1.2) Meds Noted: Cefepime, Nimbex, Fentanyl, Novolog, Levemir, Reglan, Versed, Levophed, Protonix, K-Phos, Pravastatin, Vancomycin Additional Notes: Left nose abrasion. No other skin issues reported. Will continue to monitor with same goal. Nutrition Monitoring and Evaluation: Follow up every Tuesday/Tuesday.
--- NOTE | 2020-09-02 13:35 | WPDINTPN ---
Progress Note: A&P Assessment and Plan (1) Acute respiratory failure with hypoxia: Code(s): J96.01 - Acute respiratory failure with hypoxia Status: Acute Assessment and Plan: patient with acute hypoxic respiratory failure likely related to COVID-19 pneumonia - patient was admitted to the hospital from 08/01/2020 to 08/12/2020 for COVID-19 pneumonia, patient was on the medical floor and was discharged home on 1 L nasal cannula at rest and 3 L nasal cannula with activity. - patient was intubated on 08/19/2020 for impending respiratory failure secondary tachypnea and hypoxia -patient proned on 08/31/2020, 09/01/2020 -was off Nimbex and Flolan on 09/01 -09/02 patient desaturated, tachypneic, dyssynchronous with the ventilator, Nimbex was restarted, patient was placed in prone position, Flolan restarted -switched patient to pressure control ventilation with improvement in peak pressures -patient on 100% FiO2 and PEEP of 5, pressure control ventilation -continue fentanyl, Versed and propofol infusion for sedation CT of the chest on was negative for PE. It did show bilateral airspace disease. (2) Pneumonia due to COVID-19 virus: Code(s): U07.1 - COVID-19; J12.89 - Other viral pneumonia Status: Acute Assessment and Plan: SARS-CoV-2 PCR positive - continue airborne, droplet, contact isolation precaution - monitor inflammatory markers intermittently - Patient had completed a course of Remdesivir and dexamethasone. -completed a 2nd course of dexamethasone which was initiated on 08/18/2020) - no studies have shown any benefit repeating Remdesivir or convalescent plasma (3) Septic shock: Code(s): A41.9 - Sepsis, unspecified organism; R65.21 - Severe sepsis with septic shock Status: Acute Assessment and Plan: Patient hypothermic, hypotensive, patient was on Levophed which is currently off since 08/31 -WBC count bumped to 43,000 on 08/30/2020, chest x-ray continues to show bilateral airspace disease. 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 - continue Levemir (5) Hypertension: Qualifiers: Hypertension type: unspecified Qualified Code(s): I10 - Essential (primary) hypertension Code(s): I10 - Essential (primary) hypertension Status: Chronic Assessment and Plan: hold all antihypertensives currently as patient was on Levophed. -continue monitor blood pressures closely (6) DVT prophylaxis: Code(s): Z29.9 - Encounter for prophylactic measures, unspecified Status: Acute Assessment and Plan: DVT prophylaxis: Lovenox 40 mg subcu q.12 hours Stress ulcer prophylaxis: Protonix 40 mg IV q.day (7) Dietary counseling and surveillance: Code(s): Z71.3 - Dietary counseling and surveillance Status: Acute Assessment and Plan: -last bowel movement on 08/31 -tube feeds on hold as patient in prone position Additional Plan Will call family and discuss with them regarding tracheostomy and PEG tube placement code status: Full code critical care time spent: 36 minutes Due to a high probability of clinically significant, lif
[2020-09-02] MEDS: MAGNESIUM SULF 2 GM/WATER 50ML 2 GM/50 ML BAG IVPB (17:07)
[2020-09-02 17:58] LABS: Glucose Point of Care 259 (65-105)
[2020-09-02 19:40] LABS: Alveolar/Arterial O2 Gradient 531.7 mmHg; Base Excess ABG 6.6 mEq/l (+/-2.0); Fractional Inspired Oxygen 100 %; HCO3 ABG 33.7 mEq/l (22.0-26.0); Oxygen Content ABG 15.4 %vol (16.0-22.0); Oxygen Saturation ABG 98.1 % (95.0-100.0); Oxyhemoglobin 97.2 % THb (90.0-100.0); PO2 ABG 119.5 mmHg (80.0-100.0); Total Hemoglobin 11.1 g/dL (12.0-18.0); pH ABG 7.354 (7.350-7.450)
[2020-09-02 19:41] LABS: Arterial Blood Gas Vent Mode PRESSURE CONTROL; Arterial Blood Gas Ventilator rate 36 /MIN; Device VENTILATOR; Modified Allen's Test Unable to perform; PCO2 ABG 61.8 mmHg (35.0-45.0); Site Drawn RIGHT RADIAL
[2020-09-02 19:42] LABS: Arterial Blood Gas PEEP 5 cmH2O; Peak Inspiratory Pressure 55 cmH2O
[2020-09-02 23:16] LABS: Magnesium 2.1 mg/dL (1.6-2.3); Potassium 3.7 mmol/L (3.4-5.0)
[2020-09-03] VITALS (53 sets, daily range): BP systolic 88–113; BP diastolic 64–82; PULSE 89–134; RESP 36–69; TEMP 35.7–37.2; O2SAT 88–98
[2020-09-03 00:10] LABS: Vancomycin Trough 12.2 ug/mL (10.0-20.0)
[2020-09-03 00:29] LABS: Glucose Point of Care 187 (65-105)
[2020-09-03] MEDS: PROPOFOL IV EMULSION 100 ML 23.91 MG IV CONT ×6 (02:30→23:42)
[2020-09-03] MEDS: EPOPROSTENOL SODIUM 0.5 MG VIAL 1 MG INHALATION (03:46)
[2020-09-03 04:38] LABS: Alveolar/Arterial O2 Gradient 571.9 mmHg; Base Excess ABG 6.2 mEq/l (+/-2.0); Carboxyhemoglobin 0.3 % THb (0-2.0); Fractional Inspired Oxygen 100 %; HCO3 ABG 31.6 mEq/l (22.0-26.0); Methemoglobin ABG 0.1 %THb (0-1.5); Oxygen Saturation ABG 97.1 % (95.0-100.0); Oxyhemoglobin 96.2 % THb (90.0-100.0); PCO2 ABG 49.2 mmHg (35.0-45.0); PO2 ABG 91.9 mmHg (80.0-100.0); PO2 FiO2 Ratio Arterial Blood 0.92 %; Reduced Hemoglobin 3.4 %THb (0-5.0); pH ABG 7.425 (7.350-7.450)
[2020-09-03 04:39] LABS: Device VENTILATOR; Modified Allen's Test Unable to perform; Site Drawn RIGHT RADIAL
[2020-09-03 04:43] LABS: Arterial Blood Gas PEEP 5 cmH2O; Arterial Blood Gas Vent Mode PRESSURE CONTROL; Arterial Blood Gas Ventilator rate 36 /MIN; Peak Inspiratory Pressure 55 cmH2O
[2020-09-03 05:28] LABS: Hemoglobin 8.5 g/dL (14.0-18.0); Mean Corpuscular HGB Conc 32.7 g/dl (32-36); Mean Corpuscular Hemoglobin 28.1 pg (26-34); Mean Corpuscular Volume 85.8 fl (80-100); Mean Platelet Volume 10.5 fl (7.4-10.4); Platelet Count Result 311 k/mm3 (150-375); Red Blood Count 3.03 M/mm3 (4.6-6.20); Red Cell Distribution Width 14.2 % (11.5-14.5); White Blood Count 12.9 K/mm3 (4.5-10.0)
[2020-09-03 05:38] LABS: Potassium 3.7 mmol/L (3.4-5.0)
[2020-09-03 05:48] LABS: Alanine Aminotransferase 57 U/L (4-50); Albumin Level 2.5 g/dL (3.5-5.1); Alkaline Phosphatase 122 U/L (38-126); Anion Gap 4 mmol/L (8-16); Aspartate Amino Transferase 43 U/L (17-59); Bilirubin,Total 0.4 mg/dL (0.2-1.3); Blood Urea Nitrogen 12 mg/dL (9-20); Calcium 7.1 mg/dL (8.4-10.2); Carbon Dioxide 34 mmol/L (22-30); Chloride 88 mmol/L (98-107); Estimated CRCL calculation 102 ml/min; Estimated Glomerular Filt Rate > 60; Glucose 230 mg/dL (75-110); Lactate Dehydrogenase 971 U/L (313-618); Phosphorus 3.3 mg/dL (2.5-4.5); Sodium 126 mmol/L (137-145)
[2020-09-03 05:54] LABS: CRP 25.7 mg/dL (<1.0)
[2020-09-03 05:56] LABS: D Dimer 4.29 ug/mL (<0.48)
[2020-09-03] MEDS: CENTRAL LINE FLUSH 10 ML IV PUSH ×3 (06:43→19:39)
[2020-09-03] MEDS: INSULIN ASPART (*BKC) 100 UNITS/ML SUB-Q ×4 (06:53→23:36)
[2020-09-03] MEDS: ENOXAPARIN 40 MG/0.4 ML SYRINGE SUB-Q ×2 (08:28→19:37)
[2020-09-03] MEDS: PANTOPRAZOLE SODIUM IV 40 MG VIAL IV PUSH (08:29)
[2020-09-03] MEDS: PRAVASTATIN SODIUM 20 MG TABLET PO (08:30)
--- NOTE | 2020-09-03 09:30 | WPDINTPN ---
Progress Note: A&P Assessment and Plan (1) Acute respiratory failure with hypoxia: Code(s): J96.01 - Acute respiratory failure with hypoxia Status: Acute Assessment and Plan: Patient with acute hypoxic respiratory failure related to COVID-19 pneumonia -He was admitted to the hospital from 08/01/2020 to 08/12/2020 for COVID-19 pneumonia, patient was on the medical floor and was discharged home on 1 L nasal cannula at rest and 3 L nasal cannula with activity. -Patient was intubated on 08/19/2020 for impending respiratory failure secondary tachypnea and hypoxia -patient proned on 08/31/2020-09/03/2000 -was off Nimbex and Flolan on 09/01 -09/02 patient desaturated, tachypneic, dyssynchronous with the ventilator, Nimbex was restarted, patient was placed in prone position, and Nimbex and Flolan were restarted. -The patient's peak pressures remain high in the 60s with low tidal volumes (approximately 260). Dr. Atkins and back sizer discussed the patient's case. Attempting to transfer the patient to facility for possible ECMO. [facility]. -patient on 100% FiO2 and PEEP of 5, pressure control ventilation -fentanyl was discontinued as there was concern for possible chest wall rigidity. However the patient difficulty oxygenating was tachycardic. Fentanyl has been restarted. Versed and propofol infusions have been continued. CT of the chest on 08/17 was negative for PE. It did show bilateral airspace disease. (2) Pneumonia due to COVID-19 virus: Code(s): U07.1 - COVID-19; J12.89 - Other viral pneumonia Status: Acute Assessment and Plan: SARS-CoV-2 PCR positive - continue airborne, droplet, contact isolation precaution - monitor inflammatory markers intermittently - Patient had completed a course of Remdesivir and dexamethasone. - completed a 2nd course of dexamethasone which was initiated on 08/18/2020) - no studies have shown any benefit repeating Remdesivir or convalescent plasma (3) Septic shock: Code(s): A41.9 - Sepsis, unspecified organism; R65.21 - Severe sepsis with septic shock Status: Acute Assessment and Plan: Patient hypothermic, hypotensive, patient was on Levophed which is currently off since 08/31 -WBC count bumped to 43,000 on 08/30/2020, chest x-ray continues to show bilateral airspace disease. Leukocytosis continuing to improve and is down to 12.9 today. -patient does not have any loose stools, -appreciate infectious disease evaluation and recommendation, agreed with cefepime and vancomycin for possible ventilator associated pneumonia -sputum culture 08/31 growing yeast -blood cultures from 08/30 negative x2 (4) Diabetes: Qualifiers: Diabetes mellitus complication status: without complication Diabetes mellitus intermediate insulin use: unspecified intermediate insulin use status Diabetes mellitus type: type 2 Qualified Code(s): E11.9 - Type 2 diabetes mellitus without complications Code(s): E11.9 - Type 2 diabetes mellitus without complications Status: Chronic Assessment and Plan: continue sliding scale insulin and Accu-Cheks - hemoglobin A1c was 6.9 on 08/03/2020 -persistent hyperglycemia likely due to acute stress as the patient steroid therapy was discontinued 08/18/2020. -Levemir has been on hold since the due to holding tube feeds due to prone positioning. -continue moderate sliding scale insulin with Accu-Cheks a.c. HS (5) Dietary counseling and surveillance: Code(s): Z71.3 - Dietary counseling and surveillance Status: Acute Assessment and Plan: Patient was on tube feeds for nutrition 1.2 at 45 mL an hour. Patient's tube feeds have been on hold due to prone positioning. Additional Plan The patient's case was discussed with Dr. Atkins and Dr. Ford. 40 minutes spent in critical care activities. Due to a high probability of clinically significant, l
[2020-09-03] MEDS: EPOPROSTENOL SODIUM 0.5 MG VIAL 0.75 MG INHALATION ×3 (10:19→22:36)
[2020-09-03 12:13] LABS: Glucose Point of Care 213 (65-105)
[2020-09-03 12:56] LABS: Procalcitonin 2.44 ng/mL (<0.10)
--- NOTE | 2020-09-03 15:42 | PCRCNOTE ---
Window of time for administration has passed. See next scheduled administration.
[2020-09-03] MEDS: FENTANYL 2,500MCG/NS250ML(*CRX 2,500 MCG/250 ML BAG 10 MCG IV CONT (16:50)
[2020-09-03 19:02] LABS: Glucose Point of Care 214 (65-105)
[2020-09-03 21:46] LABS: Alveolar/Arterial O2 Gradient 573.7 mmHg; Base Excess ABG 6.4 mEq/l (+/-2.0); Carboxyhemoglobin 0.3 % THb (0-2.0); Fractional Inspired Oxygen 100 %; HCO3 ABG 34.4 mEq/l (22.0-26.0); Methemoglobin ABG 0.2 %THb (0-1.5); Oxygen Content ABG 12.5 %vol (16.0-22.0); Oxygen Saturation ABG 90.9 % (95.0-100.0); Oxyhemoglobin 90.9 % THb (90.0-100.0); PO2 ABG 67.8 mmHg (80.0-100.0); PO2 FiO2 Ratio Arterial Blood 0.68 %; Reduced Hemoglobin 8.6 %THb (0-5.0); Total Hemoglobin 9.7 g/dL (12.0-18.0)
[2020-09-03 21:48] LABS: Device VENTILATOR; Modified Allen's Test Unable to perform; PCO2 ABG 71.5 mmHg (35.0-45.0); Site Drawn RIGHT RADIAL
[2020-09-03 21:49] LABS: Arterial Blood Gas PEEP 5 cmH2O; Arterial Blood Gas Vent Mode PRESSURE CONTROL; Arterial Blood Gas Ventilator rate 36 /MIN; Peak Inspiratory Pressure 50 cmH2O
[2020-09-04] VITALS (49 sets, daily range): BP systolic 88–103; BP diastolic 60–71; PULSE 92–116; RESP 30–36; TEMP 35.9–36.6; O2SAT 88–94
[2020-09-04 00:35] LABS: Glucose Point of Care 237 (65-105)
[2020-09-04 03:34] LABS: Alveolar/Arterial O2 Gradient 545.1 mmHg; Base Excess ABG 3.5 mEq/l (+/-2.0); Carboxyhemoglobin 0.6 % THb (0-2.0); Fractional Inspired Oxygen 100 %; HCO3 ABG 33.9 mEq/l (22.0-26.0); Methemoglobin ABG 0.1 %THb (0-1.5); Oxygen Content ABG 13.1 %vol (16.0-22.0); Oxyhemoglobin 90.8 % THb (90.0-100.0); PO2 ABG 74.4 mmHg (80.0-100.0); PO2 FiO2 Ratio Arterial Blood 0.74 %; Reduced Hemoglobin 8.5 %THb (0-5.0); Total Hemoglobin 10.2 g/dL (12.0-18.0)
[2020-09-04 03:36] LABS: Arterial Blood Gas Ventilator rate 36 /MIN; Device VENTILATOR; Modified Allen's Test Unable to perform; PCO2 ABG 93.5 mmHg (35.0-45.0); Site Drawn RIGHT RADIAL; pH ABG 7.177 (7.350-7.450)
[2020-09-04] MEDS: PROPOFOL IV EMULSION 100 ML 23.91 MG IV CONT ×2 (03:36→07:50)
[2020-09-04 03:37] LABS: Arterial Blood Gas PEEP 5 cmH2O; Arterial Blood Gas Vent Mode PRESSURE CONTROL; Peak Inspiratory Pressure 50 cmH2O
[2020-09-04] MEDS: EPOPROSTENOL SODIUM 0.5 MG VIAL 0.75 MG INHALATION ×4 (04:21→19:58)
[2020-09-04] MEDS: CENTRAL LINE FLUSH 10 ML IV PUSH ×3 (05:45→21:10)
[2020-09-04] MEDS: INSULIN ASPART (*BKC) 100 UNITS/ML SUB-Q ×2 (05:45→12:23)
[2020-09-04 06:21] LABS: Hematocrit 28.6 % (42.0-52.0); Hemoglobin 8.9 g/dL (14.0-18.0); Mean Corpuscular HGB Conc 31.1 g/dl (32-36); Mean Corpuscular Hemoglobin 28.1 pg (26-34); Mean Corpuscular Volume 90.2 fl (80-100); Mean Platelet Volume 10.4 fl (7.4-10.4); Platelet Count Result 343 k/mm3 (150-375); Red Blood Count 3.17 M/mm3 (4.6-6.20); Red Cell Distribution Width 14.4 % (11.5-14.5); White Blood Count 15.4 K/mm3 (4.5-10.0)
[2020-09-04 06:23] LABS: Glucose Point of Care 252 (65-105)
[2020-09-04 06:34] LABS: Alanine Aminotransferase 65 U/L (4-50); Albumin Level 2.8 g/dL (3.5-5.1); Alkaline Phosphatase 143 U/L (38-126); Anion Gap 4 mmol/L (8-16); Aspartate Amino Transferase 38 U/L (17-59); Bilirubin,Total 0.4 mg/dL (0.2-1.3); Blood Urea Nitrogen 14 mg/dL (9-20); Calcium 7.7 mg/dL (8.4-10.2); Carbon Dioxide 35 mmol/L (22-30); Chloride 85 mmol/L (98-107); Estimated CRCL calculation 78 ml/min; Estimated Glomerular Filt Rate > 60; Glucose 270 mg/dL (75-110); Magnesium 2.2 mg/dL (1.6-2.3); Phosphorus 5.2 mg/dL (2.5-4.5); Potassium 4.6 mmol/L (3.4-5.0); Sodium 124 mmol/L (137-145)
[2020-09-04] MEDS: FENTANYL 2,500MCG/NS250ML(*CRX 2,500 MCG/250 ML BAG 20 MCG IV CONT ×2 (07:51→19:49)
[2020-09-04] MEDS: PANTOPRAZOLE SODIUM IV 40 MG VIAL IV PUSH (07:54)
[2020-09-04] MEDS: ENOXAPARIN 40 MG/0.4 ML SYRINGE SUB-Q ×2 (07:54→19:52)
[2020-09-04 12:07] LABS: Glucose Point of Care 202 (65-105)
[2020-09-04 12:20] LABS: Alveolar/Arterial O2 Gradient 598.7 mmHg; Base Excess ABG 5.3 mEq/l (+/-2.0); Fractional Inspired Oxygen 100 %; HCO3 ABG 31.4 mEq/l (22.0-26.0); Oxygen Content ABG 12.3 %vol (16.0-22.0); Oxyhemoglobin 90.6 % THb (90.0-100.0); PCO2 ABG 54.4 mmHg (35.0-45.0); PO2 ABG 59.9 mmHg (80.0-100.0); Total Hemoglobin 9.6 g/dL (12.0-18.0); pH ABG 7.379 (7.350-7.450)
[2020-09-04 12:21] LABS: Arterial Blood Gas Vent Mode PRESSURE CONTROL; Arterial Blood Gas Ventilator rate 36 /MIN; Device VENTILATOR; Modified Allen's Test Pass; Site Drawn RIGHT RADIAL
[2020-09-04 12:22] LABS: Arterial Blood Gas PEEP 0 cmH2O; Peak Inspiratory Pressure 58 cmH2O
[2020-09-04] MEDS: PROPOFOL IV EMULSION 100 ML 19.13 MG IV CONT ×3 (12:41→21:09)
--- NOTE | 2020-09-04 13:55 | WPDINTPN ---
Progress Note: A&P Assessment and Plan (1) Acute respiratory failure with hypoxia: Code(s): J96.01 - Acute respiratory failure with hypoxia Status: Acute Assessment and Plan: patient with acute hypoxic respiratory failure likely related to COVID-19 pneumonia - patient was admitted to the hospital from 08/01/2020 to 08/12/2020 for COVID-19 pneumonia, patient was on the medical floor and was discharged home on 1 L nasal cannula at rest and 3 L nasal cannula with activity. - patient was intubated on 08/19/2020 for impending respiratory failure secondary tachypnea and hypoxia -we have been proning the pt every day for the last 4-5 days -09/04 patient was not pulling enough volumes, ABG showed respiratory acidosis pH of 7.17, pCO2 of 93.5, PO2 of 74. Patient's peak pressures are on 60 on pressure control ventilation. Decreased his PEEP to 0 which helped increase his tidal volumes and return minute ventilation. Repeat ABGs much improved. -patient is currently proned, on Flolan, Nimbex -remains on Versed and propofol infusion CT of the chest on was negative for PE. It did show bilateral airspace disease. (2) Pneumonia due to COVID-19 virus: Code(s): U07.1 - COVID-19; J12.89 - Other viral pneumonia Status: Acute Assessment and Plan: SARS-CoV-2 PCR positive - continue airborne, droplet, contact isolation precaution - monitor inflammatory markers intermittently - Patient had completed a course of Remdesivir and dexamethasone. -completed a 2nd course of dexamethasone which was initiated on 08/18/2020) - no studies have shown any benefit repeating Remdesivir or convalescent plasma (3) Septic shock: Code(s): A41.9 - Sepsis, unspecified organism; R65.21 - Severe sepsis with septic shock Status: Acute Assessment and Plan: Patient hypothermic, hypotensive, patient was on Levophed which is currently off since 08/31 -WBC count bumped to 43,000 on 08/30/2020, chest x-ray continues to show bilateral airspace disease. Ago cytosis improving, down to 14.1 today -patient does not have any loose stools, -appreciate infectious disease evaluation and recommendation, agreed with cefepime and vancomycin for possible ventilator associated pneumonia -sputum culture 08/31 growing yeast -blood cultures from 08/30 negative x2 (4) Diabetes: Qualifiers: Diabetes mellitus type: type 2 Diabetes mellitus [facility] insulin use: unspecified [facility] insulin use status Diabetes mellitus complication status: without complication Qualified Code(s): E11.9 - Type 2 diabetes mellitus without complications Code(s): E11.9 - Type 2 diabetes mellitus without complications Status: Chronic Assessment and Plan: continue sliding scale insulin and Accu-Cheks - hemoglobin A1c was 6.9 on 08/03/2020 - hyperglycemia likely related to steroids. - continue Levemir (5) Hypertension: Qualifiers: Hypertension type: unspecified Qualified Code(s): I10 - Essential (primary) hypertension Code(s): I10 - Essential (primary) hypertension Status: Chronic Assessment and Plan: hold all antihypertensives currently as patient was on Levophed. -continue monitor blood pressures closely (6) DVT prophylaxis: Code(s): Z29.9 - Encounter for prophylactic measures, unspecified Status: Acute Assessment and Plan: DVT prophylaxis: Lovenox 40 mg subcu q.12 hours Stress ulcer prophylaxis: Protonix 40 mg IV q.day (7) Dietary counseling and surveillance: Code(s): Z71.3 - Dietary counseling and surveillance Status: Acute Assessment and Plan: -last bowel movement on 08/31 -tube feeds on hold as patient in prone position Additional Plan Discussed with [place], patient's son, he stated the at the son's also around him. Discussed with them and updated them with patient's condition and plan of care. I explained to them that patient's cond
--- NOTE | 2020-09-04 18:12 | PM.IMPN ---
Progress Note: A&P Assessment and Plan (1) Acute respiratory failure with hypoxia: Code(s): J96.01 - Acute respiratory failure with hypoxia Status: Acute Assessment and Plan: Patient with acute hypoxic respiratory failure related to COVID-19 pneumonia -He was admitted to the hospital from 08/01/2020 to 08/12/2020 for COVID-19 pneumonia, patient was on the medical floor and was discharged home on 1 L nasal cannula at rest and 3 L nasal cannula with activity. -Patient was intubated on 08/19/2020 for impending respiratory failure secondary tachypnea and hypoxia -we have been unable to wean patient from ventilator, he has further decompensated currently paralyzed again on Nimbex, put in prone position and Flolan continuous from 09/02, he has been in prone position on 08/31-09/03 -patient is not a candidate for ECMO considering his out of the time window according to tertiary care centers -patient on 100% FiO2 and PEEP of 5, pressure control ventilation -Tylenol for fever -antibiotics: Vanc, cefepime -paralysis: Nimbex -sedation: Fentanyl, Versed, propofol -Levophed for shock -flolan from 09/03- -DVT prophylaxis: Lovenox b.i.d. (2) Pneumonia due to COVID-19 virus: Code(s): U07.1 - COVID-19; J12.89 - Other viral pneumonia Status: Acute Assessment and Plan: SARS-CoV-2 PCR positive - continue airborne, droplet, contact isolation precaution - monitor inflammatory markers intermittently - Patient had completed a course of Remdesivir and dexamethasone. 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 Diabetes mellitus complication status: without complication Qualified Code(s): E11.9 - Type 2 diabetes mellitus without complications Code(s): E11.9 - Type 2 diabetes mellitus without complications Status: Chronic Assessment and Plan: -continue sliding scale insulin and Accu-Cheks -hemoglobin A1c was 6.9 on 08/03/2020 -Levemir has been on hold since the due to holding tube feeds due to prone positioning -continue moderate sliding scale insulin with Accu-Cheks (5) Dietary counseling and surveillance: Code(s): Z71.3 - Dietary counseling and surveillance Status: Acute Assessment and Plan: Patient was on tube feeds for nutrition 1.2 at 45 mL an hour. Patient's tube feeds have been on hold due to prone positioning. Additional Plan Code status: Full code Subjective Date/time seen: 09/04/20 18:12 Patient examined. Patient is intubated, sedated, paralyzed, prone. He is on continuous Flolan. Patient has poor prognosis. Review of Systems Review of Systems: ROS unobtainable: Yes unobtainable due to endotracheal tube Exam Narrative: Exam Narrative: - GENERAL: ill appearing male intubated, sedated, paralyzed in prone position - HENT: ETT in place, OG tube - LUNGS: Posterior lung sounds coarse rhonchorous throughout - CARDIOVASCULAR: Unable to auscultate heart prone position - : [place] catheter in place - EXTREMITIES: Peripheral pulses 2+. no edema. - NEUROLOGIC: unable to obtain intubated sedated paralyzed - PSYCHIATRIC: unable to obtain intubated sedated paralyzed Objective Data Vital Signs Vital Signs: Vital Signs - 24 hr 09/03/20 19:17 09/03/20 19:35 09/03/20 19:37 Temperature Pulse Rate 115 H 115 H 115 H Respiratory Rate 36 H 36 H 36 H Blood Pressure Pulse Oximetry 09/03/20 19:39 09/03/20 19:51
[2020-09-04 18:17] LABS: Glucose Point of Care 199 (65-105)
[2020-09-04 20:26] LABS: Alveolar/Arterial O2 Gradient 605.3 mmHg; Base Excess ABG 5.7 mEq/l (+/-2.0); Fractional Inspired Oxygen 100 %; HCO3 ABG 31.2 mEq/l (22.0-26.0); Oxygen Content ABG 12.2 %vol (16.0-22.0); Oxygen Saturation ABG 89.8 % (95.0-100.0); Oxyhemoglobin 89.7 % THb (90.0-100.0); PCO2 ABG 50.2 mmHg (35.0-45.0); PO2 ABG 57.5 mmHg (80.0-100.0); PO2 FiO2 Ratio Arterial Blood 0.57 %; Total Hemoglobin 9.6 g/dL (12.0-18.0); pH ABG 7.411 (7.350-7.450)
[2020-09-04 20:31] LABS: Device VENTILATOR; Modified Allen's Test Pass; Site Drawn LEFT RADIAL
[2020-09-04 20:32] LABS: Arterial Blood Gas PEEP 0 cmH2O; Arterial Blood Gas Vent Mode PRESSURE CONTROL; Arterial Blood Gas Ventilator rate 36 /MIN; Peak Inspiratory Pressure 58 cmH2O
[2020-09-05] VITALS (56 sets, daily range): BP systolic 94–142; BP diastolic 61–76; PULSE 93–112; RESP 36; TEMP 35.6–36.6; O2SAT 76–94
[2020-09-05 01:41] LABS: Glucose Point of Care 161 (65-105)
--- NOTE | 2020-09-05 01:45 | PC.NURSE ---
Dr. Atkins notified of O2sat of 85%. All vent settings relayed as well as drips. No further orders at this time. Patient had been placed in prone position. Keep patient in prone position.
[2020-09-05] MEDS: PROPOFOL IV EMULSION 100 ML 19.13 MG IV CONT ×4 (02:22→17:18)
[2020-09-05] MEDS: EPOPROSTENOL SODIUM 0.5 MG VIAL 0.75 MG INHALATION ×5 (02:55→23:16)
[2020-09-05 04:15] LABS: Hematocrit 26.1 % (42.0-52.0); Hemoglobin 8.6 g/dL (14.0-18.0); Mean Corpuscular Hemoglobin 28.3 pg (26-34); Mean Corpuscular Volume 85.9 fl (80-100); Mean Platelet Volume 10.4 fl (7.4-10.4); Platelet Count Result 334 k/mm3 (150-375); Red Blood Count 3.04 M/mm3 (4.6-6.20); Red Cell Distribution Width 14.3 % (11.5-14.5); White Blood Count 16.7 K/mm3 (4.5-10.0)
[2020-09-05 04:28] LABS: D Dimer 2.62 ug/mL (<0.48)
[2020-09-05 04:34] LABS: Alanine Aminotransferase 55 U/L (4-50); Albumin Level 2.6 g/dL (3.5-5.1); Alkaline Phosphatase 134 U/L (38-126); Anion Gap 3 mmol/L (8-16); Aspartate Amino Transferase 37 U/L (17-59); Bilirubin,Total 0.6 mg/dL (0.2-1.3); Blood Urea Nitrogen 14 mg/dL (9-20); Carbon Dioxide 33 mmol/L (22-30); Chloride 80 mmol/L (98-107); Estimated CRCL calculation 78 ml/min; Estimated Glomerular Filt Rate > 60; Glucose 229 mg/dL (75-110); Potassium 4.6 mmol/L (3.4-5.0); Sodium 116 mmol/L (137-145)
[2020-09-05 04:44] LABS: Magnesium 1.9 mg/dL (1.6-2.3)
[2020-09-05 04:46] LABS: Lactate Dehydrogenase 1062 U/L (313-618)
[2020-09-05 05:00] LABS: CRP 22.4 mg/dL (<1.0)
[2020-09-05] MEDS: CENTRAL LINE FLUSH 10 ML IV PUSH ×3 (05:16→22:31)
[2020-09-05] MEDS: INSULIN ASPART (*BKC) 100 UNITS/ML SUB-Q ×3 (05:17→23:48)
[2020-09-05 05:22] LABS: Alveolar/Arterial O2 Gradient 598.5 mmHg; Base Excess ABG 2.8 mEq/l (+/-2.0); Fractional Inspired Oxygen 100 %; HCO3 ABG 29.4 mEq/l (22.0-26.0); Oxygen Content ABG 11.9 %vol (16.0-22.0); Oxygen Saturation ABG 88.1 % (95.0-100.0); Oxyhemoglobin 87.9 % THb (90.0-100.0); PCO2 ABG 56.1 mmHg (35.0-45.0); PO2 ABG 58.4 mmHg (80.0-100.0); PO2 FiO2 Ratio Arterial Blood 0.58 %; Total Hemoglobin 9.6 g/dL (12.0-18.0); pH ABG 7.337 (7.350-7.450)
[2020-09-05 05:30] LABS: Device VENTILATOR; Modified Allen's Test Pass; Site Drawn RIGHT RADIAL
[2020-09-05 05:31] LABS: Arterial Blood Gas PEEP 0 cmH2O; Arterial Blood Gas Vent Mode PRESSURE CONTROL; Arterial Blood Gas Ventilator rate 36 /MIN; Peak Inspiratory Pressure 58 cmH2O
--- NOTE | 2020-09-05 05:33 | PM.EVENT ---
Event Note Event Note Event Note: Nursing has informed me that the patient's serum sodium level today is 116 mEq/dl. I have discussed the case with Nephrology, Dr. Larsen who is in agreement with starting 3% hypertonic saline at 30 cc/hr for total of 200 cc to help correct the patient's low sodium. It appears that the patient's low sodium is secondary to medications that are in D5W. We will continue to monitor serum sodiums every 4 hours.
[2020-09-05] MEDS: SODIUM CHLORIDE 3% 200 ML 30 ML IV CONT (06:14)
[2020-09-05] MEDS: FENTANYL 2,500MCG/NS250ML(*CRX 2,500 MCG/250 ML BAG 20 MCG IV CONT ×2 (07:52→19:30)
[2020-09-05] MEDS: ENOXAPARIN 40 MG/0.4 ML SYRINGE SUB-Q ×2 (08:00→22:28)
[2020-09-05] MEDS: PANTOPRAZOLE SODIUM IV 40 MG VIAL IV PUSH (08:01)
[2020-09-05] MEDS: PRAVASTATIN SODIUM 20 MG TABLET PO (08:01)
[2020-09-05 08:30] LABS: Anion Gap 3 mmol/L (8-16); Blood Urea Nitrogen 13 mg/dL (9-20); Carbon Dioxide 32 mmol/L (22-30); Chloride 79 mmol/L (98-107); Estimated CRCL calculation 102 ml/min; Estimated Glomerular Filt Rate > 60; Glucose 242 mg/dL (75-110); Potassium 4.7 mmol/L (3.4-5.0); Sodium 114 mmol/L (137-145)
--- NOTE | 2020-09-05 11:05 | PM.IMPN ---
Progress Note: A&P Assessment and Plan (1) Hyponatremia: Code(s): E87.1 - Hypo-osmolality and hyponatremia Status: Acute Assessment and Plan: -sodium 118, nephrology consulted, patient was received hypertonic saline overnight. -patient is 2 L positive fluid balance, hyponatremia is likely dilutional patient needs diuresis, he is also edematous physical exam (2) Acute respiratory failure with hypoxia: Code(s): J96.01 - Acute respiratory failure with hypoxia Status: Acute Assessment and Plan: Patient with acute hypoxic respiratory failure related to COVID-19 pneumonia -He was admitted to the hospital from 08/01/2020 to 08/12/2020 for COVID-19 pneumonia, patient was on the medical floor and was discharged home on 1 L nasal cannula at rest and 3 L nasal cannula with activity. -Patient was intubated on 08/19/2020 for impending respiratory failure secondary tachypnea and hypoxia -we have been unable to wean patient from ventilator, he has further decompensated currently paralyzed again on Nimbex, put in prone position and Flolan continuous from 09/02, he has been in prone position on 08/31-09/03 -patient is not a candidate for ECMO considering his out of the time window according to tertiary care centers -patient on 100% FiO2 and PEEP of 5, pressure control ventilation -Tylenol for fever -antibiotics: Vanc, cefepime -paralysis: Nimbex -sedation: Fentanyl, Versed, propofol -Levophed for shock, patient is off Levophed for now -flolan from 09/03- -DVT prophylaxis: Lovenox b.i.d. -daily chest x-rays (3) Pneumonia due to COVID-19 virus: Code(s): U07.1 - COVID-19; J12.89 - Other viral pneumonia Status: Acute Assessment and Plan: SARS-CoV-2 PCR positive - continue airborne, droplet, contact isolation precaution - monitor inflammatory markers intermittently - Patient had completed a course of Remdesivir and dexamethasone. 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: unspecified termite renewal inspector insulin use status Diabetes mellitus complication status: without complication Qualified Code(s): E11.9 - Type 2 diabetes mellitus without complications Code(s): E11.9 - Type 2 diabetes mellitus without complications Status: Chronic Assessment and Plan: -continue sliding scale insulin and Accu-Cheks -hemoglobin A1c was 6.9 on 08/03/2020 -Levemir has been on hold since the due to holding tube feeds due to prone positioning -continue moderate sliding scale insulin with Accu-Cheks (6) Dietary counseling and surveillance: Code(s): Z71.3 - Dietary counseling and surveillance Status: Acute Assessment and Plan: Patient was on tube feeds for nutrition 1.2 at 45 mL an hour. Patient's tube feeds have been on hold due to prone positioning. (7) Leukocytosis: Code(s): D72.829 - Elevated white blood cell count, unspecified Status: Acute Assessment and Plan: Treating with vanc and cefepime for possible ventilator associated pneumonia on top of the COVID-19 Additional Plan Code status: Full code Subjective Date/time seen: 09/05/20 11:05 Patient examined. Patient still intubated, sedated, paralyzed, continuous Flolan. He is off the Levophed. Poor prognosis. Intensive care team discussed with family goals of care, plan to continue everything as is. A dose of Lasix was given and IV fluids stopped. Nephrology consulted. Review of Systems Review of System
--- NOTE | 2020-09-05 11:21 | PCDIET ---
Nutrition Follow-Up Complete: Nutrition Diagnosis: Inadequate oral intake related to inability to consume foods orally at this time as evidenced by need for enteral nutrition Nutrition Goal: Total intake will meet estimated nutrition needs Goal in progress. Tube feedings held due to intolerance. Recommend resuming tube feedings when medically appropriate. Patient had been tolerating Glucerna 1.2 at 45mL/hr previously. Last recorded weight is 79.8kg, up from 72.4 kg. +950 I/O Bowel Motility: BM today Labs Reviewed: Glu (224), C reactive 22.4 Meds Noted: Cefepime, Fentanyl, Novolog, Levemir, Reglan, Versed, Levophed, Miralax, Vancomycin Additional Notes: EN still on hold as tube feeding due to aspiration with proning. Plans to hold tube feeding around/during proning time. Pt is getting 567 kcals from propofol running at 21.5ml/hr. Recommend checking triglycerides. When appropriate, recommend reinitiation of Glucerna 1.2 at 45ml/hr top provide 1188 kcals and 60g protein, and 1755 kcals with propofol. As propofol comes down, recommend increasing Glucerna to 65ml/hr to provide 1716 kcals, meeting 100% of needs. Nutrition Monitoring and Evaluation: Follow up every Tuesday/Tuesday.
[2020-09-05 12:19] LABS: Alveolar/Arterial O2 Gradient 583.2 mmHg; Base Excess ABG 5.7 mEq/l (+/-2.0); Fractional Inspired Oxygen 100 %; Oxygen Saturation ABG 90.3 % (95.0-100.0); Oxyhemoglobin 90.4 % THb (90.0-100.0); PO2 ABG 64.6 mmHg (80.0-100.0); PO2 FiO2 Ratio Arterial Blood 0.65 %; Total Hemoglobin 9.4 g/dL (12.0-18.0); pH ABG 7.322 (7.350-7.450)
[2020-09-05 12:20] LABS: Device VENTILATOR; PCO2 ABG 65.2 mmHg (35.0-45.0); Site Drawn RIGHT BRACHIAL
[2020-09-05 12:21] LABS: Arterial Blood Gas PEEP 0 cmH2O; Arterial Blood Gas Vent Mode PRESSURE CONTROL; Arterial Blood Gas Ventilator rate 36 /MIN; Peak Inspiratory Pressure 50 cmH2O
--- NOTE | 2020-09-05 12:21 | WPDINTPN ---
Progress Note: A&P Assessment and Plan (1) Acute respiratory failure with hypoxia: Code(s): J96.01 - Acute respiratory failure with hypoxia Status: Acute Assessment and Plan: patient with acute hypoxic respiratory failure likely related to COVID-19 pneumonia - patient was admitted to the hospital from 08/01/2020 to 08/12/2020 for COVID-19 pneumonia, patient was on the medical floor and was discharged home on 1 L nasal cannula at rest and 3 L nasal cannula with activity. - patient was intubated on 08/19/2020 for impending respiratory failure secondary tachypnea and hypoxia -we have been proning the pt every day for the last 5 days -patient has been on 100% FiO2, pressure control ventilation with inspiratory pressure of 59. Peep of 0. This is giving him a tidal volume of 260-280 mL, rate at 36. Patient is adequately ventilating and oxygen on the settings. Patient also on Flolan and on Nimbex for neuromuscular blockade. -remains on Versed and propofol infusion -patient currently prolonged as he dropped his O2 sats overnight. - pt unstable to go down for a repeat CT chest -09/03/2020 called [facility], [facility], [facility] and [facility] for transfer of the patient for ECMO, patient was not accepted to any of the hospital as a thought he did not meet the criteria -09/05/2020 called [facility], they do not have any beds in the ICU in any of the facilities. -09/05/2020 called [facility] again they will accept the patient awaiting return phone call (2) Pneumonia due to COVID-19 virus: Code(s): U07.1 - COVID-19; J12.89 - Other viral pneumonia Status: Acute Assessment and Plan: SARS-CoV-2 PCR positive - continue airborne, droplet, contact isolation precaution - monitor inflammatory markers intermittently - Patient had completed a course of Remdesivir and dexamethasone. - completed a 2nd course of dexamethasone which was initiated on 08/18/2020) - no studies have shown any benefit repeating Remdesivir or convalescent plasma (3) Septic shock: Code(s): A41.9 - Sepsis, unspecified organism; R65.21 - Severe sepsis with septic shock Status: Acute Assessment and Plan: Patient hypothermic, hypotensive, patient was on Levophed which is currently off since 08/31 -WBC count bumped to 43,000 on 08/30/2020, chest x-ray continues to show bilateral airspace disease. Ago cytosis improving, down to 14.1 today -patient does not have any loose stools, -appreciate infectious disease evaluation and recommendation, agreed with cefepime and vancomycin for possible ventilator associated pneumonia -sputum culture 08/31 growing yeast -blood cultures from 08/30 negative x2 (4) Diabetes: Qualifiers: Diabetes mellitus type: type 2 Diabetes mellitus mcc insulin use: unspecified mcc insulin use status Diabetes mellitus complication status: without complication Qualified Code(s): E11.9 - Type 2 diabetes mellitus without complications Code(s): E11.9 - Type 2 diabetes mellitus without complications Status: Chronic Assessment and Plan: continue sliding scale insulin and Accu-Cheks - hemoglobin A1c was 6.9 on 08/03/2020 - hyperglycemia likely related to steroids. - continue Levemir (5) Hypertension: Qualifiers: Hypertension type: unspecified Qualified Code(s): I10 - Essential (primary) hypertension Code(s): I10 - Essential (primary) hypertension Status: Chronic Assessment and Plan: hold all antihypertensives currently as patient was on Levophed. -continue monitor blood pressures closely (6) DVT prophylaxis: Code(s): Z29.9 - Encounter for prophylactic measures, unspecified Status: Acute Assessment and Plan: DVT prophylaxis: Lovenox 40 mg subcu q.12 hours Stress ulcer prophylaxis: Protonix 40 mg IV q.day (7) Dietary counseling and giovanny
[2020-09-05 12:33] LABS: Anion Gap 2 mmol/L (8-16); Blood Urea Nitrogen 11 mg/dL (9-20); Calcium 7.5 mg/dL (8.4-10.2); Carbon Dioxide 35 mmol/L (22-30); Chloride 82 mmol/L (98-107); Estimated CRCL calculation 88 ml/min; Estimated Glomerular Filt Rate > 60; Glucose 200 mg/dL (75-110); Potassium 4.8 mmol/L (3.4-5.0); Sodium 119 mmol/L (137-145)
--- NOTE | 2020-09-05 14:17 | PM.CNNEP ---
Assessment and Plan Assessment and plan (1) Hyponatremia: Code(s): E87.1 - Hypo-osmolality and hyponatremia Status: Acute Assessment and Plan: trend of sodium level noted since admission suspect due to: - viral pneumonia/respiratory failure (making him susceptible to SIADH picture) - significant D5W administration (IVPBs, IV drips, IV medications....etc) - background history of asthma s/p 3% saline earlier today for further evaluation, check urine/serum osmolality, SPEP, UPEP, cortisol, and TSH pharmacy has been asked to change of IV medications/gtts to normal saline carrier fluid depending on trend of sodium, may need to consider adding normal saline tube flushes as well goal of therapy would be a change in sodium level of 6 - 9meq/L in 24 hours continue to follow serial sodium levels for now (2) Acute respiratory failure with hypoxia: Code(s): J96.01 - Acute respiratory failure with hypoxia Status: Acute Assessment and Plan: due to COVID-19 pneumonia and possibly ventilator associated pneumonia s/p remdesivir x 1 and steroids x 2 on antibiotics continue ventilator support (3) Pneumonia due to COVID-19 virus: Code(s): U07.1 - COVID-19; J12.89 - Other viral pneumonia Status: Acute Assessment and Plan: see #2 (4) Hypertension: Qualifiers: Hypertension type: unspecified Qualified Code(s): I10 - Essential (primary) hypertension Code(s): I10 - Essential (primary) hypertension Status: Chronic Assessment and Plan: reasonable control if not with relative hypotension follow trend of hemodynamics (5) Diabetes: Qualifiers: Diabetes mellitus type: type 2 Diabetes mellitus longterm insulin use: unspecified intermodal dispatcher insulin use status Diabetes mellitus complication status: without complication Qualified Code(s): E11.9 - Type 2 diabetes mellitus without complications Code(s): E11.9 - Type 2 diabetes mellitus without complications Status: Chronic Assessment and Plan: follow accuchecks on SSI Discussed case with Dr. Atkins Will continue to follow. History of Present Illness Reason for Consult Consult date: 09/05/20 Reason for consult: hyponatremia Chief Complaint Chief complaint: Acute hypoxic respiratory failure, Covid 19 History of Present Illness Narrative: All of the information I have obtained is from review of the electronic medical records since the patient is unable to provide me with any history due to his current condition. The patient is a 59 year old male with past medical history as outlined below who presented to [facility] about 2 weeks ago for worsening shortness of breath. It should be noted that the patient was previously hospitalized from 1023-07 for COVID-19 pneumonia. At that time, he was discharged home on 1 L of oxygen at rest and 3 L of oxygen with activity. He returned to [facility] ER on 08/17 with worsening shortness of breath in association with fevers for the past 48 hr prior to admission. Other associated symptoms include dry cough, and increased respirations. Given his respiratory status, he was readmitted for further evaluation and therapy. Initially the patient was on 10 L of oxygen by nasal cannula but his respiratory status continued to deteriorate. Eventually was transitioned to BiPAP but still remained tachypneic with impending respiratory failure. He was subsequently transferred to the intensive care unit for intubation and mechanical ventilation for his respiratory failure. His hospital course has been complicated by difficulty weaning from the ventilator and necessitate estevez of paralytics and Flolan to maintain stability in his respiratory status. Despite his ongoing respiratory failure and poor prognosis, his family has continued to want full an aggressive care at this time.
[2020-09-05 15:42] LABS: Sodium Urine Random < 5 meq/L
[2020-09-05] MEDS: FUROSEMIDE INJ 40 MG/4 ML VIAL IV PUSH (16:21)
[2020-09-05 16:37] LABS: Anion Gap 1 mmol/L (8-16); Blood Urea Nitrogen 10 mg/dL (9-20); Calcium 7.4 mg/dL (8.4-10.2); Carbon Dioxide 35 mmol/L (22-30); Chloride 82 mmol/L (98-107); Estimated CRCL calculation 88 ml/min; Estimated Glomerular Filt Rate > 60; Glucose 213 mg/dL (75-110); Potassium 4.8 mmol/L (3.4-5.0); Sodium 118 mmol/L (137-145)
[2020-09-05 20:25] LABS: Alveolar/Arterial O2 Gradient 599.6 mmHg; Fractional Inspired Oxygen 100 %; HCO3 ABG 34.3 mEq/l (22.0-26.0); Oxygen Content ABG 11.2 %vol (16.0-22.0); Oxyhemoglobin 81.8 % THb (90.0-100.0); PO2 FiO2 Ratio Arterial Blood 0.48 %; Total Hemoglobin 9.7 g/dL (12.0-18.0); pH ABG 7.336 (7.350-7.450)
[2020-09-05 20:29] LABS: PCO2 ABG 65.6 mmHg (35.0-45.0)
[2020-09-05 20:30] LABS: Device VENTILATOR; Modified Allen's Test Pass; Oxygen Saturation ABG 79.6 % (95.0-100.0); PO2 ABG 47.8 mmHg (80.0-100.0); Site Drawn LEFT RADIAL
[2020-09-05 20:31] LABS: Arterial Blood Gas Vent Mode PRESSURE CONTROL
[2020-09-05 20:32] LABS: Arterial Blood Gas PEEP 0 cmH2O; Peak Inspiratory Pressure 58 cmH2O
[2020-09-05 20:36] LABS: Anion Gap 3 mmol/L (8-16); Blood Urea Nitrogen 10 mg/dL (9-20); Calcium 7.4 mg/dL (8.4-10.2); Carbon Dioxide 36 mmol/L (22-30); Chloride 82 mmol/L (98-107); Estimated CRCL calculation 78 ml/min; Estimated Glomerular Filt Rate > 60; Glucose 194 mg/dL (75-110); Potassium 4.1 mmol/L (3.4-5.0); Sodium 121 mmol/L (137-145)
--- NOTE | 2020-09-05 21:09 | PC.NURSE ---
Spoke with son Israel and informed of Father's declining condition. Family wished yo keep pt a full code.
[2020-09-05] MEDS: PROPOFOL IV EMULSION 100 ML 23.91 MG IV CONT ×2 (21:56→22:14)
[2020-09-05] MEDS: CEFEPIME 2 GM in SODIUM CHLORIDE 0.9% IV 50 ML IVPB (22:42)
[2020-09-06] VITALS (54 sets, daily range): BP systolic 67–122; BP diastolic 50–69; PULSE 84–139; RESP 23–37; TEMP 34.6–37.1; O2SAT 80–94
[2020-09-06 01:03] LABS: Sodium 119 mmol/L (137-145)
[2020-09-06 01:09] LABS: Vancomycin Trough 19.9 ug/mL (10.0-20.0)
[2020-09-06] MEDS: PROPOFOL IV EMULSION 100 ML 23.91 MG IV CONT ×4 (01:26→14:47)
[2020-09-06 01:59] LABS: Glucose Point of Care 204 (65-105)
[2020-09-06] MEDS: CEFEPIME 2 GM in SODIUM CHLORIDE 0.9% IV 50 ML IVPB ×2 (05:10→14:10)
[2020-09-06] MEDS: CENTRAL LINE FLUSH 10 ML IV PUSH ×2 (05:15)
[2020-09-06 05:24] LABS: Alveolar/Arterial O2 Gradient 599.7 mmHg; Base Excess ABG 4.5 mEq/l (+/-2.0); Fractional Inspired Oxygen 100 %; HCO3 ABG 31.7 mEq/l (22.0-26.0); Oxygen Content ABG 12.2 %vol (16.0-22.0); Oxyhemoglobin 82.8 % THb (90.0-100.0); PO2 ABG 51.6 mmHg (80.0-100.0); PO2 FiO2 Ratio Arterial Blood 0.52 %; Total Hemoglobin 10.5 g/dL (12.0-18.0); pH ABG 7.329 (7.350-7.450)
[2020-09-06 05:28] LABS: Device VENTILATOR; Modified Allen's Test Pass; PCO2 ABG 61.7 mmHg (35.0-45.0); Site Drawn LEFT RADIAL
[2020-09-06 05:29] LABS: Arterial Blood Gas PEEP 0 cmH2O; Arterial Blood Gas Vent Mode PRESSURE CONTROL; Arterial Blood Gas Ventilator rate 36 /MIN; Peak Inspiratory Pressure 58 cmH2O
[2020-09-06] MEDS: INSULIN ASPART (*BKC) 100 UNITS/ML SUB-Q (05:59)
[2020-09-06] MEDS: EPOPROSTENOL SODIUM 0.5 MG VIAL 0.75 MG INHALATION (06:08)
[2020-09-06 06:49] LABS: Thyroid Stimulating Hormone Reflex 0.893 uIU/mL (0.465-4.68)
[2020-09-06 06:51] LABS: Glucose Point of Care 217 (65-105)
--- NOTE | 2020-09-06 07:52 | PM.IMPN ---
Progress Note: A&P Assessment and Plan (1) Hyponatremia: Code(s): E87.1 - Hypo-osmolality and hyponatremia Status: Acute Assessment and Plan: Sodium increased from 190 to 222 with hypertonic saline, patient also has hypovolemic and is being diuresed with Lasix b.i.d.. (2) Acute respiratory failure with hypoxia: Code(s): J96.01 - Acute respiratory failure with hypoxia Status: Acute Assessment and Plan: Patient with acute hypoxic respiratory failure related to COVID-19 pneumonia -He was admitted to the hospital from 08/01/2020 to 08/12/2020 for COVID-19 pneumonia, patient was on the medical floor and was discharged home on 1 L nasal cannula at rest and 3 L nasal cannula with activity. -Patient was intubated on 08/19/2020 for impending respiratory failure secondary tachypnea and hypoxia -we have been unable to wean patient from ventilator, he has further decompensated currently paralyzed again on Nimbex, put in prone position and Flolan continuous from 09/02, he has been in prone position on 08/31-09/03 -patient is not a candidate for ECMO -patient on 100% FiO2 and PEEP of 5, pressure control ventilation -proned 08/31-09/06 -Tylenol for fever -antibiotics: Vanc, cefepime -paralysis: Nimbex -sedation: Fentanyl, Versed, propofol -p.r.n. Levophed -flolan from 09/03-trying to wean -DVT prophylaxis: Lovenox b.i.d. -daily chest x-rays (3) Pneumonia due to COVID-19 virus: Code(s): U07.1 - COVID-19; J12.89 - Other viral pneumonia Status: Acute Assessment and Plan: SARS-CoV-2 PCR positive - continue airborne, droplet, contact isolation precaution - monitor inflammatory markers intermittently - Patient had completed a course of Remdesivir and dexamethasone. 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: unspecified remote computer terminal operator insulin use status Diabetes mellitus complication status: without complication Qualified Code(s): E11.9 - Type 2 diabetes mellitus without complications Code(s): E11.9 - Type 2 diabetes mellitus without complications Status: Chronic Assessment and Plan: -continue sliding scale insulin and Accu-Cheks -hemoglobin A1c was 6.9 on 08/03/2020 -Levemir has been on hold since the due to holding tube feeds due to prone positioning -continue moderate sliding scale insulin with Accu-Cheks (6) Dietary counseling and surveillance: Code(s): Z71.3 - Dietary counseling and surveillance Status: Acute Assessment and Plan: Patient was on tube feeds for nutrition 1.2 at 45 mL an hour. Patient's tube feeds have been on hold due to prone positioning. (7) Leukocytosis: Code(s): D72.829 - Elevated white blood cell count, unspecified Status: Acute Assessment and Plan: Treating with vanc and cefepime for possible ventilator associated pneumonia on top of the COVID-19 Additional Plan Code status: Full code Subjective Date/time seen: 09/06/20 07:52 Patient examined. Patient's saturations still in 80s despite proning, paralysis, flolan. Patient started on amiodarone. He is being diuresed for hypervolemic hyponatremia. Trying to wean down on Flolan. Review of Systems Review of Systems: ROS unobtainable: Yes unobtainable due to endotracheal tube Exam Narrative: Exam Narrative: - GENERAL: ill appearing male intubated, sedated, paralyzed in prone position, edematous throughout - HENT: ETT in place, OG tube, periorbital edema le
[2020-09-06] MEDS: FENTANYL 2,500MCG/NS250ML(*CRX 2,500 MCG/250 ML BAG 20 MCG IV CONT (08:27)
[2020-09-06] MEDS: ENOXAPARIN 40 MG/0.4 ML SYRINGE SUB-Q (08:30)
[2020-09-06] MEDS: FUROSEMIDE INJ 40 MG/4 ML VIAL IV PUSH (08:32)
[2020-09-06] MEDS: PANTOPRAZOLE SODIUM IV 40 MG VIAL IV PUSH (08:33)
[2020-09-06] MEDS: PRAVASTATIN SODIUM 20 MG TABLET PO (08:33)
[2020-09-06 08:40] LABS: Anion Gap 2 mmol/L (8-16); Blood Urea Nitrogen 10 mg/dL (9-20); Calcium 7.3 mg/dL (8.4-10.2); Carbon Dioxide 35 mmol/L (22-30); Chloride 83 mmol/L (98-107); Estimated CRCL calculation 88 ml/min; Estimated Glomerular Filt Rate > 60; Glucose 184 mg/dL (75-110); Potassium 4.2 mmol/L (3.4-5.0); Sodium 120 mmol/L (137-145)
[2020-09-06 10:28] LABS: Sodium 122 mmol/L (137-145)
--- NOTE | 2020-09-06 10:30 | WPDINTPN ---
Progress Note: A&P Assessment and Plan (1) Acute respiratory failure with hypoxia: Code(s): J96.01 - Acute respiratory failure with hypoxia Status: Acute Assessment and Plan: Patient with acute hypoxic respiratory failure related to COVID-19 pneumonia -He was admitted to the hospital from 08/01/2020 to 08/12/2020 for COVID-19 pneumonia, patient was on the medical floor and was discharged home on 1 L nasal cannula at rest and 3 L nasal cannula with activity. -Patient was intubated on 08/19/2020 for impending respiratory failure secondary tachypnea and hypoxia -patient proned on 08/31/2020-09/06/2020 -was off Nimbex and Flolan on 09/01 -09/02 patient desaturated, tachypneic, dyssynchronous with the ventilator, Nimbex was restarted, patient was placed in prone position, and Nimbex and Flolan were restarted. Flolan is currently maxed out. -The patient's peak pressures remain high in the 60s with low tidal volumes (approximately 260). Dr. Atkins and mass spectrometry specialist discussed the patient's case. Attempting to transfer the patient to facility for possible ECMO. [facility] have declined to accept the patient in transfer. Waiting to hear back from [facility]. -patient on 100% FiO2 and PEEP of 0, pressure control ventilation. -fentanyl Versed and propofol for sedation as well as Nimbex. -given the patient's significant tachycardia. Amiodarone is been started and effort pain patient's heart rate down hoping that this will help improve his oxygenation. CT of the chest on 08/17 was negative for PE. It did show bilateral airspace disease. (2) Pneumonia due to COVID-19 virus: Code(s): U07.1 - COVID-19; J12.89 - Other viral pneumonia Status: Acute Assessment and Plan: SARS-CoV-2 PCR positive - continue airborne, droplet, contact isolation precaution - monitor inflammatory markers intermittently - Patient had completed a course of Remdesivir and dexamethasone. - completed a 2nd course of dexamethasone which was initiated on 08/18/2020) - no studies have shown any benefit repeating Remdesivir or convalescent plasma (3) Septic shock: Code(s): A41.9 - Sepsis, unspecified organism; R65.21 - Severe sepsis with septic shock Status: Acute Assessment and Plan: Patient hypothermic, hypotensive, patient was on Levophed which is currently off. -WBC count bumped to 43,000 on 08/30/2020, chest x-ray continues to show bilateral airspace disease. Leukocytosis continuing to improve and is down to 12.9 today. 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 -Levemir has been on hold since the due to holding tube feeds due to prone positioning. -continue moderate sliding scale insulin with Accu-Cheks a.c. HS (5) Dietary counseling and surveillance: Code(s): Z71.3 - Dietary counseling and surveillance Status: Acute Assessment and Plan: Patient was on tube feeds for nutrition 1.2 at 45 mL an hour. Patient's tube feeds have been on hold due to prone positioning. (6) Hyponatremia: Code(s): E87.1 - Hypo-osmolality and hyponatremia Status: Acute Assessment and
[2020-09-06 11:56] LABS: Glucose Point of Care 136 (65-105)
[2020-09-06] MEDS: AMIODARONE 150 MG/D5W 100 ML 150 MG/100 ML BAG 600 MG IV CONT (12:06)
[2020-09-06] MEDS: EPOPROSTENOL SODIUM 0.5 MG VIAL 1 MG INHALATION (12:08)
[2020-09-06] MEDS: AMIODARONE 360 MG/D5W 200 ML 360 MG/200 ML BAG 33.33 MG IV CONT (12:18)
--- NOTE | 2020-09-06 13:08 | P.PNNP_ITS ---
Progress Note: A&P Assessment and Plan (1) Hyponatremia: Code(s): E87.1 - Hypo-osmolality and hyponatremia Status: Acute Assessment and Plan: * The patient has hyponatremia. * Serum and urine osmolality pending. * Specific gravity on urinalysis is isosthenuric. * TSH and cortisol are okay * He of course has a chest process from his COVID. * No brain imaging has been done. We can check this after he is more stable. * Urine sodium is low and blood pressure was low so pre renal factors could be playing a role as well. * He is not on any suspicious medications currently nor was he on any before admission. * Notably he had low sodium is back in July as well before he was admitted. * I believe he has some underlying condition causing his sodium to be low. * Then he received lots of hypotonic fluid giving IV meds to treat his severe illness. * As many of those IV fluids have been changed to isotonic fluid. * He received hypertonic saline [id number] yesterday morning * Sodium today is 122. This Sodium mandy was 116 at 4:00 a.m. on 09/05. It was 120 at 5:00 a.m. today and now is 122. I think this is an appropriate rise in the serum sodium. * We will see what his sodium is in 4 hours and just follow up closely. * If he plateaus again we can always give more 3% saline (2) Acute respiratory failure with hypoxia: Code(s): J96.01 - Acute respiratory failure with hypoxia Status: Acute Assessment and Plan: * due to COVID-19 pneumonia and possibly ventilator associated pneumonia * s/p remdesivir x 1 and steroids x 2 * on antibiotics * continue ventilator support (3) Pneumonia due to COVID-19 virus: Code(s): U07.1 - COVID-19; J12.89 - Other viral pneumonia Status: Acute Assessment and Plan: * see #2 (4) Hypertension: Qualifiers: Hypertension type: unspecified Qualified Code(s): I10 - Essential (primary) hypertension Code(s): I10 - Essential (primary) hypertension Status: Chronic Assessment and Plan: * reasonable control if not with relative hypotension * follow trend of hemodynamics (5) Diabetes: Qualifiers: Diabetes mellitus type: type 2 Diabetes mellitus fdc insulin use: unspecified intermodal customer service insulin use status Diabetes mellitus complication status: without complication Qualified Code(s): E11.9 - Type 2 diabetes mellitus without complications Code(s): E11.9 - Type 2 diabetes mellitus without complications Status: Chronic Assessment and Plan: * follow accuchecks * on SSI Discussed case with Dr. Atkins Subjective Date/time seen: 09/06/20 13:08 Interval history: Patient is in the ICU on a ventilator. Unable to give any history. Review of Systems Review of Systems: ROS unobtainable: Yes unobtainable due to medical condition Exam Narrative: Exam Narrative: WDWN in NAD skin no rash head ncat lungs coarse bilaterally cor reg no rub abd BS+ nontender and soft ext trace edema. Objective Data Vital Signs Vital Signs: Vital Signs - 24 hr 09/05/20 13:26 09/05/20 14:00 09/05/20 14:25 Temperature Pulse Rate 94 98 99 Respiratory Rate 36 H 36 H 36 H Blood Pressure 109/65 113/63 Pulse Oximetry 91 92 09/05/20 16:00 09/05/20 16:08 09/05/20 16:19 Temperature 36.6 C Pulse Rate 99 100 100 Respiratory
--- NOTE | 2020-09-06 13:08 | PM.PNNEP ---
Progress Note: A&P Assessment and Plan (1) Hyponatremia: Code(s): E87.1 - Hypo-osmolality and hyponatremia Status: Acute Assessment and Plan: The patient has hyponatremia. Serum and urine osmolality pending. Specific gravity on urinalysis is isosthenuric. TSH and cortisol are okay He of course has a chest process from his COVID. No brain imaging has been done. We can check this after he is more stable. Urine sodium is low and blood pressure was low so pre renal factors could be playing a role as well. He is not on any suspicious medications currently nor was he on any before admission. Notably he had low sodium is back in July as well before he was admitted. I believe he has some underlying condition causing his sodium to be low. Then he received lots of hypotonic fluid giving IV meds to treat his severe illness. As many of those IV fluids have been changed to isotonic fluid. He received hypertonic saline [id number] yesterday morning Sodium today is 122. This Sodium mandy was 116 at 4:00 a.m. on 09/05. It was 120 at 5:00 a.m. today and now is 122. I think this is an appropriate rise in the serum sodium. We will see what his sodium is in 4 hours and just follow up closely. If he plateaus again we can always give more 3% saline (2) Acute respiratory failure with hypoxia: Code(s): J96.01 - Acute respiratory failure with hypoxia Status: Acute Assessment and Plan: due to COVID-19 pneumonia and possibly ventilator associated pneumonia s/p remdesivir x 1 and steroids x 2 on antibiotics continue ventilator support (3) Pneumonia due to COVID-19 virus: Code(s): U07.1 - COVID-19; J12.89 - Other viral pneumonia Status: Acute Assessment and Plan: see #2 (4) Hypertension: Qualifiers: Hypertension type: unspecified Qualified Code(s): I10 - Essential (primary) hypertension Code(s): I10 - Essential (primary) hypertension Status: Chronic Assessment and Plan: reasonable control if not with relative hypotension follow trend of hemodynamics (5) Diabetes: Qualifiers: Diabetes mellitus type: type 2 Diabetes mellitus fpc insulin use: 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 Atkins Subjective Date/time seen: 09/06/20 13:08 Interval history: Patient is in the ICU on a ventilator. Unable to give any history. Review of Systems Review of Systems: ROS unobtainable: Yes unobtainable due to medical condition Exam Narrative: Exam Narrative: WDWN in NAD skin no rash head ncat lungs coarse bilaterally cor reg no rub abd BS+ nontender and soft ext trace edema. Objective Data Vital Signs Vital Signs: Vital Signs - 24 hr 09/05/20 13:26 09/05/20 14:00 09/05/20 14:25 Temperature Pulse Rate 94 98 99 Respiratory Rate 36 H 36 H 36 H Blood Pressure 109/65 113/63 Pulse Oximetry 91 92 09/05/20 16:00 09/05/20 16:08 09/05/20 16:19 Temperature 36.6 C Pulse Rate 99 100 100 Respiratory Rate 36 H 36 H 36 H Blood Pressure 129/63 Pulse Oximetry 83 L 09/05/20 16:42 09/05/20 17:08 09/05/20 17:09 Temperature Pulse Rate 102 H 103 H 104 H Respiratory Rate 36 H 36 H 36 H Blood Pressure Pulse Oximetry 84 L 09/05/20 17:10 09/05/20 17:12 09/05/20 17:18 Temperature Pulse Rate 104 H 104 H 103 H Respiratory Rate 36 H 36 H 36 H Blood Pressure 117/66 Pulse Oximetry 09/05/20 17:40 09/05/20 17:55 09/05/20 18:00 Temperature Pulse Rate 111 H 111 H 108 H Respiratory Rate 36 H 36 H Blood Pressure 113/65 Pulse Oximetry 82 L 82 L 87 L 09/05/20 18:14 09/05
[2020-09-06] MEDS: NOREPINEPHRINE 8 MG/D5W 250 ML 8 MG/250 ML BAG 9.38 MG IV CONT (15:13)
--- NOTE | 2020-09-06 16:00 | PM.TDS ---
Transfer Discharge Sum: Prov Provider Date of admission: 08/17/20 20:40 Primary care physician: Antoinette Minor, MD Admitting clinician: Jamaal Cardona MD Consults: 08/19/20 Consult to Physician Routine Comment: Consulting Provider: Rufina Atkins Reason for consultation: increase oxygenation needs Has provider been notified: Yes 08/30/20 13:06 Consult to Physician Routine Comment: Consulting Provider: Byron Clarke occupational therapy aide/MD group to consult: INFECTIOUS DISEASE Reason for consultation: WBC [id number], COVID positive, possibe VAP Has provider been notified: Yes 09/05/20 Consult to Physician Routine Comment: Consulting Provider: Leticia Larsen occupational therapy aide/MD group to consult: Nephrology Reason for consultation: Hyponatremia Has provider been notified: No DS: Admitting Diagnosis Admitting Diagnosis Admitting Diagnosis: Acute hypoxic respiratory failure, Covid 19 DS: Discharge Diagnosis Discharge Diagnosis (1) Hyponatremia: Code(s): E87.1 - Hypo-osmolality and hyponatremia Status: Acute Assessment and Plan: Sodium increased from 190 to 222 with hypertonic saline, patient also has hypovolemic and is being diuresed with Lasix b.i.d.. (2) Acute respiratory failure with hypoxia: Code(s): J96.01 - Acute respiratory failure with hypoxia Status: Acute Assessment and Plan: Patient with acute hypoxic respiratory failure related to COVID-19 pneumonia -He was admitted to the hospital from 08/01/2020 to 08/12/2020 for COVID-19 pneumonia, patient was on the medical floor and was discharged home on 1 L nasal cannula at rest and 3 L nasal cannula with activity. -Patient was intubated on 08/19/2020 for impending respiratory failure secondary tachypnea and hypoxia -we have been unable to wean patient from ventilator, he has further decompensated currently paralyzed, sedated, prone -patient is not a candidate for ECMO -patient on 100% FiO2 and PEEP of 0, pressure control ventilation -patient's peak pressures remain high in the 60s with low tidal volumes around 260. -prone position 08/31-09/06 -Tylenol for fever -antibiotics: Vanc, cefepime -paralysis: Nimbex -sedation: Fentanyl, Versed, propofol -p.r.n. Levophed -flolan from 09/03- -DVT prophylaxis: Lovenox b.i.d. -daily chest x-rays (3) Pneumonia due to COVID-19 virus: Code(s): U07.1 - COVID-19; J12.89 - Other viral pneumonia Status: Acute Assessment and Plan: SARS-CoV-2 PCR positive - continue airborne, droplet, contact isolation precaution - monitor inflammatory markers intermittently - Patient had completed a course of Remdesivir and dexamethasone. - completed a 2nd course of dexamethasone which was initiated on 08/18 (4) Septic shock: Code(s): A41.9 - Sepsis, unspecified organism; R65.21 - Severe sepsis with septic shock Status: Acute Assessment and Plan: -hypothermic on the Su Hugger -antibiotics: Restarted cefepime possible ventilator associated pneumonia -sputum culture 08/31 growing yeast -blood cultures from 08/30 negative x2 -Levophed for shock (5) Diabetes: Qualifiers: Diabetes mellitus type: type 2 Diabetes mellitus detention insulin use: unspecified detention insulin use status Diabetes mellitus complication status: without complication Qualified Code(s): E11.9 - Type 2 diabetes mellitus without complications Code(s): E11.9 - Type 2 diabetes mellitus without complications Status: Chronic Assessment and Plan: -continue sliding scale insulin and Accu-Cheks -hemoglobin A1c was 6.9 on 08/03/2020 -Levemir has been on hold since the due to holding tube feeds due to prone positioning -continue moderate sliding scale insulin with Accu-Cheks (6) Dietary counseling and surveillance: Code(s): Z71.3 - Dietary counseling and surveillance Status: Acute Assessment and Plan: Patient was on tube
[2020-09-06] MEDS: AMIODARONE 360 MG/D5W 200 ML 360 MG/200 ML BAG 16.67 MG IV CONT (16:38)
--- NOTE | 2020-09-06 17:50 | PC.NURSE ---
Patient received bed at [facility]. room 593A. Report called to nurse and airvac notified. Spoke with Israel (son) and Cullen to notify of new room and that patient was going by helicopter. Airvac took all drips Nimbex, Fentanyl, Versed, Propofol, Amiodarone, Flolan, Levophed with them. Notified [facility] that patient left ICU at 1735.
[2020-09-08 04:14] LABS: Osmolality, Urine 114 mOsm/kg (50-1200)
[2020-09-09 12:57] LABS: Kappa\\Lambda Light Chains 1.22 (0.26-1.65); Lambda Light Chain 38.5 mg/L (5.7-26.3)
[2020-09-09 21:45] LABS: Albumin 1.8 g/dL (3.8-4.8); Alpha 1 Globulin 0.7 g/dL (0.2-0.3); Alpha 2 Globulin 0.9 g/dL (0.5-0.9); Beta 1 Globulin 0.3 g/dL (0.4-0.6)
[2020-09-12 12:22] LABS: Creatinine, Random Urine 14 mg/dL (20-320); Total Protein/Creatinine Ratio 1429 mg/g creat (22-128)
--- NOTE | 2020-09-29 17:24 | PM.IMPN ---
Progress Note: A&P Assessment and Plan (1) Leukocytosis: Code(s): D72.829 - Elevated white blood cell count, unspecified Status: Acute Assessment and Plan: Started on Cefepime Continue to monitor (2) Septic shock: Code(s): A41.9 - Sepsis, unspecified organism; R65.21 - Severe sepsis with septic shock Status: Acute Assessment and Plan: Started on Levophed. (3) Ground glass opacity present on imaging of lung: Code(s): R91.8 - Other nonspecific abnormal finding of lung field Status: Acute Assessment and Plan: Likely non resolving infiltrate Started on Cefepime (4) GERD (gastroesophageal reflux disease): Qualifiers: Esophagitis presence: without esophagitis Qualified Code(s): K21.9 - Gastro-esophageal reflux disease without esophagitis Code(s): K21.9 - Gastro-esophageal reflux disease without esophagitis Status: Chronic Assessment and Plan: Continue PPI (5) Pneumonia due to COVID-19 virus: Code(s): U07.1 - COVID-19; J12.89 - Other viral pneumonia Status: Acute Assessment and Plan: Completed Remdesivir Decadron course x 2 (6) Acute respiratory failure with hypoxia: Code(s): J96.01 - Acute respiratory failure with hypoxia Status: Acute Assessment and Plan: On ventilator. 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 Subjective Date/time seen: 08/29/20 10:24 Patient seen on 08/29/20 Late entry note Review of Systems Review of Systems: Narrative: Unable to obtain as patient is on ventilator support. Exam Narrative: Exam Narrative: On ventilator support. Const: General: comfortable Nutritional Appearance: average body habitus Orientation/consciousness: Other orientation findings (Under sedation.) HENMT: Head: normal to inspection and normocephalic Other: ETT in place. Neck: Neck: no lymphadenopathy, supple and no JVD Resp: Auscultation: diminished lung sounds Cardio: Rate: tachycardic GI: GI Palp: Yes Soft to palpation and Yes No hepatosplenomegaly present Skin: General skin exam: other Lesions: no lesions Rashes: no rashes Wounds: no wounds Neuro: General: other (Under sedation.) Extrem: General: no pedal edema Objective Data Meds/Results Radiology Results: ITS Impressions Chest CTA 08/17/20 20:27 IMPRESSION: 1. Diffuse groundglass and airspace opacities with a mid and lower lung zone predominance, consistent with COVID 19 pneumonia. 2. No pulmonary embolism identified, sensitivity limited by respiratory motion artifact. Abdomen X-Ray 08/25/20 12:17 IMPRESSION: 1. Nasogastric tube tip in the stomach. Chest X-Ray 09/06/20 08:16 IMPRESSION: Severe patchy consolidating infiltrates throughout both lungs, increased since 09/05/2020 Quality VTE Prophylaxis VTE prophylaxis: mechanical ordered and pharmacologic ordered (Lovenox 40 mg subq Q 12)
== END 2020-09-06 17:36 | disposition short-term general hospital (02) | DRG 870 ==
LOC: ANHED 20:45 → ANHIMU 08-18 00:44 → ANHICU 08-20 16:01 → ANHIMU 09-09 09:51
PROVIDERS: Emergency Medicine; Hospitalist; Internal Medicine; Internal Medicine Critical Care Medicine; Internal Medicine Infectious Disease; Internal Medicine Nephrology; Admitting Provider Family Medicine; Emergency Provider Emergency Medicine; PCP Family Medicine; Visit Provider Student in an Organized Health Care Education/Training Program
DX: A41.89 Other specified sepsis (principal); U07.1 COVID-19; J12.89 Other viral pneumonia; J96.01 Acute respiratory failure with hypoxia; R65.21 Severe sepsis with septic shock; E87.1 Hypo-osmolality and hyponatremia; J95.851 Ventilator associated pneumonia; E87.6 Hypokalemia; R84.5 Abnormal microbiological findings in specimens from respiratory organs and thorax; I10 Essential (primary) hypertension; E78.5 Hyperlipidemia, unspecified; E11.65 Type 2 diabetes mellitus with hyperglycemia; K21.9 Gastro-esophageal reflux disease without esophagitis; Z28.21 Immunization not carried out because of patient refusal; Z79.84 Long term (current) use of oral hypoglycemic drugs; Z79.899 Other long term (current) drug therapy; Z87.828 Personal history of other (healed) physical injury and trauma
CPT/HCPCS: 31500; 36415; 36569; 36600; 71045; 71275; 80048; 80053; 80202; 81001; 82375; 82533; 82570; 82728; 82805; 83050; 83605; 83615; 83735; 83880; 83883; 83930; 83935; 84100; 84132; 84145; 84155; 84156; 84165; 84166; 84295; 84300; 84443; 84478; 84484; 85025; 85027; 85380; 85610; 85730; 86140; 87040; 87070; 87076; 87205; 87449; 87635; 87899; 93005; 94002; 94003; 94640; 96361; 96374; 96375; 99285; A9270; C1751; C9113; C9803; J0282; J0456; J0692; J0696; J1100; J1650; J1815; J1940; J2060; J2250; J2704; J2765; J3010; J3370; J3475; J3480; J7040; J7050; J7060; J7131; Q9967; U0003